=== PATIENT | female | born 1990 | race Caucasian/White ===

== ENCOUNTER → 2020-12-27 09:45 | Outpatient (BNVA) | payer MEDICARE, MEDICAID, SELFPAY | PROVIDERS: PCP Nurse Practitioner Family; Visit Provider Nurse Practitioner Psychiatric/Mental Health | DX: F11.20 Opioid dependence, uncomplicated (principal); Z51.81 Encounter for therapeutic drug level monitoring; G47.411 Narcolepsy with cataplexy; E05.00 Thyrotoxicosis with diffuse goiter without thyrotoxic crisis or storm; F17.210 Nicotine dependence, cigarettes, uncomplicated | CPT/HCPCS: 80305 ==

== ENCOUNTER → 2021-01-03 14:29 | Outpatient (BNVA) | payer MEDICARE, MEDICAID, SELFPAY | PROVIDERS: PCP Nurse Practitioner Family; Visit Provider Nurse Practitioner Psychiatric/Mental Health | DX: F11.20 Opioid dependence, uncomplicated (principal) | CPT/HCPCS: 80305 ==

== ENCOUNTER → 2021-01-10 13:03 | Outpatient (BNVA) | payer MEDICARE, MEDICAID, SELFPAY | PROVIDERS: PCP Nurse Practitioner Family; Visit Provider Nurse Practitioner Psychiatric/Mental Health | DX: F11.20 Opioid dependence, uncomplicated (principal) | CPT/HCPCS: 80305 ==

== ENCOUNTER → 2021-01-17 13:43 | Outpatient (BNVA) | payer OTHER, SELFPAY | PROVIDERS: Visit Provider Nurse Practitioner Psychiatric/Mental Health ==

== ENCOUNTER → 2021-01-24 13:03 | Outpatient (BNVA) | payer MEDICARE, MEDICAID, SELFPAY | PROVIDERS: Visit Provider Nurse Practitioner Psychiatric/Mental Health | DX: F11.20 Opioid dependence, uncomplicated (principal); F17.210 Nicotine dependence, cigarettes, uncomplicated | CPT/HCPCS: 80305 ==

== ENCOUNTER → 2021-02-07 13:00 | Outpatient (BNVA) | payer MEDICARE, MEDICAID, SELFPAY | PROVIDERS: Visit Provider Nurse Practitioner Psychiatric/Mental Health | DX: F11.20 Opioid dependence, uncomplicated (principal); Z51.81 Encounter for therapeutic drug level monitoring; Z79.899 Other long term (current) drug therapy | CPT/HCPCS: 80305 ==

== ENCOUNTER → 2021-02-14 13:00 | Outpatient (BNVA) | payer MEDICARE, MEDICAID, SELFPAY | PROVIDERS: Visit Provider Nurse Practitioner Psychiatric/Mental Health | DX: F11.20 Opioid dependence, uncomplicated (principal) | CPT/HCPCS: 80305 ==

== ENCOUNTER → 2021-02-21 13:43 | Outpatient (BNVA) | payer MEDICARE, MEDICAID, SELFPAY | PROVIDERS: Visit Provider Nurse Practitioner Psychiatric/Mental Health | DX: F11.20 Opioid dependence, uncomplicated (principal); F17.210 Nicotine dependence, cigarettes, uncomplicated | CPT/HCPCS: 80305 ==

== ENCOUNTER → 2021-03-07 14:13 | Outpatient (BNVA) | payer MEDICARE, MEDICAID, SELFPAY | PROVIDERS: Visit Provider Nurse Practitioner Psychiatric/Mental Health | DX: F11.20 Opioid dependence, uncomplicated (principal); F17.210 Nicotine dependence, cigarettes, uncomplicated; Z91.041 Radiographic dye allergy status | CPT/HCPCS: 80305 ==

== ENCOUNTER → 2021-03-28 13:55 | Outpatient (BNVA) | payer MEDICARE, MEDICAID, SELFPAY | PROVIDERS: Visit Provider Nurse Practitioner Psychiatric/Mental Health | DX: F11.20 Opioid dependence, uncomplicated (principal) | CPT/HCPCS: 80305 ==

== ENCOUNTER → 2021-04-11 10:05 | Outpatient (BNVA) | payer MEDICARE, MEDICAID, SELFPAY | PROVIDERS: Visit Provider Nurse Practitioner Psychiatric/Mental Health | DX: F11.20 Opioid dependence, uncomplicated (principal) | CPT/HCPCS: 80305 ==

== ENCOUNTER → 2021-04-25 10:04 | Outpatient (BNVA) | payer MEDICARE, MEDICAID, SELFPAY | PROVIDERS: Visit Provider Nurse Practitioner Psychiatric/Mental Health | DX: F11.20 Opioid dependence, uncomplicated (principal); Z51.81 Encounter for therapeutic drug level monitoring | CPT/HCPCS: 80305; 99212 ==

== ENCOUNTER → 2021-05-16 10:18 | Outpatient (BNVA) | payer MEDICARE, MEDICAID, SELFPAY | PROVIDERS: Visit Provider Nurse Practitioner Psychiatric/Mental Health | DX: F11.20 Opioid dependence, uncomplicated (principal) | CPT/HCPCS: 80305; 99212 ==

== ENCOUNTER → 2021-06-06 10:26 | Outpatient (BNVA) | payer MEDICARE, MEDICAID, SELFPAY | PROVIDERS: Visit Provider Nurse Practitioner Psychiatric/Mental Health | DX: F11.20 Opioid dependence, uncomplicated (principal) | CPT/HCPCS: 80305; 99212 ==

== ENCOUNTER 2021-06-27 09:54 | Outpatient (REF) | payer MEDICARE, MEDICAID, SELFPAY | END 2021-06-27 09:55 | disposition home or self-care (01) | LOC: HO.LAB 09:54 | PROVIDERS: Visit Provider Nurse Practitioner Psychiatric/Mental Health | DX: F11.20 Opioid dependence, uncomplicated (principal); Z79.899 Other long term (current) drug therapy | CPT/HCPCS: 80305; 80348; 80362; 99212 ==

== ENCOUNTER → 2021-07-18 10:35 | Outpatient (BNVA) | payer MEDICARE, MEDICAID, SELFPAY | PROVIDERS: Visit Provider Nurse Practitioner Psychiatric/Mental Health | DX: Z51.81 Encounter for therapeutic drug level monitoring (principal); F11.20 Opioid dependence, uncomplicated | CPT/HCPCS: 80305; 99211 ==

== ENCOUNTER → 2021-08-08 10:46 | Outpatient (BNVA) | payer MEDICARE, MEDICAID, SELFPAY | PROVIDERS: Visit Provider Nurse Practitioner Psychiatric/Mental Health | DX: F11.20 Opioid dependence, uncomplicated (principal) | CPT/HCPCS: 80305; 99211 ==

== ENCOUNTER → 2021-09-05 10:46 | Outpatient (BNVA) | payer MEDICARE, MEDICAID, SELFPAY | PROVIDERS: Visit Provider Nurse Practitioner Psychiatric/Mental Health | DX: Z51.81 Encounter for therapeutic drug level monitoring (principal); F11.20 Opioid dependence, uncomplicated | CPT/HCPCS: 80305; 99212 ==

== ENCOUNTER → 2021-10-03 11:14 | Outpatient (BNVA) | payer MEDICARE, MEDICAID, SELFPAY | PROVIDERS: Visit Provider Nurse Practitioner Psychiatric/Mental Health | DX: Z51.81 Encounter for therapeutic drug level monitoring (principal); Z79.899 Other long term (current) drug therapy | CPT/HCPCS: 80305; 99211 ==

== ENCOUNTER 2021-10-24 10:51 | Outpatient (REF) | payer MEDICARE, MEDICAID, SELFPAY ==
[2021-10-24 12:15] LABS: Alanine Aminotransferase 20 U/L (0-31); Albumin Level 4.4 g/dL (3.5-5.0); Alkaline Phosphatase 80 U/L (39-117); Aspartate Amino Transferase 20 U/L (5-31); Bilirubin Direct < 0.2 mg/dL (0.0-0.5); Bilirubin Total 0.3 mg/dL (0.0-1.0); Total Protein 7.4 g/dL (6.5-8.0)
== END 2021-10-24 10:52 | disposition home or self-care (01) ==
LOC: HO.LAB 10:51
PROVIDERS: PCP Nurse Practitioner Family; Visit Provider Nurse Practitioner Psychiatric/Mental Health
DX: Z51.81 Encounter for therapeutic drug level monitoring (principal); Z79.899 Other long term (current) drug therapy
CPT/HCPCS: 36415; 80076; 80305; 99211

== ENCOUNTER → 2021-11-14 11:48 | Outpatient (BNVA) | payer MEDICARE, MEDICAID, SELFPAY | PROVIDERS: PCP Nurse Practitioner Family; Visit Provider Nurse Practitioner Psychiatric/Mental Health | DX: Z51.81 Encounter for therapeutic drug level monitoring (principal); F11.20 Opioid dependence, uncomplicated | CPT/HCPCS: 80305; 99211 ==

== ENCOUNTER → 2021-12-12 11:53 | Outpatient (BNVA) | payer MEDICARE, MEDICAID, SELFPAY | PROVIDERS: PCP Nurse Practitioner Family; Visit Provider Nurse Practitioner Psychiatric/Mental Health | DX: F11.20 Opioid dependence, uncomplicated (principal) | CPT/HCPCS: 80305; 99211 ==

== ENCOUNTER → 2022-01-16 10:18 | Outpatient (BNVA) | payer MEDICARE, MEDICAID, SELFPAY | PROVIDERS: PCP Nurse Practitioner Family; Visit Provider Nurse Practitioner Psychiatric/Mental Health | DX: Z51.81 Encounter for therapeutic drug level monitoring (principal); F11.20 Opioid dependence, uncomplicated | CPT/HCPCS: 80305; 99212 ==

== ENCOUNTER → 2022-02-06 11:53 | Outpatient (BNVA) | payer MEDICARE, MEDICAID, SELFPAY | PROVIDERS: PCP Nurse Practitioner Family; Visit Provider Nurse Practitioner Psychiatric/Mental Health | DX: F11.20 Opioid dependence, uncomplicated (principal); Z51.81 Encounter for therapeutic drug level monitoring; Z79.899 Other long term (current) drug therapy | CPT/HCPCS: Q3014 ==

== ENCOUNTER → 2022-02-27 11:27 | Outpatient (BNVA) | payer MEDICARE, MEDICAID, SELFPAY | PROVIDERS: PCP Nurse Practitioner Family; Visit Provider Nurse Practitioner Psychiatric/Mental Health | DX: F11.20 Opioid dependence, uncomplicated (principal) | CPT/HCPCS: 80305; 99212 ==

== ENCOUNTER → 2022-03-17 11:34 | Outpatient (BNVA) | payer MEDICARE, MEDICAID, SELFPAY | PROVIDERS: PCP Nurse Practitioner Family; Visit Provider Nurse Practitioner Psychiatric/Mental Health | DX: Z51.81 Encounter for therapeutic drug level monitoring (principal); F11.20 Opioid dependence, uncomplicated | CPT/HCPCS: 80305; 99212 ==

== ENCOUNTER → 2022-04-15 11:32 | Outpatient (BNVA) | payer MEDICARE, MEDICAID, SELFPAY | PROVIDERS: PCP Nurse Practitioner Family; Visit Provider Nurse Practitioner Psychiatric/Mental Health | DX: F11.20 Opioid dependence, uncomplicated (principal); Z51.81 Encounter for therapeutic drug level monitoring; Z79.899 Other long term (current) drug therapy | CPT/HCPCS: 80305; 99212 ==

== ENCOUNTER → 2022-05-13 11:37 | Outpatient (BNVA) | payer MEDICARE, MEDICAID, SELFPAY | PROVIDERS: PCP Nurse Practitioner Family; Visit Provider Nurse Practitioner Psychiatric/Mental Health | DX: Z51.81 Encounter for therapeutic drug level monitoring (principal); F11.20 Opioid dependence, uncomplicated | CPT/HCPCS: 80305; 99212 ==

== ENCOUNTER → 2022-06-17 11:46 | Outpatient (BNVA) | payer MEDICARE, MEDICAID, SELFPAY | PROVIDERS: PCP Nurse Practitioner Family; Visit Provider Nurse Practitioner Psychiatric/Mental Health | DX: F11.20 Opioid dependence, uncomplicated (principal) | CPT/HCPCS: 80305; 99212 ==

== ENCOUNTER → 2022-07-15 11:44 | Outpatient (BNVA) | payer MEDICARE, MEDICAID, SELFPAY | PROVIDERS: PCP Nurse Practitioner Family; Visit Provider Nurse Practitioner Psychiatric/Mental Health | DX: Z51.81 Encounter for therapeutic drug level monitoring (principal); F11.20 Opioid dependence, uncomplicated | CPT/HCPCS: 99212 ==

== ENCOUNTER → 2022-09-09 11:44 | Outpatient (BNVA) | payer MEDICARE, MEDICAID, SELFPAY | PROVIDERS: PCP Nurse Practitioner Family; Visit Provider Nurse Practitioner Psychiatric/Mental Health | DX: Z51.81 Encounter for therapeutic drug level monitoring (principal); F11.20 Opioid dependence, uncomplicated | CPT/HCPCS: 80305; 99212 ==

== ENCOUNTER → 2022-11-04 11:01 | Outpatient (BNVA) | payer MEDICARE, MEDICAID, SELFPAY | PROVIDERS: PCP Nurse Practitioner Family; Visit Provider Nurse Practitioner Psychiatric/Mental Health | DX: F11.20 Opioid dependence, uncomplicated (principal); F17.210 Nicotine dependence, cigarettes, uncomplicated; Z51.81 Encounter for therapeutic drug level monitoring; Z79.899 Other long term (current) drug therapy | CPT/HCPCS: 99212 ==

== ENCOUNTER → 2022-12-30 11:08 | Outpatient (BNVA) | payer MEDICARE, MEDICAID, SELFPAY | PROVIDERS: PCP Nurse Practitioner Family; Visit Provider Nurse Practitioner Psychiatric/Mental Health | DX: F11.20 Opioid dependence, uncomplicated (principal) | CPT/HCPCS: 80305; 99212 ==

== ENCOUNTER 2023-03-12 15:12 | Outpatient (AMB) | payer MEDICARE, MEDICAID, SELFPAY ==
--- NOTE | 2023-03-12 15:13 | A.OFFVIS_ITS ---
Intake Vital Signs 03/12/23 15:20 BP 122/74 Blood Pressure Location Lt radial Position Sitting Pulse 99 Pulse Source Pulse Oximeter Pulse Oximetry (%) 99 Oxygen Delivery Method Room Air Intake Visit Reasons: mat visit Intake Note: the patient presents for a mat visit Manager Voice Required: No Allergies Iodinated Contrast Media Allergy (Intermediate, Verified 03/12/23 15:21) rash Do you need a note to return to daycare/school/sports/work: No HPI mat visit HPI Details Pt presents for OUD treatment follow up Currently being prescribed Suboxone 12 mg daily Denies any side effects related to medication Doing well with recovery. [facility] Social History Patient Tobacco Use Status: Current someday Tobacco user Tobacco use type: Cigarette Review of Systems Const Reports as per HPI and Reports no additional complaints Physical Exam Vital Signs: Last Vital Signs Pulse 99 03/12/23 15:20 BP 122/74 03/12/23 15:20 Pulse Ox 99 03/12/23 15:20 Oxygen Delivery Method Room Air 03/12/23 15:20 Const General: cooperative, healthy appearing and no acute distress Psych Appearance: grossly normal Speech and movement: Normal speech and movement present Affect: normal affect Attitude: cooperative Thought process: Normal thought process present Thought content: Normal thought content present Insight: Good insight present (Psych) Judgement: Good judgement present (Psych) Assessment & Plan Assessment & Plan (1) Opioid use disorder: Code(s): F11.99 - Opioid use, unspecified with unspecified opioid-induced disorder Plan: * continue suboxone at current dose * follow up 8 weeks Coding Level of Care Code Est Pt Level 3 (71437) Diagnoses Opioid use disorder F11.99
[2023-03-12 15:20] VITALS: BP 122/74; PULSE 99; O2SAT 99
== END 2023-03-12 15:52 | disposition home or self-care (01) ==
LOC: HO.HCC 15:12
PROVIDERS: PCP Nurse Practitioner Family; Visit Provider Nurse Practitioner Psychiatric/Mental Health
DX: F11.99 Opioid use, unspecified with unspecified opioid-induced disorder (principal)
CPT/HCPCS: 99213

== ENCOUNTER → 2023-03-12 15:12 | Outpatient (BNVA) | payer MEDICARE, MEDICAID, SELFPAY | PROVIDERS: PCP Nurse Practitioner Family; Visit Provider Nurse Practitioner Psychiatric/Mental Health | DX: F11.20 Opioid dependence, uncomplicated (principal) | CPT/HCPCS: 99212 ==

== ENCOUNTER 2023-05-18 10:36 | Outpatient (AMB) | payer MEDICARE, MEDICAID, SELFPAY ==
--- NOTE | 2023-05-18 09:37 | MHC.AM.SUB ---
Intake Intake Visit Reasons: MAT Visit Allergies Iodinated Contrast Media Allergy (Intermediate, Verified 03/12/23 15:21) rash HPI MAT Visit HPI Details Patient presents for follow up via telehealth Car broken down, unable to come in Reports that she continues to do well with recovery BF children living with their mother currently. Has some working coming up soon [facility] Social History Patient Tobacco Use Status: Current someday Tobacco user Tobacco use type: Cigarette Review of Systems Const Reports as per HPI and Reports no additional complaints Assessment & Plan Assessment & Plan (1) Opioid use disorder, severe, in sustained remission: Code(s): F11.21 - Opioid dependence, in remission Plan: continue suboxone 12mg QD discussed brixadi --as patient is considering tapering Telehealth Telehealth Location of provider rendering services: practice address Location of patient: address on file Patient Identification confirmed using: Name, : Yes Telehealth method: voice only Patient verbally consented to treatment: Yes Patient verbally consented to billing insurance company: Yes Coding Level of Care Code Tele Est Pt Level 3 (58119) Diagnoses Opioid use disorder, severe, in sustained remission F11.21 Time Spent (min) 25 Comment 15 mins with patient, remainder on chart review and documentation
== END 2023-05-18 10:37 | disposition home or self-care (01) ==
LOC: HO.HCC 10:36
PROVIDERS: PCP Nurse Practitioner Family; Visit Provider Nurse Practitioner Psychiatric/Mental Health
DX: F11.21 Opioid dependence, in remission (principal)
CPT/HCPCS: 99442

== ENCOUNTER → 2023-05-18 10:36 | Outpatient (BNVA) | payer MEDICARE, MEDICAID, SELFPAY | PROVIDERS: PCP Nurse Practitioner Family; Visit Provider Nurse Practitioner Psychiatric/Mental Health ==

== ENCOUNTER 2023-07-07 11:13 | Outpatient (AMB) | payer MEDICARE, MEDICAID, SELFPAY ==
--- NOTE | 2023-07-07 12:18 | A.OFFVISCC_ITS ---
Intake Intake Visit Reasons: MAT VISIT Allergies Iodinated Contrast Media Allergy (Intermediate, Verified 03/12/23 15:21) rash HPI HPI Comments History of Present Illness Details Patient presents to the clinic today for treatment and follow up She reports missing her last appt because her car broke down. She also reports her partner broke his ankle and that has presented some challenges for her. She is hoping when her partner is all squared away medically to begin tapering her suboxone dose. She is currently at 12mg/day. She has no recovery or medication related concerns today. [facility] Social History Patient Tobacco Use Status: Current someday Tobacco user Tobacco use type: Cigarette Review of Systems Const Reports as per HPI Physical Exam Const General: cooperative, healthy appearing and no acute distress Resp Effort & Inspection: normal respiratory effort Psych Appearance: grossly normal and well kempt Mental Status: mental status grossly normal Speech and movement: Normal speech and movement present Insight: Good insight present (Psych) Judgement: Good judgement present (Psych) Results AMB 14 Panel Urine Drug Screen Urine Marijuana (THC) Positive Last Edit by Francisca Carrillo NP on 07/07/23 12:23 Urine Cocaine Negative Last Edit by Francisca Carrillo NP on 07/07/23 12:23 Urine Morphine Negative Last Edit by Francisca Carrillo NP on 07/07/23 12:23 Urine Methamphetamine Negative Last Edit by Francisca Carrillo NP on 07/07/23 12:23 Urine Amphetamine Negative Last Edit by Francisca Carrillo NP on 07/07/23 12:2 3 Urine Benzodiazepine Negative Last Edit by Francisca Carrillo NP on 07/07/23 12:23 Urine Barbiturates Negative Last Edit by Francisca Carrillo NP on 07/07/23 12: 23 Urine Methadone Negative Last Edit by Francisca Carrillo NP on 07/07/23 12:23 Urine Buprenorphine Positive Last Edit by Francisca Carrillo NP on 07/07/23 12 :23 Urine Tricyclic Antidepressant Positive Last Edit by Francisca Carrillo NP on 07/07/23 12:23 Urine MDMA Negative Last Edit by Francisca Carrillo NP on 07/07/23 12:23 Urine Oxycodone Negative Last Edit by Francisca Carrillo NP on 07/07/23 12:23 Urine Phencyclidine Negative Last Edit by Francisca Carrillo NP on 07/07/23 12 :23 Urine Propoxyphene Negative Last Edit by Francisca Carrillo NP on 07/07/23 12: 23 Assessment & Plan Assessment & Plan (1) Opioid use disorder, severe, in sustained remission: Code(s): F11.21 - Opioid dependence, in remission Plan: -Refill suboxone at current dose -Follow up 8 weeks -Mass pat reviewed Orders: Orders AMB 14 Panel Urine Drug Screen Today F11.21 - Opioid dependence, in remission Medications: Refilled buprenorphine-naloxone 12-3 mg (Suboxone) 1 film buccal DAILY 56 ea 0RF Coding Level of Care Code Est Pt Level 3 (68521) Diagnoses Opioid use disorder, severe, in sustained remission F11.21
== END 2023-07-07 11:33 | disposition home or self-care (01) ==
PROVIDERS: PCP Nurse Practitioner Family; Visit Provider Nurse Practitioner Family
DX: F11.21 Opioid dependence, in remission (principal)
CPT/HCPCS: 99213

== ENCOUNTER → 2023-07-07 11:13 | Outpatient (BNVA) | payer MEDICARE, MEDICAID, SELFPAY | PROVIDERS: PCP Nurse Practitioner Family; Visit Provider Nurse Practitioner Family | DX: F11.20 Opioid dependence, uncomplicated (principal) | CPT/HCPCS: 80305; 99212 ==

== ENCOUNTER 2023-09-01 11:10 | Outpatient (AMB) | payer MEDICARE, MEDICAID, SELFPAY ==
--- NOTE | 2023-09-01 11:17 | A.OFFVISCC_ITS ---
Intake Vital Signs 09/01/23 11:26 BP 135/80 Blood Pressure Location Rt radial Position Sitting Pulse 65 Pulse Source Pulse Oximeter Pulse Oximetry (%) 98 Oxygen Delivery Method Room Air Intake Visit Reasons: MAT VISIT Allergies Iodinated Contrast Media Allergy (Intermediate, Verified 03/12/23 15:21) rash HPI MAT VISIT HPI Details Patient presents for follow up Currently prescribed Suboxone 12mg QD Still having issues with stepdaughter --may be placed in a youth program in near future Discussed how stressors impact recovery. Patient feels strong in her recovery and finds her boyfriend to be very supportive. [facility] Social History Patient Tobacco Use Status: Current someday Tobacco user Tobacco use type: Cigarette Review of Systems Const Reports as per HPI and Reports no additional complaints Physical Exam Vital Signs: Last Vital Signs Pulse 65 09/01/23 11:26 BP 135/80 09/01/23 11:26 Pulse Ox 98 09/01/23 11:26 Oxygen Delivery Method Room Air 09/01/23 11:26 Const General: cooperative, healthy appearing and no acute distress Nutritional Appearance: average body habitus Orientation/consciousness: patient oriented x3 Limitations: no limitations Neuro General: patient oriented x3 Psych Appearance: well kempt Speech and movement: Normal speech and movement present Affect: normal affect Attitude: cooperative Thought process: Normal thought process present Thought content: Normal thought content present Results AMB 14 Panel Urine Drug Screen Urine Marijuana (THC) Positive Last Edit by Shaila Epstein RN on 09/01/23 11:29 Urine Cocaine Negative Last Edit by Shaila Epstein RN on 09/01/23 11:29 Urine Morphine Negative Last Edit by Shaila Epstein RN on 09/01/23 11:29 Urine Methamphetamine Negative Last Edit by Shaila Epstein RN on 09/01/23 11:29 Urine Amphetamine Negative Last Edit by Shaila Epstein RN on 09/01/23 11:29 Urine Benzodiazepine Negative Last Edit by Shaila Epstein RN on 09/01/23 11 :29 Urine Barbiturates Negative Last Edit by Shaila Epstein RN on 09/01/23 11:2 9 Urine Methadone Negative Last Edit by Shaila Epstein RN on 09/01/23 11:29 Urine Buprenorphine Positive Last Edit by Shaila Epstein RN on 09/01/23 11: 29 Urine Tricyclic Antidepressant Positive Last Edit by Shaila Epstein RN on 09/01/23 11:29 Urine MDMA Negative Last Edit by Shaila Epstein RN on 09/01/23 11:29 Urine Oxycodone Negative Last Edit by Shaila Epstein RN on 09/01/23 11:29 Urine Phencyclidine Negative Last Edit by Shaila Epstein RN on 09/01/23 11: 29 Urine Propoxyphene Negative Last Edit by Shaila Epstein RN on 09/01/23 11:2 9 Results Reviewed Results Reviewed: Laboratory Last Values POC Urine Buprenorphine Positive 09/01/23 11:28 POC Urine Morphine Negative 09/01/23 11:28 POC Urine Oxycodone Negative 09/01/23 11:28 POC Urine Methadone Negative 09/01/23 11:28 POC Urine Propoxyphene Negative 09/01/23 11:28 POC Urine Barbiturates Negative 09/01/23 11:28 POC U Tricyclic Antidpr Positive 09/01/23 11:28 POC Urine PCP Negative 09/01/23 11:28 POC Ur Amphetamines Negative 09/01/23 11:28 POC Ur Methamphetamine Negative 09/01/23 11:28 POC Urine MDMA Negative 09/01/23 11:28 POC Ur Benzodiazepine Negative 09/01/23 11:28 POC Urine Cocaine Negative 09/01/23 11:28 POC Ur Marijuana (THC) Positive 09/01/23 11:28 Assessment & Plan Assessment & Plan (1) Opioid use disorder, severe, in sustained remission: Code(s): F11.21 - Opioid dependence, in remission Plan: -continue suboxone at current dose follow up 8 weeks -encouraged to call office prior to next appt if needed Orders: Orders AMB 14 Panel Urine Drug Screen Today F11.21 - Opioid dependence, in remission Medications: Refilled buprenorphine-naloxone 12-3 mg (Suboxone) 1 film buccal DAILY 56 ea 0RF Coding Level of Care Code Est Pt Level 3 (72207) Diagnoses Opioid use disorder, severe, in sustained remission F11.21
[2023-09-01 11:26] VITALS: BP 135/80; PULSE 65; O2SAT 98
== END 2023-09-01 11:50 | disposition home or self-care (01) ==
LOC: HO.HCC 11:11
PROVIDERS: PCP Nurse Practitioner Family; Visit Provider Nurse Practitioner Psychiatric/Mental Health
DX: F11.21 Opioid dependence, in remission (principal)
CPT/HCPCS: 99213

== ENCOUNTER → 2023-09-01 11:10 | Outpatient (BNVA) | payer MEDICARE, MEDICAID, SELFPAY | PROVIDERS: PCP Nurse Practitioner Family; Visit Provider Nurse Practitioner Psychiatric/Mental Health | DX: Z51.81 Encounter for therapeutic drug level monitoring (principal); F11.21 Opioid dependence, in remission | CPT/HCPCS: 80305; 99212 ==

== ENCOUNTER 2023-10-26 11:37 | Outpatient (AMB) | payer MEDICARE, MEDICAID, SELFPAY ==
[2023-10-26 11:42] VITALS: BP 120/60; PULSE 89; RESP 19; O2SAT 98
--- NOTE | 2023-10-26 11:42 | MHC.AM.SUB ---
Vital Signs 10/26/23 11:42 BP 120/60 Blood Pressure Location Rt radial Position Sitting Respiration 19 Pulse 89 Pulse Source Pulse Oximeter Pulse Oximetry (%) 98 Intake Visit Reasons: mat visit Allergies Iodinated Contrast Media Allergy (Intermediate, Verified 03/12/23 15:21) rash HPI HPI mat visit: Details: Patient presents for follow up No issues related to recovery--Suboxone dose still adequate at 8mg QD Patient sharing challenges at home--reviewed self care. Patient currently not doing any self care work. Working on boundaries with people in her life requesting therapy referral, ready to meet with someone in person to work through some things Depressive sx--sadness, decreased motivation, lack of enjoyment, increased sleep, racing thoughts PFSH Social History Patient Tobacco Use Status: Current someday Tobacco user Tobacco use type: Cigarette Review of Systems Const Reports as per HPI Physical Exam Vital Signs: Last Vital Signs Pulse 89 10/26/23 11:42 Resp 19 10/26/23 11:42 BP 120/60 10/26/23 11:42 Pulse Ox 98 10/26/23 11:42 Const General: cooperative, healthy appearing and no acute distress Nutritional Appearance: average body habitus Orientation/consciousness: patient oriented x3 Limitations: no limitations Neuro General: patient oriented x3 Psych Appearance: well kempt Speech and movement: Normal speech and movement present Affect: normal affect Attitude: cooperative Thought process: Normal thought process present Thought content: Normal thought content present Assessment & Plan Assessment & Plan (1) Opioid use disorder, severe, in sustained remission: Code(s): F11.21 - Opioid dependence, in remission Category: Medical Plan: -continue suboxone at current dose -follow up 4 weeks -encouraged to call office prior to next appt if needed -referral sent to RN for therapy
== END 2023-10-27 15:00 | disposition home or self-care (01) ==
LOC: HO.HCC 11:37
PROVIDERS: PCP Nurse Practitioner Family; Visit Provider Nurse Practitioner Psychiatric/Mental Health
DX: F11.21 Opioid dependence, in remission (principal)
CPT/HCPCS: 99213

== ENCOUNTER → 2023-10-26 11:37 | Outpatient (BNVA) | payer MEDICARE, MEDICAID, SELFPAY | PROVIDERS: PCP Nurse Practitioner Family; Visit Provider Nurse Practitioner Psychiatric/Mental Health | DX: F11.21 Opioid dependence, in remission (principal) | CPT/HCPCS: 99212 ==

== ENCOUNTER 2023-11-23 10:38 | Outpatient (AMB) | payer MEDICARE, MEDICAID, SELFPAY ==
[2023-11-23 10:43] VITALS: BP 146/84; PULSE 86; O2SAT 97
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
== END 2023-11-23 11:08 | disposition home or self-care (01) ==
PROVIDERS: PCP Nurse Practitioner Family; Visit Provider Nurse Practitioner Psychiatric/Mental Health
DX: F11.21 Opioid dependence, in remission (principal)
CPT/HCPCS: 99213

== ENCOUNTER → 2023-11-23 10:38 | Outpatient (BNVA) | payer MEDICARE, MEDICAID, SELFPAY | PROVIDERS: PCP Nurse Practitioner Family; Visit Provider Nurse Practitioner Psychiatric/Mental Health | DX: F11.21 Opioid dependence, in remission (principal) | CPT/HCPCS: 99212 ==

== ENCOUNTER 2023-12-22 10:35 | Outpatient (AMB) | payer MEDICARE, MEDICAID, SELFPAY ==
--- NOTE | 2023-12-24 13:55 | A.OFFVISCC_ITS ---
Intake Visit Reasons: mat visit Allergies Iodinated Contrast Media Allergy (Intermediate, Verified 03/12/23 15:21) rash HPI HPI mat visit: Details: Patient presents for follow up Currently prescribed Suboxone 12mg daily Sad affect during visit Stressors at home continue. Limited to no supports. Unable to identify any outlets for herself. Denies any thoughts to use substances, feels this is the only positive thing I have in my life . Provided supportive listening [facility] Medical History (Updated 12/24/23 @ 14:00 by Mely Luevano CNP) Opioid use disorder Social History Patient Tobacco Use Status: Current someday Tobacco user Tobacco use type: Cigarette Review of Systems Const Reports as per HPI Physical Exam Const General: cooperative, alert and awake Nutritional Appearance: average body habitus Limitations: physical limitations (difficulty walking due to sciatic nerve) Psych Appearance: grossly normal Speech and movement: Clear speech present Affect: Sad affect present and Blunted affect present Attitude: cooperative Thought content: Depressive thoughts present Insight: Good insight present (Psych) Judgement: Good judgement present (Psych) Assessment & Plan Assessment & Plan (1) Opioid use disorder, severe, in sustained remission: Code(s): F11.21 - Opioid dependence, in remission Category: Medical Plan: * continue suboxone at current dose * encouraged to call office with any questions or concerns * follow up one month
== END 2023-12-22 11:17 | disposition home or self-care (01) ==
PROVIDERS: PCP Nurse Practitioner Family; Visit Provider Nurse Practitioner Psychiatric/Mental Health
DX: F11.21 Opioid dependence, in remission (principal)
CPT/HCPCS: 99213

== ENCOUNTER → 2023-12-22 10:35 | Outpatient (BNVA) | payer MEDICARE, MEDICAID, SELFPAY | PROVIDERS: PCP Nurse Practitioner Family; Visit Provider Nurse Practitioner Psychiatric/Mental Health | DX: F11.20 Opioid dependence, uncomplicated (principal) | CPT/HCPCS: 99212 ==

== ENCOUNTER 2024-02-12 11:35 | Outpatient (AMB) | payer MEDICARE, MEDICAID, SELFPAY ==
--- NOTE | 2024-02-12 11:45 | A.OFFVISCC_ITS ---
Intake Visit Reasons: mat visit Allergies Iodinated Contrast Media Allergy (Intermediate, Verified 03/12/23 15:21) rash HPI HPI mat visit: Details: Patient presents for follow up Currently prescribed Suboxone 12mg daily Brighter affect today Things positive at home--kids are not there No issues related to suboxone PFSH Medical History (Updated 12/24/23 @ 14:00 by Mely Luevano CNP) Opioid use disorder Social History Patient Tobacco Use Status: Current someday Tobacco user Tobacco use type: Cigarette Review of Systems Const Reports as per HPI and Reports no additional complaints Physical Exam Const General: cooperative, healthy appearing, no acute distress and well groomed Nutritional Appearance: average body habitus Orientation/consciousness: patient oriented x3 Limitations: no limitations Neuro General: patient oriented x3 Assessment & Plan Assessment & Plan (1) Opioid use disorder, severe, in sustained remission: Code(s): F11.21 - Opioid dependence, in remission Category: Medical Plan: * no change to dose * refill not yet due * follow up 6 weeks
== END 2024-02-12 12:06 | disposition home or self-care (01) ==
PROVIDERS: PCP Nurse Practitioner Family; Visit Provider Nurse Practitioner Psychiatric/Mental Health
DX: F11.21 Opioid dependence, in remission (principal)
CPT/HCPCS: 99213

== ENCOUNTER → 2024-02-12 11:35 | Outpatient (BNVA) | payer MEDICARE, MEDICAID, SELFPAY | PROVIDERS: PCP Nurse Practitioner Family; Visit Provider Nurse Practitioner Psychiatric/Mental Health | DX: F11.21 Opioid dependence, in remission (principal); Z51.81 Encounter for therapeutic drug level monitoring | CPT/HCPCS: 99212 ==

== ENCOUNTER 2024-03-24 11:06 | Outpatient (AMB) | payer MEDICARE, MEDICAID, SELFPAY ==
--- NOTE | 2024-03-24 11:22 | A.OFFVISCC_ITS ---
Intake Visit Reasons: mat visit Allergies Iodinated Contrast Media Allergy (Intermediate, Verified 03/12/23 15:21) rash HPI HPI mat visit: Details: Patient presents for follow up Currently prescribed 12 mg daily No issues related to recovery PFSH Medical History (Updated 12/24/23 @ 14:00 by Mely Luevano CNP) Opioid use disorder Social History Patient Tobacco Use Status: Current someday Tobacco user Tobacco use type: Cigarette Review of Systems Const Reports as per HPI and Reports no additional complaints Physical Exam Const General: cooperative, healthy appearing, no acute distress and well groomed Nutritional Appearance: average body habitus Orientation/consciousness: patient oriented x3 Limitations: no limitations Neuro General: patient oriented x3 Assessment & Plan Assessment & Plan (1) Opioid use disorder, severe, in sustained remission: Code(s): F11.21 - Opioid dependence, in remission Category: Medical Plan: * no change to dose * refill not yet due * follow up 8 weeks
== END 2024-03-24 11:38 | disposition home or self-care (01) ==
PROVIDERS: PCP Nurse Practitioner Family; Visit Provider Nurse Practitioner Psychiatric/Mental Health
DX: F11.21 Opioid dependence, in remission (principal)
CPT/HCPCS: 99213

== ENCOUNTER → 2024-03-24 11:06 | Outpatient (BNVA) | payer MEDICARE, MEDICAID, SELFPAY | PROVIDERS: PCP Nurse Practitioner Family; Visit Provider Nurse Practitioner Psychiatric/Mental Health | DX: F11.21 Opioid dependence, in remission (principal) | CPT/HCPCS: 99212 ==

== ENCOUNTER 2024-05-18 11:04 | Outpatient (AMB) | payer MEDICARE, MEDICAID, SELFPAY ==
--- NOTE | 2024-05-18 11:17 | A.OFFVISCC_ITS ---
Intake Visit Reasons: mat visit Allergies Iodinated Contrast Media Allergy (Intermediate, Verified 03/12/23 15:21) rash HPI HPI mat visit: Details: Patient presents for follow up Currently prescribed Suboxone 12mg daily Tolerating current dose continues to feel strong in her recovery --well supported by her partner Some stressors related to her father's health--cancer has spread Review of Systems Const Reports as per HPI and Reports no additional complaints Physical Exam Const General: cooperative, healthy appearing and well groomed Nutritional Appearance: average body habitus Orientation/consciousness: patient oriented x3 Limitations: no limitations Neuro General: patient oriented x3 Assessment & Plan Assessment & Plan (1) Opioid use disorder, severe, in sustained remission: Code(s): F11.21 - Opioid dependence, in remission Category: Medical Plan: * no changes to current dose * follow up 2 months [facility] Medical History (Updated 12/24/23 @ 14:00 by Mely Luevano CNP) Opioid use disorder Social History Patient Tobacco Use Status: Current someday Tobacco user Tobacco use type: Cigarette
== END 2024-05-18 11:43 | disposition home or self-care (01) ==
PROVIDERS: PCP Nurse Practitioner Family; Visit Provider Nurse Practitioner Psychiatric/Mental Health
DX: F11.21 Opioid dependence, in remission (principal)
CPT/HCPCS: 99213

== ENCOUNTER → 2024-05-18 11:04 | Outpatient (BNVA) | payer MEDICARE, MEDICAID, SELFPAY | PROVIDERS: PCP Nurse Practitioner Family; Visit Provider Nurse Practitioner Psychiatric/Mental Health | DX: F11.21 Opioid dependence, in remission (principal); Z79.899 Other long term (current) drug therapy | CPT/HCPCS: 99212 ==

== ENCOUNTER 2024-07-22 09:03 | Outpatient (AMB) | payer MEDICARE, MEDICAID, SELFPAY ==
--- NOTE | 2024-07-22 09:04 | MHC.AM.SUB ---
Intake Visit Reasons: Follow up Allergies Iodinated Contrast Media Allergy (Intermediate, Verified 03/12/23 15:21) rash [facility] Follow up: Details: Patient presents for follow up via telehealth Currently prescribed Suboxone 12mg daily Tolerating current dose Denies any issues related to recovery Review of Systems Const Reports as per [facility] Telehealth Telehealth Telehealth Platform: Telephone Location of provider rendering services: practice address Location of patient: address on file Patient Identification confirmed using: Name, : Yes Telehealth method: voice only Patient verbally consented to treatment: Yes Patient verbally consented to billing insurance company: Yes Minutes spent on Phone/Video with Pt.: 15 [facility] Medical History (Updated 12/24/23 @ 14:00 by Mely Luevano CNP) Opioid use disorder Social History Patient Tobacco Use Status: Current someday Tobacco user Tobacco use type: Cigarette Assessment & Plan Assessment & Plan (1) Opioid use disorder, severe, in sustained remission: Code(s): F11.21 - Opioid dependence, in remission Category: Medical Plan: continue suboxone at current dose follow up 2 months
== END 2024-07-22 10:10 | disposition home or self-care (01) ==
PROVIDERS: PCP Nurse Practitioner Family; Visit Provider Nurse Practitioner Psychiatric/Mental Health
DX: F11.21 Opioid dependence, in remission (principal)
CPT/HCPCS: 98016

== ENCOUNTER 2024-09-16 11:09 | Outpatient (AMB) | payer MEDICARE, MEDICAID, SELFPAY ==
--- NOTE | 2024-09-16 11:17 | MHC.AM.SUB ---
Intake Visit Reasons: Follow up Allergies Iodinated Contrast Media Allergy (Intermediate, Verified 03/12/23 15:21) rash HPI HPI Follow up: Details: Patient presents for follow up Currently prescribed Suboxone 12mg daily Taking 6mg BID Tolerating current dose Sleep is good Appetite okay Now living with her parents --big change, but overall positive Review of Systems Const Reports as per HPI and Reports no additional complaints Physical Exam Const General: cooperative, healthy appearing and well groomed Nutritional Appearance: average body habitus Orientation/consciousness: patient oriented x3 Limitations: no limitations Neuro General: patient oriented x3 [facility] Medical History (Updated 12/24/23 @ 14:00 by Mely Luevano CNP) Opioid use disorder Social History Patient Tobacco Use Status: Current someday Tobacco user Tobacco use type: Cigarette Assessment & Plan Assessment & Plan (1) Opioid use disorder, severe, in sustained remission: Code(s): F11.21 - Opioid dependence, in remission Category: Medical Plan: continue suboxone at current dose follow up 2 months
--- OUTSIDE RECORDS SUMMARY | 2024-09-16 12:55 | XMS_ITS | Data Portability ---
Author Organization [facility], [facility] Address [address] [place] [address] Care Team Providers Care Software Licensing Specialist Name Role Phone TENZIN RENTERIA Discount Clerk JOSEFINA JUNIOR Systems Integrator BEN CURTIS MD Sleep Medicine ABI ESPINOZA Primary Care Provider Assessment Encounter Date Assessment Date Assessment LastModified by Organization Details LastModified Time 11/21/2016 11/21/2016 26yo woman with a history of narcolepsy, major depressive disorder, in remission, and Graves disease kindly referred by [employer]ER John Graves disease, on methimazole from 2013 for 6mo, off due to insurance issue, then restarted 04/19 to 08/21 due to suppressed tsh, now off again. 11/12/16 total t3 0.85, ft4 0.89, tsh 0.05, ast 14, alt 22, tbil 0.3, 07/31/16 total t3 2.3ng/mL (Ref 0.7, 1.7), ft4 2.5 (ref 0.75, 1.54), tsh lt 0.01, 02/05/16 total t3 0.9ng/mL (ref 0.7, 1.7), ft4 0.98ng/dL, tsh 0.29, 10/16/15 total t3 0.92ng/mL, ft4 0.86ng/dL, tsh 1.6mU/L, 10/12/13 thyroid stimulating immunoglobulin 397%, (ref <140). 10/17/13 thyroid uptake and scan revealed bilateral homogeneous 24h uptake of 84.5% without focal hot or cold nodules (thyroid gland close to 6cm in length; 84.5% uptake verified by discussing with Dr. Noland of radiology). TSH remains low, but thyroid hormone has otherwise improved. Rosie remains asymptomatic. Nevertheless, methimazole would be helpful to prevent osteoporosis and arrhythmia. I suggest reducing methimazole, labs every 3mo, and reviewing in 6mo. We discussed radioactive iodine and surgery as options, which she would not prefer. [email or web address] Not available 11/21/2016 07:44:07 Plan of Treatment Reminders Order Date Submit Date Provider Last Modified By Organization Details Last Modified Time Details Appointments None recorded. Lab hepatitis C virus Ab, serum 2021 022 [facility], [address] [place] [address], [address], 2 09:36:30 TSH, serum or plasma 2021 022 [facility], [address] [place] [address], [address], 2 16:00:41 CMP, serum or plasma 2021 022 [facility], [address] [place] [address], [address], 2 14:50:50 pap, LB + reflex HPV - Pap, LB with reflex HPV if ASCUS - if HPV positive reflex to HPV subtyping 2021 022 [email or web address] 2 [facility] (Pathology), [address] [place] [address], [address], 2 09:18:14 T3, total, serum 2016 017 [facility], [address] [place] [address], [address], 7 11:06:58 T4, free, serum 2016 017 [facility], [address] [place] [address], [address], 7 11:06:59 TSH, serum or plasma 2016 017 [facility], [address] [place] [address], [address], 7 11:47:26 T3, total, serum 2016 017 [facility], [address] [place] [address], [address], 7 09:37:15 T4, free, serum 2016 017 [facility], [address] [place] [address], [address], 7 15:53:37 TSH, serum or plasma 2016 017 [facility], [address] [place] [address], [address], 7 15:53:38 TSH, serum or plasma 2016 018 [facility], [address] [place] [address], [address], 8 01:52:59 Referral physical therapist referral - low back pain with left sciatica 2023 024 [facility], [address] [place], [address], 4 09:15:00 Procedures None recorded. Surgeries None recorded. Imaging CT, chest, w/o contrast - Repeat CT chest 6 weeks s/p aspiratio n pneumonia 2020 021 [facility], [address] [place], [address], 1 14:38:52 Medication Orders cyclobenz aprine 10 mg tablet 2023 024 [id number], [address], [place], [id number], 4 16:22:20 clindamyc in 1 % lotion 2022 023 [id number], [address], [place], [id number], 3 16:27:16 ibuprofen 800 mg tablet 2022 023 [facility] #[id number], [address], [place], [id number], 3 16:32:27 albuterol sulfate HFA 90 mcg/actua tion aerosol inhaler 2020 021 [facility] #[id number], [address], [place], [id number], 4 16:16:21 fluoxetin e 10 mg capsule 2020 021 [email or web address] [id number], [address] [place], [address], 2 16:10:24 methimazo le 5 mg tablet 2016 017 [email or web address] [facility] #[id number], [address] [place], [address], 1 15:03:51 Patient TargetsNo targets recorded. Patient Instructions Encounter Date Encounter Id Patient Instructions Last Modified By Organization Details Last Modified Time 11/21/2016 [id number] -reduce methimaz ole 5mg tabs, 1/2 tab 2.5mg by mouth once daily -labs 3mo, 6mo clinic 25 weeks [email or web address] Not available 11/21/2016 07:42:07 We discussed the risks and benefits of methimazole therapy. Methimazole is highly effective at treating hyperthyroidism and may be stopped as hyperthyroidism resolves. Side effects with methimazole are uncommon. Side effects include low white blood cells and infection, liver disease, arthritis, rash, and other problems. We discussed repeating a blood count if you have a infection or fever to assure your white count has decreased on this medicine. Please call me if you develop fever or other signs of infection while on this medication to arrange for a blood check. If you develop dark urine (orange or tea-colored) urine, light colored stools, or yellowing eyes, stop this medication and let me know. Liver tests should then be tested. [email or web address] Not available 11/21/2016 07:42:26 08/08/2021 [id number] Well Visit, Ages 18 to 65: Care Instructions [email or web address] Not available 08/08/2021 17:58:17 CCM: The provide r and patient discussed the Chronic Care Management program, including the services provided, and any fees associated with them. [email or web address] Not available 08/08/2021 16:05:38 11/20/2022 [id number] Well Visit, Ages 18 to 65: Care Instructions [email or web address] Not available 11/20/2022 16:27:10 After a discussi on of treatment options, which included consideration of best practices, patient preferences, and the patient? s individual lifestyle and treatment goals, as well as consideration and attempted mitigation of any barriers to meeting the patient? s goals, the? ? ?above treatment plan and objectives were adopted: [email or web address] Not available 11/21/2022 08:48:51 11/24/2023 [id number] After a discussi on of treatment options, which included consideration of best practices, patient preferences, and the patient? s individual lifestyle and treatment goals, as well as consideration and attempted mitigation of any barriers to meeting the patient? s goals, the? ? ?above treatment plan and objectives were adopted: [email or web address] Not available 11/25/2023 08:15:43 Reason for Referral Physical Therapist Referral for Low back pain co-occurrent with neuralgia of left sciatic nerve low back pain with left sciatica Referring Physician: Tania Hernández, Family Medicine, Encounter Date: 11/24/2023 Results Created Date Observation Date Name Description Value Unit Range Abnormal Flag Note LastModifiedBy Organization Detail LastModifiedTime 11/13/19 17 11/12/2016 TSH, serum or plasm a TSH 0.05 uIU/m L 0.50-6 .00 low [facility] and [facility] iatio n recom mend goal TSH value s betwe en 0.4-4 .0 mIU/m L. Not Available [address], [address], 11/12/2016 11:06:49 11/13/19 17 11/14/2016 T3, total , serum total T3 0.85 NG/mL 0.70-1 .70 Not Available [address], [address], 11/14/2016 08:49:32 11/13/1911/14/2016 T4, free, serum free T4 0.89 NG/dL 0.75-1 .54 Not Available [address], [address], 11/14/2016 08:49:33 11/13/1911/14/2016 hepat ic funct ion panel , serum total protein 7.7 g/dL 6.4-8. 2 Not Available [address], [address], 11/14/2016 13:34:21 11/13/19 17 11/14/2016 hepat ic funct ion panel , serum albumin 4.4 g/dL 3.4-5. 0 Not Available [address], [address], 11/14/2016 13:34:21 11/13/19 17 11/14/2016 hepat ic funct ion panel , serum globulin 3.3 g/dL Not Available [address], [address], 11/14/2016 13:34:21 11/13/19 17 11/14/2016 hepat ic funct ion panel , serum A/G 1.3 ratio 0.8-2. 0 Not Available [address], [address], 11/14/2016 13:34:21 11/13/19 17 11/14/2016 hepat ic funct ion panel , serum total bilirubin 0.30 mg/dL 0.00-1 .00 Not Available [address], [address], 11/14/2016 13:34:21 11/13/19 17 11/14/2016 hepat ic funct ion panel , serum direct bilirubin 0.10 mg/dL 0.00-0 .30 Not Available [address], [address], 11/14/2016 13:34:21 11/13/19 17 11/14/2016 hepat ic funct ion panel , serum AST 14 U/L 15-37 low Not Available [address], [address], 11/14/2016 13:34:21 11/13/19 17 11/14/2016 hepat ic funct ion panel , serum ALT 22 U/L 30-65 low Not Available [address], [address], 11/14/2016 13:34:21 11/13/19 17 11/14/2016 hepat ic funct ion panel , serum alk. phos. 107 U/L 50-136 Not Available [address], [address], 11/14/2016 13:34:21 02/21/20 17 02/23/2017 T3, total , serum total T3 0.91 NG/mL 0.70-1 .70 Not Available [address], [address], 02/23/2017 11:06:57 02/21/20 17 02/23/2017 T4, free, serum free T4 1.00 NG/dL 0.75-1 .54 Not Available [address], [address], 02/23/2017 11:06:58 02/21/20 17 02/23/2017 TSH, serum or plasm a TSH 0.87 uIU/m L 0.50-6 .00 [facility] and [facility] iatio n recom mend goal TSH value s betwe en 0.4-4 .0 mIU/m L. Not Available [address], [address], 02/23/2017 11:47:26 05/14/20 17 05/14/2017 T4, free, serum free T4 0.86 NG/dL 0.75-1 .54 Not Available [address], [address], 05/14/2017 15:53:37 05/14/20 17 05/14/2017 TSH, serum or plasm a TSH 1.13 uIU/m L 0.50-6 .00 The [facility] and [facility] id [facility] iatio n recom mend goal TSH value s betwe en 0.4-4 .0 mIU/m L. Not Available [address], [address], 05/14/2017 15:53:38 05/14/20 17 05/15/2017 T3, total , serum total T3 1.04 NG/mL 0.70-1 .70 Not Available [address], [address], 05/15/2017 09:37:15 09/12/19 18 09/11/2017 lacta te lactate 1.74 mmol/ L 0.50-2 .20 Not Available [facility] [address] [place] [address], [address], 09/11/2017 01:17:30 09/12/19 18 09/11/2017 gas panel , venou s blood pH, venous 7.35 7.31-7 .41 Not Available [facility] [address] [place] [address], [address], 09/11/2017 01:17:36 09/12/19 18 09/11/2017 gas panel , venou s blood pCO2, venous 48.00 mmHg 41.00- 51.00 Not Available [facility] [address] [place] [address], [address], 09/11/2017 01:17:36 09/12/19 18 09/11/2017 gas panel , venou s blood pO2, venous 33.90 mmHg 35.00- 40.00 low Not Available [facility] [address] [place], [address], 09/11/2017 01:17:36 09/12/19 18 09/11/2017 gas panel , venou s blood HCO3, venous 26 mmol/ L 23-28 Not Available [facility] [address] [place], [address], 09/11/2017 01:17:36 09/12/19 18 09/11/2017 gas panel , venou s blood base deficit venous 0.2 mmol/ L 0.0-2. 0 Not Available [facility] [address] [place], [address], 09/11/2017 01:17:36 09/12/19 18 09/11/2017 gas panel , venou s blood so2, venous 63.30 % 60.00- 80.00 Not Available [facility] [address] [place], [address], 09/11/2017 01:17:36 09/12/19 18 09/11/2017 gas panel , venou s blood fo2hb, venous 62.40 % 71.00- 74.00 low Not Available [facility] [address] [place], [address], 09/11/2017 01:17:36 09/12/19 18 09/11/2017 gas panel , venou s blood carboxy HGB 1.20 % 0-1.50 Not Available [facility] [address] [place], [address], 09/11/2017 01:17:36 09/12/19 18 09/11/2017 gas panel , venou s blood methgb % 0.20 % 0-1.50 Not Available [facility] [address] [place], [address], 09/11/2017 01:17:36 09/12/19 18 09/11/2017 CBC w/ auto diff WBC 12.02 K/uL 3.40-1 1.20 high Not Available [facility] [address] [place], [address], 09/11/2017 01:23:01 09/12/19 18 09/11/2017 CBC w/ auto diff RBC 4.94 M/uL 3.80-4 .80 high Not Available [facility] [address] [place], [address], 09/11/2017 01:23:01 09/12/19 18 09/11/2017 CBC w/ auto diff HGB 13.8 g/dL 12.0-1 5.0 Not Available [facility] [address] [place], [address], 09/11/2017 01:23:01 09/12/19 18 09/11/2017 CBC w/ auto diff HCT 41.3 % 36.0-4 6.0 Not Available [facility] [address] [place], [address], 09/11/2017 01:23:01 09/12/19 18 09/11/2017 CBC w/ auto diff plt 369 K/uL 130-40 0 Not Available [facility] [address] [place], [address], 09/11/2017 01:23:01 09/12/19 18 09/11/2017 CBC w/ auto diff MCV 83.6 fL 79.0-9 8.0 Not Available [facility] [address] [place], [address], 09/11/2017 01:23:01 09/12/19 18 09/11/2017 CBC w/ auto diff MCH 27.9 pg 27.0-3 4.8 Not Available [facility] [address] [place], [address], 09/11/2017 01:23:01 09/12/19 18 09/11/2017 CBC w/ auto diff MCHC 33.4 g/dL 31.5-3 6.0 Not Available [facility] [address] [place], [address], 09/11/2017 01:23:01 09/12/19 18 09/11/2017 CBC w/ auto diff RDW 13.1 % 10.8-1 4.6 Not Available [facility] [address] [place], [address], 09/11/2017 01:23:01 09/12/19 18 09/11/2017 CBC w/ auto diff MPV 8.7 fL 9.4-12 .4 low Not Available [facility] [address] [place], [address], 09/11/2017 01:23:01 09/12/19 18 09/11/2017 CBC w/ auto diff NRBC 0.00 /100_ WBCs Not Available [facility] [address] [place], [address], 09/11/2017 01:23:01 09/12/19 18 09/11/2017 CBC w/ auto diff absolute NRBC 0.00 K/uL Not Available [facility] [address] [place], [address], 09/11/2017 01:23:01 09/12/19 18 09/11/2017 CBC w/ auto diff diff method Auto Not Available [facility] [address] [place], [address], 09/11/2017 01:23:01 09/12/19 18 09/11/2017 CBC w/ auto diff neuts 73.6 % 45.30- 77.70 Not Available [facility] [address] [place] [address], [address], 09/11/2017 01:23:01 09/12/19 18 09/11/2017 CBC w/ auto diff lymphs 11.0 % 12.30- 39.70 low Not Available [facility] [address] [place] [address], [address], 09/11/2017 01:23:01 09/12/19 18 09/11/2017 CBC w/ auto diff monos 5.3 % 4.10-1 2.80 Not Available [facility] [address] [place] [address], [address], 09/11/2017 01:23:01 09/12/19 18 09/11/2017 CBC w/ auto diff eos 9.1 % 0-7.2 high Not Available [facility] [address] [place] [address], [address], 09/11/2017 01:23:01 09/12/19 18 09/11/2017 CBC w/ auto diff basos 0.8 % 0-2.80 Not Available [facility] [address] [place] [address], [address], 09/11/2017 01:23:01 09/12/19 18 09/11/2017 CBC w/ auto diff granulocytes , immature (%) 0.2 % 0.0-0. 9 Not Available [facility] [address] [place] [address], [address], 09/11/2017 01:23:01 09/12/19 18 09/11/2017 CBC w/ auto diff absolute neuts 8.84 K/uL 1.40-7 .70 high Not Available [facility] [address] [place] [address], [address], 09/11/2017 01:23:01 09/12/19 18 09/11/2017 CBC w/ auto diff absolute lymphs 1.32 K/uL 0.60-3 .20 Not Available [facility] [address] [place], [address], 09/11/2017 01:23:01 09/12/19 18 09/11/2017 CBC w/ auto diff absolute monos 0.64 K/uL 0.11-0 .59 high Not Available [facility] [address] [place], [address], 09/11/2017 01:23:01 09/12/19 18 09/11/2017 CBC w/ auto diff absolute eos 1.09 K/uL 0.01-0 .50 high Not Available [facility] [address] [place], [address], 09/11/2017 01:23:01 09/12/19 18 09/11/2017 CBC w/ auto diff absolute basos 0.10 K/uL 0.00-0 .08 high Not Available [facility] [address] [place], [address], 09/11/2017 01:23:01 09/12/19 18 09/11/2017 CBC w/ auto diff granulocytes , immature 0.03 K/uL 0.00-0 .05 Not Available [facility] [address] [place], [address], 09/11/2017 01:23:01 09/12/19 18 09/11/2017 lab add on contact information [phone] Not Available [facility] [address] [place], [address], 09/11/2017 01:24:20 09/12/19 18 09/11/2017 lab add on test requested TSH Not Available [facility] [address] [place], [address], 09/11/2017 01:24:20 09/12/19 18 09/11/2017 lab add on status ADD ON COMPLE TE. Not Available [facility] [address] [place], [address], 09/11/2017 01:24:20 09/12/19 18 09/11/2017 BMP, blood sodium 142 mmol/ L 133-14 6 Not Available [facility] [address] [place], [address], 09/11/2017 01:39:23 09/12/19 18 09/11/2017 BMP, blood chloride 103 mmol/ L 96-108 Not Available [facility] [address] [place], [address], 09/11/2017 01:39:23 09/12/19 18 09/11/2017 BMP, blood potassium 4.0 mmol/ L 3.3-5. 1 Not Available [facility] [address] [place], [address], 09/11/2017 01:39:23 09/12/19 18 09/11/2017 BMP, blood CO2 26 mmol/ L 21-35 Not Available [facility] [address] [place], [address], 09/11/2017 01:39:23 09/12/19 18 09/11/2017 BMP, blood BUN 11 mg/dL 6-19 Not Available [facility] [address] [place], [address], 09/11/2017 01:39:23 09/12/19 18 09/11/2017 BMP, blood creatinine 0.60 mg/dL 0.5-1. 5 Not Available [facility] [address] [place], [address], 09/11/2017 01:39:23 09/12/19 18 09/11/2017 BMP, blood glucose 108 mg/dL 70-99 high Not Available [facility] [address] [place], [address], 09/11/2017 01:39:23 09/12/19 18 09/11/2017 BMP, blood calcium 8.8 mg/dL 8.4-10 .3 Not Available [facility] [address] [place], [address], 09/11/2017 01:39:23 09/12/19 18 09/11/2017 BMP, blood eGFR >120 mL/mi n/1.7 3m2 >59 If patie nt is black , multi ply resul t by 1.159 . The eGFR calcu jan aguilera has busch ed from the MDRD equat ion to the CKD-E PI equat ion as of September 08, 2017. Not Available [facility] [address] [place] [address], [address], 09/11/2017 01:39:23 09/12/19 18 09/11/2017 BMP, blood anion gap 17 mmol/ L 10-20 Not Available [facility] [address] [place] [address], [address], 09/11/2017 01:39:23 09/12/19 18 09/11/2017 lfts (hepa tic panel ) alkaline phosphatase 110 U/L 39-117 Not Available [facility] [address] [place] [address], [address], 09/11/2017 01:43:13 09/12/19 18 09/11/2017 lfts (hepa tic panel ) total bilirubin 0.2 mg/dL 0.0-1. 2 Not Available [facility] [address] [place] [address], [address], 09/11/2017 01:43:13 09/12/19 18 09/11/2017 lfts (hepa tic panel ) direct bilirubin <0.2 mg/dL 0-0.3 Not Available [facility] [address] [place], [address], 09/11/2017 01:43:13 09/12/19 18 09/11/2017 lfts (hepa tic panel ) bilirubin (indirect) NOT CALCUL ATED mg/dL 0-1.5 Not Available [facility] [address] [place], [address], 09/11/2017 01:43:13 09/12/19 18 09/11/2017 lfts (hepa tic panel ) AST 18 U/L 0-37 Not Available [facility] [place], [address], 09/11/2017 01:43:13 09/12/19 18 09/11/2017 lfts (hepa tic panel ) ALT 15 U/L 0-40 Not Available [facility] [address] [place], [address], 09/11/2017 01:43:13 09/12/19 18 09/11/2017 lfts (hepa tic panel ) total protein 7.4 g/dL 6.5-8. 0 Not Available [facility] [address] [place], [address], 09/11/2017 01:43:13 09/12/19 18 09/11/2017 lfts (hepa tic panel ) albumin 3.9 g/dL 3.9-4. 8 Not Available [facility] [address] [place], [address], 09/11/2017 01:43:13 09/12/19 18 09/11/2017 lfts (hepa tic panel ) globulin 3.5 g/dL 1-4.8 Not Available [facility] [address] [place], [address], 09/11/2017 01:43:13 09/12/19 18 09/11/2017 lfts (hepa tic panel ) A/G ratio 1.11 ratio 1.00-4 .80 Not Available [facility] [address] [place] [address], [address], 09/11/2017 01:43:13 09/12/19 18 09/11/2017 magne sium, QN, serum or plasm a magnesium 1.8 mg/dL 1.6-2. 6 Not Available [facility] [address] [place] [address], [address], 09/11/2017 01:43:15 09/12/19 18 09/11/2017 TSH, serum or plasm a TSH 0.90 uIU/m L 0.27-4 .20 Not Available [facility] [address] [place] [address], [address], 09/11/2017 01:52:59 09/12/19 18 09/11/2017 lab add on contact information [phone] Not Available [facility] [address] [place] [address], [address], 09/11/2017 01:59:24 09/12/19 18 09/11/2017 lab add on test requested CRP Not Available [facility] [address] [place] [address], [address], 09/11/2017 01:59:24 09/12/19 18 09/11/2017 lab add on status ADD ON COMPLE TE. Not Available [facility] [address] [place] [address], [address], 09/11/2017 01:59:24 09/12/19 18 09/11/2017 hCG, quali tativ e, serum HCG, qualitative Negati ve IU/L negati ve Not Available [facility] [address] [place] [address], [address], 09/11/2017 02:00:14 09/12/19 18 09/11/2017 rapid flu (A+B) influenza A Negati ve negati ve Not Available [facility] [address] [place], [address], 09/11/2017 02:22:56 09/12/19 18 09/11/2017 rapid flu (A+B) influenza B Negati ve negati ve Not Available [facility] [address] [place] [address], [address], 09/11/2017 02:22:56 09/12/19 18 09/11/2017 C-srikanth ctive prote in, quant itati ve, serum or plasm a C reactive protein 6.1 mg/L 0-0.5 high Not Available [facility] [address] [place] [address], [address], 09/11/2017 02:23:02 09/12/19 18 09/11/2017 D-dim er, quant , plasm a D-dimer (NG/mL) 497 NG/mL _feu <500 In patie nts with low to moder ate pre-t est proba bilit y score s for VTE (PE or DVT), a D-Dim er cut-o ff less than 500 ng/mL (FEU) has a negat brandon predi ctive value (NPV) of 97 to 100%. Not Available [facility] [address] [place] [address], [address], 09/11/2017 03:00:56 09/12/19 18 09/11/2017 BMP, blood sodium 145 mmol/ L 133-14 6 Not Available [facility] [address] [place] [address], [address], 09/11/2017 08:10:37 09/12/19 18 09/11/2017 BMP, blood chloride 111 mmol/ L 96-108 high Not Available [facility] [address] [place] [address], [address], 09/11/2017 08:10:37 09/12/19 18 09/11/2017 BMP, blood potassium 4.0 mmol/ L 3.3-5. 1 Not Available [facility] [address] [place], [address], 09/11/2017 08:10:37 09/12/19 18 09/11/2017 BMP, blood CO2 23 mmol/ L 21-35 Not Available [facility] [address] [place], [address], 09/11/2017 08:10:37 09/12/19 18 09/11/2017 BMP, blood BUN 9 mg/dL 6-19 Not Available [facility] [address] [place] [address], [address], 09/11/2017 08:10:37 09/12/19 18 09/11/2017 BMP, blood creatinine 0.50 mg/dL 0.5-1. 5 Not Available [facility] (Outpatient) [address] [place], [address], 09/11/2017 08:10:37 09/12/19 18 09/11/2017 BMP, blood glucose 135 mg/dL 70-99 high Not Available [facility] (Outpatient) [address] [place] [address], [address], 09/11/2017 08:10:37 09/12/19 18 09/11/2017 BMP, blood calcium 8.3 mg/dL 8.4-10 .3 low Not Available [facility] (Outpatient) [address] [place] [address], [address], 09/11/2017 08:10:37 09/12/19 18 09/11/2017 BMP, blood eGFR >120 mL/mi n/1.7 3m2 >59 If patie nt is black , multi ply resul t by 1.159 . The eGFR calcu jan n has busch ed from the MDRD equat ion to the CKD-E PI equat ion as of September 08, 2017. Not Available [facility] (Outpatient) [address] [place], [address], 09/11/2017 08:10:37 09/12/19 18 09/11/2017 BMP, blood anion gap 15 mmol/ L 10-20 Not Available [facility] (Outpatient) [address] [place], [address], 09/11/2017 08:10:37 09/12/19 18 09/11/2017 lfts (hepa tic panel ) alkaline phosphatase 104 U/L 39-117 Not Available [facility] (Outpatient) [address] [place], [address], 09/11/2017 08:10:39 09/12/19 18 09/11/2017 lfts (hepa tic panel ) total bilirubin 0.2 mg/dL 0.0-1. 2 Not Available [facility] (Outpatient) [address] [place], [address], 09/11/2017 08:10:39 09/12/19 18 09/11/2017 lfts (hepa tic panel ) direct bilirubin <0.2 mg/dL 0-0.3 Not Available [facility] (Outpatient) [address] [place], [address], 09/11/2017 08:10:39 09/12/19 18 09/11/2017 lfts (hepa tic panel ) bilirubin (indirect) NOT CALCUL ATED mg/dL 0-1.5 Not Available [facility] (Outpatient) [address] [place], [address], 09/11/2017 08:10:39 09/12/19 18 09/11/2017 lfts (hepa tic panel ) AST 16 U/L 0-37 Not Available [facility] (Outpatient) [address] [place], [address], 09/11/2017 08:10:39 09/12/19 18 09/11/2017 lfts (hepa tic panel ) ALT 13 U/L 0-40 Not Available [facility] (Outpatient) [address] [place], [address], 09/11/2017 08:10:39 09/12/19 18 09/11/2017 lfts (hepa tic panel ) total protein 7.0 g/dL 6.5-8. 0 Not Available [facility] (Outpatient) [address] [place], [address], 09/11/2017 08:10:39 09/12/19 18 09/11/2017 lfts (hepa tic panel ) albumin 3.7 g/dL 3.9-4. 8 low Not Available [facility] (Outpatient) [address] [place], [address], 09/11/2017 08:10:39 09/12/19 18 09/11/2017 lfts (hepa tic panel ) globulin 3.3 g/dL 1-4.8 Not Available [facility] (Outpatient) [address] [place], [address], 09/11/2017 08:10:39 09/12/19 18 09/11/2017 lfts (hepa tic panel ) A/G ratio 1.12 ratio 1.00-4 .80 Not Available [facility] (Outpatient) [address] [place] [address], [address], 09/11/2017 08:10:39 09/12/19 18 09/11/2017 magne sium, QN, serum or plasm a magnesium 1.8 mg/dL 1.6-2. 6 Not Available [facility] (Outpatient) [address] [place] [address], [address], 09/11/2017 08:10:40 09/12/19 18 09/11/2017 phosp horus , serum or plasm a phosphorus 2.3 mg/dL 2.7-4. 5 low Not Available [facility] (Outpatient) [address] [place], [address], 09/11/2017 08:10:41 09/12/19 18 09/11/2017 lab add on contact information [phone] Not Available [facility] (Outpatient) [address] [place], [address], 09/11/2017 08:21:05 09/12/19 18 09/11/2017 lab add on test requested [place] Not Available [facility] (Outpatient) [address] [place], [address], 09/11/2017 08:21:05 09/12/19 18 09/11/2017 lab add on status ADD ON COMPLE TE. Not Available [facility] (Outpatient) [address] [place], [address], 09/11/2017 08:21:05 09/12/19 18 09/11/2017 CBC w/ auto diff WBC 7.74 K/uL 3.40-1 1.20 Not Available [facility] (Outpatient) [address] [place], [address], 09/11/2017 08:30:57 09/12/19 18 09/11/2017 CBC w/ auto diff RBC 4.40 M/uL 3.80-4 .80 Not Available [facility] (Outpatient) [address] [place], [address], 09/11/2017 08:30:57 09/12/19 18 09/11/2017 CBC w/ auto diff HGB 12.5 g/dL 12.0-1 5.0 Not Available [facility] (Outpatient) [address] [place], [address], 09/11/2017 08:30:57 09/12/19 18 09/11/2017 CBC w/ auto diff HCT 36.6 % 36.0-4 6.0 Not Available [facility] (Outpatient) [address] [place], [address], 09/11/2017 08:30:57 09/12/19 18 09/11/2017 CBC w/ auto diff plt 355 K/uL 130-40 0 Not Available [facility] (Out[facility]) [address] [place], [address], 09/11/2017 08:30:57 09/12/19 18 09/11/2017 CBC w/ auto diff MCV 83.2 fL 79.0-9 8.0 Not Available [facility] (Out[facility]) [address] [place], [address], 09/11/2017 08:30:57 09/12/19 18 09/11/2017 CBC w/ auto diff MCH 28.4 pg 27.0-3 4.8 Not Available [facility] (Outpatient) [address] [place], [address], 09/11/2017 08:30:57 09/12/19 18 09/11/2017 CBC w/ auto diff MCHC 34.2 g/dL 31.5-3 6.0 Not Available [facility] (Out[facility]) [address] [place], [address], 09/11/2017 08:30:57 09/12/19 18 09/11/2017 CBC w/ auto diff RDW 13.2 % 10.8-1 4.6 Not Available [facility] ([facility]) [address] [place], [address], 09/11/2017 08:30:57 09/12/19 18 09/11/2017 CBC w/ auto diff MPV 9.2 fL 9.4-12 .4 low Not Available [facility] (Out[facility]) [address] [place], [address], 09/11/2017 08:30:57 09/12/19 18 09/11/2017 CBC w/ auto diff NRBC 0.00 /100_ WBCs Not Available [facility] (Out[facility]) [address] [place], [address], 09/11/2017 08:30:57 09/12/19 18 09/11/2017 CBC w/ auto diff absolute NRBC 0.00 K/uL Not Available [facility] (Out[facility]) [address] [place], [address], 09/11/2017 08:30:57 09/12/19 18 09/11/2017 CBC w/ auto diff diff method Auto Not Available [facility] ([facility]) [address] [place], [address], 09/11/2017 08:30:57 09/12/19 18 09/11/2017 CBC w/ auto diff neuts 89.9 % 45.30- 77.70 high Not Available [facility] (Out[facility]) [address] [place], [address], 09/11/2017 08:30:57 09/12/19 18 09/11/2017 CBC w/ auto diff lymphs 7.6 % 12.30- 39.70 low Not Available [facility] (Outpatient) [address] [place], [address], 09/11/2017 08:30:57 09/12/19 18 09/11/2017 CBC w/ auto diff monos 0.9 % 4.10-1 2.80 low Not Available [facility] (Outpatient) [address] [place], [address], 09/11/2017 08:30:57 09/12/19 18 09/11/2017 CBC w/ auto diff eos 0.6 % 0-7.2 Not Available [facility] (Out[facility]) [address] [place], [address], 09/11/2017 08:30:57 09/12/19 18 09/11/2017 CBC w/ auto diff basos 0.6 % 0-2.80 Not Available [facility] ([facility]) [address] [place], [address], 09/11/2017 08:30:57 09/12/19 18 09/11/2017 CBC w/ auto diff granulocytes , immature (%) 0.4 % 0.0-0. 9 Not Available [facility] (Outpatient) [address] [place], [address], 09/11/2017 08:30:57 09/12/19 18 09/11/2017 CBC w/ auto diff absolute neuts 6.95 K/uL 1.40-7 .70 Not Available [facility] (Outpatient) [address] [place], [address], 09/11/2017 08:30:57 09/12/19 18 09/11/2017 CBC w/ auto diff absolute lymphs 0.59 K/uL 0.60-3 .20 low Not Available [facility] (Outpatient) [address] [place], [address], 09/11/2017 08:30:57 09/12/19 18 09/11/2017 CBC w/ auto diff absolute monos 0.07 K/uL 0.11-0 .59 low Not Available [facility] (Outpatient) [address] [place], [address], 09/11/2017 08:30:57 09/12/19 18 09/11/2017 CBC w/ auto diff absolute eos 0.05 K/uL 0.01-0 .50 Not Available [facility] (Outpatient) [address] [place], [address], 09/11/2017 08:30:57 09/12/19 18 09/11/2017 CBC w/ auto diff absolute basos 0.05 K/uL 0.00-0 .08 Not Available [facility] (Outpatient) [address] [place], [address], 09/11/2017 08:30:57 09/12/19 18 09/11/2017 CBC w/ auto diff granulocytes , immature 0.03 K/uL 0.00-0 .05 Not Available [facility] (Outpatient) [address] [place], [address], 09/11/2017 08:30:57 09/12/19 18 09/11/2017 tropo hector T, serum troponin-T <0.01 NG/mL 0.00-0 .03 Not Available [facility] ([facility]) [address] [place], [address], 09/11/2017 08:36:59 09/12/19 18 09/11/2017 PT/IN R PT 14.3 sec 10.2-1 2.9 high Not Available [facility] (Outpatient) [address] [place], [address], 09/11/2017 09:32:20 09/12/19 18 09/11/2017 PT/IN R INR 1.2 0.9-1. 1 high Thera peuti c range for oral Vitam in K antag onist s: 2.0-3 .5 Not Available [facility] (Out[facility]) [address] [place], [address], 09/11/2017 09:32:20 09/12/19 18 09/11/2017 gas panel , arter ial blood pH, arterial 7.46 7.35-7 .45 high Not Available [facility] (Outpatient) [address] [place], [address], 09/11/2017 09:48:26 09/12/19 18 09/11/2017 gas panel , arter ial blood pCO2, arterial 31.20 mmHg 35.00- 45.00 low Not Available [facility] (Outpatient) [address] [place], [address], 09/11/2017 09:48:26 09/12/19 18 09/11/2017 gas panel , arter ial blood pO2, arterial 89.80 mmHg 80.00- 105.00 Not Available [facility] (Outpatient) [address] [place], [address], 09/11/2017 09:48:26 09/12/19 18 09/11/2017 gas panel , arter ial blood HCO3, unspecified 22 mmol/ L 22-26 Not Available [facility] (Outpatient) [address] [place], [address], 09/11/2017 09:48:26 09/12/19 18 09/11/2017 gas panel , arter ial blood base deficit 1.0 mmol/ L 0.0-2. 0 Not Available [facility] (Outpatient) [address] [place], [address], 09/11/2017 09:48:26 09/12/19 18 09/11/2017 gas panel , arter ial blood so2, unspecified 96.70 % 95.00- 98.00 Not Available [facility] (Outpatient) [address] [place] [address], [address], 09/11/2017 09:48:26 09/12/19 18 09/11/2017 gas panel , arter ial blood fo2hb blood gas 96.30 % 94.00- 100.00 Not Available [facility] (Outpatient) [address] [place], [address], 09/11/2017 09:48:26 09/12/19 18 09/11/2017 gas panel , arter ial blood carboxy HGB 0.30 % 0-1.50 Not Available [facility] (Outpatient) [address] [place], [address], 09/11/2017 09:48:26 09/12/19 18 09/11/2017 gas panel , arter ial blood methgb % 0.10 % 0-1.50 Not Available [facility] (Outpatient) [address] [place], [address], 09/11/2017 09:48:26 09/12/19 18 09/11/2017 gas panel , arter ial blood ludivina's test Not Applic able Not Available [facility] (Out[facility]) [address] [place], [address], 09/11/2017 09:48:26 09/12/19 18 09/11/2017 gas panel , arter ial blood ABG site L BRACHI AL Not Available [facility] (Outpatient) [address] [place], [address], 09/11/2017 09:48:26 09/12/19 18 09/11/2017 urina lysis , refle x cultu re color Yellow yellow Not Available [facility] ([facility]) [address] [place], [address], 09/11/2017 10:02:32 09/12/19 18 09/11/2017 urina lysis , refle x cultu re clarity Clear Not Available [facility] (Outpatient) [address] [place], [address], 09/11/2017 10:02:32 09/12/19 18 09/11/2017 urina lysis , refle x cultu re glucose Negati ve negati ve Not Available [facility] ([facility]) [address] [place], [address], 09/11/2017 10:02:32 09/12/19 18 09/11/2017 urina lysis , refle x cultu re bili Negati ve negati ve Not Available [facility] (Outpatient) [address] [place], [address], 09/11/2017 10:02:32 09/12/19 18 09/11/2017 urina lysis , refle x cultu re ketones 1+ negati ve abnormal Not Available [facility] (Outpatient) [address] [place], [address], 09/11/2017 10:02:32 09/12/19 18 09/11/2017 urina lysis , refle x cultu re specific gravity 1.020 1.005- 1.030 Not Available [facility] (Outpatient) [address] [place], [address], 09/11/2017 10:02:32 09/12/19 18 09/11/2017 urina lysis , refle x cultu re blood Negati ve negati ve Not Available [facility] (Out[facility]) [address] [place], [address], 09/11/2017 10:02:32 09/12/19 18 09/11/2017 urina lysis , refle x cultu re pH 6.5 5.0-8. 0 Not Available [facility] (Out[facility]) [address] [place], [address], 09/11/2017 10:02:32 09/12/19 18 09/11/2017 urina lysis , refle x cultu re protein Negati ve negati ve Not Available [facility] (Outpatient) [address] [place], [address], 09/11/2017 10:02:32 09/12/19 18 09/11/2017 urina lysis , refle x cultu re nitrite Negati ve negati ve Not Available [facility] (Outpatient) [address] [place], [address], 09/11/2017 10:02:32 09/12/19 18 09/11/2017 urina lysis , refle x cultu re leukocyte esterase, ur Negati ve negati ve Not Available [facility] (Out[facility]) [address] [place] [address], [address], 09/11/2017 10:02:32 09/12/19 18 09/11/2017 proca lcito hector, serum procalcitoni n <0.05 NG/mL 0-0.50 For patie nts >2 days old, risk for progr essio n to sever e sepsi s: PCT < 0.5 ng/ml = Low risk PCT >=0.5 and <2 ng/ml = Moder ate risk PCT >=2 and <10 ng/ml = High risk PCT >=10 ng/ml = High likel ihood of dex kennedy Not Available [facility] (Outpatient) [address] [place], [address], 09/11/2017 10:04:43 09/12/19 18 09/11/2017 pro BNP (pro B-typ e natri ureti c pepti de), serum or plasm a nt-probnp 153 pg/mL 0-125 high Not Available [facility] (Outpatient) [address] [place], [address], 09/11/2017 10:05:33 09/12/19 18 09/11/2017 lab add on contact information [phone] Not Available [facility] (Outpatient) [address] [place], [address], 09/11/2017 10:10:48 09/12/19 18 09/11/2017 lab add on test requested [place] Not Available [facility] (Outpatient) [address] [place], [address], 09/11/2017 10:10:48 09/12/19 18 09/11/2017 lab add on status ADD ON COMPLE TE. Not Available [facility] (Outpatient) [address] [place], [address], 09/11/2017 10:10:48 09/12/19 18 09/11/2017 mrsa scree n, PCR MRSA PCR screen Negati ve negati ve The Xpert MRSA Assay is inten ded to aid in the preve ntion and contr ol of MRSA infec tions in [facility]. The assay is not inten ded to diagn ose nor to guide or monit or treat ment for MRSA infec tions . Not Available [facility] (Out[facility]) [address] [place], [address], 09/11/2017 10:34:33 09/12/19 18 09/11/2017 tropo hector T, serum troponin-T <0.01 NG/mL 0.00-0 .03 Not Available [facility] (Outpatient) [address] [place], [address], 09/11/2017 10:41:29 09/12/19 18 09/11/2017 tropo hector T, serum troponin-T <0.01 NG/mL 0.00-0 .03 Not Available [facility] (Outpatient) [address] [place], [address], 09/11/2017 10:41:31 09/12/19 18 09/11/2017 toxic ology scree n, urine urine cannabinoids NONE DETECT ED none detect ed Cutof f: 50 ng/mL Not Available [facility] (Outpatient) [address] [place], [address], 09/11/2017 17:26:38 09/12/19 18 09/11/2017 toxic ology scree n, urine urine cocaine metab NONE DETECT ED none detect ed Cutof f: 300 ng/mL Not Available [facility] ([facility]patient) [address] [place], [address], 09/11/2017 17:26:38 09/12/19 18 09/11/2017 toxic ology scree n, urine urine amphetamines NONE DETECT ED none detect ed Cutof f: 1000 ng/mL Not Available [facility] (Outpatient) [address] [place], [address], 09/11/2017 17:26:38 09/12/19 18 09/11/2017 toxic ology scree n, urine urine methadone NONE DETECT ED none detect ed Cutof f: 300 ng/mL Not Available [facility] (Outpatient) [address] [place], [address], 09/11/2017 17:26:38 09/12/19 18 09/11/2017 toxic ology scree n, urine urine opiates Positi ve none detect ed abnormal Cutof f: 300 ng/mL Not Available [facility] (Outpatient) [address] [place], [address], 09/11/2017 17:26:38 09/12/19 18 09/11/2017 toxic ology scree n, urine urine phencyclidin e NONE DETECT ED none detect ed Cutof f: 25 ng/mL Not Available [facility] (Outpatient) [address] [place], [address], 09/11/2017 17:26:38 09/12/19 18 09/11/2017 toxic ology scree n, urine urine oxycodone NONE DETECT ED none detect ed Cutof f: 300 ng/ml Not Available [facility] (Outpatient) [address] [place], [address], 09/11/2017 17:26:38 09/12/19 18 09/11/2017 toxic ology scree n, urine urine barbiturates NONE DETECT ED none detect ed Cutof f: 200 ng/mL Not Available [facility] (Outpatient) [address] [place], [address], 09/11/2017 17:26:38 09/12/19 18 09/11/2017 toxic ology scree n, urine urine benzodiazepi ne NONE DETECT ED none detect ed Cutof f: 200 ng/mL INTER PRETA TION FOR TOXIC OLOGY PANEL : Thes e resul ts are uncon firme d and shoul d be used for Medic al Treat ment purpo ses only. Not Available [facility] (Outpatient) [address] [place], [address], 09/11/2017 17:26:38 09/12/19 18 09/12/2017 cell count , body fluid path review FINAL Other s cells are few bronc hial cells and alveo lar macro phage s. No malig nant cells seen. Revie wed by Dee stokes MD Not Available [facility] (Outpatient) [address] [place], [address], 09/12/2017 13:29:10 09/12/19 18 09/12/2017 cell count , body fluid fluid monos 2 % 0 Not Available [facility] (Outpatient) [address] [place], [address], 09/12/2017 13:29:10 09/12/19 18 09/12/2017 cell count , body fluid fluid neuts 12 % 0 Not Available [facility] (Outpatient) [address] [place], [address], 09/12/2017 13:29:10 09/12/19 18 09/12/2017 cell count , body fluid fluid eos 6 % 0 Not Available [facility] (Outpatient) [address] [place], [address], 09/12/2017 13:29:10 09/12/19 18 09/12/2017 cell count , body fluid fluid other cells 80 % 0 high Not Available [facility] ([facility]patient) [address] [place], [address], 09/12/2017 13:29:10 09/12/19 18 09/14/2017 cultu re, respi rator y specimen description BRONCH IAL WASHIN GS BILATE RAL BRONCH IAL WASHIN GS BRONCH IAL WASHIN GS Not Available [facility] ([facility]) [address] [place], [address], 09/14/2017 08:07:41 09/12/19 18 09/14/2017 cultu re, respi rator y special requests None Not Available [facility] ([facility]) [address] [place], [address], 09/14/2017 08:07:41 09/12/19 18 09/14/2017 cultu re, respi rator y gram stain Rare GRAM POSITI VE RODS , Few WBC'S Not Available [facility] ([facility]) [address] [place], [address], 09/14/2017 08:07:41 09/12/19 18 09/14/2017 cultu re, respi rator y culture / test MIXED ORGANI SMS RESEMB LING OROPHA RYNGEA L NABIL abnormal Not Available [facility] ([facility]) [address] [place], [address], 09/14/2017 08:07:41 09/12/19 18 09/14/2017 cultu re, respi rator y report status 2017 FINAL Not Available [facility] (Outpatient) [address] [place], [address], 09/14/2017 08:07:41 09/12/19 18 09/14/2017 cultu re, respi rator y specimen description BRONCH IAL ALVEOL AR LAVAGE RML BAL BRONCH IAL ALVEOL AR LAVAGE Not Available [facility] (Outpatient) [address] [place], [address], 09/14/2017 08:08:52 09/12/19 18 09/14/2017 cultu re, respi rator y special requests None Not Available [facility] (Outpatient) [address] [place], [address], 09/14/2017 08:08:52 09/12/19 18 09/14/2017 cultu re, respi rator y gram stain Rare GRAM NEGATI VE RODS , Rare WBC'S Not Available [facility] (Outpatient) [address] [place], [address], 09/14/2017 08:08:52 09/12/19 18 09/14/2017 cultu re, respi rator y culture / test MIXED ORGANI SMS RESEMB LING OROPHA RYNGEA L NABIL abnormal Not Available [facility] (Outpatient) [address] [place], [address], 09/14/2017 08:08:52 09/12/19 18 09/14/2017 cultu re, respi rator y report status 2017 FINAL Not Available [facility] (Outpatient) [address] [place], [address], 09/14/2017 08:08:52 09/12/19 18 09/14/2017 cultu re, anaer obic specimen description RML BAL Not Available [facility] ([facility]patient) [address] [place], [address], 09/14/2017 08:42:12 09/12/19 18 09/14/2017 cultu re, anaer obic special requests None Not Available [facility] (Outpatient) [address] [place], [address], 09/14/2017 08:42:12 09/12/19 18 09/14/2017 cultu re, anaer obic culture / test NO ANAERO BES ISOLAT ED Not Available [facility] (Outpatient) [address] [place], [address], 09/14/2017 08:42:12 09/12/19 18 09/14/2017 cultu re, anaer obic report status 2017 FINAL Not Available [facility] (Outpatient) [address] [place], [address], 09/14/2017 08:42:12 09/12/19 18 09/14/2017 lab add on contact information [phone] Not Available [facility] (Out[facility]) [address] [place], [address], 09/14/2017 08:52:53 09/12/19 18 09/14/2017 lab add on test requested URINE TOX ADD TO INITIA L URINE PLEASE Not Available [facility] (Outpatient) [address] [place], [address], 09/14/2017 08:52:53 09/12/19 18 09/14/2017 lab add on status ADD ON COMPLE TE. Not Available [facility] (Outpatient) [address] [place], [address], 09/14/2017 08:52:53 09/12/19 18 09/14/2017 pneum ocyst is (pcp) exam specimen description BRONCH IAL ALVEOL AR LAVAGE RML BAL BRONCH IAL ALVEOL AR LAVAGE Not Available [facility] (Outpatient) [address] [place], [address], 09/14/2017 11:36:50 09/12/19 18 09/14/2017 pneum ocyst is (pcp) exam special requests None Not Available [facility] (Outpatient) [address] [place], [address], 09/14/2017 11:36:50 09/12/19 18 09/14/2017 pneum ocyst is (pcp) exam gomori silver stain NEGATI VE FOR PNEUMO CYSTIS JIROVE CII (TAMIKO II) Not Available [facility] (Outpatient) [address] [place], [address], 09/14/2017 11:36:50 09/12/19 18 09/14/2017 pneum ocyst is (pcp) exam report status 2017 FINAL Not Available [facility] (Outpatient) [address] [place], [address], 09/14/2017 11:36:50 09/12/19 18 09/14/2017 toxic ology scree n, urine urine cannabinoids NONE DETECT ED none detect ed Cutof f: 50 ng/mL Not Available [facility] ([facility]) [address] [place], [address], 09/14/2017 13:05:21 09/12/19 18 09/14/2017 toxic ology scree n, urine urine cocaine metab NONE DETECT ED none detect ed Cutof f: 300 ng/mL Not Available [facility] (Outpatient) [address] [place], [address], 09/14/2017 13:05:21 09/12/19 18 09/14/2017 toxic ology scree n, urine urine amphetamines NONE DETECT ED none detect ed Cutof f: 1000 ng/mL Not Available [facility] (Out[facility]) [address] [place], [address], 09/14/2017 13:05:21 09/12/19 18 09/14/2017 toxic ology scree n, urine urine methadone NONE DETECT ED none detect ed Cutof f: 300 ng/mL Not Available [facility] (Outpatient) [address] [place], [address], 09/14/2017 13:05:21 09/12/19 18 09/14/2017 toxic ology scree n, urine urine opiates Positi ve none detect ed abnormal Cutof f: 300 ng/mL Not Available [facility] (Outpatient) [address] [place], [address], 09/14/2017 13:05:21 09/12/19 18 09/14/2017 toxic ology scree n, urine urine phencyclidin e NONE DETECT ED none detect ed Cutof f: 25 ng/mL Not Available [facility] (Outpatient) [address] [place] [address], [address], 09/14/2017 13:05:21 09/12/19 18 09/14/2017 toxic ology scree n, urine urine oxycodone NONE DETECT ED none detect ed Cutof f: 300 ng/ml Not Available [facility] (Outpatient) [address] [place], [address], 09/14/2017 13:05:21 09/12/19 18 09/14/2017 toxic ology scree n, urine urine barbiturates NONE DETECT ED none detect ed Cutof f: 200 ng/mL Not Available [facility] (Out[facility] [address] [place], [address], 09/14/2017 13:05:21 09/12/19 18 09/14/2017 toxic ology scree n, urine urine benzodiazepi ne NONE DETECT ED none detect ed Cutof f: 200 ng/mL INTER PRETA TION FOR TOXIC OLOGY PANEL : Thes e resul ts are uncon firme d and shoul d be used for Medic al Treat ment purpo ses only. Not Available [facility] (Outpatient) [address] [place], [address], 09/14/2017 13:05:21 09/12/19 18 09/15/2017 pneum ocyst is jirov eci DNA, quali tativ e, PCR specimen source BAL RML Not Available [facility] (Outpatient) [address] [place], [address], 09/15/2017 05:35:27 09/12/19 18 09/15/2017 pneum ocyst is jirov eci DNA, quali tativ e, PCR result Negati ve not applic able Not Available [facility] (Outpatient) [address] [place], [address], 09/15/2017 05:35:27 09/12/19 18 09/15/2017 pneum ocyst is jirov eci DNA, quali tativ e, PCR special information Test compon ent not applic able or not report ed. Not Available [facility] (Outpatient) [address] [place], [address], 09/15/2017 05:35:27 09/12/19 18 09/15/2017 pneum ocyst is jirov eci DNA, quali tativ e, PCR report status Test compon ent not applic able or not report ed. 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 LUNG, BILAT ERAL, BRONC HIAL WASH: SPECI MEN ADEQU ACY: Satis facto ry for evalu ation . Evalu ation limit ed by scant cellu larit y. INTER PRETA TION: NO MALIG NANT CELLS IDENT IFIED . 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 B. LUNG, RIGHT MIDDL E LOBE, BRONC HOALV EOLAR LAVAG E: SPECI MEN ADEQU ACY: Satis facto ry for evalu ation . INTER PRETA TION: NO MALIG NANT CELLS IDENT IFIED . 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 Elect nkechi Perrin d Out By: Derek elizabeth, MD [address] Sweit zer By his/h er melissa shields above , the patho logis t liste d as shan ramirez the Final Diagn osis certi fies that he/sh e has perso pili revie wed this case and confi rmed or corre cted the diagn osis. [facility] RY Patie nt prese nts with patch y GGO and hypox resp failu re after febri le URI. Curre nt smoke r. SPECI MEN SOURC E A: LUNG, BILAT ERAL, BRONC HIAL WASH B: LUNG, RIGHT MIDDL E LOBE, BRONC HOALV EOLAR LAVAG E GROSS DESCR IPTIO N A. LUNG, BILAT ERAL, BRONC HIAL WASH: Recei lis fresh is 40mL of clear fluid label ed with patie nt's name and date of . One (1) ThinP rep slide is prepa red. Due to an insuf ficie nt cell pelle t, no cell block was prepa red for this speci men. B. LUNG, RIGHT MIDDL E LOBE, BRONC HOALV EOLAR LAVAG E: Recei lis fresh is 20mL of clear fluid label ed with patie nt's name and date of . One (1) ThinP rep slide is prepa red. Due to an insuf ficie nt cell pelle t, no cell block was prepa red for this speci men. Nicole nt Name: ALEXANDRI[place] AJ : 1990 (Age: 26) Sex: F 8 Insti tutio n: [facility] Locat ion: [facility] U Date of Colle ction : 018 Date of Acces jason: 2017 Repor rashida: 2017 15:25 Resul ts to: Francisco Teran t Not Available [facility] ([facility]) [address] [place] [address], [id number], 09/15/2017 15:27:36 09/12/19 18 09/16/2017 cultu re, blood specimen description BLOOD BLOOD Not Available [facility] ([facility]) [address] [place] [address], [address], 09/16/2017 11:55:24 09/12/19 18 09/16/2017 cultu re, blood special requests None Not Available [facility] (Out[facility]) [address] [place] [address], [address], 09/16/2017 11:55:24 09/12/19 18 09/16/2017 cultu re, blood culture / test NO GROWTH 5 DAYS Not Available [facility] (Out[facility]) [address] [place] [address], [address], 09/16/2017 11:55:24 09/12/19 18 09/16/2017 cultu re, blood report status 2017 FINAL Not Available [facility] ([facility]) [address] [place], [address], 09/16/2017 11:55:24 09/12/19 18 09/16/2017 cultu re, blood specimen description BLOOD BLOOD Not Available [facility] (Out[facility]) [address] [place], [address], 09/16/2017 11:55:25 09/12/19 18 09/16/2017 cultu re, blood special requests None Not Available [facility] ([facility]) [address] [place], [address], 09/16/2017 11:55:25 09/12/19 18 09/16/2017 cultu re, blood culture / test NO GROWTH 5 DAYS Not Available [facility] ([facility]) [address] [place], [address], 09/16/2017 11:55:25 09/12/19 18 09/16/2017 cultu re, blood report status 2017 FINAL Not Available [facility] ([facility]) [address] [place], [address], 09/16/2017 11:55:25 09/12/19 18 09/16/2017 human metap neumo virus PCR source WASHIN GS Not Available [facility] ([facility]) [address] [place], [address], 09/16/2017 16:52:22 09/12/19 18 09/16/2017 human metap neumo virus PCR hmpv RNA NOT DETECT ED Not Available [facility] ([facility]) [address] [place], [address], 09/16/2017 16:52:22 09/12/19 18 09/16/2017 human metap neumo virus PCR source BAL RML Not Available [facility] ([facility]) [address] [place], [address], 09/16/2017 16:52:23 09/12/19 18 09/16/2017 human metap neumo virus PCR hmpv RNA NOT DETECT ED Not Available [facility] ([facility]) [address] [place], [address], 09/16/2017 16:52:23 09/12/19 18 09/28/2017 respi rator y syncy tial virus , cultu re, unspe cifie d speci men viral culture, resp FINAL 2017 1047 Not Available [facility] ([facility]) [address] [place], [address], 09/28/2017 11:51:48 09/12/19 18 09/28/2017 respi rator y syncy tial virus , cultu re, unspe cifie d speci men viral culture, resp FINAL 2017 1047 Not Available [facility] ([facility]) [address] [place], [address], 09/28/2017 11:51:50 09/12/19 18 10/05/2017 fungu s, cultu re, unspe cifie d speci men specimen description RML BAL Not Available [facility] ([facility]) [address] [place], [address], 10/05/2017 11:29:17 09/12/19 18 10/05/2017 fungu s, cultu re, unspe cifie d speci men special requests None Not Available [facility] ([facility]) [address] [place], [address], 10/05/2017 11:29:17 09/12/19 18 10/05/2017 fungu s, cultu re, unspe cifie d speci men gram stain NO YEAST OR FUNGAL ELEMEN TS SEEN Not Available [facility] ([facility]) [address] [place], [address], 10/05/2017 11:29:17 09/12/19 18 10/05/2017 fungu s, cultu re, unspe cifie d speci men culture / test ISOLAT ED CANDID A ALBICA NS abnormal Not Available [facility] ([facility]) [address] [place], [address], 10/05/2017 11:29:17 09/12/19 18 10/05/2017 fungu s, cultu re, unspe cifie d speci men report status 2017 FINAL Not Available [facility] ([facility]) [address] [place], [address], 10/05/2017 11:29:17 09/12/19 18 11/11/2017 mycob acter ium sp, cultu re, unspe cifie d speci men specimen description BAL (Right Middle Lobe) Not Available [facility] ([facility]) [address] [place], [address], 11/11/2017 10:09:25 09/12/19 18 11/11/2017 mycob acter ium sp, cultu re, unspe cifie d speci men special requests None Not Available [facility] ([facility]) [address] [place], [address], 11/11/2017 10:09:25 09/12/19 18 11/11/2017 mycob acter ium sp, cultu re, unspe cifie d speci men smear NO ACID FAST BACILL I OBSERV ED abnormal Not Available [facility] ([facility]) [address] [place], [address], 11/11/2017 10:09:25 09/12/19 18 11/11/2017 mycob acter ium sp, cultu re, unspe cifie d speci men culture / test NO AFB ISOLAT ED AFTER 8 WEEKS Not Available [facility] ([facility]) [address] [place], [address], 11/11/2017 10:09:25 09/12/19 18 11/11/2017 mycob acter ium sp, cultu re, unspe cifie d speci men report status 2017 FINAL Not Available [facility] ([facility]) [address] [place], [address], 11/11/2017 10:09:25 09/13/19 18 09/12/2017 CBC w/ auto diff WBC 9.24 K/uL 3.40-1 1.20 Not Available [facility] ([facility]) [address] [place], [address], 09/12/2017 04:43:23 09/13/19 18 09/12/2017 CBC w/ auto diff RBC 4.00 M/uL 3.80-4 .80 Not Available [facility] ([facility]) [address] [place], [address], 09/12/2017 04:43:23 09/13/19 18 09/12/2017 CBC w/ auto diff HGB 11.1 g/dL 12.0-1 5.0 low Not Available [facility] ([facility]) [address] [place], [address], 09/12/2017 04:43:23 09/13/19 18 09/12/2017 CBC w/ auto diff HCT 33.7 % 36.0-4 6.0 low Not Available [facility] ([facility]) [address] [place] [address], [address], 09/12/2017 04:43:23 09/13/19 18 09/12/2017 CBC w/ auto diff plt 307 K/uL 130-40 0 Not Available [facility] ([facility]) [address] [place], [address], 09/12/2017 04:43:23 09/13/19 18 09/12/2017 CBC w/ auto diff MCV 84.3 fL 79.0-9 8.0 Not Available [facility] ([facility]) [address] [place] [address], [address], 09/12/2017 04:43:23 09/13/19 18 09/12/2017 CBC w/ auto diff MCH 27.8 pg 27.0-3 4.8 Not Available [facility] ([facility]) [address] [place] [address], [address], 09/12/2017 04:43:23 09/13/19 18 09/12/2017 CBC w/ auto diff MCHC 32.9 g/dL 31.5-3 6.0 Not Available [facility] ([facility]) [address] [place] [address], [address], 09/12/2017 04:43:23 09/13/19 18 09/12/2017 CBC w/ auto diff RDW 13.5 % 10.8-1 4.6 Not Available [facility] ([facility]) [address] [place], [address], 09/12/2017 04:43:23 09/13/19 18 09/12/2017 CBC w/ auto diff MPV 8.8 fL 9.4-12 .4 low Not Available [facility] ([facility]) [address] [place] [address], [address], 09/12/2017 04:43:23 09/13/19 18 09/12/2017 CBC w/ auto diff NRBC 0.00 /100_ WBCs Not Available [facility] ([facility]) [address] [place] [address], [address], 09/12/2017 04:43:23 09/13/19 18 09/12/2017 CBC w/ auto diff absolute NRBC 0.00 K/uL Not Available [facility] ([facility]) [address] [place] [address], [address], 09/12/2017 04:43:23 09/13/19 18 09/12/2017 CBC w/ auto diff diff method Auto Not Available [facility] ([facility]) [address] [place] [address], [address], 09/12/2017 04:43:23 09/13/19 18 09/12/2017 CBC w/ auto diff neuts 71.8 % 45.30- 77.70 Not Available [facility] ([facility]) [address] [place] [address], [address], 09/12/2017 04:43:23 09/13/19 18 09/12/2017 CBC w/ auto diff lymphs 18.0 % 12.30- 39.70 Not Available [facility] ([facility]) [address] [place] [address], [address], 09/12/2017 04:43:23 09/13/19 18 09/12/2017 CBC w/ auto diff monos 5.6 % 4.10-1 2.80 Not Available [facility] ([facility]) [address] [place], [address], 09/12/2017 04:43:23 09/13/19 18 09/12/2017 CBC w/ auto diff eos 3.8 % 0-7.2 Not Available [facility] ([facility]) [address] [place], [address], 09/12/2017 04:43:23 09/13/19 18 09/12/2017 CBC w/ auto diff basos 0.6 % 0-2.80 Not Available [facility] ([facility]) [address] [place], [address], 09/12/2017 04:43:23 09/13/19 18 09/12/2017 CBC w/ auto diff granulocytes , immature (%) 0.2 % 0.0-0. 9 Not Available [facility] ([facility]) [address] [place], [address], 09/12/2017 04:43:23 09/13/19 18 09/12/2017 CBC w/ auto diff absolute neuts 6.63 K/uL 1.40-7 .70 Not Available [facility] ([facility]) [address] [place] [address], [address], 09/12/2017 04:43:23 09/13/19 18 09/12/2017 CBC w/ auto diff absolute lymphs 1.66 K/uL 0.60-3 .20 Not Available [facility] ([facility]) [address] [place] [address], [address], 09/12/2017 04:43:23 09/13/19 18 09/12/2017 CBC w/ auto diff absolute monos 0.52 K/uL 0.11-0 .59 Not Available [facility] ([facility]) [address] [place], [address], 09/12/2017 04:43:23 09/13/19 18 09/12/2017 CBC w/ auto diff absolute eos 0.35 K/uL 0.01-0 .50 Not Available [facility] ([facility]) [address] [place], [address], 09/12/2017 04:43:23 09/13/19 18 09/12/2017 CBC w/ auto diff absolute basos 0.06 K/uL 0.00-0 .08 Not Available [facility] ([facility]) [address] [place], [address], 09/12/2017 04:43:23 09/13/19 18 09/12/2017 CBC w/ auto diff granulocytes , immature 0.02 K/uL 0.00-0 .05 Not Available [facility] ([facility]) [address] [place], [address], 09/12/2017 04:43:23 09/13/19 18 09/12/2017 calci um, ioniz ed, blood ionized calcium 1.13 mmol/ L 1.14-1 .37 low Not Available [facility] ([facility]) [address] [place], [address], 09/12/2017 04:43:41 09/13/19 18 09/12/2017 BMP, blood sodium 142 mmol/ L 133-14 6 Not Available [facility] ([facility]) [address] [place], [address], 09/12/2017 05:14:42 09/13/19 18 09/12/2017 BMP, blood chloride 109 mmol/ L 96-108 high Not Available [facility] ([facility]) [address] [place], [address], 09/12/2017 05:14:42 09/13/19 18 09/12/2017 BMP, blood potassium 3.8 mmol/ L 3.3-5. 1 Not Available [facility] ([facility]) [address] [place], [address], 09/12/2017 05:14:42 09/13/19 18 09/12/2017 BMP, blood CO2 22 mmol/ L 21-35 Not Available [facility] ([facility]) [address] [place] [address], [address], 09/12/2017 05:14:42 09/13/19 18 09/12/2017 BMP, blood BUN 10 mg/dL 6-19 Not Available [facility] ([facility]) [address] [place] [address], [address], 09/12/2017 05:14:42 09/13/19 18 09/12/2017 BMP, blood creatinine 0.50 mg/dL 0.5-1. 5 Not Available [facility] (Out[facility]) [address] [place] [address], [address], 09/12/2017 05:14:42 09/13/19 18 09/12/2017 BMP, blood glucose 95 mg/dL 70-99 Not Available [facility] ([facility]) [address] [place] [address], [address], 09/12/2017 05:14:42 09/13/19 18 09/12/2017 BMP, blood calcium 8.1 mg/dL 8.4-10 .3 low Not Available [facility] ([facility]) [address] [place] [address], [address], 09/12/2017 05:14:42 09/13/19 18 09/12/2017 BMP, blood eGFR >120 mL/mi n/1.7 3m2 >59 If patie nt is black , multi ply resul t by 1.159 . The eGFR calcu latdoni n has busch ed from the MDRD equat ion to the CKD-E PI equat ion as of September 08, 2017. Not Available [facility] ([facility]) [address] [place] [address], [address], 09/12/2017 05:14:42 09/13/19 18 09/12/2017 BMP, blood anion gap 15 mmol/ L 10-20 Not Available [facility] ([facility]) [address] [place], [address], 09/12/2017 05:14:42 09/13/19 18 09/12/2017 C-srikanth ctive prote in, quant itati ve, serum or plasm a C reactive protein 3.5 mg/L 0-0.5 high Not Available [facility] ([facility]) [address] [place] [address], [address], 09/12/2017 05:14:43 09/13/19 18 09/12/2017 magne sium, QN, serum or plasm a magnesium 1.8 mg/dL 1.6-2. 6 Not Available [facility] ([facility]) [address] [place] [address], [address], 09/12/2017 05:14:45 09/13/19 18 09/12/2017 phosp horus , serum or plasm a phosphorus 2.6 mg/dL 2.7-4. 5 low Not Available [facility] ([facility]) [address] [place] [address], [address], 09/12/2017 05:14:46 02/14/20 19 02/13/2019 CBC w/ auto diff WBC 10.48 K/uL 3.40-1 1.20 Not Available [facility] ([facility]) [address] [place], [address], 02/13/2019 03:31:52 02/14/2002/13/2019 CBC w/ auto diff RBC 5.05 M/uL 3.80-4 .80 high Not Available [facility] ([facility]) [address] [place] [address], [address], 02/13/2019 03:31:52 02/14/20 19 02/13/2019 CBC w/ auto diff HGB 14.0 g/dL 12.0-1 5.0 Not Available [facility] ([facility]) [address] [place], [address], 02/13/2019 03:31:52 02/14/20 19 02/13/2019 CBC w/ auto diff HCT 42.5 % 36.0-4 6.0 Not Available [facility] ([facility]) [address] [place], [address], 02/13/2019 03:31:52 02/14/20 19 02/13/2019 CBC w/ auto diff plt 309 K/uL 130-40 0 Not Available [facility] ([facility]) [address] [place], [address], 02/13/2019 03:31:52 02/14/20 19 02/13/2019 CBC w/ auto diff MCV 84.2 fL 79.0-9 8.0 Not Available [facility] ([facility]) [address] [place], [address], 02/13/2019 03:31:52 02/14/20 19 02/13/2019 CBC w/ auto diff MCH 27.7 pg 27.0-3 4.8 Not Available [facility] ([facility]) [address] [place], [address], 02/13/2019 03:31:52 02/14/2002/13/2019 CBC w/ auto diff MCHC 32.9 g/dL 31.5-3 6.0 Not Available [facility] ([facility]) [address] [place], [address], 02/13/2019 03:31:52 02/14/2002/13/2019 CBC w/ auto diff RDW 13.0 % 10.8-1 4.6 Not Available [facility] ([facility]) [address] [place], [address], 02/13/2019 03:31:52 02/14/20 19 02/13/2019 CBC w/ auto diff MPV 8.5 fL 9.4-12 .4 low Not Available [facility] ([facility]) [address] [place], [address], 02/13/2019 03:31:52 02/14/20 19 02/13/2019 CBC w/ auto diff NRBC 0.00 /100_ WBCs 0.00 Not Available [facility] ([facility]) [address] [place], [address], 02/13/2019 03:31:52 02/14/20 19 02/13/2019 CBC w/ auto diff absolute NRBC 0.00 K/uL 0.00 Not Available [facility] ([facility]) [address] [place], [address], 02/13/2019 03:31:52 02/14/20 19 02/13/2019 CBC w/ auto diff diff method Auto Not Available [facility] ([facility]) [address] [place], [address], 02/13/2019 03:31:52 02/14/20 19 02/13/2019 CBC w/ auto diff neuts 68.3 % 45.30- 77.70 Not Available [facility] ([facility]) [address] [place], [address], 02/13/2019 03:31:52 02/14/20 19 02/13/2019 CBC w/ auto diff lymphs 17.7 % 12.30- 39.70 Not Available [facility] ([facility]) [address] [place], [address], 02/13/2019 03:31:52 02/14/20 19 02/13/2019 CBC w/ auto diff monos 8.0 % 4.10-1 2.80 Not Available [facility] ([facility]) [address] [place], [address], 02/13/2019 03:31:52 08/11/20 19 02/13/2019 CBC w/ auto diff eos 5.0 % 0-7.2 Not Available [facility] ([facility]) [address] [place], [address], 02/13/2019 03:31:52 02/14/20 19 02/13/2019 CBC w/ auto diff basos 0.7 % 0-2.80 Not Available [facility] ([facility]) [address] [place], [address], 02/13/2019 03:31:52 02/14/20 19 02/13/2019 CBC w/ auto diff granulocytes , immature (%) 0.3 % 0.0-0. 9 Not Available [facility] ([facility]) [address] [place], [address], 02/13/2019 03:31:52 02/14/20 19 02/13/2019 CBC w/ auto diff absolute neuts 7.16 K/uL 1.40-7 .70 Not Available [facility] ([facility]) [address] [place], [address], 02/13/2019 03:31:52 02/14/20 19 02/13/2019 CBC w/ auto diff absolute lymphs 1.86 K/uL 0.60-3 .20 Not Available [facility] ([facility]) [address] [place], [address], 02/13/2019 03:31:52 02/14/20 19 02/13/2019 CBC w/ auto diff absolute monos 0.84 K/uL 0.11-0 .59 high Not Available [facility] ([facility]) [address] [place], [address], 02/13/2019 03:31:52 02/14/20 19 02/13/2019 CBC w/ auto diff absolute eos 0.52 K/uL 0.01-0 .50 high Not Available [facility] ([facility]) [address] [place], [address], 02/13/2019 03:31:52 02/14/2002/13/2019 CBC w/ auto diff absolute basos 0.07 K/uL 0.00-0 .08 Not Available [facility] ([facility]) [address] [place], [address], 02/13/2019 03:31:52 02/14/2002/13/2019 CBC w/ auto diff granulocytes , immature 0.03 K/uL 0.00-0 .05 Not Available [facility] ([facility]) [address] [place], [address], 02/13/2019 03:31:52 02/14/2002/13/2019 gas panel , venou s blood pH, venous 7.33 7.31-7 .41 Not Available [facility] ([facility]) [address] [place], [address], 02/13/2019 03:32:02 02/14/2002/13/2019 gas panel , venou s blood pCO2, venous 45.10 mmHg 41.00- 51.00 Not Available [facility] ([facility]) [address] [place], [address], 02/13/2019 03:32:02 02/14/2002/13/2019 gas panel , venou s blood pO2, venous 25.70 mmHg 35.00- 40.00 low Not Available [facility] ([facility]) [address] [place], [address], 02/13/2019 03:32:02 02/14/2002/13/2019 gas panel , venou s blood HCO3, venous 23 mmol/ L 23-28 Not Available [facility] ([facility]) [address] [place], [address], 02/13/2019 03:32:02 02/14/2002/13/2019 gas panel , venou s blood base deficit venous 2.8 mmol/ L 0.0-2. 0 high Not Available [facility] ([facility]) [address] [place], [address], 02/13/2019 03:32:02 02/14/20 19 02/13/2019 gas panel , venou s blood so2, venous 47.80 % 60.00- 80.00 low Not Available [facility] ([facility]) [address] [place], [address], 02/13/2019 03:32:02 02/14/20 19 02/13/2019 gas panel , venou s blood fo2hb, venous 47.00 % 71.00- 74.00 low Not Available [facility] ([facility]) [address] [place], [address], 02/13/2019 03:32:02 02/14/20 19 02/13/2019 gas panel , venou s blood carboxy HGB 1.50 % 0-1.50 Not Available [facility] ([facility]) [address] [place], [address], 02/13/2019 03:32:02 02/14/2002/13/2019 gas panel , venou s blood methgb % 0.10 % 0-1.50 Not Available [facility] ([facility]) [address] [place], [address], 02/13/2019 03:32:02 02/14/2002/13/2019 BMP, blood sodium 139 mmol/ L 133-14 6 Not Available [facility] ([facility]) [address] [place], [address], 02/13/2019 03:53:53 02/14/2002/13/2019 BMP, blood chloride 102 mmol/ L 96-108 Not Available [facility] ([facility]) [address] [place], [address], 02/13/2019 03:53:53 02/14/2002/13/2019 BMP, blood potassium 4.3 mmol/ L 3.3-5. 1 Not Available [facility] ([facility]) [address] [place], [address], 02/13/2019 03:53:53 02/14/20 19 02/13/2019 BMP, blood CO2 27 mmol/ L 21-35 Not Available [facility] (Outpatient) [address] [place] [address], [address], 02/13/2019 03:53:53 02/14/20 19 02/13/2019 BMP, blood BUN 15 mg/dL 6-19 Not Available [facility] (Out[facility]) [address] [place] [address], [address], 02/13/2019 03:53:53 02/14/20 19 02/13/2019 BMP, blood creatinine 0.80 mg/dL 0.5-1. 5 Not Available [facility] (Outpatient) [address] [place] [address], [address], 02/13/2019 03:53:53 02/14/2002/13/2019 BMP, blood glucose 97 mg/dL 70-99 Not Available [facility] (Out[facility]) [address] [place] [address], [address], 02/13/2019 03:53:53 02/14/2002/13/2019 BMP, blood calcium 9.6 mg/dL 8.4-10 .3 Not Available [facility] (Outpatient) [address] [place] [address], [address], 02/13/2019 03:53:53 02/14/2002/13/2019 BMP, blood eGFR 102 mL/mi n/1.7 3m2 >59 If patie nt is black , multi ply resul t by 1.159 . Estim ated glome rular filtr ation rate calcu lated using the CKD-E PI equat ion. Not Available [facility] (Outpatient) [address] [place] [address], [address], 02/13/2019 03:53:53 02/14/20 19 02/13/2019 BMP, blood anion gap 14 mmol/ L 10-20 Not Available [facility] ([facility]) [address] [place], [address], 02/13/2019 03:53:53 08/12/19 20 08/12/2019 lacta te lactate 1.69 mmol/ L 0.50-2 .20 Not Available [facility] (Outpatient) [address] [place], [address], 08/12/2019 18:59:42 08/12/19 20 08/12/2019 PT/IN R PT 12.9 sec 10.2-1 2.9 Not Available [facility] (Outpatient) [address] [place], [address], 08/12/2019 19:08:28 08/12/19 20 08/12/2019 PT/IN R INR 1.2 0.9-1. 1 high Thera peuti c range for oral Vitam in K antag onist s: 2.0-3 .5 Not Available [facility] (Outpatient) [address] [place], [address], 08/12/2019 19:08:28 08/12/19 20 08/12/2019 CBC w/ auto diff WBC 3.28 K/uL 4.00-1 1.00 low Note Refer ence Range updat es to all CBC and Diffe renti al resul ts. Not Available [facility] (Outpatient) [address] [place], [address], 08/12/2019 19:20:17 08/12/19 20 08/12/2019 CBC w/ auto diff RBC 4.50 M/uL 3.72-5 .30 Not Available [facility] (Outpatient) [address] [place], [address], 08/12/2019 19:20:17 08/12/19 20 08/12/2019 CBC w/ auto diff HGB 12.3 g/dL 11.0-1 5.2 Note updat ed Refer ence Range s for all CBC and Diffe renti al resul ts. Not Available [facility] (Outpatient) [address] [place], [address], 08/12/2019 19:20:17 08/12/19 20 08/12/2019 CBC w/ auto diff HCT 37.0 % 31.6-4 4.1 Not Available [facility] (Outpatient) [address] [place], [address], 08/12/2019 19:20:17 08/12/19 20 08/12/2019 CBC w/ auto diff plt 189 K/uL 140-43 0 Not Available [facility] (Outpatient) [address] [place], [address], 08/12/2019 19:20:17 08/12/19 20 08/12/2019 CBC w/ auto diff MCV 82.2 fL 78.0-9 7.0 Not Available [facility] (Outpatient) [address] [place], [address], 08/12/2019 19:20:17 08/12/19 20 08/12/2019 CBC w/ auto diff MCH 27.3 pg 25.0-3 3.0 Not Available [facility] (Outpatient) [address] [place], [address], 08/12/2019 19:20:17 08/12/19 20 08/12/2019 CBC w/ auto diff MCHC 33.2 g/dL 32.0-3 6.0 Not Available [facility] (Outpatient) [address] [place], [address], 08/12/2019 19:20:17 08/12/19 20 08/12/2019 CBC w/ auto diff RDW 12.7 % 11.0-1 6.0 Not Available [facility] (Outpatient) [address] [place], [address], 08/12/2019 19:20:17 08/12/19 20 08/12/2019 CBC w/ auto diff MPV 8.9 fL 8.4-12 .8 Not Available [facility] (Outpatient) [address] [place], [address], 08/12/2019 19:20:17 08/12/19 20 08/12/2019 CBC w/ auto diff NRBC 0.00 /100_ WBCs 0 Not Available [facility] (Outpatient) [address] [place], [address], 08/12/2019 19:20:17 08/12/19 20 08/12/2019 CBC w/ auto diff absolute NRBC 0.00 K/uL 0 Not Available [facility] (Outpatient) [address] [place], [address], 08/12/2019 19:20:17 08/12/19 20 08/12/2019 CBC w/ auto diff diff method Auto Not Available [facility] (Outpatient) [address] [place], [address], 08/12/2019 19:20:17 08/12/19 20 08/12/2019 CBC w/ auto diff neuts 86.3 % 43.0-7 5.0 high Not Available [facility] (Outpatient) [address] [place], [address], 08/12/2019 19:20:17 08/12/19 20 08/12/2019 CBC w/ auto diff lymphs 6.1 % 18.2-4 7.4 low Not Available [facility] (Outpatient) [address] [place], [address], 08/12/2019 19:20:17 08/12/19 20 08/12/2019 CBC w/ auto diff monos 7.0 % 4.00-1 1.00 Not Available [facility] (Outpatient) [address] [place], [address], 08/12/2019 19:20:17 08/12/19 20 08/12/2019 CBC w/ auto diff eos 0.0 % 0.0-8. 0 Not Available [facility] (Outpatient) [address] [place], [address], 08/12/2019 19:20:17 08/12/19 20 08/12/2019 CBC w/ auto diff basos 0.3 % 0.0-2. 0 Not Available [facility] (Outpatient) [address] [place], [address], 08/12/2019 19:20:17 08/12/19 20 08/12/2019 CBC w/ auto diff granulocytes , immature (%) 0.3 % 0.0-0. 9 Not Available [facility] (Outpatient) [address] [place], [address], 08/12/2019 19:20:17 08/12/19 20 08/12/2019 CBC w/ auto diff absolute neuts 2.83 K/uL 1.80-7 .70 Not Available [facility] (Outpatient) [address] [place], [address], 08/12/2019 19:20:17 08/12/19 20 08/12/2019 CBC w/ auto diff absolute lymphs 0.20 K/uL 1.00-3 .10 low Not Available [facility] (Outpatient) [address] [place], [address], 08/12/2019 19:20:17 08/12/19 20 08/12/2019 CBC w/ auto diff absolute monos 0.23 K/uL 0.20-0 .80 Not Available [facility] (Outpatient) [address] [place], [address], 08/12/2019 19:20:17 08/12/19 20 08/12/2019 CBC w/ auto diff absolute eos 0.00 K/uL 0.00-0 .80 Not Available [facility] (Outpatient) [address] [place], [address], 08/12/2019 19:20:17 08/12/19 20 08/12/2019 CBC w/ auto diff absolute basos 0.01 K/uL 0.00-0 .09 Not Available [facility] (Outpatient) [address] [place], [address], 08/12/2019 19:20:17 08/12/19 20 08/12/2019 CBC w/ auto diff granulocytes , immature 0.01 K/uL 0.00-0 .05 Not Available [facility] (Out[facility]) [address] [place], [address], 08/12/2019 19:20:17 08/12/19 20 08/12/2019 hCG, quali tativ e, serum HCG, qualitative Negati ve IU/L negati ve Not Available [facility] (Out[facility]) [address] [place], [address], 08/12/2019 19:21:37 08/12/19 20 08/12/2019 BMP, blood sodium 136 mmol/ L 133-14 6 Not Available [facility] ([facility]) [address] [place], [address], 08/12/2019 19:25:50 08/12/19 20 08/12/2019 BMP, blood chloride 104 mmol/ L 96-108 Not Available [facility] (Outpatient) [address] [place], [address], 08/12/2019 19:25:50 08/12/19 20 08/12/2019 BMP, blood potassium 3.9 mmol/ L 3.3-5. 1 Not Available [facility] ([facility]) [address] [place], [address], 08/12/2019 19:25:50 08/12/19 20 08/12/2019 BMP, blood CO2 22 mmol/ L 21-35 Not Available [facility] ([facility]) [address] [place], [address], 08/12/2019 19:25:50 08/12/19 20 08/12/2019 BMP, blood BUN 7 mg/dL 6-19 Not Available [facility] ([facility]) [address] [place], [address], 08/12/2019 19:25:50 08/12/19 20 08/12/2019 BMP, blood creatinine 0.80 mg/dL 0.5-1. 5 Not Available [facility] ([facility]) [address] [place], [address], 08/12/2019 19:25:50 08/12/19 20 08/12/2019 BMP, blood glucose 99 mg/dL 70-99 Not Available [facility] (Out[facility]) [address] [place], [address], 08/12/2019 19:25:50 08/12/19 20 08/12/2019 BMP, blood calcium 8.7 mg/dL 8.4-10 .3 Not Available [facility] (Out[facility]) [address] [place], [address], 08/12/2019 19:25:50 08/12/19 20 08/12/2019 BMP, blood eGFR 102 mL/mi n/1.7 3m2 >59 If patie nt is black , multi ply resul t by 1.159 . Estim ated glome rular filtr ation rate calcu lated using the CKD-E PI equat ion. Not Available [facility] (Outpatient) [address] [place], [address], 08/12/2019 19:25:50 08/12/19 20 08/12/2019 BMP, blood anion gap 14 mmol/ L 10-20 Not Available [facility] (Out[facility]) [address] [place], [address], 08/12/2019 19:25:50 08/12/19 20 08/12/2019 lipas e, serum or plasm a lipase 34 U/L 16-63 Not Available [facility] (Out[facility]) [address] [place], [address], 08/12/2019 19:25:52 08/12/19 20 08/12/2019 lfts (hepa tic panel ) alkaline phosphatase 80 U/L 39-117 Not Available [facility] (Outpatient) [address] [place], [address], 08/12/2019 19:25:53 08/12/19 20 08/12/2019 lfts (hepa tic panel ) total bilirubin 0.3 mg/dL 0.0-1. 2 Not Available [facility] (Out[facility]) [address] [place], [address], 08/12/2019 19:25:53 08/12/19 20 08/12/2019 lfts (hepa tic panel ) direct bilirubin <0.2 mg/dL 0-0.3 Not Available [facility] (Outpatient) [address] [place], [address], 08/12/2019 19:25:53 08/12/19 20 08/12/2019 lfts (hepa tic panel ) bilirubin (indirect) NOT CALCUL ATED mg/dL 0-1.5 Not Available [facility] (Out[facility]) [address] [place], [address], 08/12/2019 19:25:53 08/12/19 20 08/12/2019 lfts (hepa tic panel ) AST 24 U/L 0-37 Not Available [facility] (Out[facility]) [address] [place], [address], 08/12/2019 19:25:53 08/12/19 20 08/12/2019 lfts (hepa tic panel ) ALT 21 U/L 0-40 Not Available [facility] ([facility]) [address] [place], [address], 08/12/2019 19:25:53 08/12/19 20 08/12/2019 lfts (hepa tic panel ) total protein 7.5 g/dL 6.5-8. 0 Not Available [facility] (Out[facility]) [address] [place], [address], 08/12/2019 19:25:53 08/12/19 20 08/12/2019 lfts (hepa tic panel ) albumin 4.5 g/dL 3.9-4. 8 Not Available [facility] (Out[facility]) [address] [place], [address], 08/12/2019 19:25:53 08/12/19 20 08/12/2019 lfts (hepa tic panel ) globulin 3.0 g/dL 1-4.8 Not Available [facility] (Outpatient) [address] [place], [address], 08/12/2019 19:25:53 08/12/19 20 08/12/2019 lfts (hepa tic panel ) A/G ratio 1.50 ratio 1.00-4 .80 Not Available [facility] (Outpatient) [address] [place], [address], 08/12/2019 19:25:53 08/12/19 20 08/12/2019 magne sium, QN, serum or plasm a magnesium 1.8 mg/dL 1.6-2. 6 Not Available [facility] (Outpatient) [address] [place], [address], 08/12/2019 19:25:54 08/12/19 20 08/12/2019 urina lysis , refle x cultu re color Yellow yellow Not Available [facility] (Out[facility]) [address] [place], [address], 08/12/2019 19:44:10 08/12/19 20 08/12/2019 urina lysis , refle x cultu re clarity Clear Not Available [facility] (Outpatient) [address] [place], [address], 08/12/2019 19:44:10 08/12/19 20 08/12/2019 urina lysis , refle x cultu re glucose Negati ve negati ve Not Available [facility] (Outpatient) [address] [place], [address], 08/12/2019 19:44:10 08/12/19 20 08/12/2019 urina lysis , refle x cultu re bili Negati ve negati ve Not Available [facility] (Outpatient) [address] [place], [address], 08/12/2019 19:44:10 08/12/19 20 08/12/2019 urina lysis , refle x cultu re ketones Negati ve negati ve Not Available [facility] (Outpatient) [address] [place], [address], 08/12/2019 19:44:10 08/12/19 20 08/12/2019 urina lysis , refle x cultu re specific gravity 1.015 1.005- 1.030 Not Available [facility] (Outpatient) [address] [place], [address], 08/12/2019 19:44:10 08/12/19 20 08/12/2019 urina lysis , refle x cultu re blood Trace negati ve abnormal Not Available [facility] (Outpatient) [address] [place], [address], 08/12/2019 19:44:10 08/12/19 20 08/12/2019 urina lysis , refle x cultu re pH 7.0 5.0-8. 0 Not Available [facility] (Outpatient) [address] [place], [address], 08/12/2019 19:44:10 08/12/19 20 08/12/2019 urina lysis , refle x cultu re protein Negati ve negati ve Not Available [facility] (Outpatient) [address] [place], [address], 08/12/2019 19:44:10 08/12/19 20 08/12/2019 urina lysis , refle x cultu re nitrite Negati ve negati ve Not Available [facility] (Outpatient) [address] [place], [address], 08/12/2019 19:44:10 08/12/19 20 08/12/2019 urina lysis , refle x cultu re leukocyte esterase, ur Negati ve negati ve Not Available [facility] (Outpatient) [address] [place], [address], 08/12/2019 19:44:10 08/12/19 20 08/12/2019 rapid flu (A+B) influenza A, naat Positi ve negati ve abnormal Not Available [facility] (Outpatient) [address] [place], [address], 08/12/2019 19:46:50 08/12/19 20 08/12/2019 rapid flu (A+B) influenza B, naat Negati ve negati ve Not Available [facility] (Outpatient) [address] [place], [address], 08/12/2019 19:46:50 08/12/19 20 08/12/2019 CK (crea varsha kinas e), total , serum creatine kinase 93 U/L 21-215 Not Available [facility] (Outpatient) [address] [place], [address], 08/12/2019 23:03:36 08/12/19 20 08/12/2019 cultu re, blood special requests None Not Available [facility] (Out[facility]) [address] [place], [address], 08/20/2019 08:08:56 08/12/19 20 08/16/2019 cultu re, blood blood culture MICROC OCCUS LUTEUS abnormal Criti merry Resul t. Resul ts duran d to and read back by: Tele Melan ie S Not Available [facility] (Outpatient) [address] [place], [address], 08/20/2019 08:08:56 08/12/19 20 08/12/2019 cultu re, blood special requests None Not Available [facility] (Outpatient) [address] [place], [address], 08/20/2019 08:09:06 08/12/19 20 08/16/2019 cultu re, blood blood culture MICROC OCCUS LUTEUS abnormal Criti merry Resul tAshley Catherine ts duran d to and read back by: TELE MELAN IE S Not Available [facility] (Outpatient) [address] [place], [address], 08/20/2019 08:09:06 08/13/19 20 08/13/2019 CBC w/ auto diff WBC 2.90 K/uL 4.00-1 1.00 low Note Refer ence Range updat es to all CBC and Diffe renti al resul ts. Not Available [facility] (Outpatient) [address] [place], [address], 08/13/2019 07:31:25 08/13/19 20 08/13/2019 CBC w/ auto diff RBC 4.20 M/uL 3.72-5 .30 Not Available [facility] (Outpatient) [address] [place], [address], 08/13/2019 07:31:25 08/13/19 20 08/13/2019 CBC w/ auto diff HGB 11.5 g/dL 11.0-1 5.2 Note updat ed Refer ence Range s for all CBC and Diffe renti al resul ts. Not Available [facility] (Outpatient) [address] [place], [address], 08/13/2019 07:31:25 08/13/19 20 08/13/2019 CBC w/ auto diff HCT 34.4 % 31.6-4 4.1 Not Available [facility] (Outpatient) [address] [place], [address], 08/13/2019 07:31:25 08/13/19 20 08/13/2019 CBC w/ auto diff plt 181 K/uL 140-43 0 Not Available [facility] (Outpatient) [address] [place], [address], 08/13/2019 07:31:25 08/13/19 20 08/13/2019 CBC w/ auto diff MCV 81.9 fL 78.0-9 7.0 Not Available [facility] (Outpatient) [address] [place], [address], 08/13/2019 07:31:25 08/13/19 20 08/13/2019 CBC w/ auto diff MCH 27.4 pg 25.0-3 3.0 Not Available [facility] (Outpatient) [address] [place], [address], 08/13/2019 07:31:25 08/13/19 20 08/13/2019 CBC w/ auto diff MCHC 33.4 g/dL 32.0-3 6.0 Not Available [facility] (Outpatient) [address] [place], [address], 08/13/2019 07:31:25 08/13/19 20 08/13/2019 CBC w/ auto diff RDW 12.9 % 11.0-1 6.0 Not Available [facility] (Outpatient) [address] [place], [address], 08/13/2019 07:31:25 08/13/19 20 08/13/2019 CBC w/ auto diff MPV 9.3 fL 8.4-12 .8 Not Available [facility] (Outpatient) [address] [place], [address], 08/13/2019 07:31:25 08/13/19 20 08/13/2019 CBC w/ auto diff NRBC 0.00 /100_ WBCs 0 Not Available [facility] (Outpatient) [address] [place], [address], 08/13/2019 07:31:25 08/13/19 20 08/13/2019 CBC w/ auto diff absolute NRBC 0.00 K/uL 0 Not Available [facility] (Outpatient) [address] [place], [address], 08/13/2019 07:31:25 08/13/19 20 08/13/2019 CBC w/ auto diff diff method Auto Not Available [facility] (Outpatient) [address] [place], [address], 08/13/2019 07:31:25 08/13/19 20 08/13/2019 CBC w/ auto diff neuts 87.3 % 43.0-7 5.0 high Not Available [facility] (Outpatient) [address] [place], [address], 08/13/2019 07:31:25 08/13/19 20 08/13/2019 CBC w/ auto diff lymphs 8.6 % 18.2-4 7.4 low Not Available [facility] (Outpatient) [address] [place], [address], 08/13/2019 07:31:25 08/13/19 20 08/13/2019 CBC w/ auto diff monos 3.4 % 4.00-1 1.00 low Not Available [facility] (Outpatient) [address] [place], [address], 08/13/2019 07:31:25 08/13/19 20 08/13/2019 CBC w/ auto diff eos 0.0 % 0.0-8. 0 Not Available [facility] (Outpatient) [address] [place], [address], 08/13/2019 07:31:25 08/13/19 20 08/13/2019 CBC w/ auto diff basos 0.0 % 0.0-2. 0 Not Available [facility] (Outpatient) [address] [place], [address], 08/13/2019 07:31:25 08/13/19 20 08/13/2019 CBC w/ auto diff granulocytes , immature (%) 0.7 % 0.0-0. 9 Not Available [facility] (Outpatient) [address] [place], [address], 08/13/2019 07:31:25 08/13/19 20 08/13/2019 CBC w/ auto diff absolute neuts 2.53 K/uL 1.80-7 .70 Not Available [facility] (Outpatient) [address] [place], [address], 08/13/2019 07:31:25 08/13/19 20 08/13/2019 CBC w/ auto diff absolute lymphs 0.25 K/uL 1.00-3 .10 low Not Available [facility] (Outpatient) [address] [place], [address], 08/13/2019 07:31:25 08/13/19 20 08/13/2019 CBC w/ auto diff absolute monos 0.10 K/uL 0.20-0 .80 low Not Available [facility] (Outpatient) [address] [place], [address], 08/13/2019 07:31:25 08/13/19 20 08/13/2019 CBC w/ auto diff absolute eos 0.00 K/uL 0.00-0 .80 Not Available [facility] (Outpatient) [address] [place], [address], 08/13/2019 07:31:25 08/13/19 20 08/13/2019 CBC w/ auto diff absolute basos 0.00 K/uL 0.00-0 .09 Not Available [facility] (Outpatient) [address] [place], [address], 08/13/2019 07:31:25 08/13/19 20 08/13/2019 CBC w/ auto diff granulocytes , immature 0.02 K/uL 0.00-0 .05 Not Available [facility] (Outpatient) [address] [place], [address], 08/13/2019 07:31:25 08/13/19 20 08/13/2019 BMP, blood sodium 137 mmol/ L 133-14 6 Not Available [facility] (Outpatient) [address] [place], [address], 08/13/2019 08:02:07 08/13/19 20 08/13/2019 BMP, blood chloride 103 mmol/ L 96-108 Not Available [facility] (Outpatient) [address] [place], [address], 08/13/2019 08:02:07 08/13/19 20 08/13/2019 BMP, blood potassium 3.9 mmol/ L 3.3-5. 1 Not Available [facility] (Outpatient) [address] [place], [address], 08/13/2019 08:02:07 08/13/19 20 08/13/2019 BMP, blood CO2 20 mmol/ L 21-35 low Not Available [facility] (Outpatient) [address] [place], [address], 08/13/2019 08:02:07 08/13/19 20 08/13/2019 BMP, blood BUN 6 mg/dL 6-19 Not Available [facility] (Outpatient) [address] [place], [address], 08/13/2019 08:02:07 08/13/19 20 08/13/2019 BMP, blood creatinine 0.70 mg/dL 0.5-1. 5 Not Available [facility] (Outpatient) [address] [place], [address], 08/13/2019 08:02:07 08/13/19 20 08/13/2019 BMP, blood glucose 173 mg/dL 70-99 high Not Available [facility] (Outpatient) [address] [place], [address], 08/13/2019 08:02:07 08/13/19 20 08/13/2019 BMP, blood calcium 8.1 mg/dL 8.4-10 .3 low Not Available [facility] (Outpatient) [address] [place], [address], 08/13/2019 08:02:07 08/13/19 20 08/13/2019 BMP, blood eGFR 120 mL/mi n/1.7 3m2 >59 If patie nt is black , multi ply resul t by 1.159 . Estim ated glome rular filtr ation rate calcu lated using the CKD-E PI equat ion. Not Available [facility] (Outpatient) [address] [place], [address], 08/13/2019 08:02:07 08/13/19 20 08/13/2019 BMP, blood anion gap 18 mmol/ L 10-20 Not Available [facility] (Outpatient) [address] [place] [address], [address], 08/13/2019 08:02:07 08/13/19 20 08/13/2019 lacta te lactate 0.83 mmol/ L 0.50-2 .20 Not Available [facility] (Outpatient) [address] [place] [address], [address], 08/13/2019 13:50:13 08/14/19 20 08/14/2019 CBC w/ auto diff WBC 2.80 K/uL 4.00-1 1.00 low Note Refer ence Range updat es to all CBC and Diffe renti al resul ts. Not Available [facility] (Outpatient) [address] [place], [address], 08/14/2019 07:13:22 08/14/19 20 08/14/2019 CBC w/ auto diff RBC 4.11 M/uL 3.72-5 .30 Not Available [facility] (Outpatient) [address] [place], [address], 08/14/2019 07:13:22 08/14/19 20 08/14/2019 CBC w/ auto diff HGB 11.2 g/dL 11.0-1 5.2 Note updat ed Refer ence Range s for all CBC and Diffe renti al resul ts. Not Available [facility] (Outpatient) [address] [place], [address], 08/14/2019 07:13:22 08/14/19 20 08/14/2019 CBC w/ auto diff HCT 34.6 % 31.6-4 4.1 Not Available [facility] (Outpatient) [address] [place], [address], 08/14/2019 07:13:22 08/14/19 20 08/14/2019 CBC w/ auto diff plt 160 K/uL 140-43 0 Not Available [facility] (Outpatient) [address] [place], [address], 08/14/2019 07:13:22 08/14/1908/14/2019 CBC w/ auto diff MCV 84.2 fL 78.0-9 7.0 Not Available [facility] (Outpatient) [address] [place], [address], 08/14/2019 07:13:22 08/14/1908/14/2019 CBC w/ auto diff MCH 27.3 pg 25.0-3 3.0 Not Available [facility] (Outpatient) [address] [place], [address], 08/14/2019 07:13:22 08/14/19 20 08/14/2019 CBC w/ auto diff MCHC 32.4 g/dL 32.0-3 6.0 Not Available [facility] (Outpatient) [address] [place], [address], 08/14/2019 07:13:22 08/14/19 20 08/14/2019 CBC w/ auto diff RDW 13.4 % 11.0-1 6.0 Not Available [facility] (Outpatient) [address] [place], [address], 08/14/2019 07:13:22 08/14/19 20 08/14/2019 CBC w/ auto diff MPV 9.4 fL 8.4-12 .8 Not Available [facility] (Outpatient) [address] [place], [address], 08/14/2019 07:13:22 08/14/19 20 08/14/2019 CBC w/ auto diff NRBC 0.00 /100_ WBCs 0 Not Available [facility] (Outpatient) [address] [place], [address], 08/14/2019 07:13:22 08/14/1908/14/2019 CBC w/ auto diff absolute NRBC 0.00 K/uL 0 Not Available [facility] (Outpatient) [address] [place], [address], 08/14/2019 07:13:22 08/14/1908/14/2019 CBC w/ auto diff diff method Auto Not Available [facility] (Outpatient) [address] [place], [address], 08/14/2019 07:13:22 08/14/1908/14/2019 CBC w/ auto diff neuts 60.6 % 43.0-7 5.0 Not Available [facility] (Outpatient) [address] [place], [address], 08/14/2019 07:13:22 08/14/19 20 08/14/2019 CBC w/ auto diff lymphs 30.4 % 18.2-4 7.4 Not Available [facility] (Outpatient) [address] [place], [address], 08/14/2019 07:13:22 08/14/19 20 08/14/2019 CBC w/ auto diff monos 8.2 % 4.00-1 1.00 Not Available [facility] (Outpatient) [address] [place], [address], 08/14/2019 07:13:22 08/14/19 20 08/14/2019 CBC w/ auto diff eos 0.0 % 0.0-8. 0 Not Available [facility] (Outpatient) [address] [place] [address], [address], 08/14/2019 07:13:22 08/14/19 20 08/14/2019 CBC w/ auto diff basos 0.4 % 0.0-2. 0 Not Available [facility] (Outpatient) [address] [place], [address], 08/14/2019 07:13:22 08/14/1908/14/2019 CBC w/ auto diff granulocytes , immature (%) 0.4 % 0.0-0. 9 Not Available [facility] (Outpatient) [address] [place] [address], [address], 08/14/2019 07:13:22 08/14/1908/14/2019 CBC w/ auto diff absolute neuts 1.70 K/uL 1.80-7 .70 low Not Available [facility] (Outpatient) [address] [place] [address], [address], 08/14/2019 07:13:22 08/14/1908/14/2019 CBC w/ auto diff absolute lymphs 0.85 K/uL 1.00-3 .10 low Not Available [facility] (Outpatient) [address] [place] [address], [address], 08/14/2019 07:13:22 08/14/19 20 08/14/2019 CBC w/ auto diff absolute monos 0.23 K/uL 0.20-0 .80 Not Available [facility] (Outpatient) [address] [place], [address], 08/14/2019 07:13:22 08/14/19 20 08/14/2019 CBC w/ auto diff absolute eos 0.00 K/uL 0.00-0 .80 Not Available [facility] (Outpatient) [address] [place], [id number], 08/14/2019 07:13:22 08/14/19 20 08/14/2019 CBC w/ auto diff absolute basos 0.01 K/uL 0.00-0 .09 Not Available [facility] (Outpatient) [address] [place], [id number], 08/14/2019 07:13:22 08/14/19 20 08/14/2019 CBC w/ auto diff granulocytes , immature 0.01 K/uL 0.00-0 .05 Not Available [facility] (Outpatient) [address] [place], [address], 08/14/2019 07:13:22 08/14/19 20 08/14/2019 CMP, serum or plasm a sodium 142 mmol/ L 133-14 6 Not Available [facility] ([facility] [address] [place], [address], 08/14/2019 07:41:11 08/14/19 20 08/14/2019 CMP, serum or plasm a potassium 4.3 mmol/ L 3.3-5. 1 Not Available [facility] (Out[facility]) [address] [place], [address], 08/14/2019 07:41:11 08/14/19 20 08/14/2019 CMP, serum or plasm a chloride 111 mmol/ L 96-108 high Not Available [facility] (Outpatient) [address] [place], [address], 08/14/2019 07:41:11 08/14/19 20 08/14/2019 CMP, serum or plasm a CO2 20 mmol/ L 21-35 low Not Available [facility] (Outpatient) [address] [place], [address], 08/14/2019 07:41:11 08/14/19 20 08/14/2019 CMP, serum or plasm a BUN 8 mg/dL 6-19 Not Available [facility] (Out[facility]) [address] [place], [address], 08/14/2019 07:41:11 08/14/19 20 08/14/2019 CMP, serum or plasm a creatinine 0.60 mg/dL 0.5-1. 5 Not Available [facility] (Out[facility]) [address] [place], [address], 08/14/2019 07:41:11 08/14/19 20 08/14/2019 CMP, serum or plasm a glucose 82 mg/dL 70-99 Not Available [facility] (Out[facility]) [address] [place] [address], [address], 08/14/2019 07:41:11 08/14/19 20 08/14/2019 CMP, serum or plasm a albumin 3.5 g/dL 3.9-4. 8 low Not Available [facility] (Out[facility]) [address] [place], [address], 08/14/2019 07:41:11 08/14/1908/14/2019 CMP, serum or plasm a total protein 6.1 g/dL 6.5-8. 0 low Not Available [facility] (Outpatient) [address] [place] [address], [address], 08/14/2019 07:41:11 08/14/19 20 08/14/2019 CMP, serum or plasm a calcium 7.7 mg/dL 8.4-10 .3 low Not Available [facility] (Outpatient) [address] [place] [address], [address], 08/14/2019 07:41:11 08/14/19 20 08/14/2019 CMP, serum or plasm a alkaline phosphatase 55 U/L 39-117 Not Available [facility] (Outpatient) [address] [place] [address], [address], 08/14/2019 07:41:11 08/14/19 20 08/14/2019 CMP, serum or plasm a total bilirubin <0.2 mg/dL 0.0-1. 2 Not Available [facility] (Out[facility]) [address] [place] [address], [address], 08/14/2019 07:41:11 08/14/1908/14/2019 CMP, serum or plasm a AST 70 U/L 0-37 high Not Available [facility] (Outpatient) [address] [place] [address], [address], 08/14/2019 07:41:11 08/14/1908/14/2019 CMP, serum or plasm a ALT 103 U/L 0-40 high Not Available [facility] (Outpatient) [address] [place] [address], [address], 08/14/2019 07:41:11 08/14/1908/14/2019 CMP, serum or plasm a globulin 2.6 g/dL 1-4.8 Not Available [facility] (Out[facility]) [address] [place] [address], [address], 08/14/2019 07:41:11 08/14/1908/14/2019 CMP, serum or plasm a eGFR >120 mL/mi n/1.7 3m2 >59 If patie nt is black , multi ply resul t by 1.159 . Estim ated glome rular filtr ation rate calcu lated using the CKD-E PI equat ion. Not Available [facility] (Out[facility]) [address] [place] [address], [address], 08/14/2019 07:41:11 08/14/19 20 08/14/2019 CMP, serum or plasm a anion gap 15 mmol/ L 10-20 Not Available [facility] ([facility]) [address] [place], [address], 08/14/2019 07:41:11 08/14/19 20 08/14/2019 CK (crea varsha kinas e), total , serum creatine kinase 130 U/L 21-215 Not Available [facility] ([facility]) [address] [place], [address], 08/14/2019 07:41:13 08/14/19 20 08/19/2019 susce pt aerob ic mariola suscept aerobic,mariola SEE NOTE 2019 02:54 PM (NOTE ) Test Resul t Flag Unit RefVa lue ----- ----- ----- ----- ----- ----- ----- ----- ----- ----- ----- ----- ----- - Susce ptibi lity, Aerob ic, MARIOLA SEE NOTE AB SOURC E: BLOOD SUSCE PTIBI LITY, AEROB IC, MARIOLA FINAL MICRO COCCU S LUTEU S Organ ism ident ified by armando reyes ----- ----- ----- ----- ----- ----- ----- ----- ----- ----- ----- --- Organ ism MICRO COCCU S LUTEU S Antib iotic MARIOLA (mcg/ mL) Inter preta tion ----- ----- ----- ----- ----- ----- ----- ----- ----- ----- ----- --- Penic illin <=0.0 6 S Vanco mycin <=0.5 S ----- ----- ----- ----- ----- ----- ----- ----- ----- ----- ----- ----- S=LENY CEPTI BLE I=INT ERMED IATE R=RES ISTAN T NS=NO NSUSC EPTIB LE SDD=S USCEP TIBLE DOSE DEPEN DENT ----- ----- ----- ----- ----- ----- ----- ----- ----- ----- ----- ----- Not Available [facility]) [address] [place] [address], [address], 08/19/2019 15:54:20 08/15/19 20 08/15/2019 CMP, serum or plasm a sodium 138 mmol/ L 133-14 6 Not Available [facility] ([facility]) [address] [place] [address], [address], 08/15/2019 14:08:47 08/15/19 20 08/15/2019 CMP, serum or plasm a potassium 3.9 mmol/ L 3.3-5. 1 Not Available [facility] ([facility]) [address] [place], [address], 08/15/2019 14:08:47 08/15/19 20 08/15/2019 CMP, serum or plasm a chloride 104 mmol/ L 96-108 Not Available [facility] ([facility]) [address] [place] [address], [address], 08/15/2019 14:08:47 08/15/19 20 08/15/2019 CMP, serum or plasm a CO2 21 mmol/ L 21-35 Not Available [facility] ([facility]) [address] [place], [address], 08/15/2019 14:08:47 08/15/19 20 08/15/2019 CMP, serum or plasm a BUN 4 mg/dL 6-19 low Not Available [facility] ([facility]) [address] [place], [address], 08/15/2019 14:08:47 08/15/19 20 08/15/2019 CMP, serum or plasm a creatinine 0.50 mg/dL 0.5-1. 5 Not Available [facility] ([facility]) [address] [place], [address], 08/15/2019 14:08:47 08/15/19 20 08/15/2019 CMP, serum or plasm a glucose 143 mg/dL 70-99 high Not Available [facility] ([facility]) [address] [place], [address], 08/15/2019 14:08:47 08/15/19 20 08/15/2019 CMP, serum or plasm a albumin 4.0 g/dL 3.9-4. 8 Not Available [facility] ([facility]) [address] [place], [address], 08/15/2019 14:08:47 08/15/19 20 08/15/2019 CMP, serum or plasm a total protein 7.1 g/dL 6.5-8. 0 Not Available [facility] ([facility]) [address] [place], [address], 08/15/2019 14:08:47 08/15/19 20 08/15/2019 CMP, serum or plasm a calcium 8.4 mg/dL 8.4-10 .3 Not Available [facility] ([facility]) [address] [place], [address], 08/15/2019 14:08:47 08/15/19 20 08/15/2019 CMP, serum or plasm a alkaline phosphatase 67 U/L 39-117 Not Available [facility] (Out[facility]) [address] [place], [address], 08/15/2019 14:08:47 08/15/19 20 08/15/2019 CMP, serum or plasm a total bilirubin <0.2 mg/dL 0.0-1. 2 Not Available [facility] ([facility]) [address] [place] [address], [address], 08/15/2019 14:08:47 08/15/19 20 08/15/2019 CMP, serum or plasm a AST 70 U/L 0-37 high Not Available [facility] (Out[facility]) [address] [place] [address], [address], 08/15/2019 14:08:47 08/15/19 20 08/15/2019 CMP, serum or plasm a ALT 85 U/L 0-40 high Not Available [facility] ([facility]) [address] [place] [address], [address], 08/15/2019 14:08:47 08/15/19 20 08/15/2019 CMP, serum or plasm a globulin 3.1 g/dL 1-4.8 Not Available [facility] ([facility]) [address] [place] [address], [address], 08/15/2019 14:08:47 08/15/19 20 08/15/2019 CMP, serum or plasm a eGFR >120 mL/mi n/1.7 3m2 >59 If patie nt is black , multi ply resul t by 1.159 . Estim ated glome rular filtr ation rate calcu lated using the CKD-E PI equat ion. Not Available [facility] ([facility]) [address] [place] [address], [address], 08/15/2019 14:08:47 08/15/19 20 08/15/2019 CMP, serum or plasm a anion gap 17 mmol/ L 10-20 Not Available [facility] ([facility]) [address] [place] [address], [address], 08/15/2019 14:08:47 08/15/19 20 08/15/2019 CBC w/ auto diff WBC 1.89 K/uL 4.00-1 1.00 low Note Refer ence Range updat es to all CBC and Diffe renti al resul ts. Not Available [facility] ([facility]) [address] [place], [address], 08/15/2019 14:51:31 08/15/19 20 08/15/2019 CBC w/ auto diff RBC 4.65 M/uL 3.72-5 .30 Not Available [facility] ([facility]) [address] [place], [address], 08/15/2019 14:51:31 08/15/19 20 08/15/2019 CBC w/ auto diff HGB 12.5 g/dL 11.0-1 5.2 Note updat ed Refer ence Range s for all CBC and Diffe renti al resul ts. Not Available [facility] (Out[facility]) [address] [place], [address], 08/15/2019 14:51:31 08/15/19 20 08/15/2019 CBC w/ auto diff HCT 38.4 % 31.6-4 4.1 Not Available [facility] ([facility]) [address] [place], [address], 08/15/2019 14:51:31 08/15/19 20 08/15/2019 CBC w/ auto diff plt 183 K/uL 140-43 0 Not Available [facility] ([facility]) [address] [place], [address], 08/15/2019 14:51:31 08/15/19 20 08/15/2019 CBC w/ auto diff MCV 82.6 fL 78.0-9 7.0 Not Available [facility] ([facility]) [address] [place], [address], 08/15/2019 14:51:31 08/15/19 20 08/15/2019 CBC w/ auto diff MCH 26.9 pg 25.0-3 3.0 Not Available [facility] (Out[facility]) [address] [place], [address], 08/15/2019 14:51:31 08/15/19 20 08/15/2019 CBC w/ auto diff MCHC 32.6 g/dL 32.0-3 6.0 Not Available [facility] (Outpatient) [address] [place], [address], 08/15/2019 14:51:31 08/15/19 20 08/15/2019 CBC w/ auto diff RDW 13.2 % 11.0-1 6.0 Not Available [facility] (Outpatient) [address] [place], [address], 08/15/2019 14:51:31 08/15/19 20 08/15/2019 CBC w/ auto diff MPV 8.6 fL 8.4-12 .8 Not Available [facility] ([facility]) [address] [place], [address], 08/15/2019 14:51:31 08/15/19 20 08/15/2019 CBC w/ auto diff NRBC 0.00 /100_ WBCs 0 Not Available [facility] ([facility]) [address] [place], [address], 08/15/2019 14:51:31 08/15/19 20 08/15/2019 CBC w/ auto diff absolute NRBC 0.00 K/uL 0 Not Available [facility] ([facility]) [address] [place], [address], 08/15/2019 14:51:31 08/15/19 20 08/15/2019 CBC w/ auto diff diff method Auto Not Available [facility] (Out[facility]) [address] [place], [address], 08/15/2019 14:51:31 08/15/19 20 08/15/2019 CBC w/ auto diff neuts 59.8 % 43.0-7 5.0 Not Available [facility] (Outpatient) [address] [place], [address], 08/15/2019 14:51:31 08/15/19 20 08/15/2019 CBC w/ auto diff lymphs 34.4 % 18.2-4 7.4 Not Available [facility] (Outpatient) [address] [place], [address], 08/15/2019 14:51:31 08/15/19 20 08/15/2019 CBC w/ auto diff monos 5.8 % 4.00-1 1.00 Not Available [facility] (Out[facility]) [address] [place], [address], 08/15/2019 14:51:31 08/15/19 20 08/15/2019 CBC w/ auto diff eos 0.0 % 0.0-8. 0 Not Available [facility] (Outpatient) [address] [place], [address], 08/15/2019 14:51:31 08/15/19 20 08/15/2019 CBC w/ auto diff basos 0.0 % 0.0-2. 0 Not Available [facility] (Outpatient) [address] [place], [address], 08/15/2019 14:51:31 08/15/19 20 08/15/2019 CBC w/ auto diff granulocytes , immature (%) 0.0 % 0.0-0. 9 Not Available [facility] (Outpatient) [address] [place], [address], 08/15/2019 14:51:31 08/15/19 20 08/15/2019 CBC w/ auto diff absolute neuts 1.13 K/uL 1.80-7 .70 low Not Available [facility] (Outpatient) [address] [place], [address], 08/15/2019 14:51:31 08/15/19 20 08/15/2019 CBC w/ auto diff absolute lymphs 0.65 K/uL 1.00-3 .10 low Not Available [facility] (Outpatient) [address] [place], [address], 08/15/2019 14:51:31 08/15/19 20 08/15/2019 CBC w/ auto diff absolute monos 0.11 K/uL 0.20-0 .80 low Not Available [facility] (Outpatient) [address] [place], [address], 08/15/2019 14:51:31 08/15/19 20 08/15/2019 CBC w/ auto diff absolute eos 0.00 K/uL 0.00-0 .80 Not Available [facility] (Outpatient) [address] [place], [address], 08/15/2019 14:51:31 08/15/19 20 08/15/2019 CBC w/ auto diff absolute basos 0.00 K/uL 0.00-0 .09 Not Available [facility] (Outpatient) [address] [place], [address], 08/15/2019 14:51:31 08/15/19 20 08/15/2019 CBC w/ auto diff granulocytes , immature 0.00 K/uL 0.00-0 .05 Not Available [facility] (Outpatient) [address] [place], [address], 08/15/2019 14:51:31 08/16/19 20 08/16/2019 CBC w/ auto diff WBC 2.51 K/uL 4.00-1 1.00 low Note Refer ence Range updat es to all CBC and Diffe renti al resul ts. Not Available [facility] (Outpatient) [address] [place], [address], 08/16/2019 06:48:31 08/16/19 20 08/16/2019 CBC w/ auto diff RBC 4.54 M/uL 3.72-5 .30 Not Available [facility] (Outpatient) [address] [place], [address], 08/16/2019 06:48:31 08/16/19 20 08/16/2019 CBC w/ auto diff HGB 12.4 g/dL 11.0-1 5.2 Note updat ed Refer ence Range s for all CBC and Diffe renti al resul ts. Not Available [facility] (Outpatient) [address] [place], [address], 08/16/2019 06:48:31 08/16/19 20 08/16/2019 CBC w/ auto diff HCT 36.5 % 31.6-4 4.1 Not Available [facility] (Outpatient) [address] [place], [address], 08/16/2019 06:48:31 08/16/19 20 08/16/2019 CBC w/ auto diff plt 182 K/uL 140-43 0 Not Available [facility] (Outpatient) [address] [place], [address], 08/16/2019 06:48:31 08/16/1908/16/2019 CBC w/ auto diff MCV 80.4 fL 78.0-9 7.0 Not Available [facility] (Out[facility]) [address] [place], [address], 08/16/2019 06:48:31 08/16/19 20 08/16/2019 CBC w/ auto diff MCH 27.3 pg 25.0-3 3.0 Not Available [facility] (Outpatient) [address] [place], [address], 08/16/2019 06:48:31 08/16/1908/16/2019 CBC w/ auto diff MCHC 34.0 g/dL 32.0-3 6.0 Not Available [facility] (Outpatient) [address] [place], [address], 08/16/2019 06:48:31 08/16/1908/16/2019 CBC w/ auto diff RDW 13.0 % 11.0-1 6.0 Not Available [facility] (Outpatient) [address] [place], [address], 08/16/2019 06:48:31 08/16/19 20 08/16/2019 CBC w/ auto diff MPV 8.5 fL 8.4-12 .8 Not Available [facility] (Outpatient) [address] [place], [address], 08/16/2019 06:48:31 08/16/19 20 08/16/2019 CBC w/ auto diff NRBC 0.00 /100_ WBCs 0 Not Available [facility] (Out[facility]) [address] [place], [address], 08/16/2019 06:48:31 08/16/1908/16/2019 CBC w/ auto diff absolute NRBC 0.00 K/uL 0 Not Available [facility] (Out[facility]) [address] [place], [address], 08/16/2019 06:48:31 08/16/1908/16/2019 CBC w/ auto diff diff method Auto Not Available [facility] ([facility]) [address] [place], [address], 08/16/2019 06:48:31 08/16/1908/16/2019 CBC w/ auto diff neuts 43.4 % 43.0-7 5.0 Not Available [facility] (Outpatient) [address] [place], [address], 08/16/2019 06:48:31 08/16/1908/16/2019 CBC w/ auto diff lymphs 51.4 % 18.2-4 7.4 high Not Available [facility] (Outpatient) [address] [place], [address], 08/16/2019 06:48:31 08/16/1908/16/2019 CBC w/ auto diff monos 5.2 % 4.00-1 1.00 Not Available [facility] (Out[facility]) [address] [place], [address], 08/16/2019 06:48:31 08/16/19 20 08/16/2019 CBC w/ auto diff eos 0.0 % 0.0-8. 0 Not Available [facility] (Out[facility]) [address] [place], [address], 08/16/2019 06:48:31 08/16/19 20 08/16/2019 CBC w/ auto diff basos 0.0 % 0.0-2. 0 Not Available [facility] (Outpatient) [address] [place], [address], 08/16/2019 06:48:31 08/16/1908/16/2019 CBC w/ auto diff granulocytes , immature (%) 0.0 % 0.0-0. 9 Not Available [facility] (Outpatient) [address] [place], [address], 08/16/2019 06:48:31 08/16/1908/16/2019 CBC w/ auto diff absolute neuts 1.09 K/uL 1.80-7 .70 low Not Available [facility] (Outpatient) [address] [place], [address], 08/16/2019 06:48:31 08/16/19 20 08/16/2019 CBC w/ auto diff absolute lymphs 1.29 K/uL 1.00-3 .10 Not Available [facility] (Outpatient) [address] [place], [address], 08/16/2019 06:48:31 08/16/19 20 08/16/2019 CBC w/ auto diff absolute monos 0.13 K/uL 0.20-0 .80 low Not Available [facility] (Outpatient) [address] [place], [address], 08/16/2019 06:48:31 08/16/19 20 08/16/2019 CBC w/ auto diff absolute eos 0.00 K/uL 0.00-0 .80 Not Available [facility] (Outpatient) [address] [place], [address], 08/16/2019 06:48:31 08/16/19 20 08/16/2019 CBC w/ auto diff absolute basos 0.00 K/uL 0.00-0 .09 Not Available [facility] (Outpatient) [address] [place], [address], 08/16/2019 06:48:31 08/16/19 20 08/16/2019 CBC w/ auto diff granulocytes , immature 0.00 K/uL 0.00-0 .05 Not Available [facility] (Outpatient) [address] [place], [address], 08/16/2019 06:48:31 08/16/19 20 08/16/2019 CMP, serum or plasm a sodium 139 mmol/ L 133-14 6 Not Available [facility] (Outpatient) [address] [place], [address], 08/16/2019 07:42:10 08/16/19 20 08/16/2019 CMP, serum or plasm a potassium 3.2 mmol/ L 3.3-5. 1 low Not Available [facility] (Outpatient) [address] [place], [address], 08/16/2019 07:42:10 08/16/19 20 08/16/2019 CMP, serum or plasm a chloride 104 mmol/ L 96-108 Not Available [facility] (Outpatient) [address] [place], [address], 08/16/2019 07:42:10 08/16/19 20 08/16/2019 CMP, serum or plasm a CO2 21 mmol/ L 21-35 Not Available [facility] ([facility]) [address] [place], [address], 08/16/2019 07:42:10 08/16/19 20 08/16/2019 CMP, serum or plasm a BUN 3 mg/dL 6-19 low Not Available [facility] (Outpatient) [address] [place], [address], 08/16/2019 07:42:10 08/16/19 20 08/16/2019 CMP, serum or plasm a creatinine 0.60 mg/dL 0.5-1. 5 Not Available [facility] (Outpatient) [address] [place], [address], 08/16/2019 07:42:10 08/16/19 20 08/16/2019 CMP, serum or plasm a glucose 106 mg/dL 70-99 high Not Available [facility] (Outpatient) [address] [place], [address], 08/16/2019 07:42:10 08/16/19 20 08/16/2019 CMP, serum or plasm a albumin 4.0 g/dL 3.9-4. 8 Not Available [facility] (Outpatient) [address] [place], [address], 08/16/2019 07:42:10 08/16/19 20 08/16/2019 CMP, serum or plasm a total protein 7.0 g/dL 6.5-8. 0 Not Available [facility] (Outpatient) [address] [place], [address], 08/16/2019 07:42:10 08/16/19 20 08/16/2019 CMP, serum or plasm a calcium 8.3 mg/dL 8.4-10 .3 low Not Available [facility] (Outpatient) [address] [place], [address], 08/16/2019 07:42:10 08/16/19 20 08/16/2019 CMP, serum or plasm a alkaline phosphatase 63 U/L 39-117 Not Available [facility] (Out[facility]) [address] [place], [address], 08/16/2019 07:42:10 08/16/19 20 08/16/2019 CMP, serum or plasm a total bilirubin 0.2 mg/dL 0.0-1. 2 Not Available [facility] (Outpatient) [address] [place], [address], 08/16/2019 07:42:10 08/16/19 20 08/16/2019 CMP, serum or plasm a AST 65 U/L 0-37 high Not Available [facility] (Outpatient) [address] [place] [address], [address], 08/16/2019 07:42:10 08/16/19 20 08/16/2019 CMP, serum or plasm a ALT 73 U/L 0-40 high Not Available [facility] (Outpatient) [address] [place] [address], [address], 08/16/2019 07:42:10 08/16/19 20 08/16/2019 CMP, serum or plasm a globulin 3.0 g/dL 1-4.8 Not Available [facility] (Outpatient) [address] [place] [address], [address], 08/16/2019 07:42:10 08/16/19 20 08/16/2019 CMP, serum or plasm a eGFR >120 mL/mi n/1.7 3m2 >59 If patie nt is black , multi ply resul t by 1.159 . Estim ated glome rular filtr ation rate calcu lated using the CKD-E PI equat ion. Not Available [facility] (Outpatient) [address] [place], [address], 08/16/2019 07:42:10 08/16/19 20 08/16/2019 CMP, serum or plasm a anion gap 17 mmol/ L 10-20 Not Available [facility] (Outpatient) [address] [place] [address], [address], 08/16/2019 07:42:10 08/16/19 20 08/16/2019 magne sium, QN, serum or plasm a magnesium 1.7 mg/dL 1.6-2. 6 Not Available [facility] (Outpatient) [address] [place] [address], [address], 08/16/2019 08:02:22 08/17/19 20 08/18/2019 HIV-1 /2 antig en/an tibod y HIV 1/2 antibody screen NON-RE ACTIVE non-re active Not Available [facility] (Outpatient) [address] [place] [address], [address], 08/18/2019 11:41:16 08/17/19 20 08/18/2019 HIV-1 /2 antig en/an tibod y HIV-1 antigen NON-RE ACTIVE non-re active Not Available [facility] (Outpatient) [address] [place] [address], [address], 08/18/2019 11:41:16 12/25/19 21 12/24/2020 daniel mariola respi rator y viral order (pro) test ordered Rapid COVID has been ordere d Not Available [facility] (Outpatient) [address] [place] [address], [address], 12/24/2020 05:46:36 12/25/19 21 12/24/2020 daniel mariola respi rator y viral order (pro) specimen source NASAL Not Available [facility] (Outpatient) [address] [place] [address], [address], 12/24/2020 05:46:36 12/25/19 21 12/24/2020 daniel mariola respi rator y viral order (pro) sars-cov-2 result Negati ve negati ve Negat brandon resul ts do not precl ude SARS- CoV-2 infec tion and shoul d not be used as the sole basis for patie nt manag ement decis ions. Negat brandon resul ts must be combi tobin with clini merry obser vatio ns, patie nt histo ry, and epide miolo gical infor devon n. Testi ng was perfo rmed using the Abbot t ID NOW COVID -19 assay perfo rmed on the Abbot t ID NOW Instr ument . Fact sheet s for this Emerg ency Use Autho roseann busch can be found at the [employer] links : For Healt hcare Provi ders: https ://[employer] .gov/ media /1365 23/do wnloa d For Patie nts: https ://[employer] .gov. media /1365 24/do wnloa d. Not Available [facility] (Out[facility]) [address] [place], [address], 12/24/2020 05:46:36 12/25/19 21 12/24/2020 gas panel , venou s blood pH, venous 7.37 7.31-7 .41 Not Available [facility] (Outpatient) [address] [place], [address], 12/24/2020 05:58:33 12/25/19 21 12/24/2020 gas panel , venou s blood pCO2, venous 40.00 mmHg 41.00- 51.00 low Not Available [facility] (Outpatient) [address] [place], [address], 12/24/2020 05:58:33 12/25/19 21 12/24/2020 gas panel , venou s blood pO2, venous 26.10 mmHg 35.00- 40.00 low Not Available [facility] (Outpatient) [address] [place], [address], 12/24/2020 05:58:33 12/25/19 21 12/24/2020 gas panel , venou s blood HCO3, venous 23 mmol/ L 23-28 Not Available [facility] (Outpatient) [address] [place], [address], 12/24/2020 05:58:33 06/21/20 21 12/24/2020 gas panel , venou s blood base deficit venous 2.2 mmol/ L 0.0-2. 0 high Not Available [facility] (Outpatient) [address] [place], [address], 12/24/2020 05:58:33 12/25/19 21 12/24/2020 gas panel , venou s blood so2, venous 47.10 % 60.00- 80.00 low Not Available [facility] (Outpatient) [address] [place], [address], 12/24/2020 05:58:33 12/25/19 21 12/24/2020 gas panel , venou s blood fo2hb, venous 46.50 % 71.00- 74.00 low Not Available [facility] (Outpatient) [address] [place] [address], [address], 12/24/2020 05:58:33 12/25/19 21 12/24/2020 gas panel , venou s blood carboxy HGB 1.30 % 0-1.50 Not Available [facility] (Outpatient) [address] [place] [address], [address], 12/24/2020 05:58:33 12/25/19 21 12/24/2020 gas panel , venou s blood methgb % 0.00 % 0-1.50 Not Available [facility] (Outpatient) [address] [place], [address], 12/24/2020 05:58:33 12/25/19 21 12/24/2020 lacta te lactate 1.86 mmol/ L 0.50-2 .20 Not Available [facility] (Outpatient) [address] [place] [address], [address], 12/24/2020 05:58:35 12/25/19 21 12/24/2020 CBC w/ auto diff WBC 7.26 K/uL 4.00-1 1.00 Not Available [facility] (Outpatient) [address] [place], [address], 12/24/2020 06:01:16 12/25/19 21 12/24/2020 CBC w/ auto diff RBC 4.33 M/uL 3.72-5 .30 Not Available [facility] (Outpatient) [address] [place], [address], 12/24/2020 06:01:16 12/25/1912/24/2020 CBC w/ auto diff HGB 11.8 g/dL 11.0-1 5.2 Not Available [facility] (Outpatient) [address] [place] [address], [address], 12/24/2020 06:01:16 12/25/19 21 12/24/2020 CBC w/ auto diff HCT 36.9 % 31.6-4 4.1 Not Available [facility] (Outpatient) [address] [place] [address], [address], 12/24/2020 06:01:16 12/25/1912/24/2020 CBC w/ auto diff plt 264 K/uL 140-43 0 Not Available [facility] (Outpatient) [address] [place] [address], [address], 12/24/2020 06:01:16 12/25/1912/24/2020 CBC w/ auto diff MCV 85.2 fL 78.0-9 7.0 Not Available [facility] (Outpatient) [address] [place] [address], [address], 12/24/2020 06:01:16 12/25/1912/24/2020 CBC w/ auto diff MCH 27.3 pg 25.0-3 3.0 Not Available [facility] (Outpatient) [address] [place] [address], [address], 12/24/2020 06:01:16 12/25/1924 1212/24/2020 CBC w/ auto diff MCHC 32.0 g/dL 32.0-3 6.0 Not Available [facility] (Outpatient) [address] [place], [address], 12/24/2020 06:01:16 12/25/19 21 12/24/2020 CBC w/ auto diff RDW 13.0 % 11.0-1 6.0 Not Available [facility] (Outpatient) [address] [place], [address], 12/24/2020 06:01:16 12/25/19 21 12/24/2020 CBC w/ auto diff MPV 9.0 fL 8.4-12 .8 Not Available [facility] (Outpatient) [address] [place], [address], 12/24/2020 06:01:16 12/25/19 21 12/24/2020 CBC w/ auto diff NRBC 0.00 /100_ WBCs 0 Not Available [facility] (Outpatient) [address] [place], [address], 12/24/2020 06:01:16 12/25/19 21 12/24/2020 CBC w/ auto diff absolute NRBC 0.00 K/uL 0 Not Available [facility] (Outpatient) [address] [place] [address], [address], 12/24/2020 06:01:16 12/25/19 21 12/24/2020 CBC w/ auto diff diff method Auto Not Available [facility] (Outpatient) [address] [place], [address], 12/24/2020 06:01:16 12/25/19 21 12/24/2020 CBC w/ auto diff neuts 81.2 % 43.0-7 5.0 high Not Available [facility] (Outpatient) [address] [place] [address], [address], 12/24/2020 06:01:16 12/25/19 21 12/24/2020 CBC w/ auto diff lymphs 12.1 % 18.2-4 7.4 low Not Available [facility] (Outpatient) [address] [place] [address], [address], 12/24/2020 06:01:16 12/25/19 21 12/24/2020 CBC w/ auto diff monos 5.9 % 4.00-1 1.00 Not Available [facility] (Outpatient) [address] [place], [address], 12/24/2020 06:01:16 12/25/19 21 12/24/2020 CBC w/ auto diff eos 0.0 % 0.0-8. 0 Not Available [facility] (Outpatient) [address] [place] [address], [address], 12/24/2020 06:01:16 12/25/19 21 12/24/2020 CBC w/ auto diff basos 0.4 % 0.0-2. 0 Not Available [facility] (Outpatient) [address] [place] [address], [address], 12/24/2020 06:01:16 12/25/19 21 12/24/2020 CBC w/ auto diff granulocytes , immature (%) 0.4 % 0.0-0. 9 Not Available [facility] (Outpatient) [address] [place] [address], [address], 12/24/2020 06:01:16 12/25/19 21 12/24/2020 CBC w/ auto diff absolute neuts 5.89 K/uL 1.80-7 .70 Not Available [facility] (Outpatient) [address] [place] [address], [address], 12/24/2020 06:01:16 12/25/19 21 12/24/2020 CBC w/ auto diff absolute lymphs 0.88 K/uL 1.00-3 .10 low Not Available [facility] (Outpatient) [address] [place], [address], 12/24/2020 06:01:16 12/25/19 21 12/24/2020 CBC w/ auto diff absolute monos 0.43 K/uL 0.20-0 .80 Not Available [facility] (Out[facility]) [address] [place], [address], 12/24/2020 06:01:16 12/25/19 21 12/24/2020 CBC w/ auto diff absolute eos 0.00 K/uL 0.00-0 .80 Not Available [facility] (Outpatient) [address] [place], [address], 12/24/2020 06:01:16 12/25/19 21 12/24/2020 CBC w/ auto diff absolute basos 0.03 K/uL 0.00-0 .09 Not Available [facility] (Outpatient) [address] [place], [address], 12/24/2020 06:01:16 12/25/19 21 12/24/2020 CBC w/ auto diff granulocytes , immature 0.03 K/uL 0.00-0 .05 Not Available [facility] (Out[facility]) [address] [place] [address], [address], 12/24/2020 06:01:16 12/25/19 21 12/24/2020 D-dim er, quant , plasm a D-dimer 1601 NG/mL _feu <500 high In patie nts with low to moder ate pre-t est proba bilit y score s for VTE (PE or DVT), a D-Dim er cut-o ff less than 500 ng/mL (FEU) has a negat brandon predi ctive value (NPV) of 97 to 100%. Not Available [facility] (Out[facility]) [address] [place] [address], [address], 12/24/2020 06:10:43 12/25/19 21 12/24/2020 CK (crea varsha kinas e), total , serum creatine kinase 101 U/L 21-215 Not Available [facility] (Out[facility]) [address] [place], [address], 12/24/2020 06:20:24 12/25/19 21 12/24/2020 BMP, blood sodium 142 mmol/ L 133-14 6 Not Available [facility] (Out[facility]) [address] [place], [address], 12/24/2020 06:23:40 12/25/19 21 12/24/2020 BMP, blood chloride 107 mmol/ L 96-108 Not Available [facility] (Outpatient) [address] [place], [address], 12/24/2020 06:23:40 12/25/19 21 12/24/2020 BMP, blood potassium 4.3 mmol/ L 3.3-5. 1 Not Available [facility] (Out[facility]) [address] [place], [address], 12/24/2020 06:23:40 12/25/19 21 12/24/2020 BMP, blood CO2 24 mmol/ L 21-35 Not Available [facility] (Out[facility]) [address] [place], [address], 12/24/2020 06:23:40 12/25/19 21 12/24/2020 BMP, blood BUN 12 mg/dL 6-19 Not Available [facility] ([facility]) [address] [place], [address], 12/24/2020 06:23:40 12/25/19 21 12/24/2020 BMP, blood creatinine 0.80 mg/dL 0.5-1. 5 Not Available [facility] ([facility]) [address] [place], [address], 12/24/2020 06:23:40 12/25/19 21 12/24/2020 BMP, blood glucose 96 mg/dL 70-99 Not Available [facility] ([facility]) [address] [place], [address], 12/24/2020 06:23:40 12/25/19 21 12/24/2020 BMP, blood calcium 9.2 mg/dL 8.4-10 .3 Not Available [facility] ([facility]) [address] [place], [address], 12/24/2020 06:23:40 12/25/19 21 12/24/2020 BMP, blood eGFR 100 mL/mi n/1.7 3m2 >59 Estim ated glome rular filtr ation rate calcu lated using the CKD-E PI equat ion. Not Available [facility] (Out[facility]) [address] [place] [address], [address], 12/24/2020 06:23:40 12/25/19 21 12/24/2020 BMP, blood anion gap 15 mmol/ L 10-20 Not Available [facility] (Out[facility]) [address] [place] [address], [address], 12/24/2020 06:23:40 12/25/19 21 12/24/2020 lfts (hepa tic panel ) alkaline phosphatase 77 U/L 39-117 Not Available [facility] (Outpatient) [address] [place] [address], [address], 12/24/2020 06:23:42 12/25/19 21 12/24/2020 lfts (hepa tic panel ) total bilirubin 0.2 mg/dL 0.0-1. 2 Not Available [facility] (Out[facility]) [address] [place] [address], [address], 12/24/2020 06:23:42 12/25/19 21 12/24/2020 lfts (hepa tic panel ) direct bilirubin <0.2 mg/dL 0-0.3 Not Available [facility] (Out[facility]) [address] [place], [address], 12/24/2020 06:23:42 12/25/19 21 12/24/2020 lfts (hepa tic panel ) bilirubin (indirect) NOT CALCUL ATED mg/dL 0-1.5 Not Available [facility] (Outpatient) [address] [place], [address], 12/24/2020 06:23:42 12/25/19 21 12/24/2020 lfts (hepa tic panel ) AST 18 U/L 0-37 Not Available [facility] (Outpatient) [address] [place], [address], 12/24/2020 06:23:42 12/25/19 21 12/24/2020 lfts (hepa tic panel ) ALT 15 U/L 0-40 Not Available [facility] (Outpatient) [address] [place], [address], 12/24/2020 06:23:42 12/25/19 21 12/24/2020 lfts (hepa tic panel ) total protein 6.8 g/dL 6.5-8. 0 Not Available [facility] (Outpatient) [address] [place], [address], 12/24/2020 06:23:42 12/25/19 21 12/24/2020 lfts (hepa tic panel ) albumin 4.0 g/dL 3.9-4. 8 Not Available [facility] (Outpatient) [address] [place], [address], 12/24/2020 06:23:42 12/25/19 21 12/24/2020 lfts (hepa tic panel ) globulin 2.8 g/dL 1-4.8 Not Available [facility] (Outpatient) [address] [place] [address], [address], 12/24/2020 06:23:42 12/25/19 21 12/24/2020 lfts (hepa tic panel ) A/G ratio 1.43 ratio 1.00-4 .80 Not Available [facility] (Outpatient) [address] [place], [address], 12/24/2020 06:23:42 12/25/19 21 12/24/2020 magne sium, QN, serum or plasm a magnesium 1.4 mg/dL 1.6-2. 6 low Not Available [facility] (Outpatient) [address] [place], [address], 12/24/2020 06:23:43 12/25/19 21 12/24/2020 hCG, quali tativ e, serum HCG, qualitative Negati ve IU/L negati ve Not Available [facility] (Outpatient) [address] [place] [address], [address], 12/24/2020 06:23:43 12/25/19 21 12/24/2020 aceta minop hen, serum acetaminophe n <5.0 ug/mL 15.0-3 0.0 low Not Available [facility] (Outpatient) [address] [place] [address], [address], 12/24/2020 06:32:06 12/25/19 21 12/24/2020 freedom ol, quant itati ve, serum or plasm a ethanol <10 mg/dL <10 Not Available [facility] (Outpatient) [address] [place], [address], 12/24/2020 06:32:09 12/25/19 21 12/24/2020 salic ylate , quant itati ve, serum salicylates <0.3 mg/dL 2.8-19 .9 low Not Available [facility] (Outpatient) [address] [place] [address], [address], 12/24/2020 06:32:27 12/25/19 21 12/24/2020 gas panel , arter ial blood pH, arterial 7.39 7.35-7 .45 Not Available [facility] (Outpatient) [address] [place], [address], 12/24/2020 07:38:46 12/25/1912/24/2020 gas panel , arter ial blood pCO2, arterial 34.30 mmHg 35.00- 45.00 low Not Available [facility] (Outpatient) [address] [place], [address], 12/24/2020 07:38:46 12/25/1912/24/2020 gas panel , arter ial blood pO2, arterial 53.00 mmHg 80.00- 105.00 critical low Criti merry value : Resul ts duran d to and read back by: MASOUD Ramirez Not Available [facility] (Outpatient) [address] [place], [address], 12/24/2020 07:38:46 12/25/19 21 12/24/2020 gas panel , arter ial blood HCO3, unspecified 20 mmol/ L 22-26 low Not Available [facility] (Outpatient) [address] [place], [address], 12/24/2020 07:38:46 12/25/19 21 12/24/2020 gas panel , arter ial blood base deficit 3.9 mmol/ L 0.0-2. 0 high Not Available [facility] (Outpatient) [address] [place], [address], 12/24/2020 07:38:46 12/25/1912/24/2020 gas panel , arter ial blood so2, unspecified 88.40 % 95.00- 98.00 low Not Available [facility] (Outpatient) [address] [place], [address], 12/24/2020 07:38:46 12/25/19 12/24/2020 gas panel , arter ial blood fo2hb blood gas 88.00 % 94.00- 100.00 low Not Available [facility] (Outpatient) [address] [place] [address], [address], 12/24/2020 07:38:46 12/25/19 21 12/24/2020 gas panel , arter ial blood carboxy HGB 0.30 % 0-1.50 Not Available [facility] (Outpatient) [address] [place], [address], 12/24/2020 07:38:46 12/25/19 21 12/24/2020 gas panel , arter ial blood methgb % 0.10 % 0-1.50 Not Available [facility] (Outpatient) [address] [place] [address], [address], 12/24/2020 07:38:46 12/25/19 21 12/24/2020 gas panel , arter ial blood ludivina's test Positi ve Not Available [facility] (Outpatient) [address] [place], [address], 12/24/2020 07:38:46 12/25/19 21 12/24/2020 gas panel , arter ial blood ABG site Not Provid ed Not Available [facility] (Out[facility]) [address] [place] [address], [address], 12/24/2020 07:38:46 12/25/19 21 12/24/2020 gas panel , arter ial blood FiO2 Not Provid ed FiO2/ L_min Not Available [facility] (Outpatient) [address] [place] [address], [address], 12/24/2020 07:38:46 12/25/19 21 12/24/2020 gas panel , arter ial blood oxygen liters/min Not Provid ed Not Available [facility] (Outpatient) [address] [place], [address], 12/24/2020 07:38:46 12/25/19 21 12/24/2020 lacta te lactate 1.88 mmol/ L 0.50-2 .20 Not Available [facility] (Outpatient) [address] [place], [address], 12/24/2020 08:11:16 12/25/19 21 12/24/2020 TSH, serum or plasm a TSH 0.97 uIU/m L 0.27-4 .20 Not Available [facility] (Outpatient) [address] [place], [address], 12/24/2020 08:44:40 12/25/19 21 12/24/2020 urina lysis , refle x cultu re color Yellow yellow Not Available [facility] (Outpatient) [address] [place], [address], 12/24/2020 09:47:50 12/25/19 21 12/24/2020 urina lysis , refle x cultu re clarity Clear Not Available [facility] (Outpatient) [address] [place], [address], 12/24/2020 09:47:50 12/25/19 21 12/24/2020 urina lysis , refle x cultu re glucose Negati ve negati ve Not Available [facility] (Outpatient) [address] [place], [address], 12/24/2020 09:47:50 12/25/19 21 12/24/2020 urina lysis , refle x cultu re bili Negati ve negati ve Not Available [facility] (Outpatient) [address] [place] [address], [address], 12/24/2020 09:47:50 12/25/19 21 12/24/2020 urina lysis , refle x cultu re ketones Negati ve negati ve Not Available [facility] (Outpatient) [address] [place], [address], 12/24/2020 09:47:50 12/25/19 21 12/24/2020 urina lysis , refle x cultu re specific gravity 1.020 1.005- 1.030 Not Available [facility] (Outpatient) [address] [place], [address], 12/24/2020 09:47:50 12/25/19 21 12/24/2020 urina lysis , refle x cultu re blood Negati ve negati ve Not Available [facility] (Outpatient) [address] [place], [address], 12/24/2020 09:47:50 12/25/19 21 12/24/2020 urina lysis , refle x cultu re pH 7.0 5.0-8. 0 Not Available [facility] (Outpatient) [address] [place], [address], 12/24/2020 09:47:50 12/25/19 21 12/24/2020 urina lysis , refle x cultu re protein Negati ve negati ve Not Available [facility] (Outpatient) [address] [place], [address], 12/24/2020 09:47:50 12/25/19 21 12/24/2020 urina lysis , refle x cultu re nitrite Negati ve negati ve Not Available [facility] (Outpatient) [address] [place], [address], 12/24/2020 09:47:50 12/25/19 21 12/24/2020 urina lysis , refle x cultu re leukocyte esterase, ur Negati ve negati ve Not Available [facility] (Outpatient) [address] [place], [address], 12/24/2020 09:47:50 12/25/19 21 12/24/2020 refer ence lab test panel tests requested FIRST AID TRAINER RESPIR ATORY PATHOG EN PCR PANEL Not Available [facility] (Out[facility]) [address] [place], [address], 12/24/2020 10:01:10 12/25/19 21 12/24/2020 refer ence lab test panel specimen/tub e type NASOPH ARYNGE AL SWAB Not Available [facility] (Outpatient) [address] [place], [address], 12/24/2020 10:01:10 12/25/19 21 12/24/2020 refer ence lab test panel request received Reque st recei lis. A separ ate order for the reque sted test will be gener ated by the labor atordonna . Not Available [facility] (Outpatient) [address] [place], [address], 12/24/2020 10:01:10 12/25/19 21 12/24/2020 daniel mariola respi rator y viral order (pro) test ordered Rapid COVID has been ordere d Not Available [facility] (Out[facility]) [address] [place], [address], 12/24/2020 11:31:22 12/25/19 21 12/24/2020 daniel mariola respi rator y viral order (pro) specimen source/descr iption NASAL Not Available [facility] (Outpatient) [address] [place], [address], 12/24/2020 11:31:22 12/25/19 21 12/24/2020 daniel mariola respi rator y viral order (pro) sars-cov 2 (covid-19) PCR Negati ve negati ve SARS- CoV-2 not detec rashida Negat brandon resul ts do not precl ude SARS- CoV-2 infec tion and shoul d not be used as the sole basis for patie nt manag ement decis ions. Negat brandon resul ts must be combi tobin with clini merry obser vatio ns, patie nt histo ry, and epide gumaroolo gical infor matio n. This test has been autho rized by the FDA under an Emerg ency Use Autho riantoni ion (EUA) for use by autho ribriana velez. Not Available [facility] (Out[facility]) [address] [place], [address], 12/24/2020 11:31:22 12/25/19 21 12/24/2020 mrsa scree n, PCR MRSA PCR screen Negati ve negati ve The Xpert MRSA Assay is inten ded to aid in the preve ntion and contr ol of MRSA infec tions in [facility]. The assay is not inten ded to diagn ose nor to guide or monit or treat ment for MRSA infec tions . Not Available [facility] ([facility]) [address] [place], [address], 12/24/2020 11:43:23 12/25/19 21 12/24/2020 toxic ology scree n, urine urine cannabinoids Positi ve none detect ed abnormal Cutof f: 50 ng/mL Not Available [facility] (Outpatient) [address] [place], [address], 12/24/2020 12:51:40 12/25/19 21 12/24/2020 toxic ology scree n, urine urine cocaine metab Positi ve none detect ed abnormal Cutof f: 300 ng/mL Not Available [facility] (Outpatient) [address] [place], [address], 12/24/2020 12:51:40 12/25/19 21 12/24/2020 toxic ology scree n, urine urine amphetamines NONE DETECT ED none detect ed Cutof f: 1000 ng/mL Not Available [facility] (Outpatient) [address] [place], [address], 12/24/2020 12:51:40 06/21/12/24/2020 toxic ology scree n, urine urine methadone NONE DETECT ED none detect ed Cutof f: 300 ng/mL Not Available [facility] (Outpatient) [address] [place] [address], [address], 12/24/2020 12:51:40 12/25/19 21 12/24/2020 toxic ology scree n, urine urine opiates Positi ve none detect ed abnormal Cutof f: 300 ng/mL Not Available [facility] (Outpatient) [address] [place] [address], [address], 12/24/2020 12:51:40 12/25/19 21 12/24/2020 toxic ology scree n, urine urine phencyclidin e NONE DETECT ED none detect ed Cutof f: 25 ng/mL Not Available [facility] (Outpatient) [address] [place] [address], [address], 12/24/2020 12:51:40 12/25/19 21 12/24/2020 toxic ology scree n, urine urine oxycodone NONE DETECT ED none detect ed Cutof f: 100 ng/ml Not Available [facility] (Outpatient) [address] [place] [address], [address], 12/24/2020 12:51:40 12/25/19 21 12/24/2020 toxic ology scree n, urine urine barbiturates NONE DETECT ED none detect ed Cutof f: 300 ng/mL Not Available [facility] (Outpatient) [address] [place] [address], [address], 12/24/2020 12:51:40 12/25/19 21 12/24/2020 toxic ology scree n, urine urine benzodiazepi ne Positi ve none detect ed abnormal Cutof f: 300 ng/mL INTER PRETA TION FOR TOXIC OLOGY PANEL : Thes e resul ts are uncon firme d and shoul d be used for Medic al Treat ment purpo ses only. Not Available [facility] (Outpatient) [address] [place], [address], 12/24/2020 12:51:40 12/25/19 21 12/24/2020 toxic ology scree n, urine urine buprenorphin e NONE DETECT ED none detect ed Cutof f: 5 ng/mL INTER PRETA TION FOR TOXIC OLOGY PANEL : Thes e resul ts are uncon firme d and shoul d be used for Medic al Treat ment purpo ses only. Not Available [facility] (Outpatient) [address] [place], [address], 12/24/2020 12:51:40 12/25/19 21 12/25/2020 respi rator y patho gen PCR panel specimen source DELORIS LONGO AL SWAB Not Available [facility] (Outpatient) [address] [place], [address], 12/25/2020 18:53:02 12/25/19 21 12/25/2020 respi rator y patho gen PCR panel adenovirus Undete cted undete cted Not Available [facility] (Outpatient) [address] [place], [address], 12/25/2020 18:53:02 12/25/19 21 12/25/2020 respi rator y patho gen PCR panel coronavirus 229E Undete cted undete cted Not Available [facility] (Outpatient) [address] [place], [address], 12/25/2020 18:53:02 12/25/19 21 12/25/2020 respi rator y patho gen PCR panel coronavirus hku1 Undete cted undete cted Not Available [facility] (Outpatient) [address] [place], [address], 12/25/2020 18:53:02 12/25/19 21 12/25/2020 respi rator y patho gen PCR panel coronavirus nl63 Undete cted undete cted Not Available [facility] (Outpatient) [address] [place], [address], 12/25/2020 18:53:02 12/25/19 21 12/25/2020 respi rator y patho gen PCR panel coronavirus oc43 Undete cted undete cted Not Available [facility] (Outpatient) [address] [place], [address], 12/25/2020 18:53:02 12/25/19 21 12/25/2020 respi rator y patho gen PCR panel sars coronavirus- 2 Undete cted undete cted Not Available [facility] (Outpatient) [address] [place], [address], 12/25/2020 18:53:02 12/25/19 21 12/25/2020 respi rator y patho gen PCR panel human metapneumovi amaury Undete cted undete cted Not Available [facility] (Outpatient) [address] [place], [address], 12/25/2020 18:53:02 12/25/19 21 12/25/2020 respi rator y patho gen PCR panel human rhinovirus/ enterovirus Detect ed undete cted abnormal Not Available [facility] (Outpatient) [address] [place], [address], 12/25/2020 18:53:02 12/25/19 21 12/25/2020 respi rator y patho gen PCR panel influenza A Undete cted undete cted Not Available [facility] (Outpatient) [address] [place], [address], 12/25/2020 18:53:02 12/25/19 21 12/25/2020 respi rator y patho gen PCR panel influenza B Undete cted undete cted Not Available [facility] (Out[facility]) [address] [place], [address], 12/25/2020 18:53:02 12/25/19 21 12/25/2020 respi rator y patho gen PCR panel parainfluenz a virus 1 Undete cted undete cted Not Available [facility] (Outpatient) [address] [place], [address], 12/25/2020 18:53:02 12/25/19 21 12/25/2020 respi rator y patho gen PCR panel parainfluenz a virus 2 Undete cted undete cted Not Available [facility] (Outpatient) [address] [place], [address], 12/25/2020 18:53:02 12/25/19 21 12/25/2020 respi rator y patho gen PCR panel parainfluenz a virus 3 Undete cted undete cted Not Available [facility] (Outpatient) [address] [place], [address], 12/25/2020 18:53:02 12/25/19 21 12/25/2020 respi rator y patho gen PCR panel parainfluenz a virus 4 Undete cted undete cted Not Available [facility] (Outpatient) [address] [place], [address], 12/25/2020 18:53:02 12/25/19 21 12/25/2020 respi rator y patho gen PCR panel respiratory syncytial virus Undete cted undete cted Not Available [facility] (Outpatient) [address] [place], [address], 12/25/2020 18:53:02 12/25/19 21 12/25/2020 respi rator y patho gen PCR panel bordetella parapertussi s Undete cted undete cted Not Available [facility] (Outpatient) [address] [place], [address], 12/25/2020 18:53:02 12/25/19 21 12/25/2020 respi rator y patho gen PCR panel bordetella pertussis Undete cted undete cted Not Available [facility] (Out[facility] [address] [place], [address], 12/25/2020 18:53:02 12/25/19 21 12/25/2020 respi rator y patho gen PCR panel chlamydia pneumoniae Undete cted undete cted Not Available [facility] (Out[facility]) [address] [place], [address], 12/25/2020 18:53:02 12/25/19 21 12/25/2020 respi rator y patho gen PCR panel mycoplasma pneumoniae Undete cted undete cted Not Available [facility] (Outpatient) [address] [place], [address], 12/25/2020 18:53:02 12/25/19 21 12/25/2020 respi rator y patho gen PCR panel interpretati on SEE NOTE Not Available [facility] (Out[facility]) [address] [place], [address], 12/25/2020 18:53:02 12/25/19 21 12/24/2020 BLOOD CULTU RESHANA NE special requests None Not Available [facility] ([facility]) [address] [place], [address], 12/29/2020 06:02:10 12/25/19 21 12/29/2020 BLOOD CULTU RESHANA NE blood culture NO GROWTH 5 DAYS Not Available [facility] (Out[facility]) [address] [place], [address], 12/29/2020 06:02:10 12/25/19 21 12/24/2020 BLOOD CULTU RESHANA NE special requests None Not Available [facility] (Out[facility]) [address] [place], [address], 12/29/2020 06:02:47 12/25/19 21 12/29/2020 BLOOD CULTU RE, SHANA NE blood culture NO GROWTH 5 DAYS Not Available [facility] ([facility]) [address] [place], [address], 12/29/2020 06:02:47 12/26/19 21 12/25/2020 CBC w/ auto diff WBC 12.28 K/uL 4.00-1 1.00 high Not Available [facility] ([facility]) [address] [place], [address], 12/25/2020 05:41:58 12/26/19 21 12/25/2020 CBC w/ auto diff RBC 4.38 M/uL 3.72-5 .30 Not Available [facility] (Out[facility]) [address] [place] [address], [address], 12/25/2020 05:41:58 12/26/19 21 12/25/2020 CBC w/ auto diff HGB 11.9 g/dL 11.0-1 5.2 Not Available [facility] ([facility] [address] [place], [address], 12/25/2020 05:41:58 12/26/19 21 12/25/2020 CBC w/ auto diff HCT 36.2 % 31.6-4 4.1 Not Available [facility] ([facility]) [address] [place], [address], 12/25/2020 05:41:58 12/26/19 21 12/25/2020 CBC w/ auto diff plt 273 K/uL 140-43 0 Not Available [facility] ([facility]) [address] [place], [address], 12/25/2020 05:41:58 12/26/19 21 12/25/2020 CBC w/ auto diff MCV 82.6 fL 78.0-9 7.0 Not Available [facility] ([facility]) [address] [place], [address], 12/25/2020 05:41:58 12/26/19 21 12/25/2020 CBC w/ auto diff MCH 27.2 pg 25.0-3 3.0 Not Available [facility] ([facility]) [address] [place], [address], 12/25/2020 05:41:58 12/26/19 21 12/25/2020 CBC w/ auto diff MCHC 32.9 g/dL 32.0-3 6.0 Not Available [facility] ([facility]) [address] [place], [address], 12/25/2020 05:41:58 12/26/19 21 12/25/2020 CBC w/ auto diff RDW 13.4 % 11.0-1 6.0 Not Available [facility] ([facility]) [address] [place], [address], 12/25/2020 05:41:58 12/26/19 21 12/25/2020 CBC w/ auto diff MPV 8.7 fL 8.4-12 .8 Not Available [facility]) [address] [place] [address], [address], 12/25/2020 05:41:58 12/26/19 21 12/25/2020 CBC w/ auto diff NRBC 0.00 /100_ WBCs 0 Not Available [facility] ([facility]) [address] [place], [address], 12/25/2020 05:41:58 12/26/19 21 12/25/2020 CBC w/ auto diff absolute NRBC 0.00 K/uL 0 Not Available [facility] ([facility]) [address] [place], [address], 12/25/2020 05:41:58 12/26/19 21 12/25/2020 CBC w/ auto diff diff method Auto Not Available [facility] ([facility]) [address] [place], [address], 12/25/2020 05:41:58 12/26/19 21 12/25/2020 CBC w/ auto diff neuts 83.1 % 43.0-7 5.0 high Not Available [facility] ([facility]) [address] [place], [address], 12/25/2020 05:41:58 12/26/19 21 12/25/2020 CBC w/ auto diff lymphs 9.5 % 18.2-4 7.4 low Not Available [facility] ([facility]) [address] [place], [address], 12/25/2020 05:41:58 12/26/19 21 12/25/2020 CBC w/ auto diff monos 6.7 % 4.00-1 1.00 Not Available [facility] ([facility] [address] [place], [address], 12/25/2020 05:41:58 12/26/19 21 12/25/2020 CBC w/ auto diff eos 0.1 % 0.0-8. 0 Not Available [facility] ([facility]) [address] [place], [address], 12/25/2020 05:41:58 12/26/19 21 12/25/2020 CBC w/ auto diff basos 0.2 % 0.0-2. 0 Not Available [facility]) [address] [place] [address], [address], 12/25/2020 05:41:58 12/26/1912/25/2020 CBC w/ auto diff granulocytes , immature (%) 0.4 % 0.0-0. 9 Not Available [facility] ([facility]) [address] [place], [address], 12/25/2020 05:41:58 12/26/19 21 12/25/2020 CBC w/ auto diff absolute neuts 10.20 K/uL 1.80-7 .70 high Not Available [facility] ([facility]) [address] [place], [address], 12/25/2020 05:41:58 12/26/19 21 12/25/2020 CBC w/ auto diff absolute lymphs 1.17 K/uL 1.00-3 .10 Not Available [facility] ([facility]) [address] [place], [address], 12/25/2020 05:41:58 12/26/19 21 12/25/2020 CBC w/ auto diff absolute monos 0.82 K/uL 0.20-0 .80 high Not Available [facility] ([facility]) [address] [place], [address], 12/25/2020 05:41:58 12/26/19 21 12/25/2020 CBC w/ auto diff absolute eos 0.01 K/uL 0.00-0 .80 Not Available [facility] ([facility]) [address] [place] [address], [address], 12/25/2020 05:41:58 12/26/19 21 12/25/2020 CBC w/ auto diff absolute basos 0.03 K/uL 0.00-0 .09 Not Available [facility] ([facility]) [address] [place], [address], 12/25/2020 05:41:58 12/26/19 21 12/25/2020 CBC w/ auto diff granulocytes , immature 0.05 K/uL 0.00-0 .05 Not Available [facility] [address] [place], [address], 12/25/2020 05:41:58 12/26/19 21 12/25/2020 BMP, blood sodium 138 mmol/ L 133-14 6 Not Available [facility] [address] [place], [address], 12/25/2020 06:13:14 12/26/19 21 12/25/2020 BMP, blood chloride 106 mmol/ L 96-108 Not Available [facility] [address] [place], [address], 12/25/2020 06:13:14 12/26/19 21 12/25/2020 BMP, blood potassium 3.6 mmol/ L 3.3-5. 1 Not Available [facility] [address] [place], [address], 12/25/2020 06:13:14 12/26/19 21 12/25/2020 BMP, blood CO2 20 mmol/ L 21-35 low Not Available [facility] [address] [place], [address], 12/25/2020 06:13:14 12/26/19 21 12/25/2020 BMP, blood BUN 11 mg/dL 6-19 Not Available [facility] [address] [place], [address], 12/25/2020 06:13:14 12/26/19 21 12/25/2020 BMP, blood creatinine 0.60 mg/dL 0.5-1. 5 Not Available [facility] [address] [place], [address], 12/25/2020 06:13:14 12/26/19 21 12/25/2020 BMP, blood glucose 109 mg/dL 70-99 high Not Available [facility]) [address] [place], [address], 12/25/2020 06:13:14 12/26/19 21 12/25/2020 BMP, blood calcium 8.2 mg/dL 8.4-10 .3 low Not Available [facility] ([facility]) [address] [place], [address], 12/25/2020 06:13:14 12/26/19 21 12/25/2020 BMP, blood eGFR >120 mL/mi n/1.7 3m2 >59 Estim ated glome rular filtr ation rate calcu lated using the CKD-E PI equat ion. Not Available [facility] ([facility]) [address] [place], [address], 12/25/2020 06:13:14 12/26/19 21 12/25/2020 BMP, blood anion gap 16 mmol/ L 10- Not Available [facility] ([facility]) [address] [place], [address], 12/25/2020 06:13:14 12/26/19 21 12/25/2020 magne sium, QN, serum or plasm a magnesium 2.0 mg/dL 1.6-2. 6 Not Available [facility] ([facility]) [address] [place] [address], [address], 12/25/2020 06:13:19 12/26/1912/25/2020 phosp horus , serum or plasm a phosphorus 2.7 mg/dL 2.7-4. 5 Not Available [facility] ([facility]) [address] [place], [address], 12/25/2020 06:13:23 12/27/1912/26/2020 CBC w/ auto diff WBC 4.86 K/uL 4.00-1 1.00 Not Available [facility]) [address] [place], [address], 12/26/2020 03:16:05 12/27/1912/26/2020 CBC w/ auto diff RBC 4.29 M/uL 3.72-5 .30 Not Available [facility]) [address] [place], [address], 12/26/2020 03:16:05 12/27/19 21 12/26/2020 CBC w/ auto diff HGB 11.9 g/dL 11.0-1 5.2 Not Available [facility] ([facility]) [address] [place], [address], 12/26/2020 03:16:05 12/27/19 21 12/26/2020 CBC w/ auto diff HCT 35.3 % 31.6-4 4.1 Not Available [facility] ([facility]) [address] [place], [address], 12/26/2020 03:16:05 12/27/19 21 12/26/2020 CBC w/ auto diff plt 250 K/uL 140-43 0 Not Available [facility]) [address] [place], [address], 12/26/2020 03:16:05 12/27/19 21 12/26/2020 CBC w/ auto diff MCV 82.3 fL 78.0-9 7.0 Not Available [facility] ([facility]) [address] [place], [address], 12/26/2020 03:16:05 12/27/19 21 12/26/2020 CBC w/ auto diff MCH 27.7 pg 25.0-3 3.0 Not Available [facility] ([facility]) [address] [place], [address], 12/26/2020 03:16:05 12/27/19 21 12/26/2020 CBC w/ auto diff MCHC 33.7 g/dL 32.0-3 6.0 Not Available [facility] ([facility]) [address] [place], [address], 12/26/2020 03:16:05 12/27/19 21 12/26/2020 CBC w/ auto diff RDW 13.4 % 11.0-1 6.0 Not Available [facility] ([facility]) [address] [place], [address], 12/26/2020 03:16:05 12/27/19 21 12/26/2020 CBC w/ auto diff MPV 8.6 fL 8.4-12 .8 Not Available [facility] ([facility]) [address] [place], [address], 12/26/2020 03:16:05 12/27/19 21 12/26/2020 CBC w/ auto diff NRBC 0.00 /100_ WBCs 0 Not Available [facility] ([facility]) [address] [place], [address], 12/26/2020 03:16:05 12/27/19 21 12/26/2020 CBC w/ auto diff absolute NRBC 0.00 K/uL 0 Not Available [facility] ([facility]) [address] [place], [address], 12/26/2020 03:16:05 12/27/19 21 12/26/2020 CBC w/ auto diff diff method Auto Not Available [facility] ([facility]) [address] [place], [address], 12/26/2020 03:16:05 12/27/19 21 12/26/2020 CBC w/ auto diff neuts 57.2 % 43.0-7 5.0 Not Available [facility] ([facility]) [address] [place], [address], 12/26/2020 03:16:05 12/27/19 21 12/26/2020 CBC w/ auto diff lymphs 34.0 % 18.2-4 7.4 Not Available [facility] ([facility]) [address] [place], [address], 12/26/2020 03:16:05 12/27/19 21 12/26/2020 CBC w/ auto diff monos 7.8 % 4.00-1 1.00 Not Available [facility] ([facility]) [address] [place], [address], 12/26/2020 03:16:05 12/27/19 21 12/26/2020 CBC w/ auto diff eos 0.0 % 0.0-8. 0 Not Available [facility] ([facility]) [address] [place], [address], 12/26/2020 03:16:05 12/27/19 21 12/26/2020 CBC w/ auto diff basos 0.6 % 0.0-2. 0 Not Available [facility] ([facility]) [address] [place], [address], 12/26/2020 03:16:05 12/27/19 21 12/26/2020 CBC w/ auto diff granulocytes , immature (%) 0.4 % 0.0-0. 9 Not Available [facility] ([facility]) [address] [place] [address], [address], 12/26/2020 03:16:05 12/27/19 21 12/26/2020 CBC w/ auto diff absolute neuts 2.78 K/uL 1.80-7 .70 Not Available [facility] ([facility]) [address] [place], [address], 12/26/2020 03:16:05 12/27/19 21 12/26/2020 CBC w/ auto diff absolute lymphs 1.65 K/uL 1.00-3 .10 Not Available [facility] ([facility]) [address] [place], [address], 12/26/2020 03:16:05 12/27/19 21 12/26/2020 CBC w/ auto diff absolute monos 0.38 K/uL 0.20-0 .80 Not Available [facility] ([facility]) [address] [place], [address], 12/26/2020 03:16:05 12/27/19 21 12/26/2020 CBC w/ auto diff absolute eos 0.00 K/uL 0.00-0 .80 Not Available [facility] ([facility]) [address] [place], [address], 12/26/2020 03:16:05 12/27/19 21 12/26/2020 CBC w/ auto diff absolute basos 0.03 K/uL 0.00-0 .09 Not Available [facility] ([facility]) [address] [place], [address], 12/26/2020 03:16:05 12/27/19 21 12/26/2020 CBC w/ auto diff granulocytes , immature 0.02 K/uL 0.00-0 .05 Not Available [facility] ([facility]) [address] [place], [address], 12/26/2020 03:16:05 12/27/19 21 12/26/2020 C-srikanth ctive prote in, quant itati ve, serum or plasm a C reactive protein 28.3 mg/L 0.0-4. 0 high Not Available [facility] ([facility]) [address] [place], [address], 12/26/2020 03:40:34 12/27/19 21 12/26/2020 BMP, blood sodium 139 mmol/ L 133-14 6 Not Available [facility] ([facility]) [address] [place], [address], 12/26/2020 03:55:34 12/27/19 21 12/26/2020 BMP, blood chloride 107 mmol/ L 96-108 Not Available [facility] ([facility]) [address] [place], [address], 12/26/2020 03:55:34 12/27/19 21 12/26/2020 BMP, blood potassium 3.9 mmol/ L 3.3-5. 1 Not Available [facility] ([facility]) [address] [place], [address], 12/26/2020 03:55:34 12/27/19 21 12/26/2020 BMP, blood CO2 19 mmol/ L 21-35 low Not Available [facility] ([facility]) [address] [place], [address], 12/26/2020 03:55:34 12/27/19 21 12/26/2020 BMP, blood BUN 9 mg/dL 6-19 Not Available [facility] ([facility]) [address] [place] [address], [address], 12/26/2020 03:55:34 12/27/19 21 12/26/2020 BMP, blood creatinine 0.60 mg/dL 0.5-1. 5 Not Available [facility] ([facility]) [address] [place], [address], 12/26/2020 03:55:34 12/27/19 21 12/26/2020 BMP, blood glucose 117 mg/dL 70-99 high Not Available [facility] ([facility]) [address] [place] [address], [address], 12/26/2020 03:55:34 12/27/19 21 12/26/2020 BMP, blood calcium 8.2 mg/dL 8.4-10 .3 low Not Available [facility] ([facility]) [address] [place] [address], [address], 12/26/2020 03:55:34 12/27/19 21 12/26/2020 BMP, blood eGFR >120 mL/mi n/1.7 3m2 >59 Estim ated glome rular filtr ation rate calcu lated using the CKD-E PI equat ion. Not Available [facility] ([facility]) [address] [place], [address], 12/26/2020 03:55:34 12/27/19 21 12/26/2020 BMP, blood anion gap 17 mmol/ L 10- Not Available [facility] ([facility]) [address] [place], [address], 12/26/2020 03:55:34 12/27/19 21 12/26/2020 magne sium, QN, serum or plasm a magnesium 1.9 mg/dL 1.6-2. 6 Not Available [facility] ([facility]) [address] [place], [address], 12/26/2020 03:55:39 12/27/19 21 12/26/2020 phosp horus , serum or plasm a phosphorus 2.6 mg/dL 2.7-4. 5 low Not Available [facility] ([facility]) [address] [place], [address], 12/26/2020 03:55:40 12/27/19 21 12/26/2020 proca lcito hector, serum procalcitoni n 0.22 NG/mL 0.00-0 .08 high Not Available [facility] ([facility]) [address] [place], [address], 12/26/2020 04:24:38 08/08/19 22 08/15/2021 PAP SMEAR path report [facility] [address] [place] [address] Lab Direc tor: Dee stokes MD HIDE PULLER Cytol ogy Repor t Acces jason #: [id number] FINAL DIAGN OSIS A. PAP SMEAR (SURE PATH) CE: SPECI MEN ADEQU ACY: Satis facto ry for evalu ation ; trans forma tion zone prese nt. INTER PRETA TION: NEGAT BRANDON FOR INTRA EPITH ELIAL LESIO N OR LYNDA TALAMANTES . Elect nkechi barnett Marychuy d Out By: Francisca Luevano , [place]( CP) The Pap test is a scree julio test prima rily for squam ous cance rs and precu rsors and has assoc iated false -nega tive and false -posi tive resul ts. New techn ologi es such as liqui d-bas ed prepa ratio ns may decre ase but will not elimi martha all false -nega tive resul ts. Regul ar sampl ing and follo w-up of unexp angel d clini merry signs and sympt oms are recom kaila d to minim ize false negat brandon resul ts. CLINI MERRY HISTO RY Date of Last Menst rual Perio d: 2021 Other Clini merry Condi tions : Scree julio Pap SPECI MEN SOURC E A: PAP SMEAR (SURE PATH) CE Patie nt Name: [place] AJ : 1990 (Age: 30) Sex: F 8 Insti tutio n: [facility] Locat ion: [facility] Date of Colle ction : 022 Date of Acces jason: 022 Repor rashida: 2021 15:26 Resul ts to: Tania Hernández FIRST AID TRAINER Not Available [facility] (Out[facility]) [address] [place] [address], [address], 08/15/2021 16:46:49 08/14/19 22 08/14/2021 COMP. METAB OLIC PANEL glucose 85 mg/dL 70-100 Not Available [address], [address], 08/14/2021 14:50:50 08/14/19 22 08/14/2021 COMP. METAB OLIC PANEL BUN 14 mg/dL 7-18 Not Available [address], [address], 08/14/2021 14:50:50 08/14/19 22 08/14/2021 COMP. METAB OLIC PANEL creatinine 0.8 mg/dL 0.8-1. 3 Not Available [address], [address], 08/14/2021 14:50:50 08/14/19 22 08/14/2021 COMP. METAB OLIC PANEL B/C 17.5 ratio Not Available [address], [address], 08/14/2021 14:50:50 08/14/19 22 08/14/2021 COMP. METAB OLIC PANEL GFR >=60ML /MIN mL/mi n normal >=60m L/min - Lesly l or midly reduc ed <60mL /min- Decre ased kidne y funct ion <15mL /min - Kidne y failu re [facility] calcu lates estim ated Glome rular Filtr ation Rate (eGFR ) using the Chron ic Kidne y Disea se Epide miolo gy Colla borat ion (CKD- EPI) Equat ion (Coleman kirby et. al 2020) as recom kaila d by the Natio nal Kidne y Found ation . eGFR is based on age, serum creat inine , and sex. CKD-E PI does not calcu late eGFR by race, does not apply to child ro (age <18 years ), and shoul d not be used in pregn terrance. Not Available [address], [address], 08/14/2021 14:50:50 08/14/19 22 08/14/2021 COMP. METAB OLIC PANEL sodium 141 mmol/ L 136-14 5 Not Available [address], [address], 08/14/2021 14:50:50 08/14/19 22 08/14/2021 COMP. METAB OLIC PANEL potassium 4.6 mmol/ L 3.5-5. 1 Not Available [address], [address], 08/14/2021 14:50:50 08/14/19 22 08/14/2021 COMP. METAB OLIC PANEL chloride 105 mmol/ L 96-107 Not Available [address], [address], 08/14/2021 14:50:50 08/14/19 22 08/14/2021 COMP. METAB OLIC PANEL anion gap 9.7 5.0-15 .0 Not Available [address], [address], 08/14/2021 14:50:50 08/14/19 22 08/14/2021 COMP. METAB OLIC PANEL CO2 26 mmol/ L 21-32 Not Available [address], [address], 08/14/2021 14:50:50 08/14/19 22 08/14/2021 COMP. METAB OLIC PANEL calcium 9.0 mg/dL 8.5-10 .3 Not Available [address], [address], 08/14/2021 14:50:50 08/14/19 22 08/14/2021 COMP. METAB OLIC PANEL total protein 7.5 g/dL 6.4-8. 2 Not Available [address], [address], 08/14/2021 14:50:50 08/14/19 22 08/14/2021 COMP. METAB OLIC PANEL albumin 4.0 g/dL 3.4-5. 0 Not Available [address], [address], 08/14/2021 14:50:50 08/14/19 22 08/14/2021 COMP. METAB OLIC PANEL globulin 3.5 g/dL Not Available [address], [address], 08/14/2021 14:50:50 08/14/19 22 08/14/2021 COMP. METAB OLIC PANEL A/G 1.1 ratio 0.8-2. 0 Not Available [address], [address], 08/14/2021 14:50:50 08/14/19 22 08/14/2021 COMP. METAB OLIC PANEL total bilirubin 0.30 mg/dL 0.00-1 .00 Not Available [address], [address], 08/14/2021 14:50:50 08/14/19 22 08/14/2021 COMP. METAB OLIC PANEL AST 15 U/L 0-37 Not Available [address], [address], 08/14/2021 14:50:50 08/14/19 22 08/14/2021 COMP. METAB OLIC PANEL ALT 25 U/L 6-63 Not Available [address], [address], 08/14/2021 14:50:50 08/14/19 22 08/14/2021 COMP. METAB OLIC PANEL alk. phos. 77 U/L 50-136 Not Available [address], [address], 08/14/2021 14:50:50 08/14/19 22 08/14/2021 TSH TSH 1.39 uIU/m L 0.50-6 .00 The Ameri can Colle ge of Endoc rinol ogy and Ameri can Thyro id Assoc iatio n recom mend goal TSH value s betwe en 0.4-4 .0 mIU/m L. Not Available [address], [address], 08/14/2021 16:00:41 08/14/19 22 08/15/2021 HEPAT ITIS C AB W/REF L TO HCV RNA, QN, PCR hepatitis C antibody NON-RE ACTIVE non-re active normal Not Available [facility] [address], [place], [address], 08/15/2021 09:36:30 08/14/19 22 08/15/2021 HEPAT ITIS C AB W/REF L TO HCV RNA, QN, PCR index 0.03 <1.00 normal HCV antib godfrey was non-r eacti ve. There is no labor atory evide nce of HCV infec tion. In most cases , no furth er actio n is requi red. Howev er, if recen t HCV expos ure is suspe cted, a test for HCV RNA (test code 07065 ) is sugtaylor hoffman. For addit ional infor matio n pleas e refer to http: //[facility] catio n.que stdia gnost ics.c om/fa q/FAQ 22v1 (This link is being provi ded for infor matdoni nal/ educa oc l purpo ses only. ) Not Available [facility] [place] [facility] [address] [place] [address] B, [place], [address], 08/15/2021 09:36:30 09/12/19 18 09/11/2017 xr chest Pa and later al 2 views HISTOR Y: As above. COMPAR DANIELLE: None. CHEST RADIOG RAPH FINDIN GS: 2 views obtain ed. Heart and medias tinum are normal . Bronch ial wall thicke julio. Lungs are clear. Mild mid thorac ic spine disc space narrow ing and mild thorac ic scolio sis. No acute soft tissue findin gs. IMPRES JASON: No pneumo anton. Bronch ial wall thicke julio which could indica te bronch itis. POS - CDHRAD BOARDW S11 Electr onical ly Signed by: KYLE GONZALEZ MD on 09/12/19 18 6:27 AM Interp reted by: Kyle gonzalez MD Signed by: Kyle gonzalez MD 09/11/17 CC Recipi ents: Aisha mcbride MD - Fax Final result P.S. Back pain, fever, cough AISHA MCBRIDE [facility] [address] [facility], [place], [address], 09/13/2017 16:08:58 09/12/19 18 09/11/2017 XR, chest No observ ation record ed. [facility] [address] [place] [address], [address], 09/13/2017 16:08:58 09/12/19 18 09/11/2017 adult ECHO TTE This is a summar y report . The comple te report is availa ble in the [facility] med[facility] l record . If you cannot access the medica l record , please contac t the sendin g organi zation for a detail ed fax or copy. * The left ventri cular cavity size and wall thickn ess are normal . Left ventri cular systol ic functi on is normal . There are no segmen ly left ventri cular wall motion abnorm alitie s noted. The estima rashida ejecti on fracti on is 65% (Lesly l 50-75% ). The left ventri cular ejecti on fracti on was measur ed by visual estima te. Left ventri cular diasto lic functi on appear s within normal limits for age. * The right ventri cular size is normal . The right ventri cular systol ic functi on is normal . * No signif icant valvul ar diseas e. * No prior studie s for compar danielle. AISHA MCGINNIS TZ [facility] [address] [place] [address], [address], 09/13/2017 16:08:59 09/12/19 18 09/11/2017 adult ECHO TTE This is a summar y report . The comple te report is availa ble in the [facility] medica l record . If you cannot access the medica l record , please contac t the sendin g organi zation for a detail ed fax or copy. * The left ventri cular cavity size and wall thickn ess are normal . Left ventri cular systol ic functi on is normal . There are no segmen ly left ventri cular wall motion abnorm alitie s noted. The estima rashida ejecti on fracti on is 65% (Lesly l 50-75% ). The left ventri cular ejecti on fracti on was measur ed by visual estima te. Left ventri cular diasto lic functi on appear s within normal limits for age. * The right ventri cular size is normal . The right ventri cular systol ic functi on is normal . * The estima rashida RVSP is 32mmHg . Normal pulmon noah artery pressu re. * No signif icant valvul ar diseas e. * No prior studie s for compar danielle. Addend ed ThuSep 11, 2017 9:25 AM by Husam king MD * The left ventri cular cavity size and wall thickn ess are normal . Left ventri cular systol ic functi on is normal . There are no segmen ly left ventri cular wall motion abnorm alitie s noted. The estima rashida ejecti on fracti on is 65% (Lesly l 50-75% ). The left ventri cular ejecti on fracti on was measur ed by visual estima te. Left ventri cular diasto lic functi on appear s within normal limits for age. * The right ventri cular size is normal . The right ventri cular systol ic functi on is normal . * No signif icant valvul ar diseas e. * No prior studie s for compar danielle. AISHA MCGINNIS [facility] [address] [facility], [place], [address], 09/13/2017 16:08:59 09/12/19 18 09/11/2017 US lower extre mity veins duple x (bila teral ) COMPAR DANIELLE: None. BILATE RAL LOWER EXTREM ITY DOPPLE R VENOUS ULTRAS OUND FINDIN GS: There is no eviden ce of bilate ral lower extrem ity deep venous thromb osis from the common femora l vein to the trifur cation veins. Deep veins are compre ssible with normal color flow and augmen tation . No poplit eal cyst. IMPRES JASON: No eviden ce of bilate ral lower extrem ity deep venous thromb osis. POS CDHRAD BOARDW S11 Electr onical ly Signed by: KYLE GONZALEZ MD on 09/12/19 18 10:47 AM Interp reted by: Kyle gonzalez MD Signed by: Kyle gonzalez MD 09/11/17 Final result AISHA Asya MCBRIDE [facility] [address] [place], [address], 09/13/2017 16:08:59 09/12/19 18 09/11/2017 NM, lung scan, perfu jason DOSE: 5.1 mCi mCi Tc-99m MAA COMPAR DANIELLE: Chest x-ray September 11, 2017 FINDIN GS: A perfus ion scan only is obtain ed as ventil ation radiop harmac eutica l could not be obtain ed today. The clinic doreen is aware of the limita tions. There are multif ocal perfus ion defect s eviden t throug hout both left and right lungs. These are eviden t in both apices of the base. These are of modera te size. No obviou s correl ate is eviden t on chest x-ray imagin g. Unfort unatel y withou t ventil ation imagin g there is a wide differ ential diagno sis which ranges betwee n multif ocal pulmon noah emboli and the airspa ce diseas e. IMPRES JASON: Abnorm al perfus ion lung scan with multif ocal modera te size perfus ion defect s bilate rally. This is of indete rminat e etiolo gy with possib ilitie s rangin g from multif ocal pulmon noah emboli to extens brandon airspa ce diseas e. The fact that the patien t has a negati ve d-dime r would sugges t this may be relate d to airspa ce diseas e. S/S: Shortn ess of breath , dyspne a POS - CDHRAD BOARDW S8 Electr onical ly Signed by: NAVDEEP Olivo on 09/12/19 18 12:53 PM Interp reted by: Navdeep olivo MD Signed by: Navdeep olivo MD 09/11/17 Final result Name & verifi ed dl AISHA MCBRIDE [facility] [address] [place], [address], 09/13/2017 16:08:59 09/12/19 18 09/11/2017 CT abdom en/pe lvis witho ut contr ast COMPAR DANIELLE: 2013. TECHNI QUE: CT abdome n and pelvis withou t oral or IV contra st. Multip lanar reform atted images genera rashida. Automa rashida exposu re contro l utiliz ed. CT ABDOME N AND PELVIS FINDIN GS: Spleen : Normal . Liver: Normal . Gallbl adder/ biliar y tree: Normal . Pancre as: Normal . Adrena l glands : Normal . Vascul ature: No AAA. Genito urinar y: Kidney s, bladde r, uterus and ovarie s are within normal limits . Trace free fluid in the cul-de -sac which is likely physio logic. Gastro intest inal tract: Modera te coloni c stool volume . Normal append ix. No bowel disten tion or wall thicke julio. Perito neum/r etrope ritone um: No lympha denopa thy, ascite s or fluid collec tions. The Muscul oskele ly: No abdomi nal wall hernia s. Incide ntal umbili merry pierci ng. No signif icant bony degene rative change s or destru ctive bone lesion s. IMPRES JASON: No acute findin gs. TOTAL CTDIvo l: 3.8 mGy POS - CDHRAD BOARDW S11 Electr onical ly Signed by: KYLE GONZALEZ MD on 09/12/19 18 1:14 PM Interp reted by: Kyle gonzalez MD Signed by: Kyle gonzalez MD 09/11/17 CC Recipi ents: Aisha mcbride MD - Fax Final result AISHA MCBRIDE [facility] Imaging [address] [place] [address], [address], 09/13/2017 16:08:59 09/12/19 18 09/11/2017 CT, abdom en + pelvi s, w/wo contr ast No observ ation record ed. [address], [address], 09/13/2017 16:08:59 09/12/19 18 09/11/2017 CT, chest , w/o contr ast COMPAR DANIELLE: Chest x-ray same day. No prior chest CT. TECHNI QUE: CT chest withou t IV contra st due to prior histor y of IV contra st anaphy lactic reacti on. Multip lanar reform atted images genera rashida. Automa rashida exposu re contro l utiliz ed. CT CHEST FINDIN GS: Cardio vascul ar: Heart is normal in size. No perica rdial effusi on. No aortic aneury sm. Main pulmon noah arteri es are normal in size. No intral uminal hyperd ensity to indica te emboli sm. Medias tinum: Esopha jeremy is normal . No enlarg ed medias tinal or hilar lymph nodes. Triang ular shaped anteri or superi or medias tinal soft tissue repres enting residu al thymic tissue . Muscul oskele ly: No thyroi d nodule s identi fied. No enlarg ed suprac lavicu lar or axilla ry lymph nodes. Mild thorac ic scolio sis. No compre ssion deform ities or destru ctive bone lesion s. Lungs: Airway is patent . No masses or bronch iectas is. Scatte red areas of mucous pluggi ng bilate rally most promin ent at the lower lobe bases. There is modera te bilate ral diffus e patchy ground glass diseas e. Trace bilate ral pleura l effusi ons. No masses or nodule s identi fied. Subple ural consol idatio n in the distribution center assistant ior right lower lobe base and linear parenc hymal opacit y at both lung bases indica tive of atelec tasis. IMPRES JASON: Extens brandon bilate ral ground glass pulmon noah diseas e with trace bilate ral pleura l effusi ons. These findin gs may be inflam matory or infect ious. Follow -up imagin g recomm ended. N.B.: Calcif icatio n in the oneil ry arteri es does not in itself have a high positi ve predic tive value for near term cardia c events ; howeve r, in the approp riate clinic al settin g it may be an indica tion for furthe r evalua tion or cardio logy consul tation depend ing on the patien t?s cardia c risk factor s. TOTAL CTDIvo l: 3.8 mGy POS - CDHRAD BOARDW S11 Electr onical ly Signed by: KYLE GONZALEZ MD on 09/12/19 18 1:35 PM Interp reted by: Kyle gonzalez MD Signed by: Kyle gonzalez MD 09/11/17 CC Recipi ents: Aisha mcbride MD - Fax Final result AISHA MCBRIDE [facility] [address] [place] [address], [address], 09/11/2017 16:34:56 02/14/20 19 02/13/2019 xr chest Pa and later al 2 views Fronta l and latera l views are compar ed with the prior study of 2017 and reveal the lungs to be well-e xpande d and overal l clear withou t focal infilt rates or pleura l effusi ons presen t. The heart and pulmon noah vessel s are within normal limits in size and the visual ized bony thorax appear s intact . IMPRES JASON: No eviden ce of active cardio pulmon noah diseas e. POS CDHRAD BOARDW S11 Electr onical ly Signed by: JOSEFINA VELASCO on 019 8:49 AM Interp reted by: Josefina Velasco MD Signed by: Josefina Velasco MD 9 Final result AISHA MCBRIDE [email or web address] Imaging [address] [place] [address], [place], [address], 02/14/2019 10:08:11 08/12/19 20 08/12/2019 xr chest Pa and later al 2 views XR CHEST PA AND LATERA L 2 VIEWS HISTOR Y: + COUGH [SIGN/ SX] COMPAR DANIELLE: None FINDIN GS: Lines and Tubes: None. Heart and medias tinum: The cardia c silhou ette is normal in size. No medias tinal or hilar enlarg ement. Lungs and Pleura l: Lingul ar airspa ce opacit y is noted. No pneumo thorax or pleura l effusi on. Bones and Soft Tissue s: No acute abnorm ality. IMPRES JASON: Lingul ar airspa ce opacit y concer juloi for pneumo anton. Follow -up is recomm ended. The findin gs were discus sed with Dr Garza 2019 at 8:40 PM. POS CDHRAD BOARDW S10 Electr onical ly Signed by: JAVON KENNY on 08/12/19 8:44 PM Interp reted by: Javon Kenny MD Signed by: Javon Kenny MD 08/12/19 Final result TANIA HERNÁNDEZ [facility] [address] [place] [address], [address], 08/14/2019 11:01:29 12/25/19 21 12/24/2020 XR, chest XR CHEST PORTAB LE COMPAR DANIELLE: Two-vi ew chest radiog raph from 08/12/19. FINDIN GS: Device s/Tube s/Line s: None. Lungs: Subtle bilate ral opacit ies are seen. Pleura : Normal . No pleura l effusi on or pneumo thorax . Heart/ Medias tinum: Normal . The heart and medias tinum are normal . Bones/ Soft Tissue s: Normal . No signif icant skelet al abnorm ality. IMPRES JASON: Subtle bilate ral opacit ies could repres ent airspa ce diseas e in the approp [facility] clinic al settin g. Electr onical ly Signed by: Jake Deleon on 021 5:42 AM Interp reted by: Jake Deleon MD Signed by: Jake Deleon MD 1 Final result WITHDR AWAL SYMPTO MS TANIA HERNÁNEDZ [facility] [address] [facility], [place], [address], 12/24/2020 08:50:42 12/25/19 21 12/24/2020 US lower extre mity veins duple x (bila teral ) COMPAR DANIELLE: 09/12/19 18. BILATE RAL LOWER EXTREM ITY DOPPLE R VENOUS ULTRAS OUND FINDIN GS: There is no eviden ce of bilate ral lower extrem ity deep venous thromb osis from the common femora l vein to the trifur cation veins. Deep veins are compre ssible with normal color flow and augmen tation . No poplit eal cyst. IMPRES JASON: No eviden ce of bilate ral lower extrem ity deep venous thromb osis. Electr onical ly Signed by: Kyle gonzalez on 021 9:04 AM Interp reted by: Kyle gonzalez MD Signed by: Kyle gonzalez MD 1 Final result *Patie nt here for evalua tion of hypoxi a and elevat ed D-dime r *No DVT and no pop fossa cyst seen in BLEs TANIA HERNÁNDEZ [facility] [address] [place], [address], 12/24/2020 11:01:28 12/25/19 21 12/24/2020 adult ECHO TTE Result Report Patien t Name: Duane Rodriguez Class: Inpati ent Sonogr apher: Heathe r Dreahe r Perfor moises Physic doreen: None Select ed Suppor ting Staff: None Select ed Orderi ng Prov: Syed kennedy Verna Primar y Care Physic doreen: Tania Hernández Diagno sis: Reason For Exam: acute hypox resp failur e, elevat ed DDimer , IV dye allerg y Proced ure(s) Perfor med: Compre hensiv e Echo (TTE) Date Perfor med: 021 Access ion #: [id number] Result Status : Final Echo Findin gs Genera l Findin gs The image qualit y was fair (3). Echo perfor med in the CCU, pt on high flow oxygen . Techni que(s) used in the evalua tion: Color flow Dopple r and Spectr al Dopple r. The predom inant rhythm during the study was sinus tachyc ardia. Left Ventri debi The left ventri cular cavity size and wall thickn ess are normal . Left ventri cular systol ic functi on is normal . There are no segmen ly left ventri cular wall motion abnorm alitie s noted. The estima rashida ejecti on fracti on is 66% (Lesly l 50-75% ). The left ventri cular ejecti on fracti on was measur ed by the single dimens ion method . Left ventri cular diasto lic functi on appear s within normal limits for age. There is no eviden ce of left ventri cular thromb us. Right Ventri debi The right ventri cular size is normal . The right ventri cular systol ic functi on is normal . Left Atrium The left atrium is normal in size. The left atrial anteri or-pos terior dimens ion measur es 24 mm (lesly l 15-40 mm). The LA volume is 22 mL. The LA volume index is 12.94 mL/m2 (lesly l indexe d value is 16-34 mL/m2) . The pulmon noah venous flow profil es are normal . Right Atrium The right atrium is normal in size. The IVC is normal in size (2.1cm or less). The IVC measur es 14 mm (lesly l <=21 mm). The IVC demons trates normal collap se with inspir ation which is consis tent with normal RA pressu re. Intera trial Septum The intera trial septum appear s normal . Aortic Valve The aortic valve appear s normal . The aortic valve is tricus pid. There is no eviden ce of valvul ar aortic stenos is. The peak aortic valve gradie nt is 10 mmHg. There is no eviden ce of aortic regurg itatio n by color and spectr al Dopple r. The visual ized portio ns of the thorac ic aorta appear normal . Mitral Valve The mitral valve appear s normal . The E/A ratio is 1.3. The Med E' Jeff is 11.6 cm/s and the Lat E' Jeff is 11.6 cm/s. The E/E' AVG is 9.1. There is no eviden ce of mitral stenos is. There is trace mitral regurg itatio n detect ed by spectr al and color Dopple r. Tricus pid Valve The tricus pid valve appear s normal . There is no eviden ce of tricus pid stenos is. There is no eviden ce of signif icant tricus pid regurg itatio n by color and spectr al Dopple r. There is an insuff icient tricus pid regurg itatio n Dopple r profil e to calcul ate a right ventri cular systol ic pressu re. Pulmon ic Valve Pulmon noah valve was not well visual ized. The pulmon noah valve appear s normal . There is no eviden ce of pulmon ic stenos is. There is no eviden ce of pulmon noah regurg itatio n by color and spectr al Dopple r. Perica rdium There is no eviden ce of perica rdial effusi on. Compar danielle Findin gs Compar ed to a prior TTE from 09/12/19 18 Routin e Measur ements Height : 158 cm Systol ic BP: 121 mmHg Weight : 73 kg Diasto lic BP: 85 mmHg Body Surfac e Area: 1.7 m2 LV Measur ements LVIDed 45 mm (Range : 37 - 52) LVIDes 29 mm (Range : 22 - 35) IVS 7 mm PWT 8 mm LV EF 66 Percen t (Range : 50 - 75) LVOT gradie nt peak rest 3 mmHg Other Measur ements LA A-P 24 mm (Range : 15 - 40) LA volume 22 mL LA volume index 12.94 mL/m2 Tricus pid annula r plane systol ic excurs ion (Lesly l: >=17) 18.0 mm RV Pulsed Tissue Dopple r S wave (Lesly l: >=9.5) 17.9 cm/s AV Measur ements Ao Sinus 23 mm AV peak gradie nt 10 mmHg LVOT diamet er 17.0 mm LVOT veloci ty 0.9 m/s MV Measur ements E wave veloci ty 105.0 cm/s A wave veloci ty 80.6 cm/s Interp retati on Summar y Normal LV size and functi on EF 65%. Normal RV size and functi on. No signif icant valvul ar heart diseas e is seen. No cause for shortn ess of breath seen on today' s study. Compar ed to prior study, no signif icant change . Signed Electr onical ly signed by Srinivasan mcintosh MD on 1 at 1529 EDT Austin ramirez Physic ians Physic doreen Role Srinivasan mcintosh MD Attend ing Cardio logist TANIA HERNÁNDEZ [facility] [address], [place], [address], 12/24/2020 16:25:39 12/26/19 21 12/25/2020 CT, chest , w/o contr ast COMPAR DANIELLE: Portab le chest x-ray 021. CT chest 09/12/19 18. TECHNI QUE: CT chest withou t IV contra st. Multip lanar reform atted images genera rashida. Automa rashida exposu re contro l utiliz ed. CT CHEST FINDIN GS: Lines/ tubes: None. Lungs and Airway s: No airway masses or bronch iectas is. Mild bilate ral diffus e bronch ial wall thicke julio, multil obar mucous pluggi ng and trace mucous in the trache a and left mainst em bronch us. Multil obar centra l and periph eral ground glass opacit ies with tree-i n-bud diseas e. Focal parenc hymal consol idatio n the right middle lobe and medial lower lobe bases. No masses . Pleura : Trace bilate ral pleura l effusi ons. Heart and medias tinum: Heart is normal in size. No perica rdial effusi on. No aortic aneury sm. Main pulmon noah outflo w trunk is normal in size. Esopha jeremy is normal . Hilum is limite d withou t IV contra st. No signif icant change in mildly enlarg ed left hilar lymph nodes measur ing 1.4 cm on the left and 1.3 cm on the right. Stable subcen timete r medias tinal lymph nodes. Thyroi d gland is normal . Soft tissue s: Normal . Abdome n: Limite d non-co ntrast -enhan diony views of the upper abdome n were obtain ed and are unrema rkable . Bones: No acute compre ssion fractu res. No destru ctive or suspic ious bone lesion s. Stable mild multil evel thorac ic spine disc diseas e. IMPRES JASON: 1.Find ings sugges tive multil obar pneumo anton with ground glass and consol idativ e opacit ies, bronch ioliti s change s and trace bilate ral pleura l effusi ons. 2.Isaias tional findin gs as above. N.B.: Calcif icatio n in the oneil ry arteri es does not in itself have a high positi ve predic tive value for near term cardia c events ; howeve r, in the approp riate clinic al settin g it may be an indica tion for furthe r evalua tion or cardio logy consul tation depend ing on the patien ts cardia c risk factor s. Electr onical ly Signed by: Kyle gonzalez on 021 11:06 AM Interp reted by: Kyle gonzalez MD Signed by: Kyle gonzalez MD 1 Final result TANIA Kennedy JOHN [facility] [address] [place], [address], 12/25/2020 11:10:28 Result Notes None recorded. Problems Name Problem SNOMED Code Status Onset Date Resolution Date Notes Provider Name and Address Organization Details Recorded Time Premenst rual tension syndrome 12607157 Completed 04/09/[place], [address], [facility] 6 08:11:50 Anemia 160184575 Completed 09/20/2016 [place], [address], [facility] 7 08:28:53 Generali zed anxiety disorder 72321426 [place], [address], [facility] 4 08:12:38 [id number] Completed 04/09/2015 [place], [address], [facility] 6 08:11:50 Malaise and fatigue 897598355 Completed 05/25/2013 [place], [address], [facility] 6 08:11:50 Narcolep sy 39071281 Completed 04/09/2015 [place], [address], [facility] 6 08:11:50 Graves' disease 177485918 [place], [address], [facility] 4 08:12:38 Cataplex y and narcolep sy 340337716 [place], [address], [facility] 4 08:12:38 Recurren t major depressi ve episodes 022199646 [place], [address], [facility] 4 08:12:38 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 Procedures Surgical History Date Name Laterality Status Provider Name and Address Organization Details Recorded Time 4 Smoking cessation counseling completed Dee Prescott MA [facility] 11/24/2023 16:15:42 3 Smoking cessation counseling completed Suzette Carrasquillo CMA [facility] 11/20/2022 16:09:10 7 POC Flu Testing completed Shiloh Vivas MA [facility] 07/31/2016 14:10:40 7 POC Strep Testing completed Shiloh Vivas MA [facility] 07/31/2016 14:10:35 Imaging Results Imaging Date Name Status LastModified by Organiz ation Details LastModified Time 09/11/2017 xr chest Pa and lateral 2 views completed [facility] [address] [place] [address], [address], 09/13/2017 16:08:58 09/11/2017 XR, chest completed [facility] [address] [place] [address], [address], 09/13/2017 16:08:58 09/11/2017 adult ECHO TTE completed [facility] [address] [place] [address], [address], 09/13/2017 16:08:59 09/11/2017 adult ECHO TTE completed [facility] [address] [place] [address], [address], 09/13/2017 16:08:59 09/11/2017 US lower extremity veins duplex (bilateral) completed [facility] [address] [place] [address], [address], 09/13/2017 16:08:59 09/11/2017 NM, lung scan, perfusion completed [facility] [address] [place] [address], [address], 09/13/2017 16:08:59 09/11/2017 CT abdomen/pelvis without contrast completed [facility] [address] [place] [address], [address], 09/13/2017 16:08:59 09/11/2017 CT, abdomen + pelvis, w/wo contrast completed [address], [address], 09/13/2017 16:08:59 09/11/2017 CT, chest, w/o contrast completed [facility] [address] [place] [address], [address], 09/11/2017 16:34:56 02/13/2019 xr chest Pa and lateral 2 views completed [email or web address] [place] [address] Diagnostic Imaging [address] [place] [address], [address], 02/14/2019 10:08:11 08/12/2019 xr chest Pa and lateral 2 views completed [facility] [address] [place], [address], 08/14/2019 11:01:29 12/24/2020 XR, chest completed [facility] [address] [place], [address], 12/24/2020 08:50:42 12/24/2020 US lower extremity veins duplex (bilateral) completed [facility] [address] [place], [address], 12/24/2020 11:01:28 12/24/2020 adult ECHO TTE completed [facility] [address] [place], [address], 12/24/2020 16:25:39 12/25/2020 CT, chest, w/o contrast completed [facility] [address] [place], [address], 12/25/2020 11:10:28 Procedure Notes None recorded. Medical Equipment None Reported. Allergies Allergen ID Allergen Name Allergen Category Reaction Reaction Severity Criticality Documentation Date Start Date Code Code System Note Provider Name and Address Organization Details Recorded Time [id number] Iodinated contrast media (substanc e) medicatio n anaphylax is Not available Not available 11/21/2014 03283 2003 SNOMED Lina finch MA [facility] 5 08:46:59 Medications Name Sig Start Date Stop Date Status Note LastModified by Organization Details LastModified Time fluoxetin e 40 mg capsule TAKE 1 CAPSULE BY MOUTH EVERY DAY 01/11 completed Not Available Not Available Not Available cyclobenz aprine 10 mg tablet TAKE 1 TABLET BY MOUTH THREE TIMES DAILY NEEDED active Not Available Not Available No t Available tretinoin 0.1 % topical cream Apply by topical route daily at HS, wash off in the a.m.. active Not Available Not Available No t Available cefpodoxi me 200 mg tablet 01/11 completed Not Available Not Available Not Available ibuprofen 800 mg tablet TAKE 1 TABLET BY MOUTH THREE TIMES DAILY NEEDED active Not Available Not Available No t Available methylphe nidate 10 mg tablet TK 1 T PO TID UTD 08/08 completed Not Available Not Available Not Available hydrocodo ne 5 mg-acetam inophen 325 mg tablet active Not Available Not Available Not Available tretinoin 0.025 % topical cream 04/15 completed Not Available Not Available Not Available methylphe nidate 5 mg tablet active Not Available Not Available No t Available prednison e 20 mg tablet TAKE 2 TABLETS BY MOUTH ONCE DAILY FOR 4 DAYS active Not Available Not Available No t Available dextroamp hetamine- amphetami ne 10 mg tablet TAKE 1 TABLET BY MOUTH THREE TIMES A DAY 01/11 completed Not Available Not Available Not Available fluoxetin e 10 mg tablet Take 1 tablet every day by oral route. active Not Available Not Available No t Available atenolol 25 mg tablet Take 1 tablet every day by oral route. 2013 active Not Available Not Available Not Avai lable metronida zole 500 mg tablet Take 1 tablet twice a day by oral route for 7 days. active Not Available Not Available No t Available prochlorp erazine maleate 10 mg tablet 08/13 completed Not Available Not Available Not Available tretinoin 0.05 % topical cream 01/11 completed Not Available Not Available Not Available ciproflox acin 500 mg tablet active Not Available Not Available No t Available sulfameth oxazole 800 mg-trimet hoprim 160 mg tablet Take 1 tablet twice a day by oral route for 5 days. active Not Available Not Available No t Available tramadol 50 mg tablet 11/21 completed Not Available Not Available Not Available adapalene 0.1 % topical cream 01/11 completed Not Available Not Available Not Available oxycodone -acetamin ophen 5 mg-325 mg tablet 08/13 completed Not Available Not Available Not Available modafinil 200 mg tablet TAKE 2 TABLETS IN AM AND 1 MIDDAY BY MOUTH 08/08 completed Not Available Not Available Not Available lorazepam 0.5 mg tablet TAKE 1 TO 2 TABLETS BY MOUTH AT BEDTIME 01/11 completed Not Available Not Available Not Available Depo-Prov era 150 mg/mL intramusc ular suspensio n Inject 1 mL every 3 months by intramus cular route. 01/11 completed Not Available Not Available Not Available phenazopy ridine 100 mg tablet active Not Available Not Available Not Available paroxetin e 20 mg tablet Take 1 tablet every day by oral route. active Not Available Not Available No t Available fluoxetin e 20 mg tablet TAKE 1 TABLET BY MOUTH EVERY DAY 11/21 completed Not Available Not Available Not Available methylphe nidate ER 20 mg tablet,ex tended release TK 1 T PO ONCE A DAY UTD. 01/11 completed Not Available Not Available Not Available fluoxetin e 10 mg capsule TAKE 1 CAPSULE BY MOUTH DAILY DIRECTED 08/08 completed Not Available Not Available Not Available methimazo le 5 mg tablet 1/2 tab 2.5mg by mouth once daily 01/11 completed 1 tab every other day Not Available Not Available Not Available dextroamp hetamine- amphetami ne ER 10 mg 24hr capsule,e xtend release 01/11 completed Not Available Not Available Not Available ibuprofen 600 mg tablet Take 1 tablet 4 times a day by oral route with meals. active Not Available Not Available No t Available zolpidem 10 mg tablet TAKE 1 TABLET BY MOUTH DAILY AT BEDTIME active Not Available Not Available No t Available albuterol sulfate HFA 90 mcg/actua tion aerosol inhaler INHALE 2 PUFFS INTO THE LUNGS EVERY 6 (SIX) HOURS NEEDED FOR WHEEZING . 11/23 completed not using 11/24/23 LL Not Available Not Available Not Available methimazo le 10 mg tablet Take 4 tablets every day by oral route for 30 days. 06/18 completed Not Available Not Available Not Available ondansetr on 4 mg disintegr ating tablet active Not Available Not Available Not Available fluoxetin e 20 mg capsule TAKE 1 CAPSULE BY MOUTH EVERY DAY 2023 active Not Available Not Available Not Avai lable dextroamp hetamine- amphetami ne 5 mg tablet 01/11 completed Not Available Not Available Not Available clindamyc in 1 % lotion APPLY THIN LAYER TOPICALL Y TO THE AFFECTED AREA TWICE DAILY active Not Available Not Available No t Available dextroamp hetamine- amphetami ne ER 15 mg 24hr capsule,e xtend release TAKE ONE CAPSULE BY MOUTH EVERY MORNING 01/11 completed Not Available Not Available Not Available Lorenae (28) 0.3 mg-30 mcg tablet TAKE 1 TABLET DAILY 2014 active Not Available Not Available Not Avai lable methylphe nidate CD 20 mg biphasic 30-70 capsule,e xtended release 08/13 completed Not Available Not Available Not Available Paxil active Through college in [place], [place] Not Available Not Available Not Available Senia active otc Not Available Not Avail able Not Available Ortho Tri-Cycle n (28) active dr.singe kirby was prescrib ing Not Available Not Available Not Available multivita min take 1 tab daily active Not Available Not Available No t Available Aczone 5 % topical gel 01/11 completed Not Available Not Available Not Available armodafin il 250 mg tablet TAKE 1 TABLET BY MOUTH DAILY active Not Available Not Available No t Available buprenorp pat 8 mg-naloxo ne 2 mg sublingua l film DISSOLVE 1 FILM UNDER THE TONGUE TWICE DAILY 11/20 completed 11/20/22- pt not taking Not Available Not Available Not Available Nexplanon active implante d- 05/24/20 Not Available Not Available Not Available EpiPen 2-Bryn 0.3 mg/0.3 mL injection , auto-inje ctor USE DIRECTED IF NEEDED FOR ANAPHYLA XIS active Not Available Not Available No t Available buprenorp pat 4 mg-naloxo ne 1 mg sublingua l film DISSOLVE 1 FILM UNDER THE TONGUE ONCE DAILY AT 2PM 11/20 completed 11/20/22- pt not taking Not Available Not Available Not Available buprenorp pat 12 mg-naloxo ne 3 mg sublingua l film DISSOLVE 1 FILM UNDER THE TONGUE EVERY DAY active Not Available Not Available No t Available BinaxNOW COVID-19 Ag Self Test kit TEST DIRECTED TODAY 11/23 completed Not Available Not Available Not Available Vitals Date Recorded Body height Body weight Body mass index (BMI) Heart rate Systolic blood pressure Diastolic blood pressure Provider Name and Address Organization Details Last Updated DateTime 7 160.02 cm 53310.6 7 g 22.6 kg/m2 102 /min 126 mm[Hg] 88 mm[Hg] Roopa Mena, DOCUMENTATION NURSE [address] [place], [address] [place] [address] 7 07:33:32 Date Recorded Body weight Body mass index (BMI) Body height Heart rate Systolic blood pressure Diastolic blood pressure Provider Name and Address Organization Details Last Updated DateTime 1 10904.5 6 g 26.6 kg/m2 160.02 cm 88 /min 100 mm[Hg] 66 mm[Hg] Ricarda Larson [facility] [place], [place] 1 15:11:18 Date Recorded Body height Body mass index (BMI) Body weight Systolic blood pressure Diastolic blood pressure Provider Name and Address Organization Details Last Updated DateTime 08/08/2021 158.75 cm 27.3 kg/m2 94432.25 g 108 mm[Hg] 66 mm[Hg] Johnie Duong [facility] [place] [place] 2 16:19:40 Date Recorded Body weight Body mass index (BMI) Body height Oxygen saturation Oxygen saturation in Arterial blood by Pulse oximetry Heart rate Systolic blood pressure Diastolic blood pressure Provider Name and Address Organization Details Last Updated DateTime 3 61263.5 2 g 25.4 kg/m2 158.75 cm 98 % 98 % 102 /min 120 mm[Hg] 77 mm[Hg] Suzette Carrasquillo CMA [facility] 3 16:13:13 Date Recorded Body weight Heart rate Oxygen saturation Oxygen saturation in Arterial blood by Pulse oximetry Systolic blood pressure Diastolic blood pressure Provider Name and Address Organization Details Last Updated DateTime 4 70329.6 7 g 129 /min 99 % 99 % 128 mm[Hg] 74 mm[Hg] Dee Prescott [facility] [place], [place] 4 16:06:46 Social History Question Answer Notes LastModified by Organizat ion Details LastModified Time Tobacco Smoking Status Current Every Day Smoker [facility] 16:09:05 What Is Your Level Of Alcohol Consumption? None Information not available 11/24/2023 Do You Wear A Helmet When Biking? No [email or web address] Information not available 11/20/2022 What Is Your Level Of Caffeine Consumption? Moderate 1-2 Cups Daily [email or web address] Information not available 04/09/2015 How Much Tobacco Do You Chew? None Information not available 02/23/2012 Are You Currently Employed? No Information not available 08/08/2021 What Type Of Diet Are You Following? REGULAR Information not available 02/23/2012 Which Illicit Or Recreational Drugs Have You Used? Marijuana [email or web address] Information not available 11/20/2022 Education Post Graduate Continuing Education Information not available 02/23/2012 What Is The Highest Grade Or Level Of School You Have Completed Or The Highest Degree You Have Received? [id number] Information not available 08/08/2021 Have There Been Any Changes To Your Family Or Social Situation? No Information not available 08/08/2021 How Many Days In The Past Year Have You Had A Heavy Drinking Consumption (4+ Female, 5+ Male)? 5 Information not available 09/19/2016 Are There Any Guns Present In Your Home? No [email or web address] Information not available 05/22/2011 Do You Use Insect Repellent Routinely? No [email or web address] Information not available 11/20/2022 Live Alone Or With Others? With Others Information not available 02/23/2012 CSRP - Narcotics No [email or web address] Information not available 09/21/2015 CSRP Contract Signed And Discussed No Stimulant-BGr een 11/01/12,-stopped 07/2016 [email or web address] Information not available 07/24/2016 CSRP - Stimulants No Information not available 07/24/2016 CCM Consent Discussion 08/08/2021 [email or web address] Information not available 08/09/2021 Marital Status Single Informatio n not available 02/23/2012 Mosquito Repellent Used Routinely Yes [email or web address] Information not available 05/22/2011 What Was The Date Of Your Most Recent Tobacco Screening? 11/24/2023 Information not available 11/24/2023 How Many Children Do You Have? 0 2 Step Kids [email or web address] Information not available 11/20/2022 What Is Your Relationship Status? Domestic Partner Information not available 08/08/2021 Do You Use Your Seat Belt Or Car Seat Routinely? Yes Information not available 08/08/2021 Seat Belts Used Routinely Yes [email or web address] Information not available 05/22/2011 Are You Sexually Active? Yes Information not available 02/23/2012 Smoke Alarm In Home Yes [email or web address] Information not available 05/22/2011 Do You Have Smoke And Carbon Monoxide Detectors In Your Home? Yes Information not available 08/08/2021 At What Age Did You Start Smoking Tobacco? 26 Information not available 08/08/2021 Are You Passively Exposed To Smoke? Yes Information not available 08/08/2021 What Types Of Sporting Activities Do You Participate In? None Information not available 09/19/2016 General Stress Level High Information not available 02/23/2012 Do You Use Any Illicit Or Recreational Drugs? Yes [email or web address] Information not available 11/20/2022 Do You Use Sunscreen Routinely? Yes [email or web address] Information not available 05/22/2011 How Many Years Have You Smoked Tobacco? 3 Information not available 08/08/2021 Do You Or Have You Ever Used Any Other Forms Of Tobacco Or Nicotine? No Information not available 08/08/2021 How Many Days In The Past Year Have You Consumed 4 Or More Drinks? 0 Information not available 11/24/2023 Sex: Female Functional Status Question Answer Note LastModified by Organization D etails LastModified Time What is your exercise level? Moderate yoga Information not available 08/08/2021 Mental Status None recorded. Family History Relationship Description Onset Age of this Age Resolved Age Notes LastModified by Organization Details LastModified Time Father Hypertensive disorder previo usly record ed as Hypert ension [email or web address] Not available 08/16/2015 07:46:33 Mother Disorder of thyroid gland hypoth yroidi [email or web address] Not available 08/16/2015 07:46:33 Brother Seizure previo usly record ed as Seizur es [email or web address] Not available 08/16/2015 07:46:33 Notes:MGM- DM, FH breast can cer, no thyroid cancer Medical History Condition Response NEUROLOGIC Y Anxiety Y Hyperthyroid Y Gynecological History Statement/Question Response Date of LMP 10/19/2022 Frequency of Cycle (Q days) 28 Menses Monthly Y History of Abnormal Pap N Current Control Method BCPs Age at Menarche 13 LMP Approximate Obstetrics History GPAL:G 0 P 0 0 0 0 Immunizations Vaccine Type Date Status Note Provider Nam e and Address Organization Details Recorded Time Tdap 1 completed Not Available [facility] 07/23/2019 02:33:04 Hib (HbOC) 3 completed Not Available [facility] 05/21/2011 05:22:52 DTP 8 completed Not Available [facility] 05/21/2011 05:22:52 Hep B, adolescent or pediatric 4 completed Not Available [facility] 05/21/2011 05:22:52 MMR 4 completed Not Available [facility] 05/21/2011 05:22:52 Hep B, adolescent or pediatric 3 completed Not Available [facility] 05/21/2011 05:22:52 MMR 8 completed Not Available [facility] 05/21/2011 05:22:52 OPV 8 completed Not Available [facility] 05/21/2011 05:22:52 OPV 3 completed Not Available [facility] 05/21/2011 05:22:52 DTP 4 completed Not Available [facility] 05/21/2011 05:22:52 DTP 3 completed Not Available [facility] 05/21/2011 05:22:52 Hib (HbOC) 3 completed Not Available [facility] 05/21/2011 05:22:52 Hib (HbOC) 4 completed Not Available [facility] 05/21/2011 05:22:52 OPV 3 completed Not Available [facility] 05/21/2011 05:23:04 OPV 4 completed Not Available [facility] 05/21/2011 05:22:52 Td (adult) 4 completed Not Available [facility] 05/21/2011 05:22:52 DTP 3 completed [facility] Available [facility] 05/21/2011 05:22:52 Hib (HbOC) 3 completed Not Available [facility] 05/21/2011 05:22:52 DTP 3 completed Not Available [facility] 05/21/2011 05:22:52 Td (adult), 2 Lf tetanus toxoid, preservative free, adsorbed 2 completed Tania Hernández, [employer] TRA[employer] [address] [place], [address], [facility] 08/08/2021 17:58:17 Influenza, split virus, quadrivalent, PF 2 completed Tania Hernández, [employer] [address] [place], [address], [facility] 08/08/2021 17:58:17 COVID-19, mRNA, LNP-S, PF, 30 mcg/0.3 mL dose 1 [facility]11[facility] 15:05:40 COVID-19, mRNA, LNP-S, PF, 30 mcg/0.3 mL dose 1 [facility]11[facility] 15:06:05 Past Encounters Encounter ID Performer Location Encounter Start Date Encounter Closed Date Diagnosis/Indication Diagnosis SNOMED-CT Code Diagnosis ICD10 Code Diagnosis Note [id number] Lina GOMEZ [facility], [address] [place] [address] 02/11/2011 09:01:51 02/11/2011 10:35:18 [id number] PATRICIA [facility], [address] [place] [address] 02/20/2011 08:03:05 02/20/2011 08:24:35 [id number] PATRICIA [facility], [address] [place] [address] 07/14/2011 07:52:14 07/14/2011 08:23:23 [id number] Lina GOMEZ [facility], [address] [place] [address] 12/09/2011 15:04:25 12/09/2011 15:42:47 [id number] PATRICIA [facility], [address] [place] [address] 12/25/2011 16:12:08 12/25/2011 16:38:58 [id number] Lina Deana , [facility], [address] [place] [address] 02/23/2012 11:09:23 02/23/2012 14:39:37 [id number] Josiane JoelJeovany , [facility], [address] [place] [address] 05/19/2012 15:56:15 05/20/2012 12:40:23 [id number] Tania Hernández NP , [facility], [address] [place] [address] 07/16/2012 07:58:07 07/16/2012 10:11:21 [id number] Tania Hernández NP , [facility], [address] [place] [address] 11/01/2012 08:03:45 11/01/2012 08:34:10 [id number] Jeffery Land RN , [facility], [address] [place] [address] 12/03/2012 07:54:15 12/03/2012 15:14:58 [id number] Jeffery Land RN , [facility], [address] [place] [address] 03/03/2013 08:53:22 03/03/2013 09:31:51 Attention deficit hyperactivity disorder, predominantly inattentive type 57961506 I am concerned about her continued wt loss - although it seems to be levelling off. Pt feels current dose of ritalin is very effective and doesn't want to decrease dose. Will have her f/u in 2 months for wt check. If wt not improving, or continues to lose, I will refer her back to sleep med to reevaluate . Pt wonders if can get 3 month supply of ritalin to mailaway - her insurance recommende d this - Explained that legally we can't even give more than 2 months worth and that we don't usually use mail away pharmacies for controlled substances . She will f/u if unable to continue to get monthly scripts covered by her insurance. Adult heal th examination [id number] see Risk Assessment and Lifestyle Change Counseling section above - pt could not give urine sample for GC/chlamyd ia testing. Will get when she returns in 2 months. Enc. cont. healthy habits. Counseling [id number] Oral contr aceptive prescribed [id number] No adverse effects from current OCP's - pt to cont - refills given Recurrent major depressive episodes 427274411 Doing well on current dose fluoxetine - refills given [id number] ALVARADO Howard, [facility], [address] [place] [address] 04/29/2013 08:05:30 04/29/2013 09:43:17 Cataplexy and narcolepsy [id number] much improved on ritalin and is walter. well with no sleep disturbanc es but significan t wt loss which seems to have levelled off. Cont. the ensure supplement s or if not well tolerated, add a milkshake or protein shake at leastl 3-5x/week. Continued to monitor wt at home and f/u if any more wt loss. Otherwise will continue current dose and f/u in 4 months for CSRP visit. [id number] ALVARADO Howard, [facility], [address] [place] [address] 08/15/2013 08:32:14 08/15/2013 08:56:04 Cataplexy and narcolepsy [id number] Doing well on current dose medication which is working very well for her sx narcolepsy with no adverse effects. No concerns re: diversion/ abuse. Pt to return in 6 months for CSRP/PHA visit. [id number] ALANNA Finnegan, [facility], [address] [place] [address] 10/12/2013 10:02:31 10/12/2013 13:37:00 Goiter [id number] Patient with thyroid goiter. Denies tenderness or dysphagia. Also with clinical features of hyperthyro idism (weight loss, tachycardi a, diarrhea and heat intoleranc e). Briefly discussed the case with Dr. Freitas who has not seen the patient. Will check TSH/FT4. Will also arrange for Thyroid Uptake and Scan to evaluate for thyroiditi s vs. Grave's. Advised to follow up in 1 week. Patient is tachycardi c, but no clinical symptoms. Discussed about using beta-block er if becomes symptomati c. Narcolepsy 31992724 Curr ently using Ritalin (Methylphe nidate) extended-r elease daily along with immediate- release as needed. It has been remarkably improved her quality of life. Previously evaluated by [facility]. Prescripti ons now being prescribed by her primary care provider. Work note given clearing her to use a respirator mask. [id number] ALANNA Gutierrez, [facility], [address] [place] [address] 10/13/2013 11:48:08 10/13/2013 14:37:38 Acute thyroiditis [id number] Discussed with Dr. Hansen. Labs as below. Will start on low dose of atenolol for the tachycardi a and ibuprofen high dose for the inflammati on/discomf ort. Discussed dx most like thyroiditi s, not Graves. Will discuss with endocrine. ? if nuclear scan should be done sooner. Also - ? if should d/c the methylphen idate until thyroid levels normalize - might be worsening her sx. Pt to f/u here tomorrow for re-check. [id number] ALVARADO Howard, [facility], [address] [place] [address] 10/14/2013 09:32:11 10/14/2013 10:25:30 Hyperthyroidism 32694269 It's not clear if this is graves or a thyroiditi s. ESR neg, TSH very low, free T4 is elevated. I was able to get the thyroid scan reschedule d for early next week. After that, can decide if pt needs to see endocrine. In the meantime, pt to continue on the ibuprofen, the atenolol which she is tolerating well at low dose and will add back the long acting methylphen idate so that she can function during the day. Pt will monitor heart rate and let me know if getting tachycardi c again. Reassurran ce give. THe goiter should eventually resolve and she will be feeling much better once her thyroid gets regulated. Enc. adequate food/fluid intake. [id number] Tenzin Renteria MD Endocrino logy, [facility] [address] [place] [address] 10/20/2013 08:10:09 10/20/2013 08:55:52 Graves' disease 984972621 -atenolol 25mg daily for now, may stop if less symptomati c in 3 to 4 weeks, monitor pulse, discuss with Dr. Renteria if >100 at rest -ADD methimazol e 15mg daily Cataplexy and narcolepsy 287109855 -methylphe nidate at reduced doses Recurrent major depressive episodes 479839421 -fluoxetin e [id number] , [facility], [address] [place] [address] 11/30/2013 11:07:12 11/30/2013 12:41:42 Graves' disease 902217992 Recheck labs today, d/w pt re: possible that methimazol e may need to be adjusted and it might even need to be increased, other options e.g. radioactiv e iodine and surgery, when to present to the ER. She will continue with methimazol e at this time and check labs on the portal when available. She will try to reschedule with Endocrine. [id number] Lina Leblanc , [facility], [address] [place] [address] 02/14/2014 09:38:21 02/14/2014 11:02:27 Hyperthyroidism 08578869 Patient will have labs today and methimazol e will be refilled by Dr. Renteria. Narcolepsy 84518613 Disc ussed with patient re: although I do sometimes prescribe this medication the particular dosing schedule which she is on and the use of this medication in narcolepsy are something which I would prefer she follow up with specialist for. I personally would be more likely to prescribe only the short acting methylphen idate 10mg BID with the last dose no later than 3pm and to try 150mg venlafaxin e and or/ clomiprami ne. She may transfer to me and try this change in medication or stay with current prescriber who remembers her prior workup better than I do and will be more likely not to change her dosing or medication s. She opts to stay with Danay Hernández NP as PCP and see me for sick visits when desired. I will d/w PCP. Major depr essive disorder 499593325 I am okay with refilling fluoxetine if she needs it, which she currently does not [id number] Jeffery Land RN , [facility], [address] [place] [address] 05/30/2014 09:29:30 06/05/2014 09:26:10 Adult health examination [id number] see Risk Assessment and Lifestyle Change Counseling section above - up to date with health itzel Gutierrez healthy diet/exerc ise habits. Pt offered flu vaccine - she deferred. Counseling [id number] Cataplexy and narcolepsy 667953917 Wants f/u with sleep medicine specialist s. They originally started her on the Ritalin for the narcolepsy . ? if there is something else she could try. Feels every day as shortactin g Ritalin wears off that she crashes . Pt will call to schedule appt - referral sent. Major depr essive disorder 809956211 Has been doing well on current dose fluoxetine but hasn't received it from her pharmacy in over 2 months (unclear why - has refills). Will resend rx. Pt to notify me if unable to get this in the next 2 weeks. Graves' disease 575078695 continue current med and f/u with endocrine as planned. Oral contr aceptive prescribed [id number] Impacted t eeth with abnormal position [id number] oral surgeon supposedly told her that she needs a sinus CT Scan. He won't pull her wisdom teeth until this is done. Unclear what he saw on his panoramic xrays. I will contact his office to find out what it is we are imaging her for. I'll f/u with pt once I clarify this. Venereal d isease screening 984741479 Screening for malignant neoplasm of cervix [id number] Sophie Guerrero , [facility], [address] [place] [address] 07/19/2014 08:44:11 07/21/2014 10:50:25 Gastroenteritis 60230605 viral most likely- it is possible it could be a side effect of nuvigill but the fever would seem to point to a viral gastro. plan- clear liquids, if not better by next week. stop med and see if better. If better, restart med and see if sx ret. OOW till 07/24 [id number] Tania Hernández NP , [facility], [address] [place] [address] 11/21/2014 08:39:19 11/21/2014 09:00:48 Cataplexy and narcolepsy Doing well on current meds although sleep med practition ers have added nuvigil and hopefully she will be able to decrease her stimulants . F/U 6 months for PHA. Major depr essive disorder 119111196 Has been doing well on current dose fluoxetine - pt to continue current dose. Hyperthyroidism 82187977 I realized after pt left today that she is overdue for labs and f/u with endocrine. Doesn't look like she is taking the methimazol e any longer. I will have someone contact her to come in for labs and re-schedul e appt. with Dr. Renteria. [id number] , [facility], [address] [place] [address] 04/09/2015 09:27:00 04/10/2015 10:46:59 Venereal disease screening [id number] Z11.3 Screening for malignant neoplasm of cervix 945754015 Z12.4 Bacterial vaginosis 4197 66807 B96.89 discussed dx - take flagyl as directed - discussed potential s/e and enc. avoid ETOH and vinegar products while on this. F/U if sx not improving or are worsening. Irregular periods 578314 07 N92.6 Having freq, heavier menses. Will check cbc and thyroid labs today and f/u with results when available. If labs all wnl and sx not resolving, consider pelvic u/s. Graves' disease 12524775 4 E05.80 pt stopped her meds awhile ago - will check T4 and TSH today and f/u with results when available. [id number] Endocrino logy, [address] [address] 04/19/2015 08:08:24 04/19/2015 08:59:54 Graves' disease 883059221 E05.00 -methimazo le 5mg once daily -labs 1mo, 4mo, clinic 17 weeks Cataplexy and narcolepsy 458745632 G47.411 -methylphe nidate at reduced doses Recurrent major depressive episodes 539996769 F33.9 -fluoxetin e [id number] Tania Hernández NP , [facility], [address] [place] [address] 06/05/2015 08:29:43 06/05/2015 09:16:22 Adult health examination 710900759 Z00.00 see Risk Assessment and Lifestyle Change Counseling section above Counseling 419219162 Z71 .9 Recurrent depression 191 734562 F33.9 wants to restart fluoxetine which has worked well for her in the past with no adverse effects - rx sent as below - enc. f/u in 4-6 weeks to let me know how this is working and if needed could adjust dose. Graves' disease 38275676 4 E05.80 cont. f/u with endocrine as planned Acne 74811460 L70.9 On chest/back - requests derm referral - sent as below Prolonged periods 262346 006 N92.5 Bleeds for 3 weeks out of the month (light bleeding, no pain except with regular menses gets cramping). Will check pelvic u/s. Had normal CBC in the past couple of months. If u/s neg, will restart OCP's to help get periods more regular. Narcolepsy 47262230 G47. 419 cont. current meds and f/u with sleep med as planned - may be weaning down off the stimulants but for now will continue at current dosing [id number] Tenzin Renteria MD Endocr[facility], [address] [address] 08/16/2015 07:29:34 08/16/2015 08:00:03 Graves' disease 476192374 E05.00 -hold methimazol e for now (stop 5mg tabs 1/2 tab 2.5mg daily) -if labs showed return of hyperthyro idism, will suggest restarting methimazol e via the portal and retesting in 3mo per plan -labs 3mo, 6mo, clinic 25 weeks Cataplexy and narcolepsy 158296742 G47.411 -methylphe nidate at reduced doses Recurrent major depressive episodes 505206187 F33.9 -fluoxetin e [id number] Tania Hernández NP , [facility], [address] [place] [address] 12/06/2015 07:41:19 12/06/2015 08:18:13 Narcolepsy 72152390 G47.419 cont. current meds and f/u with sleep med as planned - may be weaning down off the stimulants but for now will continue at current dosing. F/u in 6 months for PHA. Acne 36413147 L70.9 On chest/back - requests derm referral - sent as below Graves' disease 98851503 4 E05.80 cont. f/u with endocrine as planned - off meds now and last TSH in normal range. Due for recheck next month. Insomnia 241011836 G47.0 0 ? from the meds. Falls asleep but not staying asleep. Will discuss this with sleep medicine. Pt to call to schedule appt. [id number] Tenzin Renteria MD Endocrino [facility], [address] [address] 02/07/2016 07:34:03 02/07/2016 07:58:30 Graves' disease 961916403 E05.00 -no methimazol e for now-labs 6mo, clinic 25 weeks Cataplexy and narcolepsy 057136457 G47.411 -methylphe nidate at reduced doses Recurrent major depressive episodes 808987457 F33.9 -fluoxetin e [id number] ALVARADO Howard, [facility], [address] [place] [address] 04/15/2016 13:17:34 04/16/2016 11:02:43 Common cold 69856800 J00 Reassured. No s/s strep on exam. Sx clearly viral. Lungs clear. Enc. force fluids, steam inhalation prn and adequate rest. OK to take otc cold/cough meds prn for sx mgt and f/u prn if not gradually improving, develops high fever or increased resp. difficulty /cough. Enc flu vaccine when better. [id number] Brigitte Mcintyre NP , [facility], [address] [place] [address] 07/31/2016 13:14:44 08/01/2016 15:01:53 Venereal disease screening 311567419 Z11.3 Routine Fever 926388565 R50.9 Pt with c/o fever and painful muscle aches. CXR, quick strep and flu tests negative. Pt cries when touched because it hurts. Discusses case with PCP, Tania Hernández. Pt with h/o anxiety. ? viral illness . Will check labs. Pt inst to f/u if not getting better or go to ED if worsens. CXR machine was down. Pt was supposed to go to [facility] for cxr - although lung sounds were normal. She was exposed to pneumonia. Abdominal pain 46143701 R10.9 [id number] Tenzin Renteria MD Endocrino logy, [facility] [address] [place] [address] 08/13/2016 07:16:12 08/13/2016 07:45:04 Graves' disease 584297178 E05.00 -restart methimazol e 5mg by mouth once daily-labs 3mo, clinic 13 weeks Cataplexy and narcolepsy 598200256 G47.411 -methylphe nidate [id number] Tania Hernández NP , [facility], [address] [place] [address] 09/19/2016 14:54:07 09/19/2016 16:05:03 Adult health examination 578864765 Z00.00 see Risk Assessment and Lifestyle Change Counseling section above Counseling 483510574 Z71 .9 Cataplexy and narcolepsy 104754443 G47.411 This is managed by sleep med - currently tolerating meds with good effect, no adverse effects Generalize d anxiety disorder 48550379 F41.1 Recurrent major depressive episodes 495093866 F33.9 Feels current dose of fluoxetine no longer adequate for controllin g her sx of anxiety/de pression. Has alot of stress in her life right now. Trial of increasing to 40 mg/day and f/u with me in 3-4 weeks via the portal to let me know how she is doing. Graves' disease 84673966 4 E05.80 cont. f/u with endocrine as planned - she is back on the methimazol e and doing well Screening for malignant neoplasm of cervix 840372277 Z12.4 [id number] Tenzin Renteria MD Endocrino logy, [facility] [address] [place] [address] 11/21/2016 07:28:23 11/21/2016 07:45:49 Graves' disease 152421115 E05.00 -reduce methimazol e 5mg tabs, 1/2 tab 2.5mg by mouth once daily-labs 3mo, 6mo clinic 25 weeks Cataplexy and narcolepsy 977281723 G47.411 -methylphe nidate [id number] Jacquelin Encinas DO FP, [facility], [address] [place] [address] 01/11/2021 14:50:04 01/11/2021 15:54:33 Screening for disorder 395853463 Z11.59 Accidental overdose of opiate 191910290 T40.601A S/p hospital stay for accidental OD with suboxone while sick with URI and achy mistaken for withdrawal symptoms per patient report. Pt has plan for detox coming up as an outpatient - not interested in in-patient program. Aspiration pneumonia 422 311239 J69.[address]. [address]ill [address]. CT chest to eval for resolution . Call with new/worsen ing symptoms or if no improvemen t. Pt agrees with plan. Acute hypo xemic respiratory failure 406300423 J96.01 S/p hospital stay, will refill inhaler, repeat CT per hospital to eval for resolution . Recurrent major depressive episodes 167958709 F33.9 Re-start fluoxetine . F/u with PCP for dosing changes- has upcoming appt with PCP. Call with new/worsen ing symptoms or if no improvemen t. Pt agrees with plan. Generalize d anxiety disorder 37761158 F41.1 As above. [id number] Tania Hernández NP , [facility], [address] [place] [address] 08/08/2021 15:54:43 08/12/2021 16:47:09 Adult health examination 045383177 Z00.00 see Risk Assessment and Lifestyle Change Counseling section above Counseling 492386514 Z71 .9 Depression screening 171 754650 Z13.31 depression screening tool administer ed, entered into emr, scored and discussed, time greater than 7.5 minutes Screening for disorder 338199834 Z11.59 Measure identifies patients 18-79 years of age who had a one-time hepatitis C virus screening. Screening for malignant neoplasm of cervix 995106382 Z12.4 Polysubstance abuse 4452 66815 F19.10 Followed at [facility] - has counsellor , supports. On suboxone. States clean/sobe r since January (hospitali zed and almost ) . Enc cont. f/u with addiction med and working towards sobriety. Graves' disease 74604392 4 E05.80 cont. f/u with endocrine as planned - she is back on the methimazol e and doing well Cataplexy and narcolepsy 206196475 G47.411 This is managed by sleep med - currently tolerating meds with good effect, no adverse effects however is asking for short acting med for middle of day. Enc. discuss with specialist . They can call me to discuss if they feel it is indicated but I would not prescribe anything without speaking with them first. Generalize d anxiety disorder 93133814 F41.1 Stable on fluoxetine Active or passive immunization 766685820 Z23 [id number] Tania Hernández NP FP, [facility], [address] [place] [address] 11/20/2022 16:00:00 11/20/2022 17:28:10 Adult health examination 239754751 Z00.00 see Risk Assessment and Lifestyle Change Counseling section above. States gets labs regularly through suboxone program. Otherwise up to date with health [facility]. Depression screening 171 195457 Z13.31 depression screening tool administer ed Screening for alcohol abuse 101084890 Z13.39 Alcohol use screening tool administer ed Tobacco user 299288885 Z 72.0 We discussed your smoking today for more than 3 minutes. Cigarette use is the leading cause of preventabl e disease, disability , and in the [place]. We talked about tools and medication s available to help you in smoking cessation. We discussed utilizing our smoking cessation health coach and online resources. Your personal goal: pt wants to wait to focus on smoking cessation until has tapered off the suboxone Cataplexy and narcolepsy 013148032 G47.411 This is managed by sleep med - currently tolerating meds with good effect, no adverse effects Generalize d anxiety disorder 10282814 F41.1 Stable on fluoxetine Acne 57927867 L70.9 On chest/back - trial of clindamyci n solution as below - f/u if not improving Recurrent major depressive episodes 386158642 F33.9 Moods stable on current dose fluoxetine - has providers Dysmenorrhea 253451931 N 94.6 OK to continue to use ibuprofen for menstrual cramps Polysubstance abuse 4202 16179 F19.10 Followed at [facility] - has counsellor , supports. On suboxone. Doing well with sobriety. Hoping to eventually get off the suboxone [id number] Tania Hernández NP , [facility], [address] [place] [address] 11/24/2023 16:00:48 11/24/2023 16:26:35 Nicotine dependence 93098195 F17.200 We discussed your smoking/va ping today for more than 3 minutes. Cigarette/ pod use is the leading cause of preventabl e disease, disability , and in the [place]. We talked about tools and medication s available to help you in smoking/va ping cessation. We discussed utilizing our smoking cessation health coach and online resources. Your personal goal: continue to work on quitting Low back p ain co-occurrent with neuralgia of left sciatic nerve 1440325243 9074724 M54.42 Started suddenly 3 days ago - no new activity/i njury - enc cont high dose ibuprofen and can add tylenol as well - continue ice/heat, gentle stretching and will add muscle relaxer as below - warned can cause drowsiness . Referred to PT. Pt will schedule at [facility] where she has gone in the past. Return for [place] with new PCP in the near future. Eventually needs nexplanon replaced as well. F/u if back sx not improving Cataplexy and narcolepsy 629966056 G47.411 This is managed by sleep med - currently tolerating meds with good effect, no adverse effects Polysubstance abuse 4452 25653 F19.10 Followed at [facility] - has counsellor , supports. On suboxone. Doing well with sobriety. Hoping to eventually get off the suboxone Recurrent major depressive episodes 967560969 F33.9 Moods stable on current dose fluoxetine - has providers Health Concerns Section Related Observation LastModified by Organization Detai ls LastModified Time None Recorded Concern Status LastModified by Organization Details LastModified Time None Recorded Advance Directives Directive None Recorded Payers Encounter Date Sequence Insurance Name Policy Number Policy Walker Covered Member ID Walker Member ID Guarantor Name 11/21/2016 1 [facility] Rosie Rodriguez [id number] Rosie Rodriguez 01/11/2021 1 [place] [employer] Rosie Rodriguez [id number] Rosie Rodriguez 01/11/2021 2 [place] [facility] Rosie Rodriguez [id number] Rosie Rodriguez 08/08/2021 1 [place] [employer] Rosie Rodriguez [id number] Rosie Luna Cialek 08/08/2021 2 [place] [facility] Rosie Luna Cialesahra [id number] Rosie Merazk 11/20/2022 1 [place] [facility] Rosie Rodriguez [id number] Rosie Merazk 11/20/2022 2 [place] [facility] Rosie Rodriguez [id number] Rosie Rodriguez 11/24/2023 1 [place] [facility] Rosie Rodriguez [id number] Rosie Luna Cialek 11/24/2023 2 [place] [facility] Rosie Rodriguez [id number] Rosie Rodriguez Notes Date Note Type Note Provider Name and Address Organization Details Recorded Time 7 text/html 26yo woman with a history of narcolepsy, major depressive disorder, in remission, and Graves disease kindly referred by ALVARADO Hernández Graves disease, on methimazole from 2013 for 6mo, off due to insurance issue, then restarted 04/19 to 08/21 due to suppressed tsh, now off again. no falls or fracturesmethimazole tab qod previously prior to 02/18 she feels fine since then, no changes;weight is stable, mood is fine, sleeping fantastic, periods once monthly regular,no cold/heat intoleranceno palpitations+ tremors stablebowel movements once dailyskin and hair, acne current issue, stable no changes in neck lumps, trouble swallowing Tenzin Renteria MD [address] [place] [address], [phone], [facility] 11/21/2016 07:45:17 1 text/html BG pt here for ER f/u- aspirated PNE. Pt states [facility] advised a repeat CT scan and an inhaler Rx. Pt recently coming off of opiates, caught virus from roopa's daughter, had body aches and thought this was due to withdrawal symptoms so she took extra suboxone and then went into acute hypoxic respiratory failure. Was with roopa and she became pale and difficulty breathing so he called an ambulance. -she had extra suboxone from a prior detox program and was trying to do this on her own, and accidentally took too soon. Today she is requesting another CT scan and a refill on her inhaler. Is going to [facility] for suboxone treatment. She does have some pain in her rib muscles from coughing, she does still have some occ SOB which is helped by her inhaler. Denies IVDA, uses intranasally. Jacquelin Encinas, DO [address] [place] [address], [phone], [facility] 01/14/2021 14:13:56 2 text/html Physical Exam/FemaleReported bypatient.PHAPatient is here for a Wellness Visit. She describes her health status as fair. Patient's health is better than last year.Notes:on disability d/t narcolepsyRisk Assessment and Lifestyle Change Counseling 18-50Reported bypatient.Coronary Artery Disease Risk Assesment:No Family history of coronary artery disease; No history of peripheral vascular disease, AAA, or carotid disease; No personal history of coronary artery disease Breast Cancer Risk Assessment:Family history of breast cancer(MGM) Lung Cancer Risk Assessment:Never smoked; No asbestos exposure Cognitive/Behavioral Risk Assessment:No personal history of mental illness; does have problems with depression/anxiety Safety Risk Assessment:No evidence of abuse/neglect Diet:Counseled about appropriate portion size; Counseled about eating a diet low in trans and saturated fats and high in fiber, fruits and vegetables; Counseled about appropriate calcium intake and good dietary sources of calcium.; Discussed the value of a Mediterranean diet, and eating more fruits and vegetables; tries to eat as healthy as able - lives with roopa and 2 kids - Exercise counseling:Discussed the importance of daily physical activity; started yoga and doing that - some walks with dog Safety:Counseled about protecting skin from the sun and lowering the risk of skin cancer; Counseled about avoiding excessive and unsafe alcohol intake; Counseled about safer sexual practice Family Planning:Using control Nexplanon Patient is here today for Annual Wellness- would like to discuss narcolepsydue for Td & flu followed by endocrine for her graves dx and is back on her meds for thisOn armodafinil for her narcolepsy- followed by specialist - she is reluctant to give her short acting meds for this - has tried something called sunosi that pt felt was ineffective, tried something else that had side effects. Tried breaking meds in half and taking 1/2 bid - concerns d/t her hx of addictionUsing ambien to help sleep at nightIf takes nuvigil too late in day, has trouble sleeping. Tania Hernández, ALVARADO [address] [place] [address], [phone], [facility] 08/08/2021 17:58:34 3 text/html Physical Exam/FemaleReported bypatient.PHAPatient is here for a Wellness Visit. She describes her health status as good. Patient's health is the same as last year.Risk Assessment and Lifestyle Change Counseling 18-50Reported bypatient.Coronary Artery Disease Risk Assesment:No Family history of coronary artery disease; No history of peripheral vascular disease, AAA, or carotid disease; No personal history of coronary artery disease Breast Cancer Risk Assessment:Family history of breast cancer(MGM) Lung Cancer Risk Assessment:Never smoked; No asbestos exposure Cognitive/Behavioral Risk Assessment:No personal history of mental illness; does have problems with depression/anxiety Safety Risk Assessment:No evidence of abuse/neglect Diet:Counseled about appropriate portion size; Counseled about eating a diet low in trans and saturated fats and high in fiber, fruits and vegetables; Counseled about appropriate calcium intake and good dietary sources of calcium.; Discussed the value of a Mediterranean diet, and eating more fruits and vegetables Exercise counseling:Discussed the importance of daily physical activity; more active lately - has dog Safety:Counseled about protecting skin from the sun and lowering the risk of skin cancer; Counseled about avoiding excessive and unsafe alcohol intake; Counseled about safer sexual practice Family Planning:Using control Nexplanona/vmg-Stimulant TemplateReported bypatient.Stimulant MedicationsMedication that patient is using ritalin; Timing of medication :morning and afternoon; Days per week patient using medications 7; 1 long acting pill daily, 3 short acting (takes TID prn) BenefitsFocus or function has improved; Performance at school has improved; Job performance better; Interaction with family has improved; Has narcolepsy - no longer tired all the time Medication RisksPatient experiences appetite suppression yes.; Patient has weight loss?yes; Patient has cardiac condition that is new or previously unreported?no; Medications are kept in the medicine cabinet; Medication is controlled by patient ConcernsConcerns for diversion? no; Medications have been reported lost or stolen? noNotes:wt stable now - seen at sleep med - on nuvigil as well as ritalin but might be weaning down off the ritalina/vmg-smoking [id number] bypatient.Notes:3-4 cigs/day - has cut down - wants to quit completely when off the suboxone Patient is here today for an annual wellness-patient states when on her menstrual her cramps are really badWould like 800 mg motrin Tania Hernández, [employer] [address] [place], [address], [facility] 11/21/2022 08:49:15 4 text/html a/vmg-Stimulant TemplateReported bypatient.Stimulant MedicationsMedication that patient is using ritalin; Timing of medication :morning and afternoon; Days per week patient using medications 7; 1 long acting pill daily, 3 short acting (takes TID prn) BenefitsFocus or function has improved; Performance at school has improved; Job performance better; Interaction with family has improved; Has narcolepsy - no longer tired all the time Medication RisksPatient experiences appetite suppression yes.; Patient has weight loss?yes; Patient has cardiac condition that is new or previously unreported?no; Medications are kept in the medicine cabinet; Medication is controlled by patient ConcernsConcerns for diversion? no; Medications have been reported lost or stolen? noNotes:Stimulants prescribed by Sleep Med for her dx narcolepsya/vmg-smoking [id number] bypatient.Notes:3-4 cigs/day - has cut down - wants to quit completely when off the suboxone pt is here today for annual wellness but tearful, in alot of pain - having trouble sitting stillwoke up a few days ago with pain in lower back.Spreading down her legs.trouble walking. unable to change for wellness.Taking ibuprofen/aleve/tylenol, using ice/heatSleep - not good d/t pain - can't get comf position - sleeps on back usually but that makes pain worsePain primarily down left legHas nexplanon - due to be replaced - [facility] Tania Hernández NP [address] [place] [address], [place], [phone], [facility] 11/25/2023 08:16:09 OBGyn Episode No OBEpisode recorded.
== END 2024-09-16 11:31 | disposition home or self-care (01) ==
LOC: HO.HCC 11:10
PROVIDERS: PCP Nurse Practitioner Family; Visit Provider Nurse Practitioner Psychiatric/Mental Health
DX: F11.21 Opioid dependence, in remission (principal)
CPT/HCPCS: 99213

== ENCOUNTER → 2024-09-16 11:09 | Outpatient (BNVA) | payer MEDICARE, MEDICAID, SELFPAY | PROVIDERS: PCP Nurse Practitioner Family; Visit Provider Nurse Practitioner Psychiatric/Mental Health | DX: F11.21 Opioid dependence, in remission (principal); Z51.81 Encounter for therapeutic drug level monitoring | CPT/HCPCS: 99212 ==

== ENCOUNTER 2024-12-02 10:06 | Outpatient (AMB) | payer MEDICARE, MEDICAID, SELFPAY ==
--- NOTE | 2024-12-02 10:07 | MHC.AM.SUB ---
Vital Signs 12/02/24 10:12 BP 118/86 Blood Pressure Location Lt brachial Position Right Lateral Pulse 69 Pulse Source Pulse Oximeter Pulse Oximetry (%) 99 Oxygen Delivery Method Room Air Intake Visit Reasons: MAT Intake Note: Patient present for MAT Allergies Iodinated Contrast Media Allergy (Intermediate, Verified 12/02/24 10:12) rash HPI HPI MAT: Details: She is doing well and not using opioids. She is living in her parents house and helping relative doing paperwork. She has Sharpei/catahoula mix dog and parents supportive. She is disabled. There is no concern. She is still talking to [employer] but he isnt working at this time so she is living with parents. She is not seeing counselor. Her PCP, ALVARADO Lopez at [facility] retired and she is going to see new PCP. She has not had STI testing in years. Review of Systems Const All systems reviewed & are unremarkable except as noted in HPI and below Physical Exam Vital Signs: Last Vital Signs Pulse 69 12/02/24 10:12 BP 118/86 12/02/24 10:12 Pulse Ox 99 12/02/24 10:12 Oxygen Delivery Method Room Air 12/02/24 10:12 Const General: cooperative [facility] Medical History Opioid use disorder Social History Patient Tobacco Use Status: Current someday Tobacco user Tobacco use type: Cigarette Assessment & Plan Assessment & Plan (1) Opioid use disorder, severe, in sustained remission: Comment: She is doing well on 06/07 Suboxone strip ,split between am and pm Code(s): F11.21 - Opioid dependence, in remission Category: Medical Plan: Continue Suboxone See in two months. Check HIV and Hepatitis C,RPR,syphilis,Hepatitis A and B when able. Orders: Orders Hepatitis B Surface Antibody Today F11.21 - Opioid dependence, in remission HIV Ab/Ag Today F11.21 - Opioid dependence, in remission Hepatitis C Antibody Today F11.21 - Opioid dependence, in remission Syphilis Screen Today F11.21 - Opioid dependence, in remission Hepatitis A IgG Today F11.21 - Opioid dependence, in remission Hepatitis B Surface Antigen Today F11.21 - Opioid dependence, in remission T Spot TB Today F11.21 - Opioid dependence, in remission Medications: New buprenorphine-naloxone 12-3 mg (Suboxone) 1 film sublingual Q24H 30 days 30 ea 1RF
[2024-12-02 10:12] VITALS: BP 118/86; PULSE 69; O2SAT 99
--- OUTSIDE RECORDS SUMMARY | 2024-12-02 10:39 | XMS_ITS | Data Portability ---
Author Organization [facility], [facility] Address [address] [place] [address] Care Team Providers Care Sergeant Of Officers Name Role Phone TENZIN RENTERIA Auto Rental Clerk JOSEFINA JUNIOR Lumber Grader BEN WHITE MD Sleep Medicine [phone] JOZEF FREEMAN Primary Care Provider [phone] Assessment Encounter Date Assessment Date Assessment LastModified [...] hepatitis C virus Ab, serum 2021 022 [facility], [address] [place] [address], [address], 2 09:36:30 TSH, serum or plasma 2021 022 [facility], [address] [place] [address], [address], 2 16:00:41 CMP, serum or plasma 2021 022 [facility], [address] [place] [address], [address], 2 14:50:50 pap, LB + reflex HPV - Pap, LB with reflex HPV if ASCUS - if HPV positive reflex to HPV subtyping 2021 022 [email or web address] 2 [facility] (Pathology), [address] [place] [address], [address], 2 09:18:14 T3, total, serum 2016 017 [facility], [address] [place] [address], [address], 7 11:06:58 T4, free, serum 2016 017 [facility], [address] [place] [address], 466[address], 7 11:06:59 TSH, serum or plasma 2016 017 [facility], [address] [place] [address], [address], 7 11:47:26 T3, total, serum 2016 017 [facility], [address] [place] [address], [address], 7 09:37:15 T4, free, serum 2016 017 [facility], [address] [place] [address], [address], 7 15:53:37 TSH, serum or plasma 2016 017 [facility], [address] [place] [address], 55[address], 7 15:53:38 TSH, serum or plasma 2016 018 [facility], [address] [place] [address], 820[address], 8 01:52:59 Referral physical therapist referral - low back pain with left sciatica 2023 024 [facility], [address] [place], [address], 4 09:15:00 Procedures None recorded. Surgeries None recorded. Imaging CT, chest, w/o contrast - Repeat CT chest 6 weeks s/p aspiratio n pneumonia 2020 021 [facility], [address], [place], [address], 1 14:38:52 Medication Orders cyclobenz aprine 10 mg tablet 2023 024 KATHERINE Not available 4 16:22:20 clindamyc in 1 % lotion 2022 023 KATHERINE Not available 3 16:27:16 ibuprofen 800 mg tablet 2022 023 KATHERINE Not available 3 16:32:27 albuterol sulfate HFA 90 mcg/actua tion aerosol inhaler 2020 021 [id number], [address], [place], [id number], 4 16:16:21 fluoxetin e 10 mg capsule 2020 021 [email or web address] [id number], [address] [place], [address], 2 16:10:24 methimazo le 5 mg tablet 2016 017 [email or web address] [id number], [address] [place], [address], 15:03:51 Patient TargetsNo targets recorded. Patient Instructions Encounter Date Encounter Id Patient Instructions Last Modified By Organization Details Last Modified Time 11/21/2016 [id number] -reduce methimaz ole 5mg tabs, 1/2 tab [...] tested. [email or web address] Not available 11/21/2016 07:42:26 08/08/2021 [id number] Well Visit, Ages 18 to 65: Care Instructions [email or web address] Not available 08/08/2021 17:58:17 CCM: The provide r and patient discussed the Chronic Care Management program, including the services provided, and any fees associated with them. [email or web address] Not available 08/08/2021 16:05:38 11/20/2022 [id number] Well Visit, Ages 18 to 65: Care Instructions [email or web address] Not available 11/20/2022 16:27:10 After a discussi on of treatment options, which included consideration of best practices, patient preferences, and the patient? s individual lifestyle and treatment goals, as well as consideration and attempted mitigation of any barriers to meeting the patient? s goals, the above treatment plan and objectives were adopted: [email or web address] Not available 11/21/2022 08:48:51 11/24/2023 [id number] After a discussi on of treatment options, which included consideration of best practices, patient preferences, and the patient? s individual lifestyle and treatment goals, as well as consideration and attempted mitigation of any barriers to meeting the patient? s goals, the above treatment plan and objectives were adopted: [email or web address] [...] 0.05 uIU/m L 0.50-6 .00 low The Ameri can Colle ge of Endoc rinol ogy and Ameri can Thyro id Assoc iatio n recom mend goal TSH value s betwe en 0.4-4 .0 mIU/m L. Not Available [address], [address], 11/12/2016 11:06:49 11/13/19 17 11/14/2016 T3, total , serum total T3 0.85 NG/mL 0.70-1 .70 Not Available [address], [address], 11/14/2016 08:49:32 11/13/19 17 11/14/2016 T4, free, serum free T4 0.89 NG/dL 0.75-1 .54 Not Available [address], [address], 11/14/2016 08:49:33 11/13/19 17 11/14/2016 hepat ic funct ion panel , serum total protein 7.7 g/dL 6.4-8. 2 Not Available [address], [address], 11/14/2016 13:34:21 11/13/19 17 11/14/2016 hepat ic funct ion panel , serum albumin 4.4 g/dL 3.4-5. 0 Not Available [address], [address], 11/14/2016 13:34:21 11/13/19 17 11/14/2016 hepat ic funct ion panel , serum globulin 3.3 g/dL Not Available [address], [address], 11/14/2016 13:34:21 11/13/19 17 11/14/2016 hepat ic funct ion panel , serum A/G 1.3 ratio 0.8-2. 0 Not Available [address], [address], 11/14/2016 13:34:21 11/13/1911/14/2016 hepat ic funct ion panel , serum total bilirubin 0.30 mg/dL 0.00-1 .00 Not Available [address], [address], 11/14/2016 13:34:21 11/13/1911/14/2016 hepat ic funct ion panel , serum direct bilirubin 0.10 mg/dL 0.00-0 .30 Not Available [address], [address], 11/14/2016 13:34:21 11/13/19 17 11/14/2016 hepat ic funct ion panel , serum AST 14 U/L 15-37 low Not Available [address], [address], 11/14/2016 13:34:21 11/13/19 17 11/14/2016 hepat ic funct ion panel , serum ALT 22 U/L 30-65 low Not Available [address], [address], 11/14/2016 13:34:21 11/13/19 17 11/14/2016 hepat ic funct ion panel , serum alk. phos. 107 U/L 50-136 Not Available [address], [address], 11/14/2016 13:34:21 02/21/20 17 02/23/2017 T3, total , serum total T3 0.91 NG/mL 0.70-1 .70 Not Available [address], [address], 02/23/2017 11:06:57 02/21/20 17 02/23/2017 T4, free, serum free T4 1.00 NG/dL 0.75-1 .54 Not Available [address], [address], 02/23/2017 11:06:58 02/21/20 17 02/23/2017 TSH, serum or plasm a TSH 0.87 uIU/m L 0.50-6 .00 The Ameri can Colle ge of Endoc rinol ogy and Ameri can Thyro id Assoc iatio n recom mend goal TSH value s betwe en 0.4-4 .0 mIU/m L. Not Available [address], [address], 02/23/2017 11:47:26 05/14/20 17 05/14/2017 T4, free, serum free T4 0.86 NG/dL 0.75-1 .54 Not Available [address], [address], 05/14/2017 15:53:37 05/14/20 17 05/14/2017 TSH, serum or plasm a TSH 1.13 uIU/m L 0.50-6 .00 The Ameri can Colle ge of Endoc rinol ogy and Ameri can Thyro id Assoc iatio n recom mend goal TSH value s betwe en 0.4-4 .0 mIU/m L. Not Available [address], [address], 05/14/2017 15:53:38 05/14/20 17 05/15/2017 T3, total , serum total T3 1.04 NG/mL 0.70-1 .70 Not Available [address], [address], 05/15/2017 09:37:15 09/12/19 18 09/11/2017 lacta te lactate 1.74 mmol/ L 0.50-2 .20 Not Available [facility] [address] [place] [address], [address], 09/11/2017 01:17:30 09/12/19 18 09/11/2017 gas panel , venou s blood pH, venous 7.35 7.31-7 .41 Not Available [facility] [address] [place], [address], 09/11/2017 01:17:36 09/12/19 18 09/11/2017 gas panel , venou s blood pCO2, venous 48.00 mmHg 41.00- 51.00 Not Available [facility] [address] [place], [address], 09/11/2017 01:17:36 09/12/19 18 09/11/2017 gas panel , venou s blood pO2, venous 33.90 mmHg 35.00- 40.00 low Not Available [facility] [address] [place], [address], 09/11/2017 01:17:36 09/12/19 18 09/11/2017 gas panel , venou s blood HCO3, venous 26 mmol/ L 23-28 Not Available [facility] [address] [place], [address], 09/11/2017 01:17:36 09/12/19 18 09/11/2017 gas panel , venou s blood base deficit venous 0.2 mmol/ L 0.0-2. 0 Not Available [facility] [address] [place], [address], 09/11/2017 01:17:36 09/12/19 18 09/11/2017 gas panel , venou s blood so2, venous 63.30 % 60.00- 80.00 Not Available [facility] [address] [place], [address], 09/11/2017 01:17:36 09/12/19 18 09/11/2017 gas panel , venou s blood fo2hb, venous 62.40 % 71.00- 74.00 low Not Available [facility]) [address] [place] [address], [address], 09/11/2017 01:17:36 09/12/19 18 09/11/2017 gas panel , venou s blood carboxy HGB 1.20 % 0-1.50 Not Available [facility] [address] [place], [address], 09/11/2017 01:17:36 09/12/19 18 09/11/2017 gas panel , venou s blood methgb % 0.20 % 0-1.50 Not Available [facility]) [address] [place] [address], [address], 09/11/2017 01:17:36 09/12/19 18 09/11/2017 CBC w/ auto diff WBC 12.02 K/uL 3.40-1 1.20 high Not Available [facility]) [address] [place] [address], [address], 09/11/2017 01:23:01 09/12/19 18 09/11/2017 CBC w/ auto diff RBC 4.94 M/uL 3.80-4 .80 high Not Available [facility]) [address] [place] [address], [address], 09/11/2017 01:23:01 09/12/19 18 09/11/2017 CBC w/ auto diff HGB 13.8 g/dL 12.0-1 5.0 Not Available [facility]) [address] [place] [address], 46[address], 09/11/2017 01:23:01 09/12/19 18 09/11/2017 CBC w/ auto diff HCT 41.3 % 36.0-4 6.0 Not Available [facility]) [address] [place] [address], 14[address], 09/11/2017 01:23:01 09/12/19 18 09/11/2017 CBC w/ auto diff plt 369 K/uL 130-40 0 Not Available [facility]) [address] [place] [address], [address], 09/11/2017 01:23:01 09/12/19 18 09/11/2017 CBC w/ auto diff MCV 83.6 fL 79.0-9 8.0 Not Available [facility]) [address] [place] [address], 00195, 09/11/2017 01:23:01 09/12/19 18 09/11/2017 CBC w/ auto diff MCH 27.9 pg 27.0-3 4.8 Not Available [facility]) [address] [place] [address], 45526, 09/11/2017 01:23:01 09/12/19 18 09/11/2017 CBC w/ auto diff MCHC 33.4 g/dL 31.5-3 6.0 Not Available [facility]) [address] [place], [address], 09/11/2017 01:23:01 09/12/19 18 09/11/2017 CBC w/ auto diff RDW 13.1 % 10.8-1 4.6 Not Available [facility] ([facility]) [address] [place], [address], 09/11/2017 01:23:01 09/12/19 18 09/11/2017 CBC w/ auto diff MPV 8.7 fL 9.4-12 .4 low Not Available [facility]) [address] [place] [address], [address], 09/11/2017 01:23:01 09/12/19 18 09/11/2017 CBC w/ auto diff NRBC 0.00 /100_ WBCs Not Available [facility] [address] [place] [address], 79[address], 09/11/2017 01:23:01 09/12/19 18 09/11/2017 CBC w/ auto diff absolute NRBC 0.00 K/uL Not Available [facility] [address] [place] [address], 319[address], 09/11/2017 01:23:01 09/12/19 18 09/11/2017 CBC w/ auto diff diff method Auto Not Available [facility] [address] [place], [address], 09/11/2017 01:23:01 09/12/19 18 09/11/2017 CBC w/ auto diff neuts 73.6 % 45.30- 77.70 Not Available [facility] [address] [place], [address], 09/11/2017 01:23:01 09/12/19 18 09/11/2017 CBC w/ auto diff lymphs 11.0 % 12.30- 39.70 low Not Available [facility]) [address] [place], [address], 09/11/2017 01:23:01 09/12/19 18 09/11/2017 CBC w/ auto diff monos 5.3 % 4.10-1 2.80 Not Available [facility]) [address] [place] [address], [address], 09/11/2017 01:23:01 09/12/19 18 09/11/2017 CBC w/ auto diff eos 9.1 % 0-7.2 high Not Available [facility]) [address] [place] [address], [address], 09/11/2017 01:23:01 09/12/19 18 09/11/2017 CBC w/ auto diff basos 0.8 % 0-2.80 Not Available [facility]) [address] [place] [address], [id number], 09/11/2017 01:23:01 09/12/19 18 09/11/2017 CBC w/ auto diff granulocytes , immature (%) 0.2 % 0.0-0. 9 Not Available [facility] [address] [place] [address], [address], 09/11/2017 01:23:01 09/12/19 18 09/11/2017 CBC w/ auto diff absolute neuts 8.84 K/uL 1.40-7 .70 high Not Available [facility]) [address] [place] [address], [address], 09/11/2017 01:23:01 09/12/19 18 09/11/2017 CBC w/ auto diff absolute lymphs 1.32 K/uL 0.60-3 .20 Not Available [facility]) [address] [place] [address], [address], 09/11/2017 01:23:01 09/12/19 18 09/11/2017 CBC w/ auto diff absolute monos 0.64 K/uL 0.11-0 .59 high Not Available [facility] [address] [place], [address], 09/11/2017 01:23:01 09/12/19 18 09/11/2017 CBC w/ auto diff absolute eos 1.09 K/uL 0.01-0 .50 high Not Available [facility] [address] [place], [address], 09/11/2017 01:23:01 09/12/19 18 09/11/2017 CBC w/ auto diff absolute basos 0.10 K/uL 0.00-0 .08 high Not Available [facility] [address] [place], [address], 09/11/2017 01:23:01 09/12/19 18 09/11/2017 CBC w/ auto diff granulocytes , immature 0.03 K/uL 0.00-0 .05 Not Available [facility] [address] [place], [address], 09/11/2017 01:23:01 09/12/19 18 09/11/2017 lab add on contact information [phone] Not Available [facility] [address] [place], [address], 09/11/2017 01:24:20 09/12/19 18 09/11/2017 lab add on test requested TSH Not Available [facility] [address] [place], [address], 09/11/2017 01:24:20 09/12/19 18 09/11/2017 lab add on status ADD ON COMPLE TE. Not Available [facility] [address] [place], [address], 09/11/2017 01:24:20 09/12/19 18 09/11/2017 BMP, blood sodium 142 mmol/ L 133-14 6 Not Available [facility] [address] [place], [address], 09/11/2017 01:39:23 09/12/19 18 09/11/2017 BMP, blood chloride 103 mmol/ L 96-108 Not Available [facility] [address] [place], [address], 09/11/2017 01:39:23 09/12/19 18 09/11/2017 BMP, blood potassium 4.0 mmol/ L 3.3-5. 1 Not Available [facility] [address] [place], [address], 09/11/2017 01:39:23 09/12/19 18 09/11/2017 BMP, blood CO2 26 mmol/ L 21-35 Not Available [facility]) [address] [place] [address], [address], 09/11/2017 01:39:23 09/12/19 18 09/11/2017 BMP, blood BUN 11 mg/dL 6-19 Not Available [facility] [address] [place], [address], 09/11/2017 01:39:23 09/12/19 18 09/11/2017 BMP, blood creatinine 0.60 mg/dL 0.5-1. 5 Not Available [facility] [address] [place], [address], 09/11/2017 01:39:23 09/12/19 18 09/11/2017 BMP, blood glucose 108 mg/dL 70-99 high Not Available [facility] [address] [place], [address], 09/11/2017 01:39:23 09/12/19 18 09/11/2017 BMP, blood calcium 8.8 mg/dL 8.4-10 .3 Not Available [facility]) [address] [place] [address], [address], 09/11/2017 01:39:23 09/12/19 18 09/11/2017 BMP, blood eGFR >120 mL/mi n/1.7 3m2 >59 If patie nt is black , multi ply resul t by 1.159 . The eGFR calcu latdoni n has busch ed from the MDRD equat ion to the CKD-E PI equat ion as of September 08, 2017. Not Available [facility]) [address] [place] [address], [address], 09/11/2017 01:39:23 09/12/19 18 09/11/2017 BMP, blood anion gap 17 mmol/ L 10-20 Not Available [facility]) [address] [place] [address], [address], 09/11/2017 01:39:23 09/12/19 18 09/11/2017 lfts (hepa tic panel ) alkaline phosphatase 110 U/L 39-117 Not Available [facility]) [address] [place] [address], [address], 09/11/2017 01:43:13 09/12/19 18 09/11/2017 lfts (hepa tic panel ) total bilirubin 0.2 mg/dL 0.0-1. 2 Not Available [facility]) [address] [place] [address], [address], 09/11/2017 01:43:13 09/12/19 18 09/11/2017 lfts (hepa tic panel ) direct bilirubin <0.2 mg/dL 0-0.3 Not Available [facility]) [address] [place] [address], [id number], 09/11/2017 01:43:13 09/12/19 18 09/11/2017 lfts (hepa tic panel ) bilirubin (indirect) NOT CALCUL ATED mg/dL 0-1.5 Not Available [facility]) [address] [place] [address], [address], 09/11/2017 01:43:13 09/12/19 18 09/11/2017 lfts (hepa tic panel ) AST 18 U/L 0-37 Not Available [facility] ([facility]) [address] [place], [address], 09/11/2017 01:43:13 09/12/19 18 09/11/2017 lfts (hepa tic panel ) ALT 15 U/L 0-40 Not Available [facility] ([facility]) [address] [place], [address], 09/11/2017 01:43:13 09/12/19 18 09/11/2017 lfts (hepa tic panel ) total protein 7.4 g/dL 6.5-8. 0 Not Available [facility] ([facility]) [address] [place], [address], 09/11/2017 01:43:13 09/12/19 18 09/11/2017 lfts (hepa tic panel ) albumin 3.9 g/dL 3.9-4. 8 Not Available [facility] ([facility]) [address] [place], [address], 09/11/2017 01:43:13 09/12/19 18 09/11/2017 lfts (hepa tic panel ) globulin 3.5 g/dL 1-4.8 Not Available [facility]) [address] [place] [address], [address], 09/11/2017 01:43:13 09/12/19 18 09/11/2017 lfts (hepa tic panel ) A/G ratio 1.11 ratio 1.00-4 .80 Not Available [facility] [address] [place], [address], 09/11/2017 01:43:13 09/12/19 18 09/11/2017 magne sium, QN, serum or plasm a magnesium 1.8 mg/dL 1.6-2. 6 Not Available [facility]) [address] [place] [address], [address], 09/11/2017 01:43:15 09/12/19 18 09/11/2017 TSH, serum or plasm a TSH 0.90 uIU/m L 0.27-4 .20 Not Available [facility]) [address] [place] [address], [address], 09/11/2017 01:52:59 09/12/19 18 09/11/2017 lab add on contact information [phone] Not Available [facility]) [address] [place] [address], [address], 09/11/2017 01:59:24 09/12/19 18 09/11/2017 lab add on test requested CRP Not Available [facility]) [address] [place] [address], [address], 09/11/2017 01:59:24 09/12/19 18 09/11/2017 lab add on status ADD ON COMPLE TE. Not Available [facility]) [address] [place] [address], [address], 09/11/2017 01:59:24 09/12/19 18 09/11/2017 hCG, quali tativ e, serum HCG, qualitative Negati ve IU/L negati ve Not Available [facility]) [address] [place] [address], 48[address], 09/11/2017 02:00:14 09/12/19 18 09/11/2017 rapid flu (A+B) influenza A Negati ve negati ve Not Available [facility]) [address] [place] [address], [address], 09/11/2017 02:22:56 09/12/19 18 09/11/2017 rapid flu (A+B) influenza B Negati ve negati ve Not Available [facility] ([facility]) [address] [place], [address], 09/11/2017 02:22:56 09/12/19 18 09/11/2017 C-srikanth ctive prote in, quant itati ve, serum or plasm a C reactive protein 6.1 mg/L 0-0.5 high Not Available [facility] ([facility]) [address] [place], [address], 09/11/2017 02:23:02 09/12/19 18 09/11/2017 D-dim er, quant , plasm a D-dimer (NG/mL) 497 NG/mL _feu <500 In patie nts with low to moder ate pre-t est proba bilit y score s for VTE (PE or DVT), a D-Dim er cut-o ff less than 500 ng/mL (FEU) has a negat brandon predi ctive value (NPV) of 97 to 100%. Not Available [facility] ([facility]) [address] [place], [address], 09/11/2017 03:00:56 09/12/19 18 09/11/2017 BMP, blood sodium 145 mmol/ L 133-14 6 Not Available [facility] ([facility]) [address] [place], [address], 09/11/2017 08:10:37 09/12/19 18 09/11/2017 BMP, blood chloride 111 mmol/ L 96-108 high Not Available [facility] ([facility]) [address] [place], [address], 09/11/2017 08:10:37 09/12/19 18 09/11/2017 BMP, blood potassium 4.0 mmol/ L 3.3-5. 1 Not Available [facility] ([facility]) [address] [place], [address], 09/11/2017 08:10:37 09/12/19 18 09/11/2017 BMP, blood CO2 23 mmol/ L 21-35 Not Available [facility] ([facility]) [address] [place], [address], 09/11/2017 08:10:37 09/12/19 18 09/11/2017 BMP, blood BUN 9 mg/dL 6-19 Not Available [facility] ([facility]) [address] [place], [address], 09/11/2017 08:10:37 09/12/19 18 09/11/2017 BMP, blood creatinine 0.50 mg/dL 0.5-1. 5 Not Available [facility] ([facility]) [address] [place], [address], 09/11/2017 08:10:37 09/12/19 18 09/11/2017 BMP, blood glucose 135 mg/dL 70-99 high Not Available [facility] ([facility]) [address] [place] [address], [address], 09/11/2017 08:10:37 09/12/19 18 09/11/2017 BMP, blood calcium 8.3 mg/dL 8.4-10 .3 low Not Available [facility] ([facility]) [address] [place], [address], 09/11/2017 08:10:37 09/12/19 18 09/11/2017 BMP, blood eGFR >120 mL/mi n/1.7 3m2 >59 If patie nt is black , multi ply resul t by 1.159 . The eGFR calcu jan aguilera has busch ed from the MDRD equat ion to the CKD-E PI equat ion as of September 08, 2017. Not Available [facility] ([facility]) [address] [place], [address], 09/11/2017 08:10:37 09/12/19 18 09/11/2017 BMP, blood anion gap 15 mmol/ L 10-20 Not Available [facility] ([facility]) [address] [place], [address], 09/11/2017 08:10:37 09/12/19 18 09/11/2017 lfts (hepa tic panel ) alkaline phosphatase 104 U/L 39-117 Not Available [facility] ([facility] [address] [place], [address], 09/11/2017 08:10:39 09/12/19 18 09/11/2017 lfts (hepa tic panel ) total bilirubin 0.2 mg/dL 0.0-1. 2 Not Available [facility] ([facility]) [address] [place], [address], 09/11/2017 08:10:39 09/12/19 18 09/11/2017 lfts (hepa tic panel ) direct bilirubin <0.2 mg/dL 0-0.3 Not Available [facility] ([facility]) [address] [place], [address], 09/11/2017 08:10:39 09/12/19 18 09/11/2017 lfts (hepa tic panel ) bilirubin (indirect) NOT CALCUL ATED mg/dL 0-1.5 Not Available [facility] ([facility]) [address] [place], [address], 09/11/2017 08:10:39 09/12/19 18 09/11/2017 lfts (hepa tic panel ) AST 16 U/L 0-37 Not Available [facility] ([facility] [address] [place], [address], 09/11/2017 08:10:39 09/12/19 18 09/11/2017 lfts (hepa tic panel ) ALT 13 U/L 0-40 Not Available [facility] ([facility]) [address] [place], [address], 09/11/2017 08:10:39 09/12/19 18 09/11/2017 lfts (hepa tic panel ) total protein 7.0 g/dL 6.5-8. 0 Not Available [facility] ([facility]) [address] [place], [address], 09/11/2017 08:10:39 09/12/19 18 09/11/2017 lfts (hepa tic panel ) albumin 3.7 g/dL 3.9-4. 8 low Not Available [facility] ([facility]) [address] [place], [address], 09/11/2017 08:10:39 09/12/19 18 09/11/2017 lfts (hepa tic panel ) globulin 3.3 g/dL 1-4.8 Not Available [facility] ([facility]) [address] [place], [address], 09/11/2017 08:10:39 09/12/19 18 09/11/2017 lfts (hepa tic panel ) A/G ratio 1.12 ratio 1.00-4 .80 Not Available [facility] ([facility]) [address] [place], [address], 09/11/2017 08:10:39 09/12/19 18 09/11/2017 magne sium, QN, serum or plasm a magnesium 1.8 mg/dL 1.6-2. 6 Not Available [facility] ([facility]) [address] [place], [address], 09/11/2017 08:10:40 09/12/19 18 09/11/2017 phosp horus , serum or plasm a phosphorus 2.3 mg/dL 2.7-4. 5 low Not Available [facility] [facility] [address] [place], [address], 09/11/2017 08:10:41 09/12/19 18 09/11/2017 lab add on contact information [phone] Not Available [facility] (Outpatient) [address] [place], [address], 09/11/2017 08:21:05 09/12/19 18 09/11/2017 lab add on test requested [place] Not Available [facility] (Outpatient) [address] [place], [address], 09/11/2017 08:21:05 09/12/19 18 09/11/2017 lab add on status ADD ON COMPLE TE. Not Available [facility] (Outpatient) [address] [place], [address], 09/11/2017 08:21:05 09/12/19 18 09/11/2017 CBC w/ auto diff WBC 7.74 K/uL 3.40-1 1.20 Not Available [facility] (Out[facility]) [address] [place], [address], 09/11/2017 08:30:57 09/12/19 18 09/11/2017 CBC w/ auto diff RBC 4.40 M/uL 3.80-4 .80 Not Available [facility] (Outpatient) [address] [place], [address], 09/11/2017 08:30:57 09/12/19 18 09/11/2017 CBC w/ auto diff HGB 12.5 g/dL 12.0-1 5.0 Not Available [facility] (Outpatient) [address] [place], [address], 09/11/2017 08:30:57 09/12/19 18 09/11/2017 CBC w/ auto diff HCT 36.6 % 36.0-4 6.0 Not Available [facility] (Outpatient) [address] [place], [address], 09/11/2017 08:30:57 09/12/19 18 09/11/2017 CBC w/ auto diff plt 355 K/uL 130-40 0 Not Available [facility] (Out[facility]) [address] [place], [address], 09/11/2017 08:30:57 09/12/19 18 09/11/2017 CBC w/ auto diff MCV 83.2 fL 79.0-9 8.0 Not Available [facility] (Out[facility]) [address] [place], [address], 09/11/2017 08:30:57 09/12/19 18 09/11/2017 CBC w/ auto diff MCH 28.4 pg 27.0-3 4.8 Not Available [facility] ([facility]) [address] [place], [address], 09/11/2017 08:30:57 09/12/19 18 09/11/2017 CBC w/ auto diff MCHC 34.2 g/dL 31.5-3 6.0 Not Available [facility] (Outpatient) [address] [place], [address], 09/11/2017 08:30:57 09/12/19 18 09/11/2017 CBC w/ auto diff RDW 13.2 % 10.8-1 4.6 Not Available [facility] ([facility] [address] [place], [address], 09/11/2017 08:30:57 09/12/19 18 09/11/2017 CBC w/ auto diff MPV 9.2 fL 9.4-12 .4 low Not Available [facility] ([facility]) [address] [place], [address], 09/11/2017 08:30:57 09/12/19 18 09/11/2017 CBC w/ auto diff NRBC 0.00 /100_ WBCs Not Available [facility] ([facility] [address] [place], [address], 09/11/2017 08:30:57 09/12/19 18 09/11/2017 CBC w/ auto diff absolute NRBC 0.00 K/uL Not Available [facility] ([facility] [address] [place], [address], 09/11/2017 08:30:57 09/12/19 18 09/11/2017 CBC w/ auto diff diff method Auto Not Available [facility] ([facility]patient) [address] [place], [address], 09/11/2017 08:30:57 09/12/19 18 09/11/2017 CBC w/ auto diff neuts 89.9 % 45.30- 77.70 high Not Available [facility] ([facility]) [address] [place], [address], 09/11/2017 08:30:57 09/12/19 18 09/11/2017 CBC w/ auto diff lymphs 7.6 % 12.30- 39.70 low Not Available [facility] ([facility]) [address] [place], [address], 09/11/2017 08:30:57 09/12/19 18 09/11/2017 CBC w/ auto diff monos 0.9 % 4.10-1 2.80 low Not Available [facility] (Out[facility]) [address] [place], [address], 09/11/2017 08:30:57 09/12/19 18 09/11/2017 CBC w/ auto diff eos 0.6 % 0-7.2 Not Available [facility] ([facility]) [address] [place], [address], 09/11/2017 08:30:57 09/12/19 18 09/11/2017 CBC w/ auto diff basos 0.6 % 0-2.80 Not Available [facility] ([facility] [address] [place], [address], 09/11/2017 08:30:57 09/12/19 18 09/11/2017 CBC w/ auto diff granulocytes , immature (%) 0.4 % 0.0-0. 9 Not Available [facility] (Outpatient) [address] [place], [address], 09/11/2017 08:30:57 09/12/19 18 09/11/2017 CBC w/ auto diff absolute neuts 6.95 K/uL 1.40-7 .70 Not Available [facility] (Out[facility]) [address] [place], [address], 09/11/2017 08:30:57 09/12/19 18 09/11/2017 CBC w/ auto diff absolute lymphs 0.59 K/uL 0.60-3 .20 low Not Available [facility] ([facility]) [address] [place], [address], 09/11/2017 08:30:57 09/12/19 18 09/11/2017 CBC w/ auto diff absolute monos 0.07 K/uL 0.11-0 .59 low Not Available [facility] ([facility]) [address] [place], [address], 09/11/2017 08:30:57 09/12/19 18 09/11/2017 CBC w/ auto diff absolute eos 0.05 K/uL 0.01-0 .50 Not Available [facility] ([facility]) [address] [place], [address], 09/11/2017 08:30:57 09/12/19 18 09/11/2017 CBC w/ auto diff absolute basos 0.05 K/uL 0.00-0 .08 Not Available [facility] ([facility]) [address] [place], [address], 09/11/2017 08:30:57 09/12/19 18 09/11/2017 CBC w/ auto diff granulocytes , immature 0.03 K/uL 0.00-0 .05 Not Available [facility] ([facility] [address] [place], [address], 09/11/2017 08:30:57 09/12/19 18 09/11/2017 tropo hector T, serum troponin-T <0.01 NG/mL 0.00-0 .03 Not Available [facility] ([facility]) [address] [place], [address], 09/11/2017 08:36:59 09/12/19 18 09/11/2017 PT/IN R PT 14.3 sec 10.2-1 2.9 high Not Available [facility] (Outpatient) [address] [place], [address], 09/11/2017 09:32:20 09/12/19 18 09/11/2017 PT/IN R INR 1.2 0.9-1. 1 high Thera peuti c range for oral Vitam in K antag onist s: 2.0-3 .5 Not Available [facility] (Out[facility]) [address] [place], [address], 09/11/2017 09:32:20 09/12/19 18 09/11/2017 gas panel , arter ial blood pH, arterial 7.46 7.35-7 .45 high Not Available [facility] (Out[facility]) [address] [place], [address], 09/11/2017 09:48:26 09/12/19 18 09/11/2017 gas panel , arter ial blood pCO2, arterial 31.20 mmHg 35.00- 45.00 low Not Available [facility] ([facility]) [address] [place], [address], 09/11/2017 09:48:26 09/12/19 18 09/11/2017 gas panel , arter ial blood pO2, arterial 89.80 mmHg 80.00- 105.00 Not Available [facility] ([facility]) [address] [place], [address], 09/11/2017 09:48:26 09/12/19 18 09/11/2017 gas panel , arter ial blood HCO3, unspecified 22 mmol/ L 22-26 Not Available [facility] ([facility]) [address] [place], [address], 09/11/2017 09:48:26 09/12/19 18 09/11/2017 gas panel , arter ial blood base deficit 1.0 mmol/ L 0.0-2. 0 Not Available [facility] (Outpatient) [address] [place], [address], 09/11/2017 09:48:26 09/12/19 18 09/11/2017 gas panel , arter ial blood so2, unspecified 96.70 % 95.00- 98.00 Not Available [facility] ([facility]) [address] [place], [address], 09/11/2017 09:48:26 09/12/19 18 09/11/2017 gas panel , arter ial blood fo2hb blood gas 96.30 % 94.00- 100.00 Not Available [facility]) [address] [place] [address], [address], 09/11/2017 09:48:26 09/12/19 18 09/11/2017 gas panel , arter ial blood carboxy HGB 0.30 % 0-1.50 Not Available [facility] ([facility]) [address] [place] [address], [address], 09/11/2017 09:48:26 09/12/19 18 09/11/2017 gas panel , arter ial blood methgb % 0.10 % 0-1.50 Not Available [facility] ([facility]) [address] [place], [address], 09/11/2017 09:48:26 09/12/19 18 09/11/2017 gas panel , arter ial blood ludivina's test Not Applic able Not Available [facility] ([facility]) [address] [place] [address], [address], 09/11/2017 09:48:26 09/12/19 18 09/11/2017 gas panel , arter ial blood ABG site L BRACH[place] Not Available [facility] ([facility]) [address] [place], [address], 09/11/2017 09:48:26 09/12/19 18 09/11/2017 urina lysis , refle x cultu re color Yellow yellow Not Available [facility] ([facility]) [address] [place], [address], 09/11/2017 10:02:32 09/12/19 18 09/11/2017 urina lysis , refle x cultu re clarity Clear Not Available [facility] ([facility]) [address] [place], [address], 09/11/2017 10:02:32 09/12/19 18 09/11/2017 urina lysis , refle x cultu re glucose Negati ve negati ve Not Available [facility] ([facility]) [address] [place], [address], 09/11/2017 10:02:32 09/12/19 18 09/11/2017 urina lysis , refle x cultu re bili Negati ve negati ve Not Available [facility] ([facility]) [address] [place], [address], 09/11/2017 10:02:32 09/12/19 18 09/11/2017 urina lysis , refle x cultu re ketones 1+ negati ve abnormal Not Available [facility] (Outpatient) [address] [place], [address], 09/11/2017 10:02:32 09/12/19 18 09/11/2017 urina lysis , refle x cultu re specific gravity 1.020 1.005- 1.030 Not Available [facility] (Outpatient) [address] [place], [address], 09/11/2017 10:02:32 09/12/19 18 09/11/2017 urina lysis , refle x cultu re blood Negati ve negati ve Not Available [facility] (Outpatient) [address] [place], [address], 09/11/2017 10:02:32 09/12/19 18 09/11/2017 urina lysis , refle x cultu re pH 6.5 5.0-8. 0 Not Available [facility] (Outpatient) [address] [place], [address], 09/11/2017 10:02:32 09/12/19 18 09/11/2017 urina lysis , refle x cultu re protein Negati ve negati ve Not Available [facility] (Outpatient) [address] [place], [address], 09/11/2017 10:02:32 09/12/19 18 09/11/2017 urina lysis , refle x cultu re nitrite Negati ve negati ve Not Available [facility] (Outpatient) [address] [place], [address], 09/11/2017 10:02:32 09/12/19 18 09/11/2017 urina lysis , refle x cultu re leukocyte esterase, ur Negati ve negati ve Not Available [facility] (Outpatient) [address] [place], [address], 09/11/2017 10:02:32 09/12/19 18 09/11/2017 proca lcito hector, serum procalcitoni n <0.05 NG/mL 0-0.50 For patie nts >2 days old, risk for progr essio n to [facility] champion s: PCT < 0.5 ng/ml = Low risk PCT >=0.5 and <2 ng/ml = Moder ate risk PCT >=2 and <10 ng/ml = High risk PCT >=10 ng/ml = High likel ihood of colin champion s Not Available [facility] (Outpatient) [address] [place], [address], 09/11/2017 10:04:43 09/12/19 18 09/11/2017 pro BNP (pro B-typ e natri ureti c pepti de), serum or plasm a nt-probnp 153 pg/mL 0-125 high Not Available [facility] (Out[facility]) [address] [place], [address], 09/11/2017 10:05:33 09/12/19 18 09/11/2017 lab add on contact information [phone] Not Available [facility] (Outpatient) [address] [place], [address], 09/11/2017 10:10:48 09/12/19 18 09/11/2017 lab add on test requested [place] Not Available [facility] (Out[facility]) [address] [place], [address], 09/11/2017 10:10:48 09/12/19 18 09/11/2017 lab add on status ADD ON COMPLE TE. Not Available [facility] (Outpatient) [address] [place], [address], 09/11/2017 10:10:48 09/12/19 18 09/11/2017 mrsa scree n, PCR MRSA PCR screen Negati ve negati ve The Xpert MRSA Assay is inten ded to aid in the preve ntion and contr ol of MRSA infec tions in [facility]. The assay is not inten ded to diagn ose nor to guide or monit or treat ment for MRSA infec tions . Not Available [facility] (Outpatient) [address] [place], [address], 09/11/2017 10:34:33 09/12/19 18 09/11/2017 tropo hector T, serum troponin-T <0.01 NG/mL 0.00-0 .03 Not Available [facility] (Outpatient) [address] [place], [address], 09/11/2017 10:41:29 09/12/19 18 09/11/2017 tropo hector T, serum troponin-T <0.01 NG/mL 0.00-0 .03 Not Available [facility] (Outpatient) [address] [place], [address], 09/11/2017 10:41:31 09/12/19 18 09/11/2017 toxic ology scree n, urine urine cannabinoids NONE DETECT ED none detect ed Cutof f: 50 ng/mL Not Available [facility] (Outpatient) [address] [place], [address], 09/11/2017 17:26:38 09/12/19 18 09/11/2017 toxic ology scree n, urine urine cocaine metab NONE DETECT ED none detect ed Cutof f: 300 ng/mL Not Available [facility] (Outpatient) [address] [place], [address], 09/11/2017 17:26:38 09/12/19 18 09/11/2017 toxic ology scree n, urine urine amphetamines NONE DETECT ED none detect ed Cutof f: 1000 ng/mL Not Available [facility] (Outpatient) [address] [place], [address], 09/11/2017 17:26:38 09/12/19 18 09/11/2017 toxic ology scree n, urine urine methadone NONE DETECT ED none detect ed Cutof f: 300 ng/mL Not Available [facility] (Outpatient) [address] [place], [address], 09/11/2017 17:26:38 09/12/19 18 09/11/2017 toxic ology scree n, urine urine opiates Positi ve none detect ed abnormal Cutof f: 300 ng/mL Not Available [facility] (Outpatient) [address] [place], [address], 09/11/2017 17:26:38 09/12/19 18 09/11/2017 toxic ology scree n, urine urine phencyclidin e NONE DETECT ED none detect ed Cutof f: 25 ng/mL Not Available [facility] (Outpatient) [address] [place], [address], 09/11/2017 17:26:38 09/12/19 18 09/11/2017 toxic ology scree n, urine urine oxycodone NONE DETECT ED none detect ed Cutof f: 300 ng/ml Not Available [facility] (Outpatient) [address] [place], [address], 09/11/2017 17:26:38 09/12/19 18 09/11/2017 toxic ology scree n, urine urine barbiturates NONE DETECT ED none detect ed Cutof f: 200 ng/mL Not Available [facility] (Outpatient) [address] [place], [address], 09/11/2017 17:26:38 09/12/19 18 09/11/2017 toxic ology scree n, urine urine benzodiazepi ne NONE DETECT ED none detect ed Cutof f: 200 ng/mL INTER PRETA TION FOR TOXIC OLOGY PANEL : Thes e resul ts are uncon firme d and shoul d be used for Medic al Treat ment purpo ses only. Not Available [facility] (Outpatient) [address] [place], [address], 09/11/2017 17:26:38 09/12/19 18 09/12/2017 cell count , body fluid path review FINAL Other s cells are few bronc hial cells and alveo lar macro phage s. No malig nant cells seen. Revie wed by Dee stokes MD Not Available [facility] (Outpatient) [address] [place], [address], 09/12/2017 13:29:10 09/12/19 18 09/12/2017 cell count , body fluid fluid monos 2 % 0 Not Available [facility] (Outpatient) [address] [place], [address], 09/12/2017 13:29:10 09/12/19 18 09/12/2017 cell count , body fluid fluid neuts 12 % 0 Not Available [facility] (Outpatient) [address] [place], [address], 09/12/2017 13:29:10 09/12/19 18 09/12/2017 cell count , body fluid fluid eos 6 % 0 Not Available [facility] (Outpatient) [address] [place], [address], 09/12/2017 13:29:10 09/12/19 18 09/12/2017 cell count , body fluid fluid other cells 80 % 0 high Not Available [facility] (Outpatient) [address] [place], [address], 09/12/2017 13:29:10 09/12/19 18 09/14/2017 cultu re, respi rator y specimen description BRONCH IAL WASHIN GS BILATE RAL BRONCH IAL WASHIN GS BRONCH IAL WASHIN GS Not Available [facility] (Outpatient) [address] [place], [address], 09/14/2017 08:07:41 09/12/19 18 09/14/2017 cultu re, respi rator y special requests None Not Available [facility] (Outpatient) [address] [place], [address], 09/14/2017 08:07:41 09/12/19 18 09/14/2017 cultu re, respi rator y gram stain Rare GRAM POSITI VE RODS , Few WBC'S Not Available [facility] ([facility]patient) [address] [place], [address], 09/14/2017 08:07:41 09/12/19 18 09/14/2017 cultu re, respi rator y culture / test MIXED ORGANI SMS RESEMB LING OROPHA RYNGEA L NABIL abnormal Not Available [facility] ([facility]patient) [address] [place], [address], 09/14/2017 08:07:41 09/12/19 18 09/14/2017 cultu re, respi rator y report status 2017 FINAL Not Available [facility] (Outpatient) [address] [place], [address], 09/14/2017 08:07:41 09/12/19 18 09/14/2017 cultu re, respi rator y specimen description BRONCH IAL ALVEOL AR LAVAGE RML BAL BRONCH IAL ALVEOL AR LAVAGE Not Available [facility] (Outpatient) [address] [place], [address], 09/14/2017 08:08:52 09/12/19 18 09/14/2017 cultu re, respi rator y special requests None Not Available [facility] (Outpatient) [address] [place], [address], 09/14/2017 08:08:52 09/12/19 18 09/14/2017 cultu re, respi rator y gram stain Rare GRAM NEGATI VE RODS , Rare WBC'S Not Available [facility] (Outpatient) [address] [place], [address], 09/14/2017 08:08:52 09/12/19 18 09/14/2017 cultu re, respi rator y culture / test MIXED ORGANI SMS RESEMB LING OROPHA RYNGEA L NABIL abnormal Not Available [facility] (Outpatient) [address] [place], [address], 09/14/2017 08:08:52 09/12/19 18 09/14/2017 cultu re, respi rator y report status 2017 FINAL Not Available [facility] (Outpatient) [address] [place], [address], 09/14/2017 08:08:52 09/12/19 18 09/14/2017 cultu re, anaer obic specimen description RML BAL Not Available [facility] (Outpatient) [address] [place], [address], 09/14/2017 08:42:12 09/12/19 18 09/14/2017 cultu re, anaer obic special requests None Not Available [facility] (Outpatient) [address] [place], [address], 09/14/2017 08:42:12 09/12/19 18 09/14/2017 cultu re, anaer obic culture / test NO ANAERO BES ISOLAT ED Not Available [facility] (Outpatient) [address] [place], [address], 09/14/2017 08:42:12 09/12/19 18 09/14/2017 cultu re, anaer obic report status 2017 FINAL Not Available [facility] (Outpatient) [address] [place], [address], 09/14/2017 08:42:12 09/12/19 18 09/14/2017 lab add on contact information [phone] Not Available [facility] (Outpatient) [address] [place], [address], 09/14/2017 08:52:53 09/12/19 18 09/14/2017 lab add on test requested URINE TOX ADD TO INITIA L URINE PLEASE Not Available [facility] (Outpatient) [address] [place], [address], 09/14/2017 08:52:53 09/12/19 18 09/14/2017 lab add on status ADD ON COMPLE TE. Not Available [facility] (Outpatient) [address] [place], [address], 09/14/2017 08:52:53 09/12/19 18 09/14/2017 pneum ocyst is (pcp) exam specimen description BRONCH IAL ALVEOL AR LAVAGE RML BAL BRONCH IAL ALVEOL AR LAVAGE Not Available [facility] (Outpatient) [address] [place], [address], 09/14/2017 11:36:50 09/12/19 18 09/14/2017 pneum ocyst is (pcp) exam special requests None Not Available [facility] (Outpatient) [address] [place], [address], 09/14/2017 11:36:50 09/12/19 18 09/14/2017 pneum ocyst is (pcp) exam gomori silver stain NEGATI VE FOR PNEUMO CYSTIS JIROVE CII (TAMIKO II) Not Available [facility] (Outpatient) [address] [place], [address], 09/14/2017 11:36:50 09/12/19 18 09/14/2017 pneum ocyst is (pcp) exam report status 2017 FINAL Not Available [facility] (Outpatient) [address] [place], [address], 09/14/2017 11:36:50 09/12/19 18 09/14/2017 toxic ology scree n, urine urine cannabinoids NONE DETECT ED none detect ed Cutof f: 50 ng/mL Not Available [facility] (Outpatient) [address] [place], [address], 09/14/2017 13:05:21 09/12/19 18 09/14/2017 toxic ology scree n, urine urine cocaine metab NONE DETECT ED none detect ed Cutof f: 300 ng/mL Not Available [facility] (Outpatient) [address] [place], [address], 09/14/2017 13:05:21 09/12/19 18 09/14/2017 toxic ology scree n, urine urine amphetamines NONE DETECT ED none detect ed Cutof f: 1000 ng/mL Not Available [facility] (Outpatient) [address] [place], [address], 09/14/2017 13:05:21 09/12/19 18 09/14/2017 toxic ology scree n, urine urine methadone NONE DETECT ED none detect ed Cutof f: 300 ng/mL Not Available [facility] (Outpatient) [address] [place], [address], 09/14/2017 13:05:21 09/12/19 18 09/14/2017 toxic ology scree n, urine urine opiates Positi ve none detect ed abnormal Cutof f: 300 ng/mL Not Available [facility] (Outpatient) [address] [place], [address], 09/14/2017 13:05:21 09/12/19 18 09/14/2017 toxic ology scree n, urine urine phencyclidin e NONE DETECT ED none detect ed Cutof f: 25 ng/mL Not Available [facility] (Outpatient) [address] [place], [address], 09/14/2017 13:05:21 09/12/19 18 09/14/2017 toxic ology scree n, urine urine oxycodone NONE DETECT ED none detect ed Cutof f: 300 ng/ml Not Available [facility] (Outpatient) [address] [place], [address], 09/14/2017 13:05:21 09/12/19 18 09/14/2017 toxic ology scree n, urine urine barbiturates NONE DETECT ED none detect ed Cutof f: 200 ng/mL Not Available [facility] (Outpatient) [address] [place], [address], 09/14/2017 13:05:21 09/12/19 18 09/14/2017 toxic ology scree n, urine urine benzodiazepi ne NONE DETECT ED none detect ed Cutof f: 200 ng/mL INTER PRETA TION FOR TOXIC OLOGY PANEL : Thes e resul ts are uncon firme d and shoul d be used for Medic al Treat ment purpo ses only. Not Available [facility] (Outpatient) [address] [place], [address], 09/14/2017 13:05:21 09/12/19 18 09/15/2017 pneum ocyst is jirov eci DNA, quali tativ e, PCR specimen source BAL RML Not Available [facility] (Outpatient) [address] [place], [address], 09/15/2017 05:35:27 09/12/19 18 09/15/2017 pneum ocyst is jirov eci DNA, quali tativ e, PCR result Negati ve not applic able Not Available [facility] (Outpatient) [address] [place], [address], 09/15/2017 05:35:27 09/12/19 18 09/15/2017 pneum ocyst is jirov eci DNA, quali tativ e, PCR special information Test compon ent not applic able or not report ed. Not Available [facility] (Outpatient) [address] [place], [address], 09/15/2017 05:35:27 09/12/19 18 09/15/2017 pneum ocyst is jirov eci DNA, quali tativ e, PCR report status Test compon ent not applic able or not report ed. Not Available [facility] (Outpatient) [address] [place], [address], 09/15/2017 05:35:27 09/12/19 18 09/15/2017 cytol ogy, non-g yneco logic al, unspe cifie d speci men path report [facility] [address] [place] [address] Lab Direc tor: Dee stokes MD Non Shank Tapper Cytol ogy Repor t Acces jason #: [id number] FINAL DIAGN OSIS A. LUNG, BILAT ERAL, BRON HIAL WASH: SPECI MEN ADEQU ACY: Satis [...] pulmo nary macro phage s. Elect nkechi anibal Marychuy d Out By: Derek elizabeth, MD [address] Sweit zer By his/h er signsalina shields above , the patho logis t liste d as shan ramirez the Final Diagn osis certi fies that he/sh e has perso pili revie wed this case and confi rmed or corre cted the diagn osis. [facility] R[facility] Patie nt prese nts with patch y GGO and hypox resp failu re after febr le URI. Curre nt smoke r. SPECI [...] 20mL of clear fluid label ed with diptie nt's name and date of . One (1) ThinP rep slide is prepa red. Due to an insuf ficie nt cell pelle t, no cell block was prepa red for this speci men. Patie nt Name: ALEXANDRIA AJ CHRISTOPHER : 1990 (Age: 26) Sex: F 8 Insti tutio n: [facility] Locat ion: [facility] U Date of Colle ction : 018 Date of Acces jason: 2017 Repor rashida: 2017 15:25 Resul ts to: Francisco michael Not Available [facility] (Out[facility]) [address] [place], [address], 09/15/2017 15:27:36 09/12/19 18 09/16/2017 cultu re, blood specimen description BLOOD BLOOD Not Available [facility] (Outpatient) [address] [place], [address], 09/16/2017 11:55:24 09/12/19 18 09/16/2017 cultu re, blood special requests None Not Available [facility] (Outpatient) [address] [place], [address], 09/16/2017 11:55:24 09/12/19 18 09/16/2017 cultu re, blood culture / test NO GROWTH 5 DAYS Not Available [facility] (Outpatient) [address] [place], [address], 09/16/2017 11:55:24 09/12/19 18 09/16/2017 cultu re, blood report status 2017 FINAL Not Available [facility] (Outpatient) [address] [place], [address], 09/16/2017 11:55:24 09/12/19 18 09/16/2017 cultu re, blood specimen description BLOOD BLOOD Not Available [facility] (Outpatient) [address] [place], [address], 09/16/2017 11:55:25 09/12/19 18 09/16/2017 cultu re, blood special requests None Not Available [facility] (Outpatient) [address] [place], [address], 09/16/2017 11:55:25 09/12/19 18 09/16/2017 cultu re, blood culture / test NO GROWTH 5 DAYS Not Available [facility] (Out[facility]) [address] [place], [address], 09/16/2017 11:55:25 09/12/19 18 09/16/2017 cultu re, blood report status 2017 FINAL Not Available [facility] (Outpatient[facility] [address] [place], [address], 09/16/2017 11:55:25 09/12/19 18 09/16/2017 human metap neumo virus PCR source WASHIN GS Not Available [facility] (Outpatient) [address] [place], [address], 09/16/2017 16:52:22 09/12/19 18 09/16/2017 human metap neumo virus PCR hmpv RNA NOT DETECT ED Not Available [facility] (Outpatient) [address] [place], [address], 09/16/2017 16:52:22 09/12/19 18 09/16/2017 human metap neumo virus PCR source BAL RML Not Available [facility] (Outpatient) [address] [place], [address], 09/16/2017 16:52:23 09/12/19 18 09/16/2017 human metap neumo virus PCR hmpv RNA NOT DETECT ED Not Available [facility] (Outpatient) [address] [place], [address], 09/16/2017 16:52:23 09/12/19 18 09/28/2017 respi rator y syncy tial virus , cultu re, unspe cifie d speci men viral culture, resp FINAL 2017 1047 Not Available [facility] (Outpatient) [address] [place], [address], 09/28/2017 11:51:48 09/12/19 18 09/28/2017 respi rator y syncy tial virus , cultu re, unspe cifie d speci men viral culture, resp FINAL 2017 1047 Not Available [facility] (Outpatient) [address] [place], [address], 09/28/2017 11:51:50 09/12/19 18 10/05/2017 fungu s, cultu re, unspe cifie d speci men specimen description RML BAL Not Available [facility] (Outpatient) [address] [place], [address], 10/05/2017 11:29:17 09/12/19 18 10/05/2017 fungu s, cultu re, unspe cifie d speci men special requests None Not Available [facility] (Outpatient) [address] [place], [address], 10/05/2017 11:29:17 09/12/19 18 10/05/2017 fungu s, cultu re, unspe cifie d speci men gram stain NO YEAST OR FUNGAL ELEMEN TS SEEN Not Available [facility] (Outpatient) [address] [place], [address], 10/05/2017 11:29:17 09/12/19 18 10/05/2017 fungu s, cultu re, unspe cifie d speci men culture / test ISOLAT ED CANDID A ALBICA NS abnormal Not Available [facility] (Outpatient) [address] [place], [address], 10/05/2017 11:29:17 09/12/19 18 10/05/2017 fungu s, cultu re, unspe cifie d speci men report status 2017 FINAL Not Available [facility] (Outpatient) [address] [place], [address], 10/05/2017 11:29:17 09/12/19 18 11/11/2017 mycob acter ium sp, cultu re, unspe cifie d speci men specimen description BAL (Right Middle Lobe) Not Available [facility] (Outpatient) [address] [place], [address], 11/11/2017 10:09:25 09/12/19 18 11/11/2017 mycob acter ium sp, cultu re, unspe cifie d speci men special requests None Not Available [facility] (Outpatient) [address] [place], [address], 11/11/2017 10:09:25 09/12/19 18 11/11/2017 mycob acter ium sp, cultu re, unspe cifie d speci men smear NO ACID FAST BACILL I OBSERV ED abnormal Not Available [facility] (Outpatient) [address] [place], [address], 11/11/2017 10:09:25 09/12/19 18 11/11/2017 mycob acter ium sp, cultu re, unspe cifie d speci men culture / test NO AFB ISOLAT ED AFTER 8 WEEKS Not Available [facility] (Outpatient) [address] [place], [address], 11/11/2017 10:09:25 09/12/19 18 11/11/2017 mycob acter ium sp, cultu re, unspe cifie d speci men report status 2017 FINAL Not Available [facility] (Outpatient) [address] [place], [address], 11/11/2017 10:09:25 09/13/19 18 09/12/2017 CBC w/ auto diff WBC 9.24 K/uL 3.40-1 1.20 Not Available [facility] (Outpatient) [address] [place], [address], 09/12/2017 04:43:23 09/13/19 18 09/12/2017 CBC w/ auto diff RBC 4.00 M/uL 3.80-4 .80 Not Available [facility] (Outpatient) [address] [place], [address], 09/12/2017 04:43:23 09/13/19 18 09/12/2017 CBC w/ auto diff HGB 11.1 g/dL 12.0-1 5.0 low Not Available [facility] (Outpatient) [address] [place], [address], 09/12/2017 04:43:23 09/13/19 18 09/12/2017 CBC w/ auto diff HCT 33.7 % 36.0-4 6.0 low Not Available [facility] (Outpatient) [address] [place], [address], 09/12/2017 04:43:23 09/13/19 18 09/12/2017 CBC w/ auto diff plt 307 K/uL 130-40 0 Not Available [facility] (Outpatient) [address] [place], [address], 09/12/2017 04:43:23 09/13/19 18 09/12/2017 CBC w/ auto diff MCV 84.3 fL 79.0-9 8.0 Not Available [facility] (Outpatient) [address] [place], [address], 09/12/2017 04:43:23 09/13/19 18 09/12/2017 CBC w/ auto diff MCH 27.8 pg 27.0-3 4.8 Not Available [facility] ([facility]) [address] [place], [address], 09/12/2017 04:43:23 09/13/19 18 09/12/2017 CBC w/ auto diff MCHC 32.9 g/dL 31.5-3 6.0 Not Available [facility] (Outpatient) [address] [place], [address], 09/12/2017 04:43:23 09/13/19 18 09/12/2017 CBC w/ auto diff RDW 13.5 % 10.8-1 4.6 Not Available [facility] ([facility]patient) [address] [place], [address], 09/12/2017 04:43:23 09/13/19 18 09/12/2017 CBC w/ auto diff MPV 8.8 fL 9.4-12 .4 low Not Available [facility] (Outpatient) [address] [place], [address], 09/12/2017 04:43:23 09/13/19 18 09/12/2017 CBC w/ auto diff NRBC 0.00 /100_ WBCs Not Available [facility] ([facility]patient) [address] [place], [address], 09/12/2017 04:43:23 09/13/19 18 09/12/2017 CBC w/ auto diff absolute NRBC 0.00 K/uL Not Available [facility] (Outpatient) [address] [place], [address], 09/12/2017 04:43:23 09/13/19 18 09/12/2017 CBC w/ auto diff diff method Auto Not Available [facility] ([facility]patient) [address] [place], [address], 09/12/2017 04:43:23 09/13/19 18 09/12/2017 CBC w/ auto diff neuts 71.8 % 45.30- 77.70 Not Available [facility] (Outpatient) [address] [place], [address], 09/12/2017 04:43:23 09/13/19 18 09/12/2017 CBC w/ auto diff lymphs 18.0 % 12.30- 39.70 Not Available [facility] (Outpatient) [address] [place], [address], 09/12/2017 04:43:23 09/13/19 18 09/12/2017 CBC w/ auto diff monos 5.6 % 4.10-1 2.80 Not Available [facility] (Outpatient) [address] [place], [address], 09/12/2017 04:43:23 09/13/19 18 09/12/2017 CBC w/ auto diff eos 3.8 % 0-7.2 Not Available [facility] ([facility]) [address] [place] [address], [address], 09/12/2017 04:43:23 09/13/19 18 09/12/2017 CBC w/ auto diff basos 0.6 % 0-2.80 Not Available [facility] (Outpatient) [address] [place] [address], [address], 09/12/2017 04:43:23 09/13/19 18 09/12/2017 CBC w/ auto diff granulocytes , immature (%) 0.2 % 0.0-0. 9 Not Available [facility] ([facility]) [address] [place] [address], [address], 09/12/2017 04:43:23 09/13/19 18 09/12/2017 CBC w/ auto diff absolute neuts 6.63 K/uL 1.40-7 .70 Not Available [facility] ([facility]patient) [address] [place] [address], [address], 09/12/2017 04:43:23 09/13/19 18 09/12/2017 CBC w/ auto diff absolute lymphs 1.66 K/uL 0.60-3 .20 Not Available [facility] ([facility]patient) [address] [place] [address], [address], 09/12/2017 04:43:23 09/13/19 18 09/12/2017 CBC w/ auto diff absolute monos 0.52 K/uL 0.11-0 .59 Not Available [facility] (Outpatient) [address] [place] [address], [address], 09/12/2017 04:43:23 09/13/19 18 09/12/2017 CBC w/ auto diff absolute eos 0.35 K/uL 0.01-0 .50 Not Available [facility] (Outpatient) [address] [place] [address], [address], 09/12/2017 04:43:23 09/13/19 18 09/12/2017 CBC w/ auto diff absolute basos 0.06 K/uL 0.00-0 .08 Not Available [facility] (Outpatient) [address] [place], [address], 09/12/2017 04:43:23 09/13/19 18 09/12/2017 CBC w/ auto diff granulocytes , immature 0.02 K/uL 0.00-0 .05 Not Available [facility] (Outpatient) [address] [place], [address], 09/12/2017 04:43:23 09/13/19 18 09/12/2017 calci um, ioniz ed, blood ionized calcium 1.13 mmol/ L 1.14-1 .37 low Not Available [facility] ([facility]patient) [address] [place] [address], [address], 09/12/2017 04:43:41 09/13/19 18 09/12/2017 BMP, blood sodium 142 mmol/ L 133-14 6 Not Available [facility] ([facility]patient) [address] [place] [address], [address], 09/12/2017 05:14:42 09/13/19 18 09/12/2017 BMP, blood chloride 109 mmol/ L 96-108 high Not Available [facility] ([facility]patient) [address] [place] [address], [address], 09/12/2017 05:14:42 09/13/19 18 09/12/2017 BMP, blood potassium 3.8 mmol/ L 3.3-5. 1 Not Available [facility] ([facility]) [address] [place] [address], [address], 09/12/2017 05:14:42 09/13/19 18 09/12/2017 BMP, blood CO2 22 mmol/ L 21-35 Not Available [facility] (Outpatient) [address] [place], [address], 09/12/2017 05:14:42 09/13/19 18 09/12/2017 BMP, blood BUN 10 mg/dL 6-19 Not Available [facility] (Outpatient) [address] [place], [address], 09/12/2017 05:14:42 09/13/19 18 09/12/2017 BMP, blood creatinine 0.50 mg/dL 0.5-1. 5 Not Available [facility] (Outpatient) [address] [place], [address], 09/12/2017 05:14:42 09/13/19 18 09/12/2017 BMP, blood glucose 95 mg/dL 70-99 Not Available [facility] (Outpatient) [address] [place] [address], [address], 09/12/2017 05:14:42 09/13/19 18 09/12/2017 BMP, blood calcium 8.1 mg/dL 8.4-10 .3 low Not Available [facility] (Outpatient) [address] [place], [address], 09/12/2017 05:14:42 09/13/19 18 09/12/2017 BMP, blood eGFR >120 mL/mi n/1.7 3m2 >59 If patie nt is black , multi ply resul t by 1.159 . The eGFR calcu jan aguilera has busch ed from the MDRD equat ion to the CKD-E PI equat ion as of September 08, 2017. Not Available [facility] (Outpatient) [address] [place], [address], 09/12/2017 05:14:42 09/13/19 18 09/12/2017 BMP, blood anion gap 15 mmol/ L 10-20 Not Available [facility] (Outpatient) [address] [place], [address], 09/12/2017 05:14:42 09/13/19 18 09/12/2017 C-srikanth ctive prote in, quant itati ve, serum or plasm a C reactive protein 3.5 mg/L 0-0.5 high Not Available [facility] (Outpatient) [address] [place] [address], [address], 09/12/2017 05:14:43 09/13/19 18 09/12/2017 magne sium, QN, serum or plasm a magnesium 1.8 mg/dL 1.6-2. 6 Not Available [facility] (Outpatient) [address] [place], [address], 09/12/2017 05:14:45 09/13/19 18 09/12/2017 phosp horus , serum or plasm a phosphorus 2.6 mg/dL 2.7-4. 5 low Not Available [facility] (Outpatient) [address] [place] [address], [address], 09/12/2017 05:14:46 02/14/20 19 02/13/2019 CBC w/ auto diff WBC 10.48 K/uL 3.40-1 1.20 Not Available [facility] (Outpatient) [address] [place] [address], [address], 02/13/2019 03:31:52 02/14/20 19 02/13/2019 CBC w/ auto diff RBC 5.05 M/uL 3.80-4 .80 high Not Available [facility] (Outpatient) [address] [place] [address], [address], 02/13/2019 03:31:52 02/14/20 19 02/13/2019 CBC w/ auto diff HGB 14.0 g/dL 12.0-1 5.0 Not Available [facility] (Outpatient) [address] [place] [address], [address], 02/13/2019 03:31:52 02/14/20 19 02/13/2019 CBC w/ auto diff HCT 42.5 % 36.0-4 6.0 Not Available [facility] (Outpatient) [address] [place], [address], 02/13/2019 03:31:52 02/14/20 19 02/13/2019 CBC w/ auto diff plt 309 K/uL 130-40 0 Not Available [facility] (Outpatient) [address] [place], [address], 02/13/2019 03:31:52 02/14/20 19 02/13/2019 CBC w/ auto diff MCV 84.2 fL 79.0-9 8.0 Not Available [facility] (Outpatient) [address] [place], [address], 02/13/2019 03:31:52 02/14/20 19 02/13/2019 CBC w/ auto diff MCH 27.7 pg 27.0-3 4.8 Not Available [facility] (Outpatient) [address] [place], [address], 02/13/2019 03:31:52 02/14/20 19 02/13/2019 CBC w/ auto diff MCHC 32.9 g/dL 31.5-3 6.0 Not Available [facility] (Outpatient) [address] [place], [address], 02/13/2019 03:31:52 02/14/2002/13/2019 CBC w/ auto diff RDW 13.0 % 10.8-1 4.6 Not Available [facility] (Outpatient) [address] [place], [address], 02/13/2019 03:31:52 02/14/2002/13/2019 CBC w/ auto diff MPV 8.5 fL 9.4-12 .4 low Not Available [facility] (Outpatient) [address] [place], [address], 02/13/2019 03:31:52 02/14/20 19 02/13/2019 CBC w/ auto diff NRBC 0.00 /100_ WBCs 0.00 Not Available [facility] (Outpatient) [address] [place], [address], 02/13/2019 03:31:52 02/14/20 19 02/13/2019 CBC w/ auto diff absolute NRBC 0.00 K/uL 0.00 Not Available [facility] (Outpatient) [address] [place], [address], 02/13/2019 03:31:52 02/14/20 19 02/13/2019 CBC w/ auto diff diff method Auto Not Available [facility] (Outpatient) [address] [place], [address], 02/13/2019 03:31:52 02/14/20 19 02/13/2019 CBC w/ auto diff neuts 68.3 % 45.30- 77.70 Not Available [facility] (Outpatient) [address] [place], [address], 02/13/2019 03:31:52 02/14/20 19 02/13/2019 CBC w/ auto diff lymphs 17.7 % 12.30- 39.70 Not Available [facility] (Outpatient) [address] [place], [address], 02/13/2019 03:31:52 02/14/20 19 02/13/2019 CBC w/ auto diff monos 8.0 % 4.10-1 2.80 Not Available [facility] (Outpatient) [address] [place], [address], 02/13/2019 03:31:52 02/14/2002/13/2019 CBC w/ auto diff eos 5.0 % 0-7.2 Not Available [facility] (Outpatient) [address] [place], [address], 02/13/2019 03:31:52 02/14/20 19 02/13/2019 CBC w/ auto diff basos 0.7 % 0-2.80 Not Available [facility] (Outpatient) [address] [place], [address], 02/13/2019 03:31:52 02/14/2002/13/2019 CBC w/ auto diff granulocytes , immature (%) 0.3 % 0.0-0. 9 Not Available [facility] (Outpatient) [address] [place], [address], 02/13/2019 03:31:52 02/14/20 19 02/13/2019 CBC w/ auto diff absolute neuts 7.16 K/uL 1.40-7 .70 Not Available [facility] (Outpatient) [address] [place], [address], 02/13/2019 03:31:52 02/14/20 19 02/13/2019 CBC w/ auto diff absolute lymphs 1.86 K/uL 0.60-3 .20 Not Available [facility] (Outpatient) [address] [place], [address], 02/13/2019 03:31:52 02/14/2002/13/2019 CBC w/ auto diff absolute monos 0.84 K/uL 0.11-0 .59 high Not Available [facility] (Outpatient) [address] [place], [address], 02/13/2019 03:31:52 02/14/2002/13/2019 CBC w/ auto diff absolute eos 0.52 K/uL 0.01-0 .50 high Not Available [facility] (Outpatient) [address] [place], [address], 02/13/2019 03:31:52 02/14/2002/13/2019 CBC w/ auto diff absolute basos 0.07 K/uL 0.00-0 .08 Not Available [facility] (Outpatient) [address] [place], [address], 02/13/2019 03:31:52 02/14/20 19 02/13/2019 CBC w/ auto diff granulocytes , immature 0.03 K/uL 0.00-0 .05 Not Available [facility] (Outpatient) [address] [place], [address], 02/13/2019 03:31:52 02/14/20 19 02/13/2019 gas panel , venou s blood pH, venous 7.33 7.31-7 .41 Not Available [facility] (Outpatient) [address] [place], [address], 02/13/2019 03:32:02 02/14/20 19 02/13/2019 gas panel , venou s blood pCO2, venous 45.10 mmHg 41.00- 51.00 Not Available [facility] (Outpatient) [address] [place], [address], 02/13/2019 03:32:02 02/14/20 19 02/13/2019 gas panel , venou s blood pO2, venous 25.70 mmHg 35.00- 40.00 low Not Available [facility] (Outpatient) [address] [place], [address], 02/13/2019 03:32:02 02/14/20 19 02/13/2019 gas panel , venou s blood HCO3, venous 23 mmol/ L 23-28 Not Available [facility] (Outpatient) [address] [place], [address], 02/13/2019 03:32:02 02/14/20 19 02/13/2019 gas panel , venou s blood base deficit venous 2.8 mmol/ L 0.0-2. 0 high Not Available [facility] (Outpatient) [address] [place], [address], 02/13/2019 03:32:02 02/14/20 19 02/13/2019 gas panel , venou s blood so2, venous 47.80 % 60.00- 80.00 low Not Available [facility] (Outpatient) [address] [place], [address], 02/13/2019 03:32:02 02/14/20 19 02/13/2019 gas panel , venou s blood fo2hb, venous 47.00 % 71.00- 74.00 low Not Available [facility] (Outpatient) [address] [place], [address], 02/13/2019 03:32:02 02/14/20 19 02/13/2019 gas panel , venou s blood carboxy HGB 1.50 % 0-1.50 Not Available [facility] (Outpatient) [address] [place], [address], 02/13/2019 03:32:02 02/14/2002/13/2019 gas panel , venou s blood methgb % 0.10 % 0-1.50 Not Available [facility] (Outpatient) [address] [place], [address], 02/13/2019 03:32:02 02/14/2002/13/2019 BMP, blood sodium 139 mmol/ L 133-14 6 Not Available [facility] (Outpatient) [address] [place], [address], 02/13/2019 03:53:53 02/14/2002/13/2019 BMP, blood chloride 102 mmol/ L 96-108 Not Available [facility] (Outpatient) [address] [place], [address], 02/13/2019 03:53:53 02/14/2002/13/2019 BMP, blood potassium 4.3 mmol/ L 3.3-5. 1 Not Available [facility] (Outpatient) [address] [place], [address], 02/13/2019 03:53:53 02/14/2002/13/2019 BMP, blood CO2 27 mmol/ L 21-35 Not Available [facility] (Outpatient) [address] [place], [address], 02/13/2019 03:53:53 02/14/20 19 02/13/2019 BMP, blood BUN 15 mg/dL 6-19 Not Available [facility] (Outpatient) [address] [place], [address], 02/13/2019 03:53:53 02/14/20 19 02/13/2019 BMP, blood creatinine 0.80 mg/dL 0.5-1. 5 Not Available [facility] (Outpatient) [address] [place], [address], 02/13/2019 03:53:53 02/14/20 19 02/13/2019 BMP, blood glucose 97 mg/dL 70-99 Not Available [facility] (Outpatient) [address] [place] [address], [address], 02/13/2019 03:53:53 02/14/20 19 02/13/2019 BMP, blood calcium 9.6 mg/dL 8.4-10 .3 Not Available [facility] (Outpatient) [address] [place], [address], 02/13/2019 03:53:53 02/14/2002/13/2019 BMP, blood eGFR 102 mL/mi n/1.7 3m2 >59 If patie nt is black , multi ply resul t by 1.159 . Estim ated glome rular filtr ation rate calcu lated using the CKD-E PI equat ion. Not Available [facility] (Outpatient) [address] [place], [address], 02/13/2019 03:53:53 02/14/2002/13/2019 BMP, blood anion gap 14 mmol/ L 10-20 Not Available [facility] (Outpatient) [address] [place], [address], 02/13/2019 03:53:53 08/12/1908/12/2019 lacta te lactate 1.69 mmol/ L 0.50-2 .20 Not Available [facility] ([facility]patient) [address] [place], [address], 08/12/2019 18:59:42 08/12/19 20 08/12/2019 PT/IN R PT 12.9 sec 10.2-1 2.9 Not Available [facility] ([facility]patient) [address] [place], [address], 08/12/2019 19:08:28 08/12/19 20 08/12/2019 PT/IN R INR 1.2 0.9-1. 1 high Thera peuti c range for oral Vitam in K antag onist s: 2.0-3 .5 Not Available [facility] (Outpatient) [address] [place], [address], 08/12/2019 19:08:28 08/12/19 20 08/12/2019 CBC w/ auto diff WBC 3.28 K/uL 4.00-1 1.00 low Note Refer ence Range updat es to all CBC and Diffe renti al resul ts. Not Available [facility] (Outpatient) [address] [place], [address], 08/12/2019 19:20:17 08/12/19 20 08/12/2019 CBC w/ auto diff RBC 4.50 M/uL 3.72-5 .30 Not Available [facility] (Outpatient) [address] [place], [address], 08/12/2019 19:20:17 08/12/19 20 08/12/2019 CBC w/ auto diff HGB 12.3 g/dL 11.0-1 5.2 Note updat ed Refer ence Range s for all CBC and Diffe renti al resul ts. Not Available [facility] (Outpatient) [address] [place], [address], 08/12/2019 19:20:17 08/12/19 20 08/12/2019 CBC w/ auto diff HCT 37.0 % 31.6-4 4.1 Not Available [facility] (Outpatient) [address] [place], [address], 08/12/2019 19:20:17 08/12/19 20 08/12/2019 CBC w/ auto diff plt 189 K/uL 140-43 0 Not Available [facility] (Outpatient) [address] [place], [address], 08/12/2019 19:20:17 08/12/19 20 08/12/2019 CBC w/ auto diff MCV 82.2 fL 78.0-9 7.0 Not Available [facility] (Outpatient) [address] [place], [address], 08/12/2019 19:20:17 08/12/19 20 08/12/2019 CBC w/ auto diff MCH 27.3 pg 25.0-3 3.0 Not Available [facility] (Outpatient) [address] [place], [address], 08/12/2019 19:20:17 08/12/1908/12/2019 CBC w/ auto diff MCHC 33.2 g/dL 32.0-3 6.0 Not Available [facility] (Outpatient) [address] [place], [address], 08/12/2019 19:20:17 08/12/19 20 08/12/2019 CBC w/ auto diff RDW 12.7 % 11.0-1 6.0 Not Available [facility] (Outpatient) [address] [place], [address], 08/12/2019 19:20:17 08/12/1908/12/2019 CBC w/ auto diff MPV 8.9 fL 8.4-12 .8 Not Available [facility] (Outpatient) [address] [place], [address], 08/12/2019 19:20:17 08/12/19 20 08/12/2019 CBC w/ auto diff NRBC 0.00 /100_ WBCs 0 Not Available [facility] (Outpatient) [address] [place], [address], 08/12/2019 19:20:17 08/12/19 20 08/12/2019 CBC w/ auto diff absolute NRBC 0.00 K/uL 0 Not Available [facility] (Outpatient) [address] [place], [address], 08/12/2019 19:20:17 08/12/19 20 08/12/2019 CBC w/ auto diff diff method Auto Not Available [facility] (Outpatient) [address] [place], [address], 08/12/2019 19:20:17 08/12/19 20 08/12/2019 CBC w/ auto diff neuts 86.3 % 43.0-7 5.0 high Not Available [facility] (Outpatient) [address] [place], [address], 08/12/2019 19:20:17 08/12/19 20 08/12/2019 CBC w/ auto diff lymphs 6.1 % 18.2-4 7.4 low Not Available [facility] (Outpatient) [address] [place], [address], 08/12/2019 19:20:17 08/12/19 20 08/12/2019 CBC w/ auto diff monos 7.0 % 4.00-1 1.00 Not Available [facility] (Outpatient) [address] [place], [address], 08/12/2019 19:20:17 08/12/19 20 08/12/2019 CBC w/ auto diff eos 0.0 % 0.0-8. 0 Not Available [facility] (Outpatient) [address] [place], [address], 08/12/2019 19:20:17 08/12/19 20 08/12/2019 CBC w/ auto diff basos 0.3 % 0.0-2. 0 Not Available [facility] (Outpatient) [address] [place], [address], 08/12/2019 19:20:17 08/12/19 20 08/12/2019 CBC w/ auto diff granulocytes , immature (%) 0.3 % 0.0-0. 9 Not Available [facility] (Outpatient) [address] [place], [address], 08/12/2019 19:20:17 08/12/19 20 08/12/2019 CBC w/ auto diff absolute neuts 2.83 K/uL 1.80-7 .70 Not Available [facility] (Outpatient) [address] [place], [address], 08/12/2019 19:20:17 08/12/19 20 08/12/2019 CBC w/ auto diff absolute lymphs 0.20 K/uL 1.00-3 .10 low Not Available [facility] (Outpatient) [address] [place], [address], 08/12/2019 19:20:17 08/12/19 20 08/12/2019 CBC w/ auto diff absolute monos 0.23 K/uL 0.20-0 .80 Not Available [facility] (Outpatient) [address] [place], [address], 08/12/2019 19:20:17 08/12/19 20 08/12/2019 CBC w/ auto diff absolute eos 0.00 K/uL 0.00-0 .80 Not Available [facility] (Outpatient) [address] [place], [address], 08/12/2019 19:20:17 08/12/19 20 08/12/2019 CBC w/ auto diff absolute basos 0.01 K/uL 0.00-0 .09 Not Available [facility] (Outpatient) [address] [place], [address], 08/12/2019 19:20:17 08/12/19 20 08/12/2019 CBC w/ auto diff granulocytes , immature 0.01 K/uL 0.00-0 .05 Not Available [facility] (Outpatient) [address] [place], [address], 08/12/2019 19:20:17 08/12/19 20 08/12/2019 hCG, quali tativ e, serum HCG, qualitative Negati ve IU/L negati ve Not Available [facility] (Outpatient) [address] [place], [address], 08/12/2019 19:21:37 08/12/19 20 08/12/2019 BMP, blood sodium 136 mmol/ L 133-14 6 Not Available [facility] (Outpatient[facility] [address] [place], [address], 08/12/2019 19:25:50 08/12/19 20 08/12/2019 BMP, blood chloride 104 mmol/ L 96-108 Not Available [facility] (Outpatient) [address] [place], [address], 08/12/2019 19:25:50 08/12/19 20 08/12/2019 BMP, blood potassium 3.9 mmol/ L 3.3-5. 1 Not Available [facility] (Outpatient) [address] [place], [address], 08/12/2019 19:25:50 08/12/19 20 08/12/2019 BMP, blood CO2 22 mmol/ L 21-35 Not Available [facility] (Outpatient) [address] [place], [address], 08/12/2019 19:25:50 08/12/19 20 08/12/2019 BMP, blood BUN 7 mg/dL 6-19 Not Available [facility] (Outpatient) [address] [place], [address], 08/12/2019 19:25:50 08/12/19 20 08/12/2019 BMP, blood creatinine 0.80 mg/dL 0.5-1. 5 Not Available [facility] (Outpatient) [address] [place], [address], 08/12/2019 19:25:50 08/12/19 20 08/12/2019 BMP, blood glucose 99 mg/dL 70-99 Not Available [facility] (Outpatient) [address] [place], [address], 08/12/2019 19:25:50 08/12/19 20 08/12/2019 BMP, blood calcium 8.7 mg/dL 8.4-10 .3 Not Available [facility] (Outpatient) [address] [place], [address], 08/12/2019 19:25:50 08/12/19 20 08/12/2019 BMP, blood eGFR 102 mL/mi n/1.7 3m2 >59 If patie nt is black , multi ply resul t by 1.159 . Estim ated glome rular filtr ation rate calcu lated using the CKD-E PI equat ion. Not Available [facility] (Outpatient) [address] [place], [address], 08/12/2019 19:25:50 08/12/19 20 08/12/2019 BMP, blood anion gap 14 mmol/ L 10-20 Not Available [facility] (Outpatient) [address] [place], [address], 08/12/2019 19:25:50 08/12/19 20 08/12/2019 lipas e, serum or plasm a lipase 34 U/L 16-63 Not Available [facility] (Outpatient) [address] [place], [address], 08/12/2019 19:25:52 08/12/19 20 08/12/2019 lfts (hepa tic panel ) alkaline phosphatase 80 U/L 39-117 Not Available [facility] (Outpatient) [address] [place], [address], 08/12/2019 19:25:53 08/12/19 20 08/12/2019 lfts (hepa tic panel ) total bilirubin 0.3 mg/dL 0.0-1. 2 Not Available [facility] (Outpatient) [address] [place], [address], 08/12/2019 19:25:53 08/12/19 20 08/12/2019 lfts (hepa tic panel ) direct bilirubin <0.2 mg/dL 0-0.3 Not Available [facility] (Outpatient) [address] [place], [address], 08/12/2019 19:25:53 08/12/19 20 08/12/2019 lfts (hepa tic panel ) bilirubin (indirect) NOT CALCUL ATED mg/dL 0-1.5 Not Available [facility] (Outpatient) [address] [place], [address], 08/12/2019 19:25:53 08/12/19 20 08/12/2019 lfts (hepa tic panel ) AST 24 U/L 0-37 Not Available [facility] (Outpatient) [address] [place], [address], 08/12/2019 19:25:53 08/12/19 20 08/12/2019 lfts (hepa tic panel ) ALT 21 U/L 0-40 Not Available [facility] (Outpatient) [address] [place], [address], 08/12/2019 19:25:53 08/12/19 20 08/12/2019 lfts (hepa tic panel ) total protein 7.5 g/dL 6.5-8. 0 Not Available [facility] (Outpatient) [address] [place], [address], 08/12/2019 19:25:53 08/12/19 20 08/12/2019 lfts (hepa tic panel ) albumin 4.5 g/dL 3.9-4. 8 Not Available [facility] (Outpatient) [address] [place], [address], 08/12/2019 19:25:53 08/12/19 20 08/12/2019 lfts (hepa tic panel ) globulin 3.0 g/dL 1-4.8 Not Available [facility] (Outpatient) [address] [place], [address], 08/12/2019 19:25:53 08/12/19 20 08/12/2019 lfts (hepa tic panel ) A/G ratio 1.50 ratio 1.00-4 .80 Not Available [facility] (Outpatient) [address] [place], [address], 08/12/2019 19:25:53 08/12/19 20 08/12/2019 magne sium, QN, serum or plasm a magnesium 1.8 mg/dL 1.6-2. 6 Not Available [facility] (Outpatient) [address] [place], [address], 08/12/2019 19:25:54 08/12/19 20 08/12/2019 urina lysis , refle x cultu re color Yellow yellow Not Available [facility] (Outpatient) [address] [place], [address], 08/12/2019 19:44:10 08/12/19 20 08/12/2019 urina lysis , refle x cultu re clarity Clear Not Available [facility] (Outpatient) [address] [place], [address], 08/12/2019 19:44:10 08/12/19 20 08/12/2019 urina lysis , refle x cultu re glucose Negati ve negati ve Not Available [facility] (Outpatient) [address] [place], [address], 08/12/2019 19:44:10 08/12/19 20 08/12/2019 urina lysis , refle x cultu re bili Negati ve negati ve Not Available [facility] (Outpatient) [address] [place], [address], 08/12/2019 19:44:10 08/12/19 20 08/12/2019 urina lysis , refle x cultu re ketones Negati ve negati ve Not Available [facility] (Outpatient) [address] [place], [address], 08/12/2019 19:44:10 08/12/19 20 08/12/2019 urina lysis , refle x cultu re specific gravity 1.015 1.005- 1.030 Not Available [facility] (Outpatient) [address] [place], [address], 08/12/2019 19:44:10 08/12/19 20 08/12/2019 urina lysis , refle x cultu re blood Trace negati ve abnormal Not Available [facility] (Outpatient) [address] [place], [address], 08/12/2019 19:44:10 08/12/19 20 08/12/2019 urina lysis , refle x cultu re pH 7.0 5.0-8. 0 Not Available [facility] (Outpatient) [address] [place], [address], 08/12/2019 19:44:10 08/12/19 20 08/12/2019 urina lysis , refle x cultu re protein Negati ve negati ve Not Available [facility] (Outpatient) [address] [place], [address], 08/12/2019 19:44:10 08/12/19 20 08/12/2019 urina lysis , refle x cultu re nitrite Negati ve negati ve Not Available [facility] (Outpatient) [address] [place], [address], 08/12/2019 19:44:10 08/12/19 20 08/12/2019 urina lysis , refle x cultu re leukocyte esterase, ur Negati ve negati ve Not Available [facility] (Outpatient) [address] [place], [address], 08/12/2019 19:44:10 08/12/19 20 08/12/2019 rapid flu (A+B) influenza A, naat Positi ve negati ve abnormal Not Available [facility] (Outpatient) [address] [place], [address], 08/12/2019 19:46:50 08/12/19 20 08/12/2019 rapid flu (A+B) influenza B, naat Negati ve negati ve Not Available [facility] (Outpatient) [address] [place], [address], 08/12/2019 19:46:50 08/12/19 20 08/12/2019 CK (crea varsha kinas e), total , serum creatine kinase 93 U/L 21-215 Not Available [facility] (Outpatient) [address] [place], [address], 08/12/2019 23:03:36 08/12/19 20 08/12/2019 cultu re, blood special requests None Not Available [facility] (Outpatient) [address] [place], [address], 08/20/2019 08:08:56 08/12/1908/16/2019 cultu re, blood blood culture MICROC OCCUS LUTEUS abnormal Criti merry Florin tAshley Resul zita duran d to and read back by: Tele Melan ie S Not Available [facility] (Outpatient) [address] [place], [address], 08/20/2019 08:08:56 08/12/19 20 08/12/2019 cultu re, blood special requests None Not Available [facility] (Outpatient) [address] [place], [address], 08/20/2019 08:09:06 08/12/19 20 08/16/2019 cultu re, blood blood culture MICROC OCCUS LUTEUS abnormal Criti merry Florin Catherine ts duran d to and read back by: TELE MELAN IE S Not Available [facility] (Outpatient) [address] [place], [address], 08/20/2019 08:09:06 08/13/19 20 08/13/2019 CBC w/ auto diff WBC 2.90 K/uL 4.00-1 1.00 low Note Refer ence Range updat es to all CBC and Diffe renti al resul ts. Not Available [facility] (Outpatient) [address] [place], [address], 08/13/2019 07:31:25 08/13/1908/13/2019 CBC w/ auto diff RBC 4.20 M/uL 3.72-5 .30 Not Available [facility] (Outpatient) [address] [place], [address], 08/13/2019 07:31:25 08/13/19 20 08/13/2019 CBC w/ auto diff HGB 11.5 g/dL 11.0-1 5.2 Note updat ed Refer ence Range s for all CBC and Diffe renti al resul ts. Not Available [facility] (Outpatient) [address] [place], [address], 08/13/2019 07:31:25 08/13/1908/13/2019 CBC w/ auto diff HCT 34.4 % 31.6-4 4.1 Not Available [facility] (Outpatient) [address] [place], [address], 08/13/2019 07:31:25 08/13/19 20 08/13/2019 CBC w/ auto diff plt 181 K/uL 140-43 0 Not Available [facility] (Outpatient) [address] [place], [address], 08/13/2019 07:31:25 08/13/19 20 08/13/2019 CBC w/ auto diff MCV 81.9 fL 78.0-9 7.0 Not Available [facility] (Outpatient) [address] [place], [address], 08/13/2019 07:31:25 08/13/19 20 08/13/2019 CBC w/ auto diff MCH 27.4 pg 25.0-3 3.0 Not Available [facility] (Outpatient) [address] [place], [address], 08/13/2019 07:31:25 08/13/19 20 08/13/2019 CBC w/ auto diff MCHC 33.4 g/dL 32.0-3 6.0 Not Available [facility] (Outpatient) [address] [place], [address], 08/13/2019 07:31:25 08/13/19 20 08/13/2019 CBC w/ auto diff RDW 12.9 % 11.0-1 6.0 Not Available [facility] (Outpatient) [address] [place], [address], 08/13/2019 07:31:25 08/13/19 20 08/13/2019 CBC w/ auto diff MPV 9.3 fL 8.4-12 .8 Not Available [facility] (Outpatient) [address] [place], [address], 08/13/2019 07:31:25 08/13/19 20 08/13/2019 CBC w/ auto diff NRBC 0.00 /100_ WBCs 0 Not Available [facility] (Outpatient) [address] [place], [address], 08/13/2019 07:31:25 08/13/19 20 08/13/2019 CBC w/ auto diff absolute NRBC 0.00 K/uL 0 Not Available [facility] (Outpatient) [address] [place], [address], 08/13/2019 07:31:25 08/13/19 20 08/13/2019 CBC w/ auto diff diff method Auto Not Available [facility] (Outpatient) [address] [place], [address], 08/13/2019 07:31:25 08/13/19 20 08/13/2019 CBC w/ auto diff neuts 87.3 % 43.0-7 5.0 high Not Available [facility] (Outpatient) [address] [place], [address], 08/13/2019 07:31:25 08/13/19 20 08/13/2019 CBC w/ auto diff lymphs 8.6 % 18.2-4 7.4 low Not Available [facility] (Outpatient) [address] [place], [address], 08/13/2019 07:31:25 08/13/19 20 08/13/2019 CBC w/ auto diff monos 3.4 % 4.00-1 1.00 low Not Available [facility] (Outpatient) [address] [place], [address], 08/13/2019 07:31:25 08/13/19 20 08/13/2019 CBC w/ auto diff eos 0.0 % 0.0-8. 0 Not Available [facility] (Outpatient) [address] [place], [address], 08/13/2019 07:31:25 08/13/19 20 08/13/2019 CBC w/ auto diff basos 0.0 % 0.0-2. 0 Not Available [facility] (Outpatient) [address] [place], [address], 08/13/2019 07:31:25 08/13/19 20 08/13/2019 CBC w/ auto diff granulocytes , immature (%) 0.7 % 0.0-0. 9 Not Available [facility] (Outpatient) [address] [place], [address], 08/13/2019 07:31:25 08/13/19 20 08/13/2019 CBC w/ auto diff absolute neuts 2.53 K/uL 1.80-7 .70 Not Available [facility] (Outpatient) [address] [place], [address], 08/13/2019 07:31:25 08/13/19 20 08/13/2019 CBC w/ auto diff absolute lymphs 0.25 K/uL 1.00-3 .10 low Not Available [facility] (Outpatient) [address] [place], [address], 08/13/2019 07:31:25 08/13/19 20 08/13/2019 CBC w/ auto diff absolute monos 0.10 K/uL 0.20-0 .80 low Not Available [facility] (Outpatient) [address] [place], [address], 08/13/2019 07:31:25 08/13/19 20 08/13/2019 CBC w/ auto diff absolute eos 0.00 K/uL 0.00-0 .80 Not Available [facility] (Outpatient) [address] [place], [address], 08/13/2019 07:31:25 08/13/19 20 08/13/2019 CBC w/ auto diff absolute basos 0.00 K/uL 0.00-0 .09 Not Available [facility] (Outpatient) [address] [place], [address], 08/13/2019 07:31:25 08/13/19 20 08/13/2019 CBC w/ auto diff granulocytes , immature 0.02 K/uL 0.00-0 .05 Not Available [facility] (Outpatient) [address] [place], [address], 08/13/2019 07:31:25 08/13/19 20 08/13/2019 BMP, blood sodium 137 mmol/ L 133-14 6 Not Available [facility] (Outpatient) [address] [place], [address], 08/13/2019 08:02:07 08/13/19 20 08/13/2019 BMP, blood chloride 103 mmol/ L 96-108 Not Available [facility] (Outpatient) [address] [place], [address], 08/13/2019 08:02:07 08/13/1908/13/2019 BMP, blood potassium 3.9 mmol/ L 3.3-5. 1 Not Available [facility] (Outpatient) [address] [place], [address], 08/13/2019 08:02:07 08/13/19 20 08/13/2019 BMP, blood CO2 20 mmol/ L 21-35 low Not Available [facility] (Outpatient) [address] [place], [address], 08/13/2019 08:02:07 08/13/19 20 08/13/2019 BMP, blood BUN 6 mg/dL 6-19 Not Available [facility] (Outpatient) [address] [place], [address], 08/13/2019 08:02:07 08/13/1908/13/2019 BMP, blood creatinine 0.70 mg/dL 0.5-1. 5 Not Available [facility] (Outpatient) [address] [place], [address], 08/13/2019 08:02:07 08/13/1908/13/2019 BMP, blood glucose 173 mg/dL 70-99 high Not Available [facility] (Outpatient) [address] [place], [address], 08/13/2019 08:02:07 08/13/19 20 08/13/2019 BMP, blood calcium 8.1 mg/dL 8.4-10 .3 low Not Available [facility] (Outpatient) [address] [place], [address], 08/13/2019 08:02:07 08/13/19 20 08/13/2019 BMP, blood eGFR 120 mL/mi n/1.7 3m2 >59 If patie nt is black , multi ply resul t by 1.159 . Estim ated glome rular filtr ation rate calcu lated using the CKD-E PI equat ion. Not Available [facility] (Outpatient) [address] [place], [address], 08/13/2019 08:02:07 08/13/19 20 08/13/2019 BMP, blood anion gap 18 mmol/ L 10-20 Not Available [facility] (Outpatient) [address] [place], [address], 08/13/2019 08:02:07 08/13/19 20 08/13/2019 lacta te lactate 0.83 mmol/ L 0.50-2 .20 Not Available [facility] (Outpatient) [address] [place] [address], [address], 08/13/2019 13:50:13 08/14/19 20 08/14/2019 CBC w/ auto diff WBC 2.80 K/uL 4.00-1 1.00 low Note Refer ence Range updat es to all CBC and Diffe renti al resul ts. Not Available [facility] (Outpatient) [address] [place], [address], 08/14/2019 07:13:22 08/14/19 20 08/14/2019 CBC w/ auto diff RBC 4.11 M/uL 3.72-5 .30 Not Available [facility] (Outpatient) [address] [place] [address], [address], 08/14/2019 07:13:22 08/14/19 20 08/14/2019 CBC w/ auto diff HGB 11.2 g/dL 11.0-1 5.2 Note updat ed Refer ence Range s for all CBC and Diffe renti al resul ts. Not Available [facility] (Outpatient) [address] [place], [address], 08/14/2019 07:13:22 08/14/1908/14/2019 CBC w/ auto diff HCT 34.6 % 31.6-4 4.1 Not Available [facility] (Outpatient) [address] [place], [address], 08/14/2019 07:13:22 08/14/1908/14/2019 CBC w/ auto diff plt 160 K/uL 140-43 0 Not Available [facility] (Outpatient) [address] [place], [address], 08/14/2019 07:13:22 08/14/1908/14/2019 CBC w/ auto diff MCV 84.2 fL 78.0-9 7.0 Not Available [facility] (Outpatient) [address] [place], [address], 08/14/2019 07:13:22 08/14/1908/14/2019 CBC w/ auto diff MCH 27.3 pg 25.0-3 3.0 Not Available [facility] (Outpatient) [address] [place], [address], 08/14/2019 07:13:22 08/14/1908/14/2019 CBC w/ auto diff MCHC 32.4 g/dL 32.0-3 6.0 Not Available [facility] (Outpatient) [address] [place], [address], 08/14/2019 07:13:22 08/14/1908/14/2019 CBC w/ auto diff RDW 13.4 % 11.0-1 6.0 Not Available [facility] (Outpatient) [address] [place], [address], 08/14/2019 07:13:22 08/14/19 20 08/14/2019 CBC w/ auto diff MPV 9.4 fL 8.4-12 .8 Not Available [facility] (Outpatient) [address] [place], [address], 08/14/2019 07:13:22 08/14/19 20 08/14/2019 CBC w/ auto diff NRBC 0.00 /100_ WBCs 0 Not Available [facility] (Outpatient) [address] [place], [address], 08/14/2019 07:13:22 08/14/1908/14/2019 CBC w/ auto diff absolute NRBC 0.00 K/uL 0 Not Available [facility] (Outpatient) [address] [place], [address], 08/14/2019 07:13:22 08/14/1908/14/2019 CBC w/ auto diff diff method Auto Not Available [facility] (Outpatient) [address] [place], [address], 08/14/2019 07:13:22 08/14/1908/14/2019 CBC w/ auto diff neuts 60.6 % 43.0-7 5.0 Not Available [facility] (Outpatient) [address] [place], [address], 08/14/2019 07:13:22 08/14/1908/14/2019 CBC w/ auto diff lymphs 30.4 % 18.2-4 7.4 Not Available [facility] (Outpatient) [address] [place], [address], 08/14/2019 07:13:22 08/14/1908/14/2019 CBC w/ auto diff monos 8.2 % 4.00-1 1.00 Not Available [facility] (Outpatient) [address] [place], [address], 08/14/2019 07:13:22 08/14/19 20 08/14/2019 CBC w/ auto diff eos 0.0 % 0.0-8. 0 Not Available [facility] (Outpatient) [address] [place], [address], 08/14/2019 07:13:22 08/14/19 20 08/14/2019 CBC w/ auto diff basos 0.4 % 0.0-2. 0 Not Available [facility] (Outpatient) [address] [place], [address], 08/14/2019 07:13:22 08/14/1908/14/2019 CBC w/ auto diff granulocytes , immature (%) 0.4 % 0.0-0. 9 Not Available [facility] (Outpatient) [address] [place], [address], 08/14/2019 07:13:22 08/14/19 20 08/14/2019 CBC w/ auto diff absolute neuts 1.70 K/uL 1.80-7 .70 low Not Available [facility] (Outpatient) [address] [place], [address], 08/14/2019 07:13:22 08/14/19 20 08/14/2019 CBC w/ auto diff absolute lymphs 0.85 K/uL 1.00-3 .10 low Not Available [facility] (Outpatient) [address] [place], [address], 08/14/2019 07:13:22 08/14/1908/14/2019 CBC w/ auto diff absolute monos 0.23 K/uL 0.20-0 .80 Not Available [facility] (Outpatient) [address] [place], [address], 08/14/2019 07:13:22 08/14/1908/14/2019 CBC w/ auto diff absolute eos 0.00 K/uL 0.00-0 .80 Not Available [facility] (Outpatient) [address] [place], [address], 08/14/2019 07:13:22 08/14/19 20 08/14/2019 CBC w/ auto diff absolute basos 0.01 K/uL 0.00-0 .09 Not Available [facility] (Outpatient) [address] [place], [address], 08/14/2019 07:13:22 08/14/1908/14/2019 CBC w/ auto diff granulocytes , immature 0.01 K/uL 0.00-0 .05 Not Available [facility] (Outpatient) [address] [place], [address], 08/14/2019 07:13:22 08/14/1908/14/2019 CMP, serum or plasm a sodium 142 mmol/ L 133-14 6 Not Available [facility] (Outpatient) [address] [place], [address], 08/14/2019 07:41:11 08/14/1908/14/2019 CMP, serum or plasm a potassium 4.3 mmol/ L 3.3-5. 1 Not Available [facility] (Outpatient) [address] [place], [address], 08/14/2019 07:41:11 08/14/1908/14/2019 CMP, serum or plasm a chloride 111 mmol/ L 96-108 high Not Available [facility] (Outpatient) [address] [place], [address], 08/14/2019 07:41:11 08/14/1908/14/2019 CMP, serum or plasm a CO2 20 mmol/ L 21-35 low Not Available [facility] (Outpatient) [address] [place], [address], 08/14/2019 07:41:11 08/14/1908/14/2019 CMP, serum or plasm a BUN 8 mg/dL 6-19 Not Available [facility] (Outpatient) [address] [place] [address], [address], 08/14/2019 07:41:11 08/14/19 20 08/14/2019 CMP, serum or plasm a creatinine 0.60 mg/dL 0.5-1. 5 Not Available [facility] (Outpatient) [address] [place], [address], 08/14/2019 07:41:11 08/14/1908/14/2019 CMP, serum or plasm a glucose 82 mg/dL 70-99 Not Available [facility] (Outpatient) [address] [place] [address], [address], 08/14/2019 07:41:11 08/14/1908/14/2019 CMP, serum or plasm a albumin 3.5 g/dL 3.9-4. 8 low Not Available [facility] (Outpatient) [address] [place], [address], 08/14/2019 07:41:11 08/14/1908/14/2019 CMP, serum or plasm a total protein 6.1 g/dL 6.5-8. 0 low Not Available [facility] (Outpatient) [address] [place] [address], [address], 08/14/2019 07:41:11 08/14/1908/14/2019 CMP, serum or plasm a calcium 7.7 mg/dL 8.4-10 .3 low Not Available [facility] (Outpatient) [address] [place] [address], [address], 08/14/2019 07:41:11 08/14/1908/14/2019 CMP, serum or plasm a alkaline phosphatase 55 U/L 39-117 Not Available [facility] (Outpatient) [address] [place] [address], [address], 08/14/2019 07:41:11 08/14/19 20 08/14/2019 CMP, serum or plasm a total bilirubin <0.2 mg/dL 0.0-1. 2 Not Available [facility] (Outpatient) [address] [place], [address], 08/14/2019 07:41:11 08/14/19 20 08/14/2019 CMP, serum or plasm a AST 70 U/L 0-37 high Not Available [facility] (Outpatient) [address] [place], [address], 08/14/2019 07:41:11 08/14/1908/14/2019 CMP, serum or plasm a ALT 103 U/L 0-40 high Not Available [facility] (Outpatient) [address] [place], [address], 08/14/2019 07:41:11 08/14/19 20 08/14/2019 CMP, serum or plasm a globulin 2.6 g/dL 1-4.8 Not Available [facility] (Outpatient) [address] [place], [address], 08/14/2019 07:41:11 08/14/1908/14/2019 CMP, serum or plasm a eGFR >120 mL/mi n/1.7 3m2 >59 If patie nt is black , multi ply resul t by 1.159 . Estim ated glome rular filtr ation rate calcu lated using the CKD-E PI equat ion. Not Available [facility] (Outpatient) [address] [place], [address], 08/14/2019 07:41:11 08/14/1908/14/2019 CMP, serum or plasm a anion gap 15 mmol/ L 10-20 Not Available [facility] (Outpatient) [address] [place], [address], 08/14/2019 07:41:11 08/14/1908/14/2019 CK (bc maddox cheykandace e), total , serum creatine kinase 130 U/L 21-215 Not Available [facility] (Outpatient) [address] [place], [address], 08/14/2019 07:41:13 08/14/19 20 08/19/2019 susce pt [...] ----- ----- ----- ----- ----- Not Available [facility] (Outpatient) [address] [place], [address], 08/19/2019 15:54:20 08/15/19 20 08/15/2019 CMP, serum or plasm a sodium 138 mmol/ L 133-14 6 Not Available [facility] (Outpatient) [address] [place], [address], 08/15/2019 14:08:47 08/15/19 20 08/15/2019 CMP, serum or plasm a potassium 3.9 mmol/ L 3.3-5. 1 Not Available [facility] (Outpatient) [address] [place], [address], 08/15/2019 14:08:47 08/15/19 20 08/15/2019 CMP, serum or plasm a chloride 104 mmol/ L 96-108 Not Available [facility] (Outpatient) [address] [place], [address], 08/15/2019 14:08:47 08/15/19 20 08/15/2019 CMP, serum or plasm a CO2 21 mmol/ L 21-35 Not Available [facility] (Outpatient) [address] [place], [address], 08/15/2019 14:08:47 08/15/19 20 08/15/2019 CMP, serum or plasm a BUN 4 mg/dL 6-19 low Not Available [facility] (Outpatient) [address] [place], [address], 08/15/2019 14:08:47 08/15/19 20 08/15/2019 CMP, serum or plasm a creatinine 0.50 mg/dL 0.5-1. 5 Not Available [facility] (Outpatient) [address] [place] [address], [address], 08/15/2019 14:08:47 08/15/19 20 08/15/2019 CMP, serum or plasm a glucose 143 mg/dL 70-99 high Not Available [facility] (Outpatient) [address] [place], [address], 08/15/2019 14:08:47 08/15/19 20 08/15/2019 CMP, serum or plasm a albumin 4.0 g/dL 3.9-4. 8 Not Available [facility] (Outpatient) [address] [place] [address], [address], 08/15/2019 14:08:47 08/15/19 20 08/15/2019 CMP, serum or plasm a total protein 7.1 g/dL 6.5-8. 0 Not Available [facility] (Outpatient) [address] [place] [address], [address], 08/15/2019 14:08:47 08/15/19 20 08/15/2019 CMP, serum or plasm a calcium 8.4 mg/dL 8.4-10 .3 Not Available [facility] (Outpatient) [address] [place] [address], [address], 08/15/2019 14:08:47 08/15/19 20 08/15/2019 CMP, serum or plasm a alkaline phosphatase 67 U/L 39-117 Not Available [facility] (Outpatient) [address] [place] [address], [address], 08/15/2019 14:08:47 08/15/19 20 08/15/2019 CMP, serum or plasm a total bilirubin <0.2 mg/dL 0.0-1. 2 Not Available [facility] (Outpatient) [address] [place] [address], [address], 08/15/2019 14:08:47 08/15/19 20 08/15/2019 CMP, serum or plasm a AST 70 U/L 0-37 high Not Available [facility] (Outpatient) [address] [place], [address], 08/15/2019 14:08:47 08/15/19 20 08/15/2019 CMP, serum or plasm a ALT 85 U/L 0-40 high Not Available [facility] (Outpatient) [address] [place], [id number], 08/15/2019 14:08:47 08/15/19 20 08/15/2019 CMP, serum or plasm a globulin 3.1 g/dL 1-4.8 Not Available [facility] (Outpatient) [address] [place], [address], 08/15/2019 14:08:47 08/15/19 20 08/15/2019 CMP, serum or plasm a eGFR >120 mL/mi n/1.7 3m2 >59 If patie nt is black , multi ply resul t by 1.159 . Estim ated glome rular filtr ation rate calcu lated using the CKD-E PI equat ion. Not Available [facility] [facility] [address] [place], [address], 08/15/2019 14:08:47 08/15/19 20 08/15/2019 CMP, serum or plasm a anion gap 17 mmol/ L 10-20 Not Available [facility] ([facility]) [address] [place], [address], 08/15/2019 14:08:47 08/15/19 20 08/15/2019 CBC w/ auto diff WBC 1.89 K/uL 4.00-1 1.00 low Note Refer ence Range updat es to all CBC and Diffe renti al resul ts. Not Available [facility] (Outpatient) [address] [place], [address], 08/15/2019 14:51:31 08/15/19 20 08/15/2019 CBC w/ auto diff RBC 4.65 M/uL 3.72-5 .30 Not Available [facility] (Outpatient) [address] [place], [address], 08/15/2019 14:51:31 08/15/19 20 08/15/2019 CBC w/ auto diff HGB 12.5 g/dL 11.0-1 5.2 Note updat ed Refer ence Range s for all CBC and Diffe renti al resul ts. Not Available [facility] (Outpatient) [address] [place], [address], 08/15/2019 14:51:31 08/15/19 20 08/15/2019 CBC w/ auto diff HCT 38.4 % 31.6-4 4.1 Not Available [facility] (Outpatient) [address] [place], [address], 08/15/2019 14:51:31 08/15/19 20 08/15/2019 CBC w/ auto diff plt 183 K/uL 140-43 0 Not Available [facility] (Outpatient) [address] [place], [address], 08/15/2019 14:51:31 08/15/19 20 08/15/2019 CBC w/ auto diff MCV 82.6 fL 78.0-9 7.0 Not Available [facility] (Outpatient) [address] [place], [address], 08/15/2019 14:51:31 08/15/19 20 08/15/2019 CBC w/ auto diff MCH 26.9 pg 25.0-3 3.0 Not Available [facility] ([facility]) [address] [place], [address], 08/15/2019 14:51:31 08/15/19 20 08/15/2019 CBC w/ auto diff MCHC 32.6 g/dL 32.0-3 6.0 Not Available [facility] ([facility]patient) [address] [place], [address], 08/15/2019 14:51:31 08/15/19 20 08/15/2019 CBC w/ auto diff RDW 13.2 % 11.0-1 6.0 Not Available [facility] ([facility] [address] [place], [address], 08/15/2019 14:51:31 08/15/19 20 08/15/2019 CBC w/ auto diff MPV 8.6 fL 8.4-12 .8 Not Available [facility] ([facility]) [address] [place], [address], 08/15/2019 14:51:31 08/15/19 20 08/15/2019 CBC w/ auto diff NRBC 0.00 /100_ WBCs 0 Not Available [facility] ([facility] [address] [place], [address], 08/15/2019 14:51:31 08/15/19 20 08/15/2019 CBC w/ auto diff absolute NRBC 0.00 K/uL 0 Not Available [facility] ([facility]) [address] [place], [address], 08/15/2019 14:51:31 08/15/19 20 08/15/2019 CBC w/ auto diff diff method Auto Not Available [facility] ([facility]) [address] [place], [address], 08/15/2019 14:51:31 08/15/19 20 08/15/2019 CBC w/ auto diff neuts 59.8 % 43.0-7 5.0 Not Available [facility] ([facility]) [address] [place], [address], 08/15/2019 14:51:31 08/15/19 20 08/15/2019 CBC w/ auto diff lymphs 34.4 % 18.2-4 7.4 Not Available [facility] (Outpatient) [address] [place], [address], 08/15/2019 14:51:31 08/15/19 20 08/15/2019 CBC w/ auto diff monos 5.8 % 4.00-1 1.00 Not Available [facility] ([facility]) [address] [place], [address], 08/15/2019 14:51:31 08/15/19 20 08/15/2019 CBC w/ auto diff eos 0.0 % 0.0-8. 0 Not Available [facility] ([facility]) [address] [place], [address], 08/15/2019 14:51:31 08/15/19 20 08/15/2019 CBC w/ auto diff basos 0.0 % 0.0-2. 0 Not Available [facility] (Out[facility]) [address] [place], [address], 08/15/2019 14:51:31 08/15/19 20 08/15/2019 CBC w/ auto diff granulocytes , immature (%) 0.0 % 0.0-0. 9 Not Available [facility] (Out[facility]) [address] [place], [address], 08/15/2019 14:51:31 08/15/19 20 08/15/2019 CBC w/ auto diff absolute neuts 1.13 K/uL 1.80-7 .70 low Not Available [facility] ([facility]) [address] [place], [address], 08/15/2019 14:51:31 08/15/19 20 08/15/2019 CBC w/ auto diff absolute lymphs 0.65 K/uL 1.00-3 .10 low Not Available [facility] (Outpatient) [address] [place], [address], 08/15/2019 14:51:31 08/15/19 20 08/15/2019 CBC w/ auto diff absolute monos 0.11 K/uL 0.20-0 .80 low Not Available [facility] (Out[facility]) [address] [place], [address], 08/15/2019 14:51:31 08/15/19 20 08/15/2019 CBC w/ auto diff absolute eos 0.00 K/uL 0.00-0 .80 Not Available [facility] ([facility]) [address] [place], [address], 08/15/2019 14:51:31 08/15/19 20 08/15/2019 CBC w/ auto diff absolute basos 0.00 K/uL 0.00-0 .09 Not Available [facility] ([facility]) [address] [place], [address], 08/15/2019 14:51:31 08/15/19 20 08/15/2019 CBC w/ auto diff granulocytes , immature 0.00 K/uL 0.00-0 .05 Not Available [facility] ([facility]) [address] [place], [address], 08/15/2019 14:51:31 08/16/19 20 08/16/2019 CBC w/ auto diff WBC 2.51 K/uL 4.00-1 1.00 low Note Refer ence Range updat es to all CBC and Diffe renti al resul ts. Not Available [facility] ([facility]) [address] [place], [address], 08/16/2019 06:48:31 08/16/19 20 08/16/2019 CBC w/ auto diff RBC 4.54 M/uL 3.72-5 .30 Not Available [facility] (Out[facility]) [address] [place], [address], 08/16/2019 06:48:31 08/16/19 20 08/16/2019 CBC w/ auto diff HGB 12.4 g/dL 11.0-1 5.2 Note updat ed Refer ence Range s for all CBC and Diffe renti al resul ts. Not Available [facility] ([facility]) [address] [place], [address], 08/16/2019 06:48:31 08/16/19 20 08/16/2019 CBC w/ auto diff HCT 36.5 % 31.6-4 4.1 Not Available [facility] ([facility]) [address] [place], [address], 08/16/2019 06:48:31 08/16/19 20 08/16/2019 CBC w/ auto diff plt 182 K/uL 140-43 0 Not Available [facility] ([facility]) [address] [place], [address], 08/16/2019 06:48:31 08/16/19 20 08/16/2019 CBC w/ auto diff MCV 80.4 fL 78.0-9 7.0 Not Available [facility] ([facility]) [address] [place], [address], 08/16/2019 06:48:31 08/16/19 20 08/16/2019 CBC w/ auto diff MCH 27.3 pg 25.0-3 3.0 Not Available [facility] ([facility]) [address] [place], [address], 08/16/2019 06:48:31 08/16/19 20 08/16/2019 CBC w/ auto diff MCHC 34.0 g/dL 32.0-3 6.0 Not Available [facility] ([facility]) [address] [place], [address], 08/16/2019 06:48:31 08/16/19 20 08/16/2019 CBC w/ auto diff RDW 13.0 % 11.0-1 6.0 Not Available [facility] ([facility]) [address] [place], [address], 08/16/2019 06:48:31 08/16/19 20 08/16/2019 CBC w/ auto diff MPV 8.5 fL 8.4-12 .8 Not Available [facility] ([facility]) [address] [place], [address], 08/16/2019 06:48:31 08/16/19 20 08/16/2019 CBC w/ auto diff NRBC 0.00 /100_ WBCs 0 Not Available [facility] ([facility]) [address] [place], [address], 08/16/2019 06:48:31 08/16/19 20 08/16/2019 CBC w/ auto diff absolute NRBC 0.00 K/uL 0 Not Available [facility] ([facility]) [address] [place], [address], 08/16/2019 06:48:31 08/16/19 20 08/16/2019 CBC w/ auto diff diff method Auto Not Available [facility] ([facility]) [address] [place], [address], 08/16/2019 06:48:31 08/16/19 20 08/16/2019 CBC w/ auto diff neuts 43.4 % 43.0-7 5.0 Not Available [facility] ([facility]) [address] [place], [address], 08/16/2019 06:48:31 08/16/19 20 08/16/2019 CBC w/ auto diff lymphs 51.4 % 18.2-4 7.4 high Not Available [facility] (Out[facility]) [address] [place], [address], 08/16/2019 06:48:31 08/16/19 20 08/16/2019 CBC w/ auto diff monos 5.2 % 4.00-1 1.00 Not Available [facility] ([facility]) [address] [place], [address], 08/16/2019 06:48:31 08/16/19 20 08/16/2019 CBC w/ auto diff eos 0.0 % 0.0-8. 0 Not Available [facility] ([facility]) [address] [place], [address], 08/16/2019 06:48:31 08/16/19 20 08/16/2019 CBC w/ auto diff basos 0.0 % 0.0-2. 0 Not Available [facility] ([facility]) [address] [place], [address], 08/16/2019 06:48:31 08/16/19 20 08/16/2019 CBC w/ auto diff granulocytes , immature (%) 0.0 % 0.0-0. 9 Not Available [facility] ([facility]) [address] [place], [address], 08/16/2019 06:48:31 08/16/19 20 08/16/2019 CBC w/ auto diff absolute neuts 1.09 K/uL 1.80-7 .70 low Not Available [facility] ([facility]) [address] [place], [address], 08/16/2019 06:48:31 08/16/19 20 08/16/2019 CBC w/ auto diff absolute lymphs 1.29 K/uL 1.00-3 .10 Not Available [facility] ([facility]) [address] [place], [address], 08/16/2019 06:48:31 08/16/19 20 08/16/2019 CBC w/ auto diff absolute monos 0.13 K/uL 0.20-0 .80 low Not Available [facility] (Outpatient) [address] [place], [address], 08/16/2019 06:48:31 08/16/19 20 08/16/2019 CBC w/ auto diff absolute eos 0.00 K/uL 0.00-0 .80 Not Available [facility] (Outpatient) [address] [place], [address], 08/16/2019 06:48:31 08/16/19 20 08/16/2019 CBC w/ auto diff absolute basos 0.00 K/uL 0.00-0 .09 Not Available [facility] (Outpatient) [address] [place], [address], 08/16/2019 06:48:31 08/16/19 20 08/16/2019 CBC w/ auto diff granulocytes , immature 0.00 K/uL 0.00-0 .05 Not Available [facility] (Out[facility]) [address] [place], [address], 08/16/2019 06:48:31 08/16/19 20 08/16/2019 CMP, serum or plasm a sodium 139 mmol/ L 133-14 6 Not Available [facility] (Out[facility]) [address] [place], [address], 08/16/2019 07:42:10 08/16/19 20 08/16/2019 CMP, serum or plasm a potassium 3.2 mmol/ L 3.3-5. 1 low Not Available [facility] (Outpatient) [address] [place], [address], 08/16/2019 07:42:10 08/16/19 20 08/16/2019 CMP, serum or plasm a chloride 104 mmol/ L 96-108 Not Available [facility] ([facility]patient) [address] [place], [address], 08/16/2019 07:42:10 08/16/19 20 08/16/2019 CMP, serum or plasm a CO2 21 mmol/ L 21-35 Not Available [facility] ([facility]) [address] [place], [address], 08/16/2019 07:42:10 08/16/19 20 08/16/2019 CMP, serum or plasm a BUN 3 mg/dL 6-19 low Not Available [facility] ([facility]) [address] [place], [address], 08/16/2019 07:42:10 08/16/19 20 08/16/2019 CMP, serum or plasm a creatinine 0.60 mg/dL 0.5-1. 5 Not Available [facility] (Outpatient) [address] [place], [address], 08/16/2019 07:42:10 08/16/19 20 08/16/2019 CMP, serum or plasm a glucose 106 mg/dL 70-99 high Not Available [facility] ([facility]) [address] [place], [address], 08/16/2019 07:42:10 08/16/19 20 08/16/2019 CMP, serum or plasm a albumin 4.0 g/dL 3.9-4. 8 Not Available [facility] (Outpatient) [address] [place], [address], 08/16/2019 07:42:10 08/16/19 20 08/16/2019 CMP, serum or plasm a total protein 7.0 g/dL 6.5-8. 0 Not Available [facility] (Outpatient) [address] [place], [address], 08/16/2019 07:42:10 08/16/19 20 08/16/2019 CMP, serum or plasm a calcium 8.3 mg/dL 8.4-10 .3 low Not Available [facility] (Outpatient) [address] [place], [address], 08/16/2019 07:42:10 08/16/19 20 08/16/2019 CMP, serum or plasm a alkaline phosphatase 63 U/L 39-117 Not Available [facility] (Out[facility]) [address] [place], [address], 08/16/2019 07:42:10 08/16/19 20 08/16/2019 CMP, serum or plasm a total bilirubin 0.2 mg/dL 0.0-1. 2 Not Available [facility] (Outpatient) [address] [place], [address], 08/16/2019 07:42:10 08/16/19 20 08/16/2019 CMP, serum or plasm a AST 65 U/L 0-37 high Not Available [facility] (Out[facility]) [address] [place] [address], [address], 08/16/2019 07:42:10 08/16/19 20 08/16/2019 CMP, serum or plasm a ALT 73 U/L 0-40 high Not Available [facility] (Outpatient) [address] [place], [address], 08/16/2019 07:42:10 08/16/19 20 08/16/2019 CMP, serum or plasm a globulin 3.0 g/dL 1-4.8 Not Available [facility] (Outpatient) [address] [place] [address], [address], 08/16/2019 07:42:10 08/16/19 20 08/16/2019 CMP, serum or plasm a eGFR >120 mL/mi n/1.7 3m2 >59 If patie nt is black , multi ply resul t by 1.159 . Estim ated glome rular filtr ation rate calcu lated using the CKD-E PI equat ion. Not Available [facility] (Outpatient) [address] [place] [address], [address], 08/16/2019 07:42:10 08/16/19 20 08/16/2019 CMP, serum or plasm a anion gap 17 mmol/ L 10-20 Not Available [facility] (Outpatient) [address] [place] [address], [address], 08/16/2019 07:42:10 08/16/19 20 08/16/2019 magne sium, QN, serum or plasm a magnesium 1.7 mg/dL 1.6-2. 6 Not Available [facility] (Outpatient) [address] [place] [address], [address], 08/16/2019 08:02:22 08/17/19 20 08/18/2019 HIV-1 /2 antig en/an tibod y HIV 1/2 antibody screen NON-RE ACTIVE non-re active Not Available [facility] (Outpatient) [address] [place], [address], 08/18/2019 11:41:16 08/17/19 20 08/18/2019 HIV-1 /2 antig en/an tibod y HIV-1 antigen NON-RE ACTIVE non-re active Not Available [facility] (Outpatient) [address] [place], [address], 08/18/2019 11:41:16 12/25/19 21 12/24/2020 daniel mariola respi rator y viral order (pro) test ordered Rapid COVID has been ordere d Not Available [facility] (Outpatient) [address] [place], [address], 12/24/2020 05:46:36 12/25/19 21 12/24/2020 daniel mariola respi rator y viral order (pro) specimen source NASAL Not Available [facility] (Outpatient) [address] [place], [address], 12/24/2020 05:46:36 12/25/19 21 12/24/2020 daniel mariola [...] histo ry, and epide miolo gical infor matdoni hernandez Testi ng was perfo rmed using the Abbot t ID NOW COVID -19 assay perfo rmed on the Abbot t ID NOW Instr ument . Fact sheet s for this Emerg ency Use Autho rizat ion can be found at the [facility] links : For Healt hcare Provi ders: https ://ww w.[employer] .gov/ media /1365 23/do wnloa d For Patie nts: https ://ww w.[employer] .gov. media /1365 24/do wnloa d. Not Available [facility] (Outpatient) [address] [place], [address], 12/24/2020 05:46:36 12/25/19 21 12/24/2020 gas panel , venou s blood pH, venous 7.37 7.31-7 .41 Not Available [facility] (Outpatient) [address] [place], [address], 12/24/2020 05:58:33 12/25/19 21 12/24/2020 gas panel , venou s blood pCO2, venous 40.00 mmHg 41.00- 51.00 low Not Available [facility] (Outpatient) [address] [place], [address], 12/24/2020 05:58:33 12/25/19 21 12/24/2020 gas panel , venou s blood pO2, venous 26.10 mmHg 35.00- 40.00 low Not Available [facility] (Outpatient) [address] [place], [address], 12/24/2020 05:58:33 12/25/19 21 12/24/2020 gas panel , venou s blood HCO3, venous 23 mmol/ L 23-28 Not Available [facility] (Outpatient) [address] [place], [address], 12/24/2020 05:58:33 12/25/19 21 12/24/2020 gas panel , venou s blood base deficit venous 2.2 mmol/ L 0.0-2. 0 high Not Available [facility] (Out[facility]) [address] [place], [address], 12/24/2020 05:58:33 12/25/19 21 12/24/2020 gas panel , venou s blood so2, venous 47.10 % 60.00- 80.00 low Not Available [facility] (Out[facility]) [address] [place] [address], [address], 12/24/2020 05:58:33 12/25/19 21 12/24/2020 gas panel , venou s blood fo2hb, venous 46.50 % 71.00- 74.00 low Not Available [facility] (Outpatient) [address] [place], [address], 12/24/2020 05:58:33 12/25/19 21 12/24/2020 gas panel , venou s blood carboxy HGB 1.30 % 0-1.50 Not Available [facility] (Outpatient) [address] [place] [address], [address], 12/24/2020 05:58:33 12/25/19 21 12/24/2020 gas panel , venou s blood methgb % 0.00 % 0-1.50 Not Available [facility] (Outpatient) [address] [place] [address], [address], 12/24/2020 05:58:33 12/25/19 21 12/24/2020 lacta te lactate 1.86 mmol/ L 0.50-2 .20 Not Available [facility] (Outpatient) [address] [place] [address], [address], 12/24/2020 05:58:35 12/25/19 21 12/24/2020 CBC w/ auto diff WBC 7.26 K/uL 4.00-1 1.00 Not Available [facility] (Outpatient) [address] [place] [address], [address], 12/24/2020 06:01:16 12/25/19 21 12/24/2020 CBC w/ auto diff RBC 4.33 M/uL 3.72-5 .30 Not Available [facility] (Outpatient) [address] [place] [address], [address], 12/24/2020 06:01:16 12/25/19 21 12/24/2020 CBC w/ auto diff HGB 11.8 g/dL 11.0-1 5.2 Not Available [facility] (Outpatient) [address] [place] [address], [address], 12/24/2020 06:01:16 12/25/19 21 12/24/2020 CBC w/ auto diff HCT 36.9 % 31.6-4 4.1 Not Available [facility] (Outpatient) [address] [place] [address], [address], 12/24/2020 06:01:16 12/25/19 21 12/24/2020 CBC w/ auto diff plt 264 K/uL 140-43 0 Not Available [facility] (Outpatient) [address] [place] [address], [address], 12/24/2020 06:01:16 12/25/19 21 12/24/2020 CBC w/ auto diff MCV 85.2 fL 78.0-9 7.0 Not Available [facility] (Outpatient) [address] [place] [address], [address], 12/24/2020 06:01:16 12/25/19 21 12/24/2020 CBC w/ auto diff MCH 27.3 pg 25.0-3 3.0 Not Available [facility] (Outpatient) [address] [place] [address], [address], 12/24/2020 06:01:16 12/25/19 21 12/24/2020 CBC w/ auto diff MCHC 32.0 g/dL 32.0-3 6.0 Not Available [facility] (Outpatient) [address] [place] [address], [address], 12/24/2020 06:01:16 12/25/19 21 12/24/2020 CBC w/ auto diff RDW 13.0 % 11.0-1 6.0 Not Available [facility] (Outpatient) [address] [place], [address], 12/24/2020 06:01:16 12/25/19 21 12/24/2020 CBC w/ auto diff MPV 9.0 fL 8.4-12 .8 Not Available [facility] (Outpatient) [address] [place], [address], 12/24/2020 06:01:16 12/25/19 21 12/24/2020 CBC w/ auto diff NRBC 0.00 /100_ WBCs 0 Not Available [facility] (Outpatient) [address] [place] [address], [address], 12/24/2020 06:01:16 12/25/19 21 12/24/2020 CBC w/ auto diff absolute NRBC 0.00 K/uL 0 Not Available [facility] (Outpatient) [address] [place], [address], 12/24/2020 06:01:16 12/25/19 21 12/24/2020 CBC w/ auto diff diff method Auto Not Available [facility] (Out[facility]) [address] [place] [address], [address], 12/24/2020 06:01:16 12/25/19 21 12/24/2020 CBC w/ auto diff neuts 81.2 % 43.0-7 5.0 high Not Available [facility] (Outpatient) [address] [place], [address], 12/24/2020 06:01:16 12/25/19 21 12/24/2020 CBC w/ auto diff lymphs 12.1 % 18.2-4 7.4 low Not Available [facility] (Outpatient) [address] [place] [address], [address], 12/24/2020 06:01:16 12/25/19 21 12/24/2020 CBC w/ auto diff monos 5.9 % 4.00-1 1.00 Not Available [facility] (Outpatient) [address] [place] [address], [address], 12/24/2020 06:01:16 12/25/19 21 12/24/2020 CBC w/ auto diff eos 0.0 % 0.0-8. 0 Not Available [facility] (Outpatient) [address] [place] [address], [address], 12/24/2020 06:01:16 12/25/19 21 12/24/2020 CBC w/ auto diff basos 0.4 % 0.0-2. 0 Not Available [facility] (Outpatient) [address] [place] [address], [address], 12/24/2020 06:01:16 12/25/19 21 12/24/2020 CBC w/ auto diff granulocytes , immature (%) 0.4 % 0.0-0. 9 Not Available [facility] (Outpatient) [address] [place] [address], [address], 12/24/2020 06:01:16 12/25/19 21 12/24/2020 CBC w/ auto diff absolute neuts 5.89 K/uL 1.80-7 .70 Not Available [facility] (Outpatient) [address] [place] [address], [address], 12/24/2020 06:01:16 12/25/19 21 12/24/2020 CBC w/ auto diff absolute lymphs 0.88 K/uL 1.00-3 .10 low Not Available [facility] (Outpatient) [address] [place] [address], [address], 12/24/2020 06:01:16 12/25/19 21 12/24/2020 CBC w/ auto diff absolute monos 0.43 K/uL 0.20-0 .80 Not Available [facility] (Outpatient) [address] [place] [address], [address], 12/24/2020 06:01:16 12/25/19 21 12/24/2020 CBC w/ auto diff absolute eos 0.00 K/uL 0.00-0 .80 Not Available [facility] (Out[facility]) [address] [place], [address], 12/24/2020 06:01:16 12/25/19 21 12/24/2020 CBC w/ auto diff absolute basos 0.03 K/uL 0.00-0 .09 Not Available [facility] (Outpatient) [address] [place], [address], 12/24/2020 06:01:16 12/25/19 21 12/24/2020 CBC w/ auto diff granulocytes , immature 0.03 K/uL 0.00-0 .05 Not Available [facility] (Outpatient) [address] [place], [address], 12/24/2020 06:01:16 12/25/19 21 12/24/2020 D-dim er, quant , plasm a D-dimer 1601 NG/mL _feu <500 high In patie nts with low to moder ate pre-t est proba bilit y score s for VTE (PE or DVT), a D-Dim er cut-o ff less than 500 ng/mL (FEU) has a negat brandon predi ctive value (NPV) of 97 to 100%. Not Available [facility] (Outpatient) [address] [place], [address], 12/24/2020 06:10:43 12/25/19 21 12/24/2020 CK (crea varsha kinas e), total , serum creatine kinase 101 U/L Not Available [facility] (Outpatient) [address] [place], [address], 12/24/2020 06:20:24 12/25/19 21 12/24/2020 BMP, blood sodium 142 mmol/ L 133-14 6 Not Available [facility] (Outpatient) [address] [place], [address], 12/24/2020 06:23:40 12/25/19 21 12/24/2020 BMP, blood chloride 107 mmol/ L 96-108 Not Available [facility] (Outpatient) [address] [place], [address], 12/24/2020 06:23:40 12/25/19 21 12/24/2020 BMP, blood potassium 4.3 mmol/ L 3.3-5. 1 Not Available [facility] (Outpatient) [address] [place], [address], 12/24/2020 06:23:40 12/25/19 21 12/24/2020 BMP, blood CO2 24 mmol/ L 21-35 Not Available [facility] (Out[facility]) [address] [place], [address], 12/24/2020 06:23:40 12/25/19 21 12/24/2020 BMP, blood BUN 12 mg/dL 6-19 Not Available [facility] (Out[facility]) [address] [place], [address], 12/24/2020 06:23:40 12/25/19 21 12/24/2020 BMP, blood creatinine 0.80 mg/dL 0.5-1. 5 Not Available [facility] (Outpatient) [address] [place], [address], 12/24/2020 06:23:40 12/25/19 21 12/24/2020 BMP, blood glucose 96 mg/dL 70-99 Not Available [facility] (Out[facility]) [address] [place], [address], 12/24/2020 06:23:40 12/25/19 21 12/24/2020 BMP, blood calcium 9.2 mg/dL 8.4-10 .3 Not Available [facility] (Outpatient) [address] [place], [address], 12/24/2020 06:23:40 12/25/19 21 12/24/2020 BMP, blood eGFR 100 mL/mi n/1.7 3m2 >59 Estim ated glome rular filtr ation rate calcu lated using the CKD-E PI equat ion. Not Available [facility] (Outpatient) [address] [place], [address], 12/24/2020 06:23:40 12/25/19 21 12/24/2020 BMP, blood anion gap 15 mmol/ L 10-20 Not Available [facility] (Outpatient) [address] [place], [address], 12/24/2020 06:23:40 12/25/19 21 12/24/2020 lfts (hepa tic panel ) alkaline phosphatase 77 U/L 39-117 Not Available [facility] (Outpatient) [address] [place], [address], 12/24/2020 06:23:42 12/25/19 21 12/24/2020 lfts (hepa tic panel ) total bilirubin 0.2 mg/dL 0.0-1. 2 Not Available [facility] (Outpatient) [address] [place], [address], 12/24/2020 06:23:42 12/25/19 21 12/24/2020 lfts (hepa tic panel ) direct bilirubin <0.2 mg/dL 0-0.3 Not Available [facility] (Outpatient) [address] [place], [address], 12/24/2020 06:23:42 12/25/19 21 12/24/2020 lfts (hepa tic panel ) bilirubin (indirect) NOT CALCUL ATED mg/dL 0-1.5 Not Available [facility] (Outpatient) [address] [place], [address], 12/24/2020 06:23:42 12/25/19 21 12/24/2020 [facility] (hepa tic panel ) AST 18 U/L 0-37 Not Available [facility] (Outpatient) [address] [place], [address], 12/24/2020 06:23:42 12/25/19 21 12/24/2020 [facility] (hepa tic panel ) ALT 15 U/L 0-40 Not Available [facility] (Outpatient) [address] [place], [address], 12/24/2020 06:23:42 12/25/19 21 12/24/2020 [facility] (hepa tic panel ) total protein 6.8 g/dL 6.5-8. 0 Not Available [facility] (Outpatient) [address] [place], [address], 12/24/2020 06:23:42 12/25/19 21 12/24/2020 [facility] (hepa tic panel ) albumin 4.0 g/dL 3.9-4. 8 Not Available [facility] (Outpatient) [address] [place], [address], 12/24/2020 06:23:42 12/25/19 21 12/24/2020 lfts (hepa tic panel ) globulin 2.8 g/dL 1-4.8 Not Available [facility] (Outpatient) [address] [place], [address], 12/24/2020 06:23:42 12/25/19 21 12/24/2020 lfts (hepa tic panel ) A/G ratio 1.43 ratio 1.00-4 .80 Not Available [facility] (Outpatient) [address] [place], [address], 12/24/2020 06:23:42 12/25/19 12/24/2020 magne sium, QN, serum or plasm a magnesium 1.4 mg/dL 1.6-2. 6 low Not Available [facility] (Outpatient) [address] [place] [address], [address], 12/24/2020 06:23:43 12/25/19 21 12/24/2020 hCG, quali tativ e, serum HCG, qualitative Negati ve IU/L negati ve Not Available [facility] (Outpatient) [address] [place], [address], 12/24/2020 06:23:43 12/25/19 21 12/24/2020 aceta minop hen, serum acetaminophe n <5.0 ug/mL 15.0-3 0.0 low Not Available [facility] (Outpatient) [address] [place] [address], [address], 12/24/2020 06:32:06 12/25/19 21 12/24/2020 freedom ol, quant itati ve, serum or plasm a ethanol <10 mg/dL <10 Not Available [facility] (Outpatient) [address] [place] [address], [address], 12/24/2020 06:32:09 12/25/19 21 12/24/2020 salic ylate , quant itati ve, serum salicylates <0.3 mg/dL 2.8-19 .9 low Not Available [facility] (Outpatient) [address] [place] [address], [address], 12/24/2020 06:32:27 12/25/19 21 12/24/2020 gas panel , arter ial blood pH, arterial 7.39 7.35-7 .45 Not Available [facility] (Outpatient) [address] [place] [address], [address], 12/24/2020 07:38:46 12/25/19 21 12/24/2020 gas panel , arter ial blood pCO2, arterial 34.30 mmHg 35.00- 45.00 low Not Available [facility] (Outpatient) [address] [place], [address], 12/24/2020 07:38:46 12/25/19 21 12/24/2020 gas panel , arter ial blood pO2, arterial 53.00 mmHg 80.00- 105.00 critical low Criti merry value : Resul ts roger d to and read back by: MASOUD Ramirez Not Available [facility] (Outpatient) [address] [place], [address], 12/24/2020 07:38:46 12/25/19 21 12/24/2020 gas panel , arter ial blood HCO3, unspecified 20 mmol/ L 22-26 low Not Available [facility] (Outpatient) [address] [place], [address], 12/24/2020 07:38:46 12/25/19 21 12/24/2020 gas panel , arter ial blood base deficit 3.9 mmol/ L 0.0-2. 0 high Not Available [facility] (Outpatient) [address] [place] [address], [address], 12/24/2020 07:38:46 12/25/19 21 12/24/2020 gas panel , arter ial blood so2, unspecified 88.40 % 95.00- 98.00 low Not Available [facility] (Outpatient) [address] [place], [address], 12/24/2020 07:38:46 12/25/19 21 12/24/2020 gas panel , arter ial blood fo2hb blood gas 88.00 % 94.00- 100.00 low Not Available [facility] (Outpatient) [address] [place] [address], [address], 12/24/2020 07:38:46 12/25/19 21 12/24/2020 gas panel , arter ial blood carboxy HGB 0.30 % 0-1.50 Not Available [facility] (Outpatient) [address] [place], [address], 12/24/2020 07:38:46 12/25/19 21 12/24/2020 gas panel , arter ial blood methgb % 0.10 % 0-1.50 Not Available [facility] (Outpatient) [address] [place], [address], 12/24/2020 07:38:46 12/25/19 21 12/24/2020 gas panel , arter ial blood ludivina's test Positi ve Not Available [facility] (Outpatient) [address] [place], [address], 12/24/2020 07:38:46 12/25/19 21 12/24/2020 gas panel , arter ial blood ABG site Not Provid ed Not Available [facility] (Outpatient) [address] [place], [address], 12/24/2020 07:38:46 12/25/19 21 12/24/2020 gas panel , arter ial blood FiO2 Not Provid ed FiO2/ L_min Not Available [facility] (Outpatient) [address] [place], [address], 12/24/2020 07:38:46 12/25/19 21 12/24/2020 gas panel , arter ial blood oxygen liters/min Not Provid ed Not Available [facility] (Outpatient) [address] [place], [address], 12/24/2020 07:38:46 12/25/19 21 12/24/2020 lacta te lactate 1.88 mmol/ L 0.50-2 .20 Not Available [facility] (Outpatient) [address] [place], [address], 12/24/2020 08:11:16 12/25/19 21 12/24/2020 TSH, serum or plasm a TSH 0.97 uIU/m L 0.27-4 .20 Not Available [facility] (Outpatient) [address] [place], [address], 12/24/2020 08:44:40 12/25/19 21 12/24/2020 urina lysis , refle x cultu re color Yellow yellow Not Available [facility] (Outpatient) [address] [place], [address], 12/24/2020 09:47:50 12/25/19 21 12/24/2020 urina lysis , refle x cultu re clarity Clear Not Available [facility] (Outpatient) [address] [place], [address], 12/24/2020 09:47:50 12/25/19 21 12/24/2020 urina lysis , refle x cultu re glucose Negati ve negati ve Not Available [facility] (Outpatient) [address] [place], [address], 12/24/2020 09:47:50 12/25/19 21 12/24/2020 urina lysis , refle x cultu re bili Negati ve negati ve Not Available [facility] (Outpatient) [address] [place], [address], 12/24/2020 09:47:50 12/25/19 21 12/24/2020 urina lysis , refle x cultu re ketones Negati ve negati ve Not Available [facility] (Outpatient) [address] [place], [address], 12/24/2020 09:47:50 12/25/19 21 12/24/2020 urina lysis , refle x cultu re specific gravity 1.020 1.005- 1.030 Not Available [facility] (Outpatient) [address] [place] [address], [address], 12/24/2020 09:47:50 12/25/19 21 12/24/2020 urina lysis , refle x cultu re blood Negati ve negati ve Not Available [facility] (Outpatient) [address] [place], [address], 12/24/2020 09:47:50 12/25/19 21 12/24/2020 urina lysis , refle x cultu re pH 7.0 5.0-8. 0 Not Available [facility] (Outpatient) [address] [place], [address], 12/24/2020 09:47:50 12/25/19 21 12/24/2020 urina lysis , refle x cultu re protein Negati ve negati ve Not Available [facility] (Outpatient) [address] [place], [address], 12/24/2020 09:47:50 12/25/19 21 12/24/2020 urina lysis , refle x cultu re nitrite Negati ve negati ve Not Available [facility] (Outpatient) [address] [place], [address], 12/24/2020 09:47:50 12/25/19 21 12/24/2020 urina lysis , refle x cultu re leukocyte esterase, ur Negati ve negati ve Not Available [facility] (Outpatient) [address] [place], [address], 12/24/2020 09:47:50 12/25/19 21 12/24/2020 refer ence lab test panel tests requested [employer] RESPIR ATORY PATHOG EN PCR PANEL Not Available [facility] (Outpatient) [address] [place] [address], [address], 12/24/2020 10:01:10 12/25/19 21 12/24/2020 refer ence lab test panel specimen/tub e type NASOPH ARYNGE AL SWAB Not Available [facility] (Outpatient) [address] [place], [address], 12/24/2020 10:01:10 12/25/19 21 12/24/2020 refer ence lab test panel request received Reque st recei lis. A separ ate order for the reque sted test will be gener ated by the labor atory . Not Available [facility] (Outpatient) [address] [facility], [place], [address], 12/24/2020 10:01:10 12/25/19 21 12/24/2020 daniel mariola respi rator y viral order (pro) test ordered Rapid COVID has been ordere d Not Available [facility] (Outpatient) [address] [place], [address], 12/24/2020 11:31:22 12/25/19 21 12/24/2020 daniel mariola respi rator y viral order (pro) specimen source/descr iption NASAL Not Available [facility] (Outpatient) [address] [place], [address], 12/24/2020 11:31:22 12/25/19 21 12/24/2020 daniel mariola [...] histo ry, and epide miolo gical infor matio n. This test has been autho rized by the FDA under an Emerg ency Use Autho rizat ion (EUA) for use by autho rized labor atori es. Not Available [facility] (Outpatient) [address] [place], [address], 12/24/2020 11:31:22 12/25/19 21 12/24/2020 mrsa scree n, PCR MRSA PCR screen Negati ve negati ve The Xpert MRSA Assay is inten ded to aid in the preve ntion and contr ol of MRSA infec tions in [facility]. The assay is not inten ded to diagn ose nor to guide or monit or treat ment for MRSA infec tions . Not Available [facility] (Outpatient) [address] [place], [address], 12/24/2020 11:43:23 12/25/19 21 12/24/2020 toxic ology scree n, urine urine cannabinoids Positi ve none detect ed abnormal Cutof f: 50 ng/mL Not Available [facility] (Outpatient) [address] [place], [address], 12/24/2020 12:51:40 12/25/19 21 12/24/2020 toxic ology scree n, urine urine cocaine metab Positi ve none detect ed abnormal Cutof f: 300 ng/mL Not Available [facility] (Outpatient) [address] [place], [address], 12/24/2020 12:51:40 12/25/19 21 12/24/2020 toxic ology scree n, urine urine amphetamines NONE DETECT ED none detect ed Cutof f: 1000 ng/mL Not Available [facility] (Outpatient) [address] [place], [address], 12/24/2020 12:51:40 12/25/19 21 12/24/2020 toxic ology scree n, urine urine methadone NONE DETECT ED none detect ed Cutof f: 300 ng/mL Not Available [facility] (Outpatient) [address] [place], [address], 12/24/2020 12:51:40 12/25/19 21 12/24/2020 toxic ology scree n, urine urine opiates Positi ve none detect ed abnormal Cutof f: 300 ng/mL Not Available [facility] (Outpatient) [address] [place], [address], 12/24/2020 12:51:40 12/25/19 21 12/24/2020 toxic ology scree n, urine urine phencyclidin e NONE DETECT ED none detect ed Cutof f: 25 ng/mL Not Available [facility] (Outpatient) [address] [place], [address], 12/24/2020 12:51:40 12/25/19 21 12/24/2020 toxic ology scree n, urine urine oxycodone NONE DETECT ED none detect ed Cutof f: 100 ng/ml Not Available [facility] (Outpatient) [address] [place] [address], [address], 12/24/2020 12:51:40 12/25/19 21 12/24/2020 toxic ology scree n, urine urine barbiturates NONE DETECT ED none detect ed Cutof f: 300 ng/mL Not Available [facility] (Outpatient) [address] [place] [address], [address], 12/24/2020 12:51:40 12/25/19 21 12/24/2020 toxic ology scree n, urine urine benzodiazepi ne Positi ve none detect ed abnormal Cutof f: 300 ng/mL INTER PRETA TION FOR TOXIC OLOGY PANEL : Thes e resul ts are uncon firme d and shoul d be used for Medic al Treat ment purpo ses only. Not Available [facility] (Outpatient) [address] [place], [address], 12/24/2020 12:51:40 12/25/19 21 12/24/2020 toxic ology scree n, urine urine buprenorphin e NONE DETECT ED none detect ed Cutof f: 5 ng/mL INTER PRETA TION FOR TOXIC OLOGY PANEL : Thes e resul ts are uncon firme d and shoul d be used for Medic al Treat ment purpo ses only. Not Available [facility] (Outpatient) [address] [place], [address], 12/24/2020 12:51:40 12/25/19 21 12/25/2020 respi rator y patho gen PCR panel specimen source DELORIS LONGO AL SWAB Not Available [facility] (Outpatient) [address] [place], [address], 12/25/2020 18:53:02 12/25/19 21 12/25/2020 respi rator y patho gen PCR panel adenovirus Undete cted undete cted Not Available [facility] (Outpatient) [address] [place], [address], 12/25/2020 18:53:02 12/25/19 21 12/25/2020 respi rator y patho gen PCR panel coronavirus 229E Undete cted undete cted Not Available [facility] (Outpatient) [address] [place], [address], 12/25/2020 18:53:02 12/25/19 21 12/25/2020 respi rator y patho gen PCR panel coronavirus hku1 Undete cted undete cted Not Available [facility] (Outpatient) [address] [place], [address], 12/25/2020 18:53:02 12/25/19 21 12/25/2020 respi rator y patho gen PCR panel coronavirus nl63 Undete cted undete cted Not Available [facility] (Outpatient) [address] [place], [address], 12/25/2020 18:53:02 12/25/19 21 12/25/2020 respi rator y patho gen PCR panel coronavirus oc43 Undete cted undete cted Not Available [facility] (Outpatient) [address] [place], [address], 12/25/2020 18:53:02 12/25/19 21 12/25/2020 respi rator y patho gen PCR panel sars coronavirus- 2 Undete cted undete cted Not Available [facility] (Outpatient) [address] [place], [address], 12/25/2020 18:53:02 12/25/19 21 12/25/2020 respi rator y patho gen PCR panel human metapneumovi amaury Undete cted undete cted Not Available [facility] (Outpatient) [address] [place], [address], 12/25/2020 18:53:02 12/25/19 21 12/25/2020 respi rator y patho gen PCR panel human rhinovirus/ enterovirus Detect ed undete cted abnormal Not Available [facility] (Outpatient) [address] [place], [address], 12/25/2020 18:53:02 12/25/19 21 12/25/2020 respi rator y patho gen PCR panel influenza A Undete cted undete cted Not Available [facility] (Outpatient) [address] [place], [address], 12/25/2020 18:53:02 12/25/19 21 12/25/2020 respi rator y patho gen PCR panel influenza B Undete cted undete cted Not Available [facility] (Outpatient) [address] [place], [address], 12/25/2020 18:53:02 12/25/19 21 12/25/2020 respi rator y patho gen PCR panel parainfluenz a virus 1 Undete cted undete cted Not Available [facility] (Outpatient) [address] [place], [address], 12/25/2020 18:53:02 12/25/19 21 12/25/2020 respi rator y patho gen PCR panel parainfluenz a virus 2 Undete cted undete cted Not Available [facility] (Outpatient) [address] [place], [address], 12/25/2020 18:53:02 12/25/19 21 12/25/2020 respi rator y patho gen PCR panel parainfluenz a virus 3 Undete cted undete cted Not Available [facility] (Outpatient) [address] [place], [address], 12/25/2020 18:53:02 12/25/19 21 12/25/2020 respi rator y patho gen PCR panel parainfluenz a virus 4 Undete cted undete cted Not Available [facility] (Outpatient) [address] [place], [address], 12/25/2020 18:53:02 12/25/19 21 12/25/2020 respi rator y patho gen PCR panel respiratory syncytial virus Undete cted undete cted Not Available [facility] (Outpatient) [address] [place], [address], 12/25/2020 18:53:02 12/25/19 21 12/25/2020 respi rator y patho gen PCR panel bordetella parapertussi s Undete cted undete cted Not Available [facility] (Outpatient) [address] [place], [address], 12/25/2020 18:53:02 12/25/19 21 12/25/2020 respi rator y patho gen PCR panel bordetella pertussis Undete cted undete cted Not Available [facility] (Outpatient) [address] [place], [address], 12/25/2020 18:53:02 12/25/19 21 12/25/2020 respi rator y patho gen PCR panel chlamydia pneumoniae Undete cted undete cted Not Available [facility] (Outpatient) [address] [place], [address], 12/25/2020 18:53:02 12/25/19 21 12/25/2020 respi rator y patho gen PCR panel mycoplasma pneumoniae Undete cted undete cted Not Available [facility] (Outpatient) [address] [facility], [place], [address], 12/25/2020 18:53:02 12/25/19 21 12/25/2020 respi rator y patho gen PCR panel interpretati on SEE NOTE Not Available [facility] (Outpatient) [address] [place], [address], 12/25/2020 18:53:02 12/25/19 21 12/24/2020 BLOOD CULTU RE, ROUTI NE special requests None Not Available [facility] (Outpatient) [address] [place], [address], 12/29/2020 06:02:10 12/25/19 21 12/29/2020 BLOOD CULTU RE, ROUTI NE blood culture NO GROWTH 5 DAYS Not Available [facility] (Outpatient) [address] [place], [address], 12/29/2020 06:02:10 12/25/19 21 12/24/2020 BLOOD CULTU RE, ROUTI NE special requests None Not Available [facility] (Outpatient) [address] [place], [address], 12/29/2020 06:02:47 12/25/19 21 12/29/2020 BLOOD CULTU RE, ROUTI NE blood culture NO GROWTH 5 DAYS Not Available [facility] (Outpatient) [address] [place], [address], 12/29/2020 06:02:47 12/26/19 21 12/25/2020 CBC w/ auto diff WBC 12.28 K/uL 4.00-1 1.00 high Not Available [facility] (Outpatient) [address] [place] [address], [address], 12/25/2020 05:41:58 12/26/19 21 12/25/2020 CBC w/ auto diff RBC 4.38 M/uL 3.72-5 .30 Not Available [facility] (Outpatient) [address] [place] [address], [address], 12/25/2020 05:41:58 12/26/19 21 12/25/2020 CBC w/ auto diff HGB 11.9 g/dL 11.0-1 5.2 Not Available [facility] (Outpatient) [address] [place] [address], [address], 12/25/2020 05:41:58 12/26/19 21 12/25/2020 CBC w/ auto diff HCT 36.2 % 31.6-4 4.1 Not Available [facility] (Outpatient) [address] [place] [address], [address], 12/25/2020 05:41:58 12/26/19 21 12/25/2020 CBC w/ auto diff plt 273 K/uL 140-43 0 Not Available [facility] (Outpatient) [address] [place] [address], [address], 12/25/2020 05:41:58 12/26/19 21 12/25/2020 CBC w/ auto diff MCV 82.6 fL 78.0-9 7.0 Not Available [facility] (Outpatient) [address] [place] [address], [address], 12/25/2020 05:41:58 12/26/19 21 12/25/2020 CBC w/ auto diff MCH 27.2 pg 25.0-3 3.0 Not Available [facility] (Outpatient) [address] [place] [address], [address], 12/25/2020 05:41:58 12/26/19 21 12/25/2020 CBC w/ auto diff MCHC 32.9 g/dL 32.0-3 6.0 Not Available [facility] (Outpatient) [address] [place], [address], 12/25/2020 05:41:58 12/26/19 21 12/25/2020 CBC w/ auto diff RDW 13.4 % 11.0-1 6.0 Not Available [facility] (Outpatient) [address] [place], [address], 12/25/2020 05:41:58 12/26/19 21 12/25/2020 CBC w/ auto diff MPV 8.7 fL 8.4-12 .8 Not Available [facility] (Outpatient) [address] [place] [address], [address], 12/25/2020 05:41:58 12/26/19 21 12/25/2020 CBC w/ auto diff NRBC 0.00 /100_ WBCs 0 Not Available [facility] (Outpatient) [address] [place], [address], 12/25/2020 05:41:58 12/26/19 21 12/25/2020 CBC w/ auto diff absolute NRBC 0.00 K/uL 0 Not Available [facility] (Outpatient) [address] [place] [address], [address], 12/25/2020 05:41:58 12/26/19 21 12/25/2020 CBC w/ auto diff diff method Auto Not Available [facility] (Outpatient) [address] [place], [address], 12/25/2020 05:41:58 12/26/19 21 12/25/2020 CBC w/ auto diff neuts 83.1 % 43.0-7 5.0 high Not Available [facility] (Outpatient) [address] [place], [address], 12/25/2020 05:41:58 12/26/19 21 12/25/2020 CBC w/ auto diff lymphs 9.5 % 18.2-4 7.4 low Not Available [facility] (Outpatient) [address] [place], [address], 12/25/2020 05:41:58 12/26/19 21 12/25/2020 CBC w/ auto diff monos 6.7 % 4.00-1 1.00 Not Available [facility] (Outpatient) [address] [place] [address], [address], 12/25/2020 05:41:58 12/26/19 21 12/25/2020 CBC w/ auto diff eos 0.1 % 0.0-8. 0 Not Available [facility] (Outpatient) [address] [place] [address], [address], 12/25/2020 05:41:58 12/26/19 21 12/25/2020 CBC w/ auto diff basos 0.2 % 0.0-2. 0 Not Available [facility] (Outpatient) [address] [place] [address], [address], 12/25/2020 05:41:58 12/26/19 21 12/25/2020 CBC w/ auto diff granulocytes , immature (%) 0.4 % 0.0-0. 9 Not Available [facility] (Outpatient) [address] [place] [address], [address], 12/25/2020 05:41:58 12/26/1912/25/2020 CBC w/ auto diff absolute neuts 10.20 K/uL 1.80-7 .70 high Not Available [facility] (Outpatient) [address] [place] [address], [address], 12/25/2020 05:41:58 12/26/19 21 12/25/2020 CBC w/ auto diff absolute lymphs 1.17 K/uL 1.00-3 .10 Not Available [facility] (Outpatient) [address] [place], [address], 12/25/2020 05:41:58 12/26/19 21 12/25/2020 CBC w/ auto diff absolute monos 0.82 K/uL 0.20-0 .80 high Not Available [facility] (Outpatient) [address] [place], [address], 12/25/2020 05:41:58 12/26/19 21 12/25/2020 CBC w/ auto diff absolute eos 0.01 K/uL 0.00-0 .80 Not Available [facility] (Outpatient) [address] [place] [address], [address], 12/25/2020 05:41:58 12/26/19 21 12/25/2020 CBC w/ auto diff absolute basos 0.03 K/uL 0.00-0 .09 Not Available [facility] (Outpatient) [address] [place] [address], [address], 12/25/2020 05:41:58 12/26/19 21 12/25/2020 CBC w/ auto diff granulocytes , immature 0.05 K/uL 0.00-0 .05 Not Available [facility] (Outpatient) [address] [place], [address], 12/25/2020 05:41:58 12/26/19 21 12/25/2020 BMP, blood sodium 138 mmol/ L 133-14 6 Not Available [facility] (Outpatient) [address] [place] [address], [address], 12/25/2020 06:13:14 12/26/19 21 12/25/2020 BMP, blood chloride 106 mmol/ L 96-108 Not Available [facility] (Outpatient) [address] [place], [address], 12/25/2020 06:13:14 12/26/19 21 12/25/2020 BMP, blood potassium 3.6 mmol/ L 3.3-5. 1 Not Available [facility] (Outpatient) [address] [place], [address], 12/25/2020 06:13:14 12/26/19 21 12/25/2020 BMP, blood CO2 20 mmol/ L 21-35 low Not Available [facility] (Outpatient) [address] [place], [address], 12/25/2020 06:13:14 12/26/19 21 12/25/2020 BMP, blood BUN 11 mg/dL 6-19 Not Available [facility] (Outpatient) [address] [place], [address], 12/25/2020 06:13:14 12/26/19 21 12/25/2020 BMP, blood creatinine 0.60 mg/dL 0.5-1. 5 Not Available [facility] (Outpatient) [address] [place], [address], 12/25/2020 06:13:14 12/26/1912/25/2020 BMP, blood glucose 109 mg/dL 70-99 high Not Available [facility] (Outpatient) [address] [place], [address], 12/25/2020 06:13:14 12/26/1912/25/2020 BMP, blood calcium 8.2 mg/dL 8.4-10 .3 low Not Available [facility] (Outpatient) [address] [place], [address], 12/25/2020 06:13:14 12/26/19 21 12/25/2020 BMP, blood eGFR >120 mL/mi n/1.7 3m2 >59 Estim ated glome rular filtr ation rate calcu lated using the CKD-E PI equat ion. Not Available [facility] (Outpatient) [address] [place], [address], 12/25/2020 06:13:14 12/26/19 21 12/25/2020 BMP, blood anion gap 16 mmol/ L 10-20 Not Available [facility] (Outpatient) [address] [place], [address], 12/25/2020 06:13:14 12/26/19 21 12/25/2020 magne sium, QN, serum or plasm a magnesium 2.0 mg/dL 1.6-2. 6 Not Available [facility] (Outpatient) [address] [place], [address], 12/25/2020 06:13:19 12/26/19 21 12/25/2020 phosp horus , serum or plasm a phosphorus 2.7 mg/dL 2.7-4. 5 Not Available [facility] (Outpatient) [address] [place], [address], 12/25/2020 06:13:23 12/27/19 21 12/26/2020 CBC w/ auto diff WBC 4.86 K/uL 4.00-1 1.00 Not Available [facility] (Outpatient) [address] [place], [address], 12/26/2020 03:16:05 12/27/19 21 12/26/2020 CBC w/ auto diff RBC 4.29 M/uL 3.72-5 .30 Not Available [facility] (Outpatient) [address] [place], [address], 12/26/2020 03:16:05 12/27/19 21 12/26/2020 CBC w/ auto diff HGB 11.9 g/dL 11.0-1 5.2 Not Available [facility] (Outpatient) [address] [place], [address], 12/26/2020 03:16:05 12/27/19 21 12/26/2020 CBC w/ auto diff HCT 35.3 % 31.6-4 4.1 Not Available [facility] (Outpatient) [address] [place], [address], 12/26/2020 03:16:05 12/27/19 21 12/26/2020 CBC w/ auto diff plt 250 K/uL 140-43 0 Not Available [facility] (Outpatient) [address] [place], [address], 12/26/2020 03:16:05 12/27/19 21 12/26/2020 CBC w/ auto diff MCV 82.3 fL 78.0-9 7.0 Not Available [facility] (Outpatient) [address] [place] [address], [address], 12/26/2020 03:16:05 12/27/19 21 12/26/2020 CBC w/ auto diff MCH 27.7 pg 25.0-3 3.0 Not Available [facility] (Outpatient) [address] [place] [address], [address], 12/26/2020 03:16:05 12/27/19 21 12/26/2020 CBC w/ auto diff MCHC 33.7 g/dL 32.0-3 6.0 Not Available [facility] (Out[facility]) [address] [place] [address], [address], 12/26/2020 03:16:05 12/27/19 21 12/26/2020 CBC w/ auto diff RDW 13.4 % 11.0-1 6.0 Not Available [facility] (Outpatient) [address] [place] [address], [address], 12/26/2020 03:16:05 12/27/19 21 12/26/2020 CBC w/ auto diff MPV 8.6 fL 8.4-12 .8 Not Available [facility] (Out[facility]) [address] [place], [address], 12/26/2020 03:16:05 12/27/19 21 12/26/2020 CBC w/ auto diff NRBC 0.00 /100_ WBCs 0 Not Available [facility] (Outpatient) [address] [place], [address], 12/26/2020 03:16:05 12/27/19 21 12/26/2020 CBC w/ auto diff absolute NRBC 0.00 K/uL 0 Not Available [facility] (Outpatient) [address] [place], [address], 12/26/2020 03:16:05 12/27/19 21 12/26/2020 CBC w/ auto diff diff method Auto Not Available [facility] (Outpatient) [address] [place], [address], 12/26/2020 03:16:05 12/27/19 21 12/26/2020 CBC w/ auto diff neuts 57.2 % 43.0-7 5.0 Not Available [facility] (Outpatient) [address] [place], [address], 12/26/2020 03:16:05 12/27/19 21 12/26/2020 CBC w/ auto diff lymphs 34.0 % 18.2-4 7.4 Not Available [facility] (Outpatient) [address] [place], [address], 12/26/2020 03:16:05 12/27/19 21 12/26/2020 CBC w/ auto diff monos 7.8 % 4.00-1 1.00 Not Available [facility]) [address] [place], [address], 12/26/2020 03:16:05 12/27/19 21 12/26/2020 CBC w/ auto diff eos 0.0 % 0.0-8. 0 Not Available [facility] (Outpatient) [address] [place], [address], 12/26/2020 03:16:05 12/27/19 21 12/26/2020 CBC w/ auto diff basos 0.6 % 0.0-2. 0 Not Available [facility] ([facility]) [address] [place], [address], 12/26/2020 03:16:05 12/27/19 21 12/26/2020 CBC w/ auto diff granulocytes , immature (%) 0.4 % 0.0-0. 9 Not Available [facility] (Out[facility]) [address] [place], [address], 12/26/2020 03:16:05 12/27/19 21 12/26/2020 CBC w/ auto diff absolute neuts 2.78 K/uL 1.80-7 .70 Not Available [facility] (Out[facility]) [address] [place], [address], 12/26/2020 03:16:05 12/27/19 21 12/26/2020 CBC w/ auto diff absolute lymphs 1.65 K/uL 1.00-3 .10 Not Available [facility] (Out[facility]) [address] [place], [address], 12/26/2020 03:16:05 12/27/19 21 12/26/2020 CBC w/ auto diff absolute monos 0.38 K/uL 0.20-0 .80 Not Available [facility] (Outpatient) [address] [place] [address], [address], 12/26/2020 03:16:05 12/27/19 21 12/26/2020 CBC w/ auto diff absolute eos 0.00 K/uL 0.00-0 .80 Not Available [facility] (Out[facility]) [address] [place], [address], 12/26/2020 03:16:05 12/27/19 21 12/26/2020 CBC w/ auto diff absolute basos 0.03 K/uL 0.00-0 .09 Not Available [facility] (Outpatient) [address] [place], [address], 12/26/2020 03:16:05 12/27/19 21 12/26/2020 CBC w/ auto diff granulocytes , immature 0.02 K/uL 0.00-0 .05 Not Available [facility] (Outpatient) [address] [place], [address], 12/26/2020 03:16:05 12/27/19 21 12/26/2020 C-srikanth ctive prote in, quant itati ve, serum or plasm a C reactive protein 28.3 mg/L 0.0-4. 0 high Not Available [facility] (Outpatient) [address] [place], [address], 12/26/2020 03:40:34 12/27/19 21 12/26/2020 BMP, blood sodium 139 mmol/ L 133-14 6 Not Available [facility] (Out[facility]) [address] [place], [address], 12/26/2020 03:55:34 12/27/19 21 12/26/2020 BMP, blood chloride 107 mmol/ L 96-108 Not Available [facility] (Out[facility]) [address] [place], [address], 12/26/2020 03:55:34 12/27/19 21 12/26/2020 BMP, blood potassium 3.9 mmol/ L 3.3-5. 1 Not Available [facility] ([facility]) [address] [place], [address], 12/26/2020 03:55:34 12/27/19 21 12/26/2020 BMP, blood CO2 19 mmol/ L 21-35 low Not Available [facility] (Out[facility]) [address] [place], [address], 12/26/2020 03:55:34 12/27/19 21 12/26/2020 BMP, blood BUN 9 mg/dL 6-19 Not Available [facility] (Outpatient) [address] [place], [address], 12/26/2020 03:55:34 12/27/19 21 12/26/2020 BMP, blood creatinine 0.60 mg/dL 0.5-1. 5 Not Available [facility] (Outpatient) [address] [place], [address], 12/26/2020 03:55:34 12/27/19 21 12/26/2020 BMP, blood glucose 117 mg/dL 70-99 high Not Available [facility] ([facility]) [address] [place], [address], 12/26/2020 03:55:34 12/27/19 21 12/26/2020 BMP, blood calcium 8.2 mg/dL 8.4-10 .3 low Not Available [facility] (Outpatient) [address] [place], [address], 12/26/2020 03:55:34 12/27/19 21 12/26/2020 BMP, blood eGFR >120 mL/mi n/1.7 3m2 >59 Estim ated glome rular filtr ation rate calcu lated using the CKD-E PI equat ion. Not Available [facility] (Outpatient) [address] [place], [address], 12/26/2020 03:55:34 12/27/19 21 12/26/2020 BMP, blood anion gap 17 mmol/ L 10-20 Not Available [facility] (Outpatient) [address] [place], [address], 12/26/2020 03:55:34 12/27/19 21 12/26/2020 magne sium, QN, serum or plasm a magnesium 1.9 mg/dL 1.6-2. 6 Not Available [facility] (Outpatient) [address] [place], [address], 12/26/2020 03:55:39 12/27/19 21 12/26/2020 phosp horus , serum or plasm a phosphorus 2.6 mg/dL 2.7-4. 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 PAP SMEAR (SURE PATH) CE: SPECI MEN ADEQU ACY: Satis facto ry for evalu ation ; trans forma tion zone prese nt. INTER PRETA TION: NEGAT BRANDON FOR INTRA EPITH ELIAL LESIO N OR MALIG ALBIN . Elect nkechi barnett Marychuy d Out By: MARI Villagomez( CP) The Pap test is a scree [...] 2021 15:26 Resul ts to: Tania Hernández [employer]CH SALES AND SERVICE REPRESENTATIVE Not Available [facility]Out[facility]) [address] [place] [address], [address], 08/15/2021 16:46:49 08/14/19 22 08/14/2021 COMP. METAB OLIC PANEL glucose 85 mg/dL 70-100 Not Available [address], [address], 08/14/2021 14:50:50 08/14/19 22 08/14/2021 COMP. METAB OLIC PANEL BUN 14 mg/dL 7-18 Not Available [address], [address], 08/14/2021 14:50:50 08/14/19 22 08/14/2021 COMP. METAB OLIC PANEL creatinine 0.8 mg/dL 0.8-1. 3 Not Available [address], [address], 08/14/2021 14:50:50 08/14/19 22 08/14/2021 COMP. METAB OLIC PANEL B/C 17.5 ratio Not Available [address], [address], 08/14/2021 14:50:50 08/14/19 22 08/14/2021 COMP. METAB [...] borat ion (CKD- EPI) Equat ion (Coleman r et. al 2020) as recom kaila d by the Natio nal Kidne y Found ation . eGFR is based on age, serum creat inine , and sex. CKD-E PI does not calcu late eGFR by race, does not apply to child ro (age <18 years ), and shoul d not be used in pregn terrance. Not Available [address], [address], 08/14/2021 14:50:50 08/14/19 22 08/14/2021 COMP. METAB OLIC PANEL sodium 141 mmol/ L 136-14 5 Not Available [address], [address], 08/14/2021 14:50:50 08/14/19 22 08/14/2021 COMP. METAB OLIC PANEL potassium 4.6 mmol/ L 3.5-5. 1 Not Available [address], [address], 08/14/2021 14:50:50 08/14/19 22 08/14/2021 COMP. METAB OLIC PANEL chloride 105 mmol/ L 96-107 Not Available [address], [address], 08/14/2021 14:50:50 08/14/19 22 08/14/2021 COMP. METAB OLIC PANEL anion gap 9.7 5.0-15 .0 Not Available [address], [address], 08/14/2021 14:50:50 08/14/19 22 08/14/2021 COMP. METAB OLIC PANEL CO2 26 mmol/ L 21-32 Not Available [address], [address], 08/14/2021 14:50:50 08/14/19 22 08/14/2021 COMP. METAB OLIC PANEL calcium 9.0 mg/dL 8.5-10 .3 Not Available [address], [address], 08/14/2021 14:50:50 08/14/19 22 08/14/2021 COMP. METAB OLIC PANEL total protein 7.5 g/dL 6.4-8. 2 Not Available [address], [address], 08/14/2021 14:50:50 08/14/19 22 08/14/2021 COMP. METAB OLIC PANEL albumin 4.0 g/dL 3.4-5. 0 Not Available [address], [address], 08/14/2021 14:50:50 08/14/19 22 08/14/2021 COMP. METAB OLIC PANEL globulin 3.5 g/dL Not Available [address], [address], 08/14/2021 14:50:50 08/14/19 22 08/14/2021 COMP. METAB OLIC PANEL A/G 1.1 ratio 0.8-2. 0 Not Available [address], [address], 08/14/2021 14:50:50 08/14/19 22 08/14/2021 COMP. METAB OLIC PANEL total bilirubin 0.30 mg/dL 0.00-1 .00 Not Available [address], [address], 08/14/2021 14:50:50 08/14/19 22 08/14/2021 COMP. METAB OLIC PANEL AST 15 U/L 0-37 Not Available [address], [address], 08/14/2021 14:50:50 08/14/19 22 08/14/2021 COMP. METAB OLIC PANEL ALT 25 U/L 6-63 Not Available [address], [address], 08/14/2021 14:50:50 08/14/19 22 08/14/2021 COMP. METAB OLIC PANEL alk. phos. 77 U/L 50-136 Not Available [address], [address], 08/14/2021 14:50:50 08/14/19 22 08/14/2021 TSH TSH 1.39 uIU/m L 0.50-6 .00 The Ameri can Colle ge of Endoc rinol ogy and Ameri can Thyro id Assoc iatio n recom mend goal TSH value s betwe en 0.4-4 .0 mIU/m L. Not Available [address], [address], 08/14/2021 16:00:41 08/14/19 22 08/15/2021 HEPAT ITIS C AB W/REF L TO HCV RNA, QN, PCR hepatitis C antibody NON-RE ACTIVE non-re active normal Not Available [facility] [address] [place] [address], [address], 08/15/2021 09:36:30 08/14/19 22 08/15/2021 HEPAT ITIS [...] a test for HCV RNA (test code 27107 ) is petrona cisnerosdior. For addit ional infor devon kincaid e refer to http: //[facility] sadia hernandezque stdia gnost ics.c om/fa q/FAQ 22v1 (This link is being provi ded for infor devon bellamy/ educa oc l purpo ses only. ) Not Available [facility] [address] [place], [place], [address], 08/15/2021 09:36:30 09/12/19 18 09/11/2017 xr chest [...] P.S. Back pain, fever, cough AISHA MCBRIDE [facility] [address] [place] [address], [address], 09/13/2017 16:08:58 09/12/19 18 09/11/2017 XR, chest No observ ation record ed. [facility] [address] [place] [address], [address], 09/13/2017 16:08:58 09/12/19 18 09/11/2017 adult ECHO TTE This is a summar y report . The comple te report is availa ble in the patien t's medica l record . If you cannot [...] studie s for compar danielle. AISHA MCGINNIS [facility] [address] [facility], [place], [address], 09/13/2017 16:08:59 09/12/19 18 09/11/2017 adult ECHO TTE This is a summar y report . The comple te report is availa ble in the [facility] t's medica l record . If you cannot access the medica l record , please contac t the [employer] for a detail ed fax or copy. [...] prior studie s for compar danielle. AISHA MCBRIDE [facility] [address] [place] [address], [address], 09/13/2017 16:08:59 09/12/19 18 09/11/2017 US lower [...] Kyle gonzalez MD 09/11/17 Final result AISHA MCBRIDE [facility] [address] [place] [address], [address], 09/13/2017 16:08:59 09/12/19 18 09/11/2017 NM, lung [...] result Name & verifi ed dl AISHA MCGINNIS TZ [facility] [address] [facility], [place], [address], 09/13/2017 16:08:59 09/12/19 18 09/11/2017 CT abdom [...] MD - Fax Final result AISHA MCBRIDE [facility] [address] [place] [address], [address], 09/13/2017 16:08:59 09/12/19 18 09/11/2017 CT, abdom en + pelvi s, w/wo contr ast No observ ation record ed. [address], [address], 09/13/2017 16:08:59 09/12/19 18 09/11/2017 CT, chest [...] Subple ural consol idatio n in the graduation coach ior right lower lobe base and linear [...] Aisha mcbride MD - Fax Final result AISHASAMMY MCBRIDE [facility] [address] [place] [address], [address], 09/11/2017 16:34:56 02/14/20 19 02/13/2019 xr chest [...] by: Josefina Velasco MD 9 Final result AISHASAMMY MCBRIDE [email or web address] [facility] [address] [place] [address], [address], 02/14/2019 10:08:11 08/12/19 20 08/12/2019 xr chest [...] Lingul ar airspa ce opacit y concer julio for pneumo anton. Follow -up is recomm ended. The findin gs were discus sed with Dr Garza 2019 at 8:40 PM. POS CDHRAD BOARDW S10 Electr onical ly Signed by: JAVON KENNY on 08/12/19 8:44 PM Interp reted by: Javon Kenny MD Signed by: Javon Kenny MD 08/12/19 Final result TANIA HERNÁNDEZ [facility] [address] [place], [address], 08/14/2019 11:01:29 12/25/19 21 12/24/2020 XR, chest XR CHEST PORTAB LE COMPAR DANIELLE: Two-vi ew chest radiog raph from 08/12/19 20. FINDIN GS: Device s/Tube s/Line s: None. [...] airspa ce diseas e in the approp riate clinic al settin gAshley Electr onical ly Signed by: Jake Deleon on 021 5:42 AM Interp reted by: Jake Deleon MD Signed by: Jake Deleon MD 1 Final result WITHDR AWAL SYMPTO MS TANIA HERNÁNDEZ [facility] [address] [place], [address], 12/24/2020 08:50:42 12/25/19 21 12/24/2020 US lower [...] fossa cyst seen in BLEs TANIA HERNÁNDEZ [facility] [address] [facility], [place], [address], 12/24/2020 11:01:28 12/25/1912/24/2020 adult ECHO TTE Result Report Patisammy t Name: Duane Rodriguez Class: Inpati ent Sonogr apher: Heathe r Dreahe r Perfor moises Physic doreen: None Select ed Suppor ting Staff: None Select ed Orderi ng Prov: Syed s Verna Primar y Care Physic doreen: Tania Hernández Diagno sis: Reason For Exam: acute hypox resp failur e, elevat ed DDimer , IV dye allerg y Proced ure(s) Perfor med: Compre hensiv e Echo (TTE) Date Perfor med: 021 Access ion #: [id number] Result Status : Final Echo Findin [...] mcintosh MD on 1 at 1529 EDT Readin g Physic ians Physic doreen Role Srinivasan mcintosh MD Attend ing Cardio logist TANIA HERNÁNDEZ [facility] [address] [place] [address], [address], 12/24/2020 16:25:39 12/26/19 21 12/25/2020 CT, chest [...] Kyle gonzalez MD 1 Final result TANIA Santos EDGAR [facility] [address] [facility], [place], [address], 12/25/2020 11:10:28 Result Notes None recorded. Problems Name Problem SNOMED Code Status Onset Date Resolution Date Notes Provider Name and Address Organization Details Recorded Time Premenst rual tension syndrome 32078788 Completed 04/09/[place], [address], [facility] 6 08:11:50 Anemia 486880417 Completed 09/20/[place], [address], [facility] 7 08:28:53 Generali zed anxiety disorder 63019176 [place], [address], [facility] 4 08:12:38 [facility] Completed 04/09/[place], [address], [facility] 6 08:11:50 Malaise and fatigue 224260734 Completed 05/25/2013 [place], [address], [facility] 6 08:11:50 Narcolep sy 75418462 Completed 04/09/2015 [place], [address], [facility] 6 08:11:50 Graves' disease 103873519 [place], [address], [facility] 4 08:12:38 Cataplex y and narcolep sy 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 Active Tania Hernández NP [address] [facility] [place], [address], [facility] 4 08:12:38 Recurren t major depressi ve episodes 925258002 Active Tania Hernández NP [address] [facility] [place], [address], [facility] 4 08:12:38 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 Procedures Surgical History Date Name Laterality Status Provider Name and Address Organization Details Recorded Time 4 Smoking cessation counseling completed Dee Prescott [facility] 11/24/2023 16:15:42 3 Smoking cessation counseling completed Suzette Carrasquillo CMA [facility] 11/20/2022 16:09:10 7 POC Flu Testing completed [facility] 07/31/2016 14:10:40 7 POC Strep Testing completed [facility] 07/31/2016 14:10:35 Imaging Results None recorded. Procedure Notes None recorded. Medical Equipment None Reported. Allergies Allergen ID Allergen Name Allergen Category Reaction Reaction Severity Criticality Documentation Date Start Date Code Code System Note Provider Name and Address Organization Details Recorded Time 726015 Iodinated contrast media (substanc e) medicatio n anaphylax is Not available Not available 11/21/2014 78057 2003 [facility] 08:[facility]59 Medications Name Sig Start Date [...] completed Not Available Not Available Not Available Terrellselle (28) 0.3 mg-30 mcg tablet TAKE 1 TABLET DAILY 2014 active Not Available Not Available Not Avai lable methylphe nidate CD 20 mg biphasic 30-70 capsule,e xtended release 08/13 completed Not Available Not Available Not Available Paxil active Through college in [facility] N Not Available Not Available Not Available [...] Not Available Nexplanon active implante d- 05/24/20 18 Not Available Not Available Not Available EpiPen [...] Available Vitals Date Recorded Body height Body mass index (BMI) Body weight Systolic blood pressure Diastolic blood pressure Provider Name and Address Organization Details Last Updated DateTime 08/08/2021 158.75 cm 27.3 kg/m2 78972.25 g 108 mm[Hg] 66 mm[Hg] Johnie Duong MA [facility] 2 16:19:40 Date Recorded Body weight Body mass index (BMI) Body height Oxygen saturation Oxygen saturation in Arterial blood by Pulse oximetry Heart rate Systolic blood pressure Diastolic blood pressure Provider Name and Address Organization Details Last Updated DateTime 3 73078.5 2 g 25.4 kg/m2 158.75 cm 98 % 98 % 102 /min 120 mm[Hg] 77 mm[Hg] Suzette Carrasquillo CMA [facility] 3 16:13:13 Date Recorded Body height Body weight Body mass index (BMI) Heart rate Systolic blood pressure Diastolic blood pressure Provider Name and Address Organization Details Last Updated DateTime 7 160.02 cm 46173.6 7 g 22.6 kg/m2 102 /min 126 mm[Hg] 88 mm[Hg] Roopa Mena RN BSN [address] [place] [address], [address], [facility] 7 07:33:32 Date Recorded Body weight Heart rate Oxygen saturation Oxygen saturation in Arterial blood by Pulse oximetry Systolic blood pressure Diastolic blood pressure Provider Name and Address Organization Details Last Updated DateTime 4 77551.6 7 g 129 /min 99 % 99 % 128 mm[Hg] 74 mm[Hg] Dee Prescott MA [facility] 4 16:06:46 Date Recorded Body weight Body mass index (BMI) Body height Heart rate Systolic blood pressure Diastolic blood pressure Provider Name and Address Organization Details Last Updated DateTime 1 07428.5 6 g 26.6 kg/m2 160.02 cm 88 /min 100 mm[Hg] 66 mm[Hg] Ricarda Larson MA [facility] 1 15:11:18 Social History Question Answer Notes LastModified by Organizat ion Details LastModified Time Tobacco Smoking Status Current Every Day Smoker JAYLENE [place], [place] - [facility] 11/20/2022 16:09:05 Do You Wear A Helmet When Biking? No [email or web address] Information not available 11/20/2022 What Is Your Level Of Caffeine Consumption? Moderate 1-2 Cups Daily [email or web address] Information not available 04/09/2015 How Much Tobacco Do You Chew? None Information not available 02/23/2012 What Type Of Diet Are You Following? REGULAR Information not available 02/23/2012 Which Illicit Or Recreational Drugs Have You Used? Marijuana [email or web address] Information not available 11/20/2022 Education Post Graduate Continuing Education Information not available 02/23/2012 What Is The Highest Grade Or Level Of School You Have Completed Or The Highest Degree You Have Received? [id number] Information not available 08/08/2021 Have There Been [...] Do You Use Insect Repellent Routinely? No [email or web address] Information not available 11/20/2022 Live Alone Or With Others? With Others Information not available 02/23/2012 CSRP - Narcotics No [email or web address] Information not available 09/21/2015 CSRP Contract Signed And Discussed No Stimulant-BGr een 11/01/12,-stopped 07/2016 [email or web address] Information not available 07/24/2016 CSRP - Stimulants No [email or web address] Information not available 07/24/2016 CCM Consent Discussion 08/08/2021 [email or web address] Information not available 08/09/2021 Marital Status Single Informatio n not available 02/23/2012 Mosquito Repellent Used Routinely Yes [email or web address] Information not available 05/22/2011 What Was The Date Of Your Most Recent Tobacco Screening? 11/24/2023 Information not available 11/24/2023 How Many Children Do You Have? 0 2 Step Kids [email or web address] Information not available 11/20/2022 What Is Your [...] Information not available 02/23/2012 Do You Use Sunscreen Routinely? Yes [email or web address] Information not available 05/22/2011 How Many Years Have You Smoked Tobacco? 3 Information not available 08/08/2021 How Many Days In The Past Year Have You Consumed 4 Or More Drinks? 0 Information not available 11/24/2023 Sex: Female Functional Status Question Answer Note LastModified by Organizat ion Details LastModified Time Do you use any illicit or recreational drugs? Yes [email or web address] Information not available 11/20/2022 Do you or have you ever used any other forms of tobacco or nicotine? No Information not available 08/08/2021 What is your level of alcohol consumption? None Information not available 11/24/2023 Are you currently employed? No Information not available 08/08/2021 What is your exercise level? Moderate yoga [...] Control Method BCPs Age at Menarche 13 Approximate Obstetrics History GPAL:G 0 P 0 0 0 0 Immunizations Vaccine Type Date Status Note Provider Nam e and Address Organization Details Recorded Time [facility]dap 1 completed [facility] 07[facility] 02:33:04 Hib (HbOC) 3 completed Not Available [facility] 05/21/2011 05:22:52 DTP 8 completed Not Available [facility] 05/21/2011 05:22:52 Hep B, adolescent or pediatric 4 completed Not Available [facility] 05/21/2011 05:22:52 MMR 4 completed Not Available [facility] 05/21/2011 05:22:52 Hep B, adolescent or pediatric 3 completed Not Available [facility] 05/21/2011 05:22:52 MMR 8 completed Not Available [facility] 05/21/2011 05:22:52 OPV 8 completed Not Available [facility] 05/21/2011 05:22:52 OPV 3 completed Not Available [facility] 05/21/2011 05:22:52 DTP 4 completed Not Available [facility] 05/21/2011 05:22:52 DTP 3 completed Not Available [facility] 05/21/2011 05:22:52 Hib (HbOC) 3 completed Not Available [facility] 05/21/2011 05:22:52 Hib (HbOC) 4 completed Not Available [facility] 05/21/2011 05:22:52 OPV 3 completed Not Available [facility] 05/21/2011 05:23:04 OPV 4 completed Not Available [facility] 05/21/2011 05:22:52 Td (adult) 4 completed Not Available [facility] 05/21/2011 05:22:52 DTP 3 completed Not Available [facility] 05/21/2011 05:22:52 Hib (HbOC) 3 completed Not Available [facility] 05/21/2011 05:22:52 DTP 3 completed Not Available [facility] 05/21/2011 05:22:52 Td (adult), 2 Lf tetanus toxoid, preservative free, adsorbed 2 completed Tania Hernández NP [address] [place], [address], [facility] 08/08/2021 17:58:17 Influenza, split virus, quadrivalent, PF 2 completed Tania Hernández NP [address] [place], [address], [facility] 08/08/2021 17:58:17 COVID-19, mRNA, LNP-S, PF, 30 mcg/0.3 mL dose [facility]05[facility]40 COVID-19, mRNA, LNP-S, PF, 30 mcg/0.3 mL dose [facility] 15:06:05 Past Encounters Encounter ID Performer Location Encounter Start Date Encounter Closed Date Diagnosis/Indication Diagnosis SNOMED-CT Code Diagnosis ICD10 Code Diagnosis Note [id number] TENNILLE Looney, [facility], [address] [place] [address] 02/11/2011 09:01:51 02/11/2011 10:35:18 [id number] ALVARADO Howard [facility], [address] [place] [address] 02/20/2011 08:03:05 02/20/2011 08:24:35 [id number] ALVARADO Howard [facility], [address] [place] [address] 07/14/2011 07:52:14 07/14/2011 08:23:23 [id number] ALVARADO Howard, [facility], [address] [place] [address] 12/09/2011 15:04:25 12/09/2011 15:42:47 [id number] ALVARADO Howard, [facility], [address] [place] [address] 12/25/2011 16:12:08 12/25/2011 16:38:58 [id number] ALVARADO Howard, [facility], [address] [place] [address] 02/23/2012 11:09:23 02/23/2012 14:39:37 [id number] MD PATRICIA Santo, [facility], [address] [place] [address] 05/19/2012 15:56:15 05/20/2012 12:40:23 [id number] ALVARADO Howard, [facility], [address] [place] [address] 07/16/2012 07:58:07 07/16/2012 10:11:21 [id number] ALVARADO Howard, [facility], [address] [place] [address] 11/01/2012 08:03:45 11/01/2012 08:34:10 [id number] ALVARADO Howard, [facility], [address] [place] [address] 12/03/2012 07:54:15 12/03/2012 15:14:58 [id number] ALVARADO Howard, [facility], [address] [place] [address] 03/03/2013 08:53:22 03/03/2013 09:31:51 Attention deficit hyperactivity disorder, predominantly inattentive type 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 She will f/u if unable to continue to get monthly scripts covered by her insurance. Adult heal th examination [id number] see Risk Assessment and Lifestyle Change Counseling section above - pt could not give urine sample for GC/chlamyd ia testing. Will get when she returns in 2 months. Enc. cont. healthy habits. Counseling [id number] Oral contr aceptive prescribed [id number] No adverse effects from current OCP's - pt to cont - refills given Recurrent major depressive episodes [id number] Doing well on current dose fluoxetine - refills given [id number] Jose Hansen MD , [facility], [address] [place] [address] 04/29/2013 08:05:30 04/29/2013 09:43:17 Cataplexy and narcolepsy 567131496 much improved on ritalin and is walter. [...] f/u in 4 months for CSRP visit. [id number] Jose Hansen MD , [facility], [address] [place] [address] 08/15/2013 08:32:14 08/15/2013 08:56:04 Cataplexy and narcolepsy 713101490 Doing well on current dose medication which is working very well for her sx narcolepsy with no adverse effects. No concerns re: diversion/ abuse. Pt to return in 6 months for CSRP/PHA visit. [id number] Brown Bundy MD , [facility], [address] [place] [address] 10/12/2013 10:02:31 10/12/2013 13:37:00 Goiter [id number] Patient with thyroid goiter. Denies tenderness or [...] beta-block er if becomes symptomati c. Narcolepsy 47301659 Curr ently using Ritalin (Methylphe nidate) extended-r elease daily along with immediate- release as needed. It has been remarkably improved her quality of life. Previously evaluated by [facility]. Prescripti ons now being prescribed by her primary care provider. Work note given clearing her to use a respirator mask. [id number] ALVARADO Howard, [facility], [address] [place] [address] 10/13/2013 11:48:08 10/13/2013 14:37:38 Acute thyroiditis 714330685 Discussed with Dr. Hansen. Labs as below. [...] Pt to f/u here tomorrow for re-check. [id number] ALVARADO Howard, [facility], [address] [place] [address] 10/14/2013 09:32:11 10/14/2013 10:25:30 Hyperthyroidism 68555925 It's not clear if this is graves [...] thyroid gets regulated. Enc. adequate food/fluid intake. [id number] Tenzin Renteria MD Endocrino logy, [facility] [address] [place] [address] 10/20/2013 08:10:09 10/20/2013 08:55:52 Graves' disease 511815584 -atenolol 25mg daily for now, may stop if less symptomati c in 3 to 4 weeks, monitor pulse, discuss with Dr. Renteria if >100 at rest -ADD methimazol e 15mg daily Cataplexy and narcolepsy 766827668 -methylphe nidate at reduced doses Recurrent major depressive episodes 213892921 -fluoxetin e [id number] Chelsey Flores MD , [facility], [address] [place] [address] 11/30/2013 11:07:12 11/30/2013 12:41:42 Graves' disease 874631326 Recheck labs today, d/w pt re: possible that methimazol e may need to be adjusted and it might even need to be increased, other options e.g. radioactiv e iodine and surgery, when to present to the ER. She will continue with methimazol e at this time and check labs on the portal when available. She will try to reschedule with Endocrine. [id number] Chelsey Flores MD , [facility], [address] [place] [address] 02/14/2014 09:38:21 02/14/2014 11:02:27 Hyperthyroidism 77876319 Patient will have labs today and methimazol e will be refilled by Dr. Renteria. Narcolepsy 20446180 Disc ussed with patient re: although I [...] will d/w PCP. Major depr essive disorder 269518025 I am okay with refilling fluoxetine if she needs it, which she currently does not [id number] ALVARADO Howard, [facility], [address] [place] [address] 05/30/2014 09:29:30 06/05/2014 09:26:10 Adult health examination 905244369 see Risk Assessment and Lifestyle Change Counseling section above - up to date with [facility] itzel Engel. healthy diet/exerc ise habits. Pt offered flu vaccine - she deferred. Counseling [id number] Cataplexy and narcolepsy 337950631 Wants f/u with sleep medicine specialist s. They originally started her on the Ritalin for the narcolepsy . ? if there is something else she could try. Feels every day as shortactin g Ritalin wears off that she crashes . Pt will call to schedule appt - referral sent. Major depr essive disorder 153590682 Has been doing well on current dose fluoxetine but hasn't received it from her pharmacy in over 2 months (unclear why - has refills). Will resend rx. Pt to notify me if unable to get this in the next 2 weeks. Graves' disease 601798232 continue current med and f/u with endocrine as planned. Oral contr aceptive prescribed 208531138 Impacted t eeth with abnormal position [id number] oral surgeon supposedly told her that she needs a sinus CT Scan. He won't pull her wisdom teeth until this is done. Unclear what he saw on his panoramic xrays. I will contact his office to find out what it is we are imaging her for. I'll f/u with pt once I clarify this. Venereal d isease screening 145007638 Screening for malignant neoplasm of cervix 281524367 [id number] MD PATRICIA Santo, [facility], [address] [place] [address] 07/19/2014 08:44:11 07/21/2014 10:50:25 Gastroenteritis 48775264 viral most likely- it is possible it could be a side effect of nuvigill but the fever would seem to point to a viral gastro. plan- clear liquids, if not better by next week. stop med and see if better. If better, restart med and see if sx ret. OOW till 07/24 [id number] Taina Hernández NP , [facility], [address] [place] [address] 11/21/2014 08:39:19 11/21/2014 09:00:48 Cataplexy and narcolepsy 720931709 Doing well on current meds although sleep med practition ers have added nuvigil and hopefully she will be able to decrease her stimulants . F/U 6 months for PHA. Major depr essive disorder 179791875 Has been doing well on current dose fluoxetine - pt to continue current dose. Hyperthyroidism 50670505 I realized after pt left today that she is overdue for labs and f/u with endocrine. Doesn't look like she is taking the methimazol e any longer. I will have someone contact her to come in for labs and re-schedul e appt. with Dr. Renteria. [id number] Jose Hansen MD , [facility], [address] [place] [address] 04/09/2015 09:27:00 04/10/2015 10:46:59 Venereal disease screening 401967266 Z11.3 Screening for malignant neoplasm of cervix 790889671 Z12.4 Bacterial vaginosis 4197 82362 B96.89 discussed dx - take flagyl as directed - discussed potential s/e and enc. avoid ETOH and vinegar products while on this. F/U if sx not improving or are worsening. Irregular periods 961208 07 N92.6 Having freq, heavier menses. Will check cbc and thyroid labs today and f/u with results when available. If labs all wnl and sx not resolving, consider pelvic u/s. Graves' disease 90436232 4 E05.80 pt stopped her meds awhile ago - will check T4 and TSH today and f/u with results when available. [id number] Tenzin Renteria MD Endocrino logy, [address] [address] 04/19/2015 08:08:24 04/19/2015 08:59:54 Graves' disease 365884521 E05.00 -methimazo le 5mg once daily -labs 1mo, 4mo, clinic 17 weeks Cataplexy and narcolepsy 871491083 G47.411 -methylphe nidate at reduced doses Recurrent major depressive episodes 731471254 F33.9 -fluoxetin e [id number] Jose Hansen MD , [facility], [address] [place] [address] 06/05/2015 08:29:43 06/05/2015 09:16:22 Adult health examination 010141237 Z00.00 see Risk Assessment and Lifestyle Change Counseling section above Counseling 512772901 Z71 .9 Recurrent depression 191 129816 F33.9 wants to restart fluoxetine which has worked well for her in the past with no adverse effects - rx sent as below - enc. f/u in 4-6 weeks to let me know how this is working and if needed could adjust dose. Graves' disease 83642961 4 E05.80 cont. f/u with endocrine as planned Acne 36987834 L70.9 On chest/back - requests derm referral - sent as below Prolonged periods 289442 006 N92.5 Bleeds for 3 weeks out of the month (light bleeding, no pain except with regular menses gets cramping). Will check pelvic u/s. Had normal CBC in the past couple of months. If u/s neg, will restart OCP's to help get periods more regular. Narcolepsy 06588833 G47. 419 cont. current meds and f/u with sleep med as planned - may be weaning down off the stimulants but for now will continue at current dosing [id number] Tenzin Renteria MD Endocrino logy, [address] [address] 08/16/2015 07:29:34 08/16/2015 08:00:03 Graves' disease 167757956 E05.00 -hold methimazol e for now (stop 5mg tabs 1/2 tab 2.5mg daily) -if labs showed return of hyperthyro idism, will suggest restarting methimazol e via the portal and retesting in 3mo per plan -labs 3mo, 6mo, clinic 25 weeks Cataplexy and narcolepsy 777259700 G47.411 -methylphe nidate at reduced doses Recurrent major depressive episodes 613264998 F33.9 -fluoxetin e [id number] Jose Hansen MD , [facility], [address] [place] [address] 12/06/2015 07:41:19 12/06/2015 08:18:13 Narcolepsy 75419091 G47.419 cont. current meds and f/u with sleep med as planned - may be weaning down off the stimulants but for now will continue at current dosing. F/u in 6 months for PHA. Acne 62588977 L70.9 On chest/back - requests derm referral - sent as below Graves' disease 95410462 4 E05.80 cont. f/u with endocrine as planned - off meds now and last TSH in normal range. Due for recheck next month. Insomnia 630110179 G47.0 0 ? from the meds. Falls asleep but not staying asleep. Will discuss this with sleep medicine. Pt to call to schedule appt. [id number] Tenzin Renteria MD [facility]ocr[facility], [address] [address] 02/07/2016 07:34:03 02/07/2016 07:58:30 Graves' disease 535595402 E05.00 -no methimazol e for now-labs 6mo, clinic 25 weeks Cataplexy and narcolepsy 178517338 G47.411 -methylphe nidate at reduced doses Recurrent major depressive episodes 103642946 F33.9 -fluoxetin e [id number] Jose Hansen MD , [facility], [address] [place] [address] 04/15/2016 13:17:34 04/16/2016 11:02:43 Common cold 24714571 J00 Reassured. No s/s strep on exam. Sx clearly viral. Lungs clear. Enc. force fluids, steam inhalation prn and adequate rest. OK to take otc cold/cough meds prn for sx mgt and f/u prn if not gradually improving, develops high fever or increased resp. difficulty /cough. Enc flu vaccine when better. [id number] Brigitte Mcintyre NP , [facility], [address] [place] [address] 07/31/2016 13:14:44 08/01/2016 15:01:53 Venereal disease screening 850669410 Z11.3 Routine Fever 826114837 R50.9 Pt with c/o fever and painful [...] down. [place] was [place] [facility] - although lung sounds were normal. She was exposed to pneumonia. Abdominal pain 01271434 R10.9 [id number] Tenzin Renteria MD [facility]ocrino [facility], [address] [address] 08/13/2016 07:16:12 08/13/2016 07:45:04 Graves' disease 499111916 E05.00 -restart methimazol e 5mg by mouth once daily-labs 3mo, clinic 13 weeks Cataplexy and narcolepsy 657740706 G47.411 -methylphe nidate [id number] Jose Hansen MD , [facility], [address] [place] [address] 09/19/2016 14:54:07 09/19/2016 16:05:03 Adult health examination 458581972 Z00.00 see Risk Assessment and Lifestyle Change Counseling section above Counseling 325017330 Z71 .9 Cataplexy and narcolepsy 965607386 G47.411 This is managed by sleep med - currently tolerating meds with good effect, no adverse effects Generalize d anxiety disorder 85408958 F41.1 Recurrent major depressive episodes 573514912 F33.9 Feels current dose of fluoxetine no longer adequate for controllin g her sx of anxiety/de pression. Has alot of stress in her life right now. Trial of increasing to 40 mg/day and f/u with me in 3-4 weeks via the portal to let me know how she is doing. Graves' disease 71459196 4 E05.80 cont. f/u with endocrine as planned - she is back on the methimazol e and doing well Screening for malignant neoplasm of cervix 220740309 Z12.4 [id number] Tenzin Renteria MD Endocrino logy, [facility] [address] [facility] [place] [address] 11/21/2016 07:28:23 11/21/2016 07:45:49 Graves' disease 357328282 E05.00 -reduce methimazol e 5mg tabs, 1/2 tab 2.5mg by mouth once daily-labs 3mo, 6mo clinic 25 weeks Cataplexy and narcolepsy 376303646 G47.411 -methylphe nidate [id number] DO PATRICIA Calles, [facility], [address] [place] [address] 01/11/2021 14:50:04 01/11/2021 15:54:33 Screening for disorder 904419311 Z11.59 Accidental overdose of opiate 981277207 T40.601A S/p hospital stay for accidental OD with suboxone while sick with URI and achy mistaken for withdrawal symptoms per patient report. Pt has plan for detox coming up as an outpatient - not interested in in-patient program. Aspiration pneumonia 422 730396 J69.[address]. [address]ill [address]. CT chest to eval for resolution . Call with new/worsen ing symptoms or if no improvemen t. Pt agrees with plan. Acute hypo xemic respiratory failure 577416938 J96.01 S/p hospital stay, will refill inhaler, repeat CT per hospital to eval for resolution . Recurrent major depressive episodes 566034317 F33.9 Re-start fluoxetine . F/u with PCP for dosing changes- has upcoming appt with PCP. Call with new/worsen ing symptoms or if no improvemen t. Pt agrees with plan. Generalize d anxiety disorder 38108484 F41.1 As above. [id number] DO PATRICIA Calles, [facility], [address] [place] [address] 08/08/2021 15:54:43 08/12/2021 16:47:09 Adult health examination 666828382 Z00.00 see Risk Assessment and Lifestyle Change Counseling section above Counseling 543672104 Z71 .9 Depression screening 171 916170 Z13.31 depression screening tool administer ed, entered into emr, scored and discussed, time greater than 7.5 minutes Screening for disorder 839214501 Z11.59 Measure identifies patients 18-79 years of age who had a one-time hepatitis C virus screening. Screening for malignant neoplasm of cervix 427683786 Z12.4 Harmful pa ttern of use of multiple substances 400103317 F19.10 Followed at [facility] - has counsellor , supports. On suboxone. States clean/sobe r since January (hospitali zed and almost ) . Enc cont. f/u with addiction med and working towards sobriety. Graves' disease 22514939 4 E05.80 cont. 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 Enc. discuss with specialist . They can call me to discuss if they feel it is indicated but I would not prescribe anything without speaking with them first. Generalize d anxiety disorder 74610252 F41.1 Stable on fluoxetine Active or passive immunization 295334627 Z23 [id number] Mis White MD , [facility], [address] [place] [address] 11/20/2022 16:00:00 11/20/2022 17:28:10 Adult health examination 774994005 Z00.00 see Risk Assessment and Lifestyle Change Counseling section above. States gets labs regularly through suboxone program. Otherwise up to date with health [facility]. Depression screening 171 082361 Z13.31 depression screening tool administer ed Screening for alcohol abuse 150628910 Z13.39 Alcohol use screening tool administer ed Tobacco user 440210687 Z 72.0 We discussed your smoking today for more than 3 minutes. Cigarette use is the leading cause of preventabl e disease, disability , and in the [place]. We talked about tools and medication s available to help you in smoking cessation. We discussed utilizing our smoking cessation call or contact centre coach and online resources. 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 On suboxone. Doing well with sobriety. Hoping to eventually get off the suboxone [id number] Mis Whiet MD , [facility], [address] [place] [address] 11/24/2023 16:00:48 11/24/2023 16:26:35 Nicotine dependence 71936837 F17.200 We discussed your smoking/va ping today for more than 3 minutes. Cigarette/ pod use is the leading cause of preventabl e disease, disability , and in the [place]. We talked about tools and medication s available to help you in smoking/va ping cessation. We discussed utilizing our smoking cessation call or contact centre coach and online resources. Your personal goal: continue to work on quitting Low back p ain co-occurrent with neuralgia of left sciatic nerve [id number] 7841609 M54.42 Started suddenly 3 days ago - no new activity/i njury - enc cont high dose ibuprofen and can add tylenol as well - continue ice/heat, gentle stretching and will add muscle relaxer as below - warned can cause drowsiness . Referred to PT. Pt will schedule at [facility] where she has gone in the past. Return for [place] with new PCP in the near future. Eventually needs nexplanon replaced as well. F/u if back sx not improving Cataplexy and narcolepsy 065062231 G47.411 This is managed by sleep med - currently tolerating meds with good effect, no adverse effects Harmful pa ttern of use of multiple substances 203553981 F19.10 Followed at [facility] - has counsellor , supports. On suboxone. Doing well with sobriety. Hoping to eventually get off the suboxone Recurrent major depressive episodes 391581093 F33.9 Moods stable on current dose fluoxetine - has providers Health Concerns Section Related Observation LastModified by Organization Detai ls LastModified Time None Recorded Concern Status LastModified by Organization Details LastModified Time None Recorded Advance Directives Directive None Recorded Payers Encounter Date Sequence Insurance Name Policy Number Policy Walker Covered Member ID Walker Member ID Guarantor Name 11/21/2016 1 [facility] Rosie Luna Cialek [id number] Rosie Luna Cialek 01/11/2021 1 [place] [employer] Rosie Luna Cialek [id number] Rosie Luna Cialek 01/11/2021 2 [place] [facility] Luna Cialek [id number] Rosie Luna Cialek 08/08/2021 1 [place] [facility] Rosie Luna Cialek [id number] Rosie Luna Cialek 08/08/2021 2 [place] [facility] Rosie Luna Cialek [id number] Rosie Luna Cialek 11/20/2022 1 [place] [facility] Rosie Luna Cialek [id number] Rosie Luna Cialek 11/20/2022 2 [place] [facility] Luna Cialek [id number] Rosie Luna Cialek 11/24/2023 1 [place] [facility] Rosie Luna Cialek [id number] Rosie Luna Cialek 11/24/2023 2 [place] [facility] Rosie Luna Cialek [id number] Rosie Luna Ciaannettek Notes Date Note Type Note Provider Name [...] neck lumps, trouble swallowing Tenzin Renteria MD [address] [place] [address], [phone], [facility] 11/21/2016 07:45:17 1 text/html BG pt [...] refill on her inhaler. Is going to [facility] for suboxone treatment. She does have some pain in her rib muscles from coughing, she does still have some occ SOB which is helped by her inhaler. Denies IVDA, uses intranasally. Jacquelin Encinas DO [address] [facility], [place], [address], [facility] 01/14/2021 14:13:56 2 text/html Physical Exam/FemaleReported [...] as healthy as able - lives with fiance and 2 kids - Exercise counseling:Discussed the [...] day, has trouble sleeping. Tania Hernández, ALVARADO [address] [place] [address], [phone], [facility] 08/08/2021 17:58:34 3 text/html Physical Exam/FemaleReported [...] might be weaning down off the ritalina/vmg-smoking [id number] bypatient.Notes:3-4 cigs/day - has cut down - wants to quit completely when off the suboxone Patient is here today for an annual wellness-patient states when on her menstrual her cramps are really badWould like 800 mg motrin Tania Hernández, ALVARADO [address] [place], [address], [facility] 11/21/2022 08:49:15 4 text/html a/vmg-Stimulant TemplateReported [...] by Sleep Med for her dx narcolepsya/vmg-smoking [id number] bypatient.Notes:3-4 cigs/day - has cut down - [...] in at [facility] Tania Hernández NP [address] [facility], [place], [address], [facility] 11/25/2023 08:16:09 OBGyn Episode No OBEpisode recorded.
== END 2024-12-02 10:28 | disposition home or self-care (01) ==
LOC: HO.HCC 10:06
PROVIDERS: Visit Provider Internal Medicine
DX: F11.21 Opioid dependence, in remission (principal)
CPT/HCPCS: 99213

== ENCOUNTER → 2024-12-02 10:06 | Outpatient (BNVA) | payer MEDICARE, MEDICAID, SELFPAY | PROVIDERS: Visit Provider Internal Medicine | DX: F11.21 Opioid dependence, in remission (principal) | CPT/HCPCS: 99212 ==

== ENCOUNTER 2025-01-30 10:22 | Outpatient (AMB) | payer MEDICARE, MEDICAID, SELFPAY ==
--- NOTE | 2025-01-30 10:37 | MHC.OFFVIS ---
Vital Signs 01/30/25 10:38 Height 5 ft 2 in Weight 146 lb BMI 26.7 BP 122/70 Pulse 76 Pulse Oximetry (%) 92 Intake Visit Reasons: MAT Allergies Iodinated Contrast Media Allergy (Intermediate, Verified 01/30/25 10:39) rash Medication List - Last Reconciled 01/30/25 by LLUVIA Cordova armodafinil (Nuvigil) 250 mg PO QAM buprenorphine-naloxone 12-3 mg (Suboxone) 1 film sublingual Q24H 30 days ibuprofen 600 mg PO Q8H PRN zolpidem (Ambien) 10 mg PO BEDTIME PRN HPI Comments Details: The patient is a 34-year-old female presenting for routine follow-up r/t opioid use disorder. Reports feeling stable on buprenorphine-naloxone 12-3 mg daily. She denies the use of opioids or other substances and does not express any mental health concerns. She reports intermittent use of cannabis to assist with sleep and occasional use of vape products. The patient is currently stable in her employment with a new job. No new symptoms or allergies were noted, and she reports her care is progressing well without any complications. [facility] Medical History Opioid use disorder Social History Patient Tobacco Use Status: Current someday Tobacco user Tobacco use type: Cigarette Review of Systems Const All systems reviewed & are unremarkable except as noted in HPI and below Physical Exam Vital Signs: Last Vital Signs Pulse 76 01/30/25 10:38 BP 122/70 01/30/25 10:38 Pulse Ox 92 01/30/25 10:38 BMI result Body Mass Index 26.7 Const General: cooperative Nutritional Appearance: average body habitus Orientation/consciousness: patient oriented x3 Limitations: no limitations Neuro General: patient oriented x3 Psych Appearance: well kempt Mental Status: mental status grossly normal Speech and movement: Normal speech and movement present Affect: normal affect Attitude: cooperative Thought process: Normal thought process present Insight: Good insight present (Psych) Judgement: Good judgement present (Psych) Assessment & Plan Assessment & Plan (1) Opioid use disorder, severe, in sustained remission: Comment: She is doing well on 06/07 Suboxone strip ,split between am and pm Code(s): F11.21 - Opioid dependence, in remission Category: Medical Plan The plan of care is to continue with buprenorphine-naloxone 12-3 mg daily and to reduce use of vaping and marijuana. Medications: Refilled buprenorphine-naloxone 12-3 mg (Suboxone) 1 film sublingual Q24H 30 ea 1RF 30 days Patient Instructions: - Continue with buprenorphine-naloxone 12-3 mg daily. - Reduce vaping and intermittent use of marijuana. - Follow up in two months or sooner, if needed. - Call [facility] with questions, concerns or to reports side effects. - The patient verbalized understanding and agreed with plan of care. Scribe Plan - Not visible on output: Patient was informed and verbally consented to the use of an ambient scribe for clinical note documentation during this visit. Coding Level of Care Code Est Pt Level 3 (95338) Diagnoses Opioid use disorder, severe, in sustained remission F11.21
[2025-01-30 10:38] VITALS: BP 122/70; PULSE 76; O2SAT 92; BMI 26.7
--- OUTSIDE RECORDS SUMMARY | 2025-01-30 11:29 | XMS_ITS ---
[place], [address], 08/14/2021 14:50:50 08/14/19 22 08/14/2021 COMP. METAB OLIC PANEL chloride 105 mmol/ L 96-107 Not Available [address], [address], 08/14/2021 14:50:50 08/14/19 22 08/14/2021 COMP. METAB OLIC PANEL anion gap 9.7 5.0-15 .0 Not Available [address], [address], 08/14/2021 14:50:50 08/14/19 22 08/14/2021 COMP. METAB OLIC PANEL CO2 26 mmol/ L 21-32 Not Available [address], [address], 08/14/2021 14:50:50 08/14/19 22 08/14/2021 COMP. METAB OLIC PANEL calcium 9.0 mg/dL 8.5-10 .3 Not Available [address], [address], 08/14/2021 14:50:50 08/14/19 22 08/14/2021 COMP. METAB OLIC PANEL total protein 7.5 g/dL 6.4-8. 2 Not Available [address], [address], 08/14/2021 14:50:50 08/14/19 22 08/14/2021 COMP. METAB OLIC PANEL albumin 4.0 g/dL 3.4-5. 0 Not Available [address], [address], 08/14/2021 14:50:50 08/14/19 22 08/14/2021 COMP. METAB OLIC PANEL globulin 3.5 g/dL Not Available [address], [address], 08/14/2021 14:50:50 08/14/19 22 08/14/2021 COMP. METAB OLIC PANEL A/G 1.1 ratio 0.8-2. 0 Not Available [address], [address], 08/14/2021 14:50:50 08/14/19 22 08/14/2021 COMP. METAB OLIC PANEL total bilirubin 0.30 mg/dL 0.00-1 .00 Not Available [address], [address], 08/14/2021 14:50:50 08/14/19 22 08/14/2021 COMP. METAB OLIC PANEL AST 15 U/L 0-37 Not Available [address], [address], 08/14/2021 14:50:50 08/14/19 22 08/14/2021 COMP. METAB OLIC PANEL ALT 25 U/L 6-63 Not Available [address], [address], 08/14/2021 14:50:50 08/14/19 22 08/14/2021 COMP. METAB OLIC PANEL alk. phos. 77 U/L 50-136 Not Available [address], [address], 08/14/2021 14:50:50 08/14/19 22 08/14/2021 TSH TSH 1.39 uIU/m L 0.50-6 .00 The Ameri can Colle ge of Endoc rinol ogy and Ameri can Thyro id Assoc iatio n recom mend goal TSH value s betwe en 0.4-4 .0 mIU/m L. Not Available [address], [address], 08/14/2021 16:00:41 08/14/19 22 08/15/2021 HEPAT ITIS C AB W/REF L TO HCV RNA, QN, PCR hepatitis C antibody NON-RE ACTIVE non-re active normal Not Available [facility] [address], [address], 08/15/2021 09:36:30 08/14/19 22 08/15/2021 HEPAT ITIS [...] a test for HCV RNA (test code 68769 ) is sugge sted. For addit ional infor devon aguilera pleas e refer to http: //[facility] sadia aguilera.que stdia gnost ics.c om/fa q/FAQ 22v1 (This link is being provi ded for infor matdoni nal/ educa oc l purpo ses only. ) Not Available [facility] Lab [address], [place], [address], 08/15/2021 09:36:30 09/12/19 18 09/11/2017 xr chest Pa and later al 2 views HISTOR Y: As above. COMPAR NICOL: None. CHEST RADIOG RAPH FINDIN GS: 2 views obtain ed. Heart and medias tinum are normal . Bronch ial wall thicke julio. Lungs are clear. Mild mid thorac ic spine disc space narrow ing and mild thorac ic scolio sis. No acute soft tissue findin gs. IMPRES ELISABETH: No pneumo anton. Bronch ial wall thicke julio which could indica te bronch itis. POS - CDHRAD BOARDW S11 Electr onical ly Signed by: KYLE GONZALEZ MD on 09/12/19 6:27 AM Interp reted by: Kyle gonzalez MD Signed by: Kyle gonzalez MD 09/11/17 CC Recipi ents: Aisha mcbride MD - Fax Final result P.S. Back pain, fever, cough AISHA MCBRIDE [facility] [address] [place] [address], [address], 09/13/2017 16:08:58 09/12/19 18 09/11/2017 XR, chest No observ ation record ed. [facility] [address] [place] [address], [address], 09/13/2017 16:08:58 09/12/19 18 09/11/2017 adult ECHO TTE This is a summar y report . The comple te report is availa ble in [facility] . If you cannot [...] * No prior studie s for compar nicol. AISHA MCBRIDE [facility] [address] [place] [address], [address], 09/13/2017 16:08:59 09/12/19 18 09/11/2017 adult ECHO TTE This is a summar y report . The comple te report is availa ble in the [facility] . If you cannot [...] * No prior studie s for compar nicol. Addend ed ThuSep 11, 2017 9:25 AM [...] * No prior studie s for compar nicol. AISHA MCGINNIS [facility] [address] [facility], [place], [address], 09/13/2017 16:08:59 09/12/19 18 09/11/2017 US lower extre mity veins duple x (bila teral ) COMPAR NICOL: None. BILATE RAL LOWER EXTREM ITY DOPPLE R VENOUS ULTRAS OUND FINDIN GS: There is no eviden ce of bilate ral lower extrem ity deep venous thromb osis from the common femora l vein to the trifur cation veins. Deep veins are compre ssible with normal color flow and augmen tation . No poplit eal cyst. IMPRES ELISABETH: No eviden ce of bilate ral lower extrem ity deep venous thromb osis. POS CDHRAD BOARDW S11 Electr onical ly Signed by: KYLE GONZALEZ MD on 09/12/19 10:47 AM Interp reted by: Kyle gonzalez MD Signed by: Kyle gonzalez MD 09/11/17 Final result AISHA MCGINNIS TZ [facility] [address] [facility], [place], [address], 09/13/2017 16:08:59 09/12/1909/11/2017 NM, lung scan, perfu elisabeth DOSE: 5.1 mCi mCi Tc-99m MAA COMPAR NICOL: Chest x-ray September 11, 2017 FINDIN GS: [...] and the airspa ce diseas e. IMPRES ELISABETH: Abnorm al perfus ion lung scan with multif ocal modera te size perfus ion defect s bilate rally. This is of indete rminat e etiolo gy with possib ilitie s rangin g from multif ocal pulmon noah emboli to extens [place] airspa ce diseas e. The fact that the patien t has a negati ve d-dime r would sugges t this may be relate d to airspa ce diseas e. S/S: Shortn ess of breath , dyspne a POS - CDHRAD BOARDW S8 Electr onical ly Signed by: ALIRIO Olivo on 09/12/19 12:53 PM Interp reted by: Alirio olivo MD Signed by: Alirio olivo MD 09/11/17 Final result Name & verifi ed dl AISHA MCBRIDE [facility] [address] [place], [address], 09/13/2017 16:08:59 09/12/19 18 09/11/2017 CT abdom en/pe lvis witho ut contr ast COMPAR NICOL: 2013. TECHNI QUE: CT abdome n and [...] nal wall hernia s. Incide ntal umbili jurgen pierci ng. No signif icant bony degene rative change s or destru ctive bone lesion s. IMPRES ELISABETH: No acute findin gs. TOTAL CTDIvo l: 3.8 mGy POS - CDHRAD BOARDW S11 Electr onical ly Signed by: KYLE GONZALEZ MD on 09/12/19 18 1:14 PM Interp reted by: Kyle gonzalez MD Signed by: Kyle gonzalez MD 09/11/17 CC Recipi ents: Aisha mcbride MD - Fax Final result AISHA MCBRIDE [facility] [address] [place], [address], 09/13/2017 16:08:59 09/12/19 18 09/11/2017 CT, abdom en + pelvi s, w/wo contr ast No observ ation record ed. [facility] [address] [facility], [place], [address], 09/13/2017 16:08:59 09/12/19 18 09/11/2017 CT, chest , w/o contr ast COMPAR NICOL: Chest x-ray same day. No prior chest [...] Subple ural consol idatio n in the compliance paralegal ior right lower lobe base and linear parenc hymal opacit y at both lung bases indica tive of atelec tasis. IMPRES ELISABETH: Extens [place]ville bilate ral ground glass pulmon noah diseas [...] events ; howeve r, in the approp [facility] clinic al settin g it may be an indica tion for furthe r evalua tion or cardio logy consul tation depend ing on the patien t?s cardia c risk factor s. TOTAL CTDIvo l: 3.8 mGy POS - CDHRAD BOARDW S11 Electr onical ly Signed by: KYLE GONZALEZ MD on 09/12/19 18 1:35 PM Interp reted by: Kyle gonzalez MD Signed by: Kyel gonzalez MD 09/11/17 CC Recipi ents: Aisha mcbride MD - Fax Final result AISHA MCBRIDE [facility] [address] [place] [address], [address], 09/11/2017 16:34:56 02/14/20 19 02/13/2019 xr chest [...] bony thorax appear s intact . IMPRES ELISABETH: No eviden ce of active cardio pulmon noah diseas e. POS CDHRAD BOARDW S11 Electr onical ly Signed by: JOSEFINA VELASCO on 019 8:49 AM Interp reted by: Josefina Velasco MD Signed by: Josefina Velasco MD 9 Final result AISHA MCBRIDE [email or web address] [address] [place] [address], [address], 02/14/2019 10:08:11 08/12/19 20 08/12/2019 xr chest Pa and later al 2 views XR CHEST PA AND LATERA L 2 VIEWS HISTOR Y: + COUGH [SIGN/ SX] COMPAR NICOL: None FINDIN GS: Lines and Tubes: None. Heart and medias tinum: The cardia c silhou ette is normal in size. No medias tinal or hilar enlarg ement. Lungs and Pleura l: Lingul ar airspa ce opacit y is noted. No pneumo thorax or pleura l effusi on. Bones and Soft Tissue s: No acute abnorm ality. IMPRES ELISABETH: Lingul ar airspa ce opacit y concer julio for pneumo anton. Follow -up is recomm ended. The findin gs were discus sed with Dr Garza 2019 at 8:40 PM. POS CDHRAD BOARDW S10 Electr onical ly Signed by: JENNIFER KENNY on 08/12/19 8:44 PM Interp reted by: Jennifer Kenny MD Signed by: Jennifer Kenny MD 08/12/19 Final result JUAN CARLOS HERNÁNDEZ [facility] [address] [place] [address], [address], 08/14/2019 11:01:29 12/25/19 21 12/24/2020 XR, chest XR CHEST PORTAB LE COMPAR NICOL: Two-vi ew chest radiog raph from 08/12/19. FINDIN GS: Device s/Tube s/Line s: None. Lungs: Subtle bilate ral opacit ies are seen. Pleura : Normal . No pleura l effusi on or pneumo thorax . Heart/ Medias tinum: Normal . The heart and medias tinum are normal . Bones/ Soft Tissue s: Normal . No signif icant skelet al abnorm ality. IMPRES ELISABETH: Subtle bilate ral opacit ies could repres ent airspa ce diseas e in the approp riate clinic al settin g. Electr onical ly Signed by: Jake Deleon on 021 5:42 AM Interp reted by: Jake Deleon MD Signed by: Jake Deleon MD 1 Final result WITHDR AWAL SYMPTO MS JUAN CARLOS HERNÁNDEZ [facility] [address] [place], [address], 12/24/2020 08:50:42 06/21/12/24/2020 US lower extre mity veins duple x (bila teral ) COMPAR NICOL: 09/12/19 18. BILATE RAL LOWER EXTREM ITY DOPPLE R VENOUS ULTRAS OUND FINDIN GS: There is no eviden ce of bilate ral lower extrem ity deep venous thromb osis from the common femora l vein to the trifur cation veins. Deep veins are compre ssible with normal color flow and augmen tation . No poplit eal cyst. IMPRES ELISABETH: No eviden ce of bilate ral lower extrem ity deep venous thromb osis. Electr onical ly Signed by: Kyle gonzalez on 9:04 AM Interp reted by: Kyle gonzalez MD Signed by: Kyle gonzalez MD Final result *Patie nt here for evalua tion of hypoxi a and elevat ed D-dime r *No DVT and no pop fossa cyst seen in BLEs [facility] [address] [place], [address], 12/24/2020 11:01:28 12/25/1912/24/2020 adult ECHO TTE Result Report Patien t Name: Duane Rodriguez Darrick michael Class: Inpati ent Sonogr apher: Heathe r Dreahe r Perfor moises Physic doreen: None Select ed Suppor ting Staff: None Select ed Orderi ng Prov: Syed s Verna Primar y Care Physic doreen: Juan Carlos Hernández Diagno sis: Reason For Exam: acute hypox resp failur e, elevat ed DDimer , IV dye allerg y Proced ure(s) Perfor med: Compre hensiv e Echo (TTE) Date Perfor med: Access ion #: [id number] Result Status : Final Echo Findin [...] ce of perica rdial effusi on. Compar nicol Findin gs Compar ed to a prior [...] mcintosh MD on 1 at 1529 EDT Readleandro ramirez Physic ians Physic doreen Role Srinivasan mcintosh MD Attend ing Cardio logist JUAN CARLOS HERNÁNDEZ [facility] [address] [facility], [place], [address], 12/24/2020 16:25:39 12/26/1912/25/2020 CT, chest , w/o contr ast COMPAR NICOL: Portab le chest x-ray 021. CT chest [...] thorac ic spine disc diseas e. IMPRES ELISABETH: 1.Find ings sugges tive multil obar pneumo [...] by: Kyle gonzalez MD 1 Final result JUAN CARLOS Santos EDGAR [facility] [address] [facility], [place], [address], 12/25/2020 11:10:28 Result Notes Documentation Provider Name and Address Organization Details Recorded Time Ct, Chest, W/o Contrast : COMPARISON: Chest x-ray same day. No prior chest CT. TECHNIQUE: CT chest without IV contrast due to prior history of IV contrast anaphylactic reaction. Multiplanar reformatted images generated. Automated exposure control utilized. CT CHEST FINDINGS: Cardiovascular: Heart is normal in size. No pericardial effusion. No aortic aneurysm. Main pulmonary arteries are normal in size. No intraluminal hyperdensity to indicate embolism. Mediastinum: Esophagus is normal. No enlarged mediastinal or hilar lymph nodes. Triangular shaped anterior superior mediastinal soft tissue representing residual thymic tissue. Musculoskeletal: No thyroid nodules identified. No enlarged supraclavicular or axillary lymph nodes. Mild thoracic scoliosis. No compression deformities or destructive bone lesions. Lungs: Airway is patent. No masses or bronchiectasis. Scattered areas of mucous plugging bilaterally most prominent at the lower lobe bases. There is moderate bilateral diffuse patchy groundglass disease. Trace bilateral pleural effusions. No masses or nodules identified. Subpleural consolidation in the posterior right lower lobe base and linear parenchymal opacity at both lung bases indicative of atelectasis. IMPRESSION: Extensive bilateral groundglass pulmonary disease with trace bilateral pleural effusions. These findings may be inflammatory or infectious. Follow-up imaging recommended. N.B.: Calcification in the coronary arteries does not in itself have a high positive predictive value for near term cardiac events; however, in the appropriate clinical setting it may be an indication for further evaluation or cardiology consultation depending on the patient?s cardiac risk factors. TOTAL CTDIvol: 3.8 mGy POS - [id number] Interpreted by: Kyle Jimenez MD Signed by: Kyle Jimenez MD 09/11/17 CC Recipients: Aisha Fields MD - Fax Final result AISHA Hernández NP [address] [place] [address], [phone], [facility] 09/11/2017 16:34:56 Nm, Lung Scan, Perfusion : DOSE: 5.1 mCi mCi Tc-99m MAA COMPARISON: Chest x-ray September 11, 2017 FINDINGS: A perfusion scan only is obtained as ventilation radiopharmaceutical could not be obtained today. The clinician is aware of the limitations. There are multifocal perfusion defects evident throughout both left and right lungs. These are evident in both apices of the base. These are of moderate size. No obvious correlate is evident on chest x-ray imaging. Unfortunately without ventilation imaging there is a wide differential diagnosis which ranges between multifocal pulmonary emboli and the airspace disease. IMPRESSION: Abnormal perfusion lung scan with multifocal moderate size perfusion defects bilaterally. This is of indeterminate etiology with possibilities ranging from multifocal pulmonary emboli to extensive airspace disease. The fact that the patient has a negative d-dimer would suggest this may be related to airspace disease. S/S: Shortness of breath, dyspnea POS - [id number] Interpreted by: Alirio Prasad MD Signed by: Alirio Prasad MD 09/11/17 Final result Name & verified dl AISHA Hernández NP [address] [place] [address], [phone], [facility] 09/13/2017 16:08:59 Xr, Chest : XR CHEST PORTABL E COMPARISON: Two-view chest radiograph from 08/12/2019. FINDINGS: Devices/Tubes/Lines: None. Lungs: Subtle bilateral opacities are seen. Pleura: Normal. No pleural effusion or pneumothorax. Heart/Mediastinum: Normal. The heart and mediastinum are normal. Bones/Soft Tissues: Normal. No significant skeletal abnormality. IMPRESSION: Subtle bilateral opacities could represent airspace disease in the appropriate clinical setting. Interpreted by: Svitlana Deleon MD Signed by: Svitlana Deleon MD 12/24/20 Final result WITHDRAWAL SYMPTOMS JUAN CARLOS Hernández, FITTING ROOM SUPERVISOR [address] [place] [address], [phone], [facility] 12/24/2020 08:50:42 Ct, Chest, W/o Contrast : COMPARISON: Portable chest x-ray 12/24/2020. CT chest 09/11/2017. TECHNIQUE: CT chest without IV contrast. Multiplanar reformatted images generated. Automated exposure control utilized. CT CHEST FINDINGS: Lines/tubes: None. Lungs and Airways: No airway masses or bronchiectasis. Mild bilateral diffuse bronchial wall thickening, multilobar mucous plugging and trace mucous in the trachea and left mainstem bronchus. Multilobar central and peripheral groundglass opacities with tree-in-bud disease. Focal parenchymal consolidation the right middle lobe and medial lower lobe bases. No masses. Pleura: Trace bilateral pleural effusions. Heart and mediastinum: Heart is normal in size. No pericardial effusion. No aortic aneurysm. Main pulmonary outflow trunk is normal in size. Esophagus is normal. Hilum is limited without IV contrast. No significant change in mildly enlarged left hilar lymph nodes measuring 1.4 cm on the left and 1.3 cm on the right. Stable subcentimeter mediastinal lymph nodes. Thyroid gland is normal. Soft tissues: Normal. Abdomen: Limited [id number] views of the upper abdomen were obtained and are unremarkable. Bones: No acute compression fractures. No destructive or suspicious bone lesions. Stable mild multilevel thoracic spine disc disease. IMPRESSION: 1.Findings suggestive multilobar pneumonia with groundglass and consolidative opacities, bronchiolitis changes and trace bilateral pleural effusions. 2.Additional findings as above. N.B.: Calcification in the coronary arteries does not in itself have a high positive predictive value for near term cardiac events; however, in the appropriate clinical setting it may be an indication for further evaluation or cardiology consultation depending on the patients cardiac risk factors. Interpreted by: Kyle Jimenez MD Signed by: Kyle Jimenez MD 12/25/20 Final result ALVARADO [place], [phone], [facility] 12/25/2020 11:10:28 Problems Name Problem SNOMED Code Status Onset Date Resolution Date Notes Provider Name and Address Organization Details Recorded Time Premenst rual tension syndrome 83167292 Completed 04/09/[place], [address], [facility] 6 08:11:50 Anemia 706474181 Completed 09/20/[place], [address], [facility] 7 08:28:53 Generali zed anxiety disorder 92005635 [place], [address], [facility] 4 08:12:38 [facility] 752085[facility] Completed 04/09/2015 [place], [address], [facility] 6 08:11:50 Malaise and fatigue 800518616 Completed 05/25/2013 [place], [address], [facility] 6 08:11:50 Narcolep sy 73601365 Completed 04/09/2015 [place], [address], [facility] 6 08:11:50 Graves' disease 489947433 Active Juan Carlos Hernández NP [address] [place], [address], [facility] 4 08:12:38 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 Juan Carlos Hernández NP [address] [place], [address], [facility] 4 08:12:38 Recurren t major depressi ve episodes 747573140 Active Juan Carlos Hernández NP [address] [place], [address], [facility] 4 08:12:38 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 Procedures Surgical History Date Name Laterality Status Provider Name and Address Organization Details Recorded Time 4 Smoking cessation counseling completed Dee Prescott [facility] 11/24/2023 16:15:42 3 Smoking cessation counseling completed Suzette Carrasquillo CMA [facility] 11/20/2022 16:09:10 7 POC Flu Testing completed [facility] 07/31/2016 14:10:40 7 POC Strep Testing completed [facility] 07/31/2016 14:10:35 Imaging Results None recorded. Procedure Notes None recorded. Medical Equipment None Reported. Allergies Allergen ID Allergen Name Allergen Category Reaction Reaction Severity Criticality Documentation Date Start Date Code Code System Note Provider Name and Address Organization Details Recorded Time 515464 Iodinated contrast media (substanc e) medicatio n anaphylax is Not available Not available 11/21/2014 10834 2003 [facility] [...] completed Not Available Not Available Not Available Cryselle (28) 0.3 mg-30 mcg tablet TAKE 1 TABLET DAILY 2014 active Not Available Not Available Not Avai lable methylphe nidate CD 20 mg biphasic 30-70 capsule,e xtended release 08/13 completed Not Available Not Available Not Available Paxil active Through college in [facility] N Not Available Not Available Not Available [...] Body mass index (BMI) Body weight Systolic And Diastolic Provider Name and Address Organization Details Last Updated DateTime 08/08/2021 158.75 cm 27.3 kg/m2 61508.25 g 108/66 mm[Hg] Johnie Duong [facility] 08/08/2021 16:19:40 Date Recorded Body weight Body mass index (BMI) Body height Oxygen saturation Oxygen saturation in Arterial blood by Pulse oximetry Heart rate Systolic And Diastolic Provider Name and Address Organization Details Last Updated DateTime 3 95713.5 2 g 25.4 kg/m2 158.75 cm 98 % 98 % 102 /min 120/77 mm[Hg] Suzette Carrasquillo CMA [facility] 3 16:13:13 Date Recorded Body height Body weight Body mass index (BMI) Heart rate Systolic And Diastolic Provider Name and Address Organization Details Last Updated DateTime 11/21/2016 160.02 cm 88585.67 g 22.6 kg/m2 102 /min 126/88 mm[Hg] Roopa Mena RN BSN [address] [place] [address], [phone] , [facility] 11/21/2016 07:33:32 Date Recorded Body weight Heart rate Oxygen saturation Oxygen saturation in Arterial blood by Pulse oximetry Systolic And Diastolic Provider Name and Address Organization Details Last Updated DateTime 4 59870.6 7 g 129 /min 99 % 99 % 128/74 mm[Hg] Dee Prescott [facility] 4 16:06:46 Date Recorded Body weight Body mass index (BMI) Body height Heart rate Systolic And Diastolic Provider Name and Address Organization Details Last Updated DateTime 01/11/2021 70002.56 g 26.6 kg/m2 160.02 cm 88 /min 100/66 mm[Hg] Ricarda Larson [facility] 01/11/2021 15:11:18 Social History Question Answer Notes LastModified by Organizat ion Details LastModified Time Tobacco Smoking Status Current Every Day Smoker [facility] 11/20/2022 16:09:05 Do You Wear A Helmet When Biking? No Information not available 11/20/2022 What Is Your Level Of Caffeine Consumption? Moderate 1-2 Cups Daily [email or web address] Information not available 04/09/2015 How Much Tobacco Do You Chew? None Information not available 02/23/2012 What Type Of Diet Are You Following? REGULAR Information not available 02/23/2012 Which Illicit Or Recreational Drugs Have You Used? Marijuana [email or web address] Information not available 11/20/2022 Education Post Graduate Continuing Education Information not available 02/23/2012 What Is The Highest Grade Or Level Of School You Have Completed Or The Highest Degree You Have Received? [id number] Information not available 08/08/2021 Have There Been [...] Do You Use Insect Repellent Routinely? No [email or web address] Information not available 11/20/2022 Live Alone Or With Others? With Others Information not available 02/23/2012 CSRP - Narcotics No [email or web address] Information not available 09/21/2015 CSRP Contract Signed And Discussed No Stimulant-BGr een 11/01/12,-stopped 07/2016 [email or web address] Information not available 07/24/2016 CSRP - Stimulants [...] Do You Have? 0 2 Step Kids [email or web address] Information not available 11/20/2022 What Is Your [...] use any illicit or recreational drugs? Yes [email or web address] Information not available 11/20/2022 Do you or [...] Mother Disorder of thyroid gland hypoth yroidi heri mspitzer Not available 08/16/2015 07:46:33 Brother Seizure [...] Recorded Time Tdap 1 completed Not Available [facility] 07/23/2019 02:33:04 Hib (HbOC) 3 completed Not Available [facility] 05/21/2011 05:22:52 DTP 8 completed Not Available [facility] 05/21/2011 05:22:52 Hep B, adolescent or pediatric 4 completed Not Available [facility] 05/21/2011 05:22:52 MMR 4 completed Not Available [facility] 05/21/2011 05:22:52 Hep B, adolescent or pediatric 3 completed Not Available [facility] 05/21/2011 05:22:52 MMR 8 completed Not Available [facility] 05/21/2011 05:22:52 OPV, trivalent 8 completed Not Available [facility] 05/21/2011 05:22:52 OPV, trivalent 3 completed Not Available [facility] 05/21/2011 05:22:52 DTP 4 completed Not Available [facility] 05/21/2011 05:22:52 DTP 3 completed Not Available [facility] 05/21/2011 05:22:52 Hib (HbOC) 3 completed Not Available [facility] 05/21/2011 05:22:52 Hib (HbOC) 4 completed Not Available [facility] 05/21/2011 05:22:52 OPV, trivalent 3 completed Not Available [facility] 05/21/2011 05:23:04 OPV, trivalent 4 completed Not Available [facility] 05/21/2011 05:22:52 Td (adult) 4 completed Not Available [facility] 05/21/2011 05:22:52 DTP 3 completed Not Available [facility] 05/21/2011 05:22:52 Hib (HbOC) 3 completed Not Available [facility] 05/21/2011 05:22:52 DTP 3 completed Not Available [facility] 05/21/2011 05:22:52 Td (adult), 2 Lf tetanus toxoid, preservative free, adsorbed 2 completed Juan Carlos Hernández NP [address] [place], [address], [facility] 08/08/2021 17:58:17 Influenza, split virus, quadrivalent, PF 2 completed Juan Carlos Hernández NP [address] [place], [address], [facility] 08/08/2021 17:58:17 COVID-19, mRNA, LNP-S, PF, 30 mcg/0.3 mL dose 1 [facility] 15:05:40 COVID-19, mRNA, LNP-S, PF, 30 mcg/0.3 mL dose [facility] 15:06:05 Past Encounters Encounter ID Performer Location Encounter Start Date Encounter Closed Date Diagnosis/Indication Diagnosis SNOMED-CT Code Diagnosis ICD10 Code Diagnosis Note [id number] TENNILLE Looney [facility], [address] [place] [address] 02/11/2011 09:01:51 02/11/2011 10:35:18 [id number] ALVARADO Howard [facility], [address] [place] [address] 02/20/2011 08:03:05 02/20/2011 08:24:35 [id number] ALVARADO Howard [facility], [address] [place] [address] 07/14/2011 07:52:14 07/14/2011 08:23:23 [id number] ALVARADO Howard, [facility], [address] [place] [address] 12/09/2011 15:04:25 12/09/2011 15:42:47 [id number] ALVARADO Howard, [facility], [address] [place] [address] 12/25/2011 16:12:08 12/25/2011 16:38:58 [id number] ALVARADO Howard, [facility], [address] [place] [address] 02/23/2012 11:09:23 02/23/2012 14:39:37 [id number] MD PATRICIA Santo, [facility], [address] [place] [address] 05/19/2012 15:56:15 05/20/2012 12:40:23 [id number] ALVARADO Howard, [facility], [address] [place] [address] 07/16/2012 07:58:07 07/16/2012 10:11:21 [id number] ALVARADO Howard, [facility], [address] [place] [address] 11/01/2012 08:03:45 11/01/2012 08:34:10 [id number] ALVARADO Howard, [facility], [address] [place] [address] 12/03/2012 07:54:15 12/03/2012 15:14:58 [id number] ALVARADO Howard, [facility], [address] [place] [address] 03/03/2013 08:53:22 03/03/2013 09:31:51 Attention deficit hyperactivity disorder, predominantly inattentive type [id number] I am concerned about her continued wt [...] get 3 month supply of ritalin to [facility] - her insurance recommende d this - Explained that legally we can't even give more than 2 months worth and that we don't usually use mail away pharmacies for controlled substances . She will f/u if unable to continue to get monthly scripts covered by her insurance. Adult heal th examination [id number] see Risk Assessment and Lifestyle Change Counseling section above - pt could not give urine sample for GC/chlamyd ia testing. Will get when she returns in 2 months. Enc. cont. healthy habits. Counseling [id number] Oral contr aceptive prescribed 040752511 No adverse effects from current OCP's - pt to cont - refills given Recurrent major depressive episodes 092135784 Doing well on current dose fluoxetine - refills given [id number] Jose Hansen MD , [facility], [address] [place] [address] 04/29/2013 08:05:30 04/29/2013 09:43:17 Cataplexy and narcolepsy 015456554 much improved on ritalin and is walter. [...] f/u in 4 months for CSRP visit. [id number] Jose Hansen MD , [facility], [address] [place] [address] 08/15/2013 08:32:14 08/15/2013 08:56:04 Cataplexy and narcolepsy 376020888 Doing well on current dose medication which is working very well for her sx narcolepsy with no adverse effects. No concerns re: diversion/ abuse. Pt to return in 6 months for CSRP/PHA visit. [id number] Brown Bundy MD , [facility], [address] [place] [address] 10/12/2013 10:02:31 10/12/2013 13:37:00 Goiter [id number] Patient with thyroid goiter. Denies tenderness or [...] beta-block er if becomes symptomati c. Narcolepsy 15881781 Curr ently using Ritalin (Methylphe nidate) extended-r elease daily along with immediate- release as needed. It has been remarkably improved her quality of life. Previously evaluated by [facility] tts. Prescripti ons now being prescribed by her primary care provider. Work note given clearing her to use a respirator mask. [id number] ALVARADO Howard, [facility], [address] [place] [address] 10/13/2013 11:48:08 10/13/2013 14:37:38 Acute thyroiditis [id number] Discussed with Dr. Hansen. Labs as below. [...] Pt to f/u here tomorrow for re-check. [id number] Juan Carlos Hernández NP FP, [facility], [address] [place] [address] 10/14/2013 09:32:11 10/14/2013 10:25:30 Hyperthyroidism 31510986 It's not clear if this is graves [...] thyroid gets regulated. Enc. adequate food/fluid intake. [id number] Evgeny Renteria MD Endocrino logy, [facility] [address] [place] [address] 10/20/2013 08:10:09 10/20/2013 08:55:52 Graves' disease 396162127 -atenolol 25mg daily for now, may stop if less symptomati c in 3 to 4 weeks, monitor pulse, discuss with Dr. Renteria if >100 at rest -ADD methimazol e 15mg daily Cataplexy and narcolepsy 718271819 -methylphe nidate at reduced doses Recurrent major depressive episodes 268671942 -fluoxetin e [id number] Chelsey Flores MD , [facility], [address] [place] [address] 11/30/2013 11:07:12 11/30/2013 12:41:42 Graves' disease 732740351 Recheck labs today, d/w pt re: possible that methimazol e may need to be adjusted and it might even need to be increased, other options e.g. radioactiv e iodine and surgery, when to present to the ER. She will continue with methimazol e at this time and check labs on the portal when available. She will try to reschedule with Endocrine. [id number] Chelsey Flores MD , [facility], [address] [place] [address] 02/14/2014 09:38:21 02/14/2014 11:02:27 Hyperthyroidism 45087990 Patient will have labs today and methimazol e will be refilled by Dr. Renteria. Narcolepsy 11126798 Disc ussed with patient re: although I [...] will d/w PCP. Major depr essive disorder 145941035 I am okay with refilling fluoxetine if she needs it, which she currently does not [id number] Juan Carlos Hernández NP , [facility], [address] [place] [address] 05/30/2014 09:29:30 06/05/2014 09:26:10 Adult health examination 925856675 see Risk Assessment and Lifestyle Change Counseling section above - up to date with [facility] itzel Gutierrez healthy diet/exerc ise habits. Pt offered flu vaccine - she deferred. Counseling [id number] Cataplexy and narcolepsy 441079815 Wants f/u with sleep medicine specialist s. They originally started her on the Ritalin for the narcolepsy . ? if there is something else she could try. Feels every day as shortactin g Ritalin wears off that she crashes . Pt will call to schedule appt - referral sent. Major depr essive disorder 165615738 Has been doing well on current dose fluoxetine but hasn't received it from her pharmacy in over 2 months (unclear why - has refills). Will resend rx. Pt to notify me if unable to get this in the next 2 weeks. Graves' disease 880511721 continue current med and f/u with endocrine as planned. Oral contr aceptive prescribed 111463431 Impacted t eeth with abnormal position [id number] oral surgeon supposedly told her that she needs a sinus CT Scan. He won't pull her wisdom teeth until this is done. Unclear what he saw on his panoramic xrays. I will contact his office to find out what it is we are imaging her for. I'll f/u with pt once I clarify this. Venereal d isease screening 779734941 Screening for malignant neoplasm of cervix 305238558 [id number] MD PATRICIA Santo, [facility], [address] [place] [address] 07/19/2014 08:44:11 07/21/2014 10:50:25 Gastroenteritis 02196781 viral most likely- it is possible it could be a side effect of nuvigill but the fever would seem to point to a viral gastro. plan- clear liquids, if not better by next week. stop med and see if better. If better, restart med and see if sx ret. OOW till 07/24 [id number] Juan Carlos Hernández NP , [facility], [address] [place] [address] 11/21/2014 08:39:19 11/21/2014 09:00:48 Cataplexy and narcolepsy 017441581 Doing well on current meds although sleep med practition ers have added nuvigil and hopefully she will be able to decrease her stimulants . F/U 6 months for PHA. Major depr essive disorder 115113119 Has been doing well on current dose fluoxetine - pt to continue current dose. Hyperthyroidism 02601790 I realized after pt left today that she is overdue for labs and f/u with endocrine. Doesn't look like she is taking the methimazol e any longer. I will have someone contact her to come in for labs and re-schedul e appt. with Dr. Renteria. [id number] Jose Hansen MD , [facility], [address] [place] [address] 04/09/2015 09:27:00 04/10/2015 10:46:59 Venereal disease screening 770205056 Z11.3 Screening for malignant neoplasm of cervix 695203255 Z12.4 Bacterial vaginosis 4197 94480 B96.89 discussed dx - take flagyl as directed - discussed potential s/e and enc. avoid ETOH and vinegar products while on this. F/U if sx not improving or are worsening. Irregular periods 906386 07 N92.6 Having freq, heavier menses. Will check cbc and thyroid labs today and f/u with results when available. If labs all wnl and sx not resolving, consider pelvic u/s. Graves' disease 53944997 4 E05.80 pt stopped her meds awhile ago - will check T4 and TSH today and f/u with results when available. [id number] Evgeny Renteria MD Endocrino logy, [address] [address] 04/19/2015 08:08:24 04/19/2015 08:59:54 Graves' disease 392623294 E05.00 -methimazo le 5mg once daily -labs 1mo, 4mo, clinic 17 weeks Cataplexy and narcolepsy 123297536 G47.411 -methylphe nidate at reduced doses Recurrent major depressive episodes 274610601 F33.9 -fluoxetin e [id number] Jose Hansen MD , [facility], [address] [place] [address] 06/05/2015 08:29:43 06/05/2015 09:16:22 Adult health examination 576110375 Z00.00 see Risk Assessment and Lifestyle Change Counseling section above Counseling 891993703 Z71 .9 Recurrent depression 191 653897 F33.9 wants to restart fluoxetine which has worked well for her in the past with no adverse effects - rx sent as below - enc. f/u in 4-6 weeks to let me know how this is working and if needed could adjust dose. Graves' disease 75806660 4 E05.80 cont. f/u with endocrine as planned Acne 91847808 L70.9 On chest/back - requests derm referral - sent as below Prolonged periods 653340 006 N92.5 Bleeds for 3 weeks out of the month (light bleeding, no pain except with regular menses gets cramping). Will check pelvic u/s. Had normal CBC in the past couple of months. If u/s neg, will restart OCP's to help get periods more regular. Narcolepsy 76687934 G47. 419 cont. current meds and f/u with sleep med as planned - may be weaning down off the stimulants but for now will continue at current dosing [id number] Evgeny Renteria MD Endocrino logy, [address] [address] 08/16/2015 07:29:34 08/16/2015 08:00:03 Graves' disease 742557962 E05.00 -hold methimazol e for now (stop 5mg tabs 1/2 tab 2.5mg daily) -if labs showed return of hyperthyro idism, will suggest restarting methimazol e via the portal and retesting in 3mo per plan -labs 3mo, 6mo, clinic 25 weeks Cataplexy and narcolepsy 523762566 G47.411 -methylphe nidate at reduced doses Recurrent major depressive episodes 886066655 F33.9 -fluoxetin e [id number] Jose Hansen MD , [facility], [address] [place] [address] 12/06/2015 07:41:19 12/06/2015 08:18:13 Narcolepsy 93220688 G47.419 cont. current meds and f/u with sleep med as planned - may be weaning down off the stimulants but for now will continue at current dosing. F/u in 6 months for PHA. Acne 00849588 L70.9 On chest/back - requests derm referral - sent as below Graves' disease 71670475 4 E05.80 cont. f/u with endocrine as planned - off meds now and last TSH in normal range. Due for recheck next month. Insomnia 068243390 G47.0 0 ? from the meds. Falls asleep but not staying asleep. Will discuss this with sleep medicine. Pt to call to schedule appt. [id number] Evgeny Renteria MD Endocrino [facility], [address] [address] 02/07/2016 07:34:03 02/07/2016 07:58:30 Graves' disease 949297626 E05.00 -no methimazol e for now-labs 6mo, clinic 25 weeks Cataplexy and narcolepsy 901979353 G47.411 -methylphe nidate at reduced doses Recurrent major depressive episodes 830086468 F33.9 -fluoxetin e [id number] Jose Hansen MD , [facility], [address] [place] [address] 04/15/2016 13:17:34 04/16/2016 11:02:43 Common cold 01736840 J00 Reassured. No s/s strep on exam. Sx clearly viral. Lungs clear. Enc. force fluids, steam inhalation prn and adequate rest. OK to take otc cold/cough meds prn for sx mgt and f/u prn if not gradually improving, develops high fever or increased resp. difficulty /cough. Enc flu vaccine when better. [id number] Brigitte Mcintyre NP , [facility], [address] [place] [address] 07/31/2016 13:14:44 08/01/2016 15:01:53 Venereal disease screening 948401586 Z11.3 Routine Fever 759150595 R50.9 Pt with c/o fever and painful muscle aches. CXR, quick strep and flu tests negative. Pt cries when touched because it hurts. Discusses case with PCP, Juan Carlos Hernández. Pt with h/o anxiety. ? viral illness . Will check labs. Pt inst to f/u if not getting better or go to ED if worsens. CXR machine was down. Pt was supposed to go to [facility] for cxr - although lung sounds were normal. She was exposed to pneumonia. Abdominal pain 02500906 R10.9 [id number] Evgeny Renteria MD Endocrino log, [address] [address] 08/13/2016 07:16:12 08/13/2016 07:45:04 Graves' disease 330650899 E05.00 -restart methimazol e 5mg by mouth once daily-labs 3mo, clinic 13 weeks Cataplexy and narcolepsy 399482639 G47.411 -methylphe nidate [id number] Jose Hansen MD , [facility], [address] [place] [address] 09/19/2016 14:54:07 09/19/2016 16:05:03 Adult health examination 151521129 Z00.00 see Risk Assessment and Lifestyle Change Counseling section above Counseling 856352298 Z71 .9 Cataplexy and narcolepsy 168548040 G47.411 This is managed by sleep med - currently tolerating meds with good effect, no adverse effects Generalize d anxiety disorder 41625503 F41.1 Recurrent major depressive episodes 011247234 F33.9 Feels current dose of fluoxetine no longer adequate for controllin g her sx of anxiety/de pression. Has alot of stress in her life right now. Trial of increasing to 40 mg/day and f/u with me in 3-4 weeks via the portal to let me know how she is doing. Graves' disease 77524725 4 E05.80 cont. f/u with endocrine as planned - she is back on the methimazol e and doing well Screening for malignant neoplasm of cervix 019928790 Z12.4 [id number] Evgeny Renteria MD Endocrino [facility], [facility] [address] [place] [address] 11/21/2016 07:28:23 11/21/2016 07:45:49 Graves' disease 714060067 E05.00 -reduce methimazol e 5mg tabs, 1/2 tab 2.5mg by mouth once daily-labs 3mo, 6mo clinic 25 weeks Cataplexy and narcolepsy 795858750 G47.411 -methylphe nidate [id number] DO PATRICIA Calles, [facility], [address] [place] [address] 01/11/2021 14:50:04 01/11/2021 15:54:33 Screening for disorder 584319970 Z11.59 Accidental overdose of opiate 494611300 T40.601A S/p hospital stay for accidental OD with suboxone while sick with URI and achy mistaken for withdrawal symptoms per patient report. Pt has plan for detox coming up as an outpatient - not interested in in-patient program. Aspiration pneumonia 422 310882 J69.[address]. Refill [address]er[address]. CT chest to eval for resolution . Call with new/worsen ing symptoms or if no improvemen t. Pt agrees with plan. Acute hypo xemic respiratory failure 093651808 J96.01 S/p hospital stay, will refill inhaler, repeat CT per hospital to eval for resolution . Recurrent major depressive episodes 307303134 F33.9 Re-start fluoxetine . F/u with PCP for dosing changes- has upcoming appt with PCP. Call with new/worsen ing symptoms or if no improvemen t. Pt agrees with plan. Generalize d anxiety disorder 03204473 F41.1 As above. [id number] DO PATRICIA Calles, [facility], [address] [place] [address] 08/08/2021 15:54:43 08/12/2021 16:47:09 Adult health examination 864425275 Z00.00 see Risk Assessment and Lifestyle Change Counseling section above Counseling 486808436 Z71 .9 Depression screening 171 998230 Z13.31 depression screening tool administer ed, entered into emr, scored and discussed, time greater than 7.5 minutes Screening for disorder 549307664 Z11.59 Measure identifies patients 18-79 years of age who had a one-time hepatitis C virus screening. 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 On suboxone. States clean/sobe r since January (hospitali zed and almost ) . Enc cont. f/u with addiction med and working towards sobriety. Graves' disease 20117614 4 E05.80 cont. f/u with endocrine as planned - she is back on the methimazol e and doing well Cataplexy and narcolepsy 852914983 G47.411 This is managed by sleep med - currently tolerating meds with good effect, no adverse effects however is asking for short acting med for middle of day. Enc. discuss with specialist . They can call me to discuss if they feel it is indicated but I would not prescribe anything without speaking with them first. Generalize d anxiety disorder 88772835 F41.1 Stable on fluoxetine Active or passive immunization 847454522 Z23 [id number] Mis White MD , [facility], [address] [place] [address] 11/20/2022 16:00:00 11/20/2022 17:28:10 Adult health examination 037849917 Z00.00 see Risk Assessment and Lifestyle Change Counseling section above. States gets labs regularly through suboxone program. Otherwise up to date with [facility]. Depression screening 171 410159 Z13.31 depression screening tool administer ed Screening for alcohol abuse 740157224 Z13.39 Alcohol use screening tool administer ed Tobacco user 819873610 Z 72.0 We discussed your smoking today for more than 3 minutes. Cigarette use is the leading cause of preventabl e disease, disability , and in the [place]. We talked about tools and medication s available to help you in smoking cessation. We discussed utilizing our smoking cessation assistant wrestling coach and online resources. Your personal goal: pt wants to wait to focus on smoking cessation until has tapered off the suboxone Cataplexy and narcolepsy 856313511 G47.411 This is managed by sleep med - currently tolerating meds with good effect, no adverse effects Generalize d anxiety disorder 56093484 F41.1 Stable on fluoxetine Acne 85952799 L70.9 On chest/back - trial of clindamyci n solution as below - f/u if not improving Recurrent major depressive episodes 990499556 F33.9 Moods stable on current dose fluoxetine - has providers Dysmenorrhea 920150450 N 94.6 OK to continue to use ibuprofen for menstrual cramps Harmful pa ttern of use of multiple substances 237666448 F19.10 Followed at [facility] - has counsellor , supports. On suboxone. Doing well with sobriety. Hoping to eventually get off the suboxone [id number] Mis White MD , [facility], [address] [place] [address] 11/24/2023 16:00:48 11/24/2023 16:26:35 Nicotine dependence 65351069 F17.200 We discussed your smoking/va ping today for more than 3 minutes. Cigarette/ pod use is the leading cause of preventabl e disease, disability , and in the [place]. We talked about tools and medication s available to help you in smoking/va ping cessation. We discussed utilizing our smoking cessation assistant wrestling coach and online resources. Your personal goal: continue to work on quitting Low back p ain co-occurrent with neuralgia of left sciatic nerve 0495376445 5790472 M54.42 Started suddenly 3 days ago - no new activity/i njury - enc cont high dose ibuprofen and can add tylenol as well - continue ice/heat, gentle stretching and will add muscle relaxer as below - warned can cause drowsiness . Referred to PT. Pt will schedule at [facility] where she has gone in the past. Return for [place] with new PCP in the near future. Eventually needs nexplanon replaced as well. F/u if back sx not improving Cataplexy and narcolepsy 222006002 G47.411 This is managed by sleep med - currently tolerating meds with good effect, no adverse effects Harmful pa ttern of use of multiple substances 254837707 F19.10 Followed at [facility] - has counsellor , supports. On suboxone. Doing well with sobriety. Hoping to eventually get off the suboxone Recurrent major depressive episodes 988343300 F33.9 Moods stable on current dose fluoxetine - has providers Health Concerns Section Related Observation LastModified by Organization Detai ls LastModified Time None Recorded Concern Status LastModified by Organization Details LastModified Time None Recorded Advance Directives Directive None Recorded Payers Insurance Date Sequence Insurance Name Policy Number Policy Walker Covered Member ID Walker Member ID Guarantor Name 01/05/2024 2 [place] [facility] Rosie Merazk [id number] Rosie Rodriguez 01/05/2024 1 ON LICENSE OF [facility] - TOGETHER (MEDICAID HMO) Rosie Rodriguez [id number] Rosie Rodriguez 01/05/2024 1 [place] [employer] Rosie Rodriguez [id number] Rosie Rodriguez 02/18/2012 1 [facility] [id number] Radha Rodriguez [id number] Rosie Luna Cialek 08/15/2013 1 [place] Radha Rodriguez [id number] Rosie Luna Cialek 05/12/2012 1 [place] Radha Rodriguez [id number] Rosie Luna Cialek 07/16/2012 1 [place] Radha Rodriguez [id number] Rosie Luna Cialek 04/09/2013 1 [employer] (EPO) [id number] Radha Rodriguez [id number] Rosie Merazk 01/05/2024 1 [facility] ([facility] [place]) Rosie Merazk [id number] Rosie Luna Cialek 01/05/2024 1 [place] PRIOR [place] 2022 - [facility] (MEDICAID) Rosie Merazk [id number] Rosie Luna Cialek 01/05/2024 1 [place] [id number] Rosie Rodriguez [id number] Rosie Rodriguez OBGyn Episode No OBEpisode recorded.
== END 2025-01-30 10:46 | disposition home or self-care (01) ==
LOC: HO.HCC 10:22
PROVIDERS: PCP Nurse Practitioner Family; Visit Provider Clinical Nurse Specialist Psychiatric/Mental Health
DX: F11.21 Opioid dependence, in remission (principal)
CPT/HCPCS: 99213

== ENCOUNTER → 2025-01-30 10:22 | Outpatient (BNVA) | payer MEDICARE, MEDICAID, SELFPAY | PROVIDERS: PCP Nurse Practitioner Family; Visit Provider Clinical Nurse Specialist Psychiatric/Mental Health | DX: F11.21 Opioid dependence, in remission (principal) | CPT/HCPCS: 99212 ==

== ENCOUNTER 2025-03-31 10:54 | Outpatient (AMB) | payer MEDICARE, MEDICAID, SELFPAY ==
[2025-03-31 11:05] VITALS: PULSE 104; O2SAT 99; BMI 27.1
--- NOTE | 2025-03-31 11:05 | MHC.OFFVIS ---
Vital Signs 03/31/25 11:05 Height 5 ft 2 in Weight 148 lb BMI 27.1 Pulse 104 H Pulse Source Pulse Oximeter Pulse Oximetry (%) 99 Intake Visit Reasons: MAT Allergies Iodinated Contrast Media Allergy (Intermediate, Verified 03/31/25 11:05) rash HPI Comments Details: History of Present Illness The patient is a 61-year-old male presenting for follow-up in the management of discitis. His history with this condition began with back pain last year, leading to his hospitalization and initiation of intravenous vancomycin. Concerns over surgical needs prompted his transfer to a secondary hospital setting. Currently, he continues on a regimen of vancomycin and cefepime, aiming for resolution by April 13. Persisting symptoms include severe back pain, associated radicular pain affecting his right leg. Emergency room evaluation confirmed the absence of thromboembolic events, though correction of electrolyte imbalances was necessary. He reports an extended history of hepatocellular carcinoma, linked to prior hepatitis C infection. The patient also has a history of alcohol use disorder, now reportedly abated. Cardiomyopathy complicates his case, coexisting with supraventricular tachycardia and atrial fibrillation. He continues to deal with elevated liver function tests likely related to his hepatic condition. Mobility is significantly impacted by spinal stenosis, necessitating external aid such as a walker borrowed from his neighbor. Occasional diarrhea presents but remains infrequent. Review of Systems - Musculoskeletal: Reports back pain, pain radiating to the right leg. - Neurological: Reports difficulty walking, using a neighbor's walker. - Gastrointestinal: Reports occasional diarrhea. - Cardiovascular: Reports history of supraventricular tachycardia and atrial fibrillation. - Endocrine: Reports history of hepatocellular carcinoma. Physical Exam - Vitals- Stable. - HEENT- Oropharynx clear. - Respiratory- Lungs clear. - Cardiovascular- Heart regular rhythm. - Abdomen- Soft, non-tender. - Musculoskeletal- Discomfort in the right lower extremity, thigh area present. Results - Labs: Corrected low potassium and calcium (no specific levels provided). - Tests: No evidence of blood clot confirmed in recent ER visit. Plan Patient was informed and verbally consented to the use of an ambient scribe for clinic note documentation during this visit. 1. Discitis, unspecified, lumbar region M46.46 The patient maintains a treatment schedule with IV vancomycin and cefepime, monitoring weekly labs, transitioning to doxycycline thereafter, pending completion of the current regimen. 2. Liver cell carcinoma C22.0 HCC 9 Monitoring elevated LFTs in conjunction with oncology management, adhering to treatment protocols for hepatic carcinoma secondary to known hepatitis C exposure. 3. Substance Use Disorder Alcohol, Cocaine Maintenance of sobriety remains the focus, with risk reductions supported through regular behavioral health evaluations. 4. Cardiovascular Issues Svt, Atrial Fibrillation, Cardiomyopathy Continuous oversight of arrhythmia and cardiomyopathy manifestations. Adjust interventions as warranted by symptomatology. 5. Spinal Stenosis With Mobility Issues Provide necessary mobility aid and consult neurosurgery if functional limitations intensify. Discussion Notes During this follow-up, I discussed with the patient the ongoing management plan for his discitis, which involves continuing IV antibiotics until April 13, followed by a transition to oral doxycycline. We reviewed the risks and benefits of continuing this regimen, emphasizing the importance of completing the course. I reiterated the importance of monitoring healthcare interactions, particularly in light of his hepatocellular carcinoma and potential for liver dysfunction, and ensured he remains engaged with his oncology team. The patient's progress in sobriety was also acknowledged as a significant positive factor in his overall health management. Recommendations for using a walker for mobility are in place until further assessment can be made with neurosurgery regarding his spinal stenosis and related symptoms. Medical Decision Making My assessment and decision-making focused on aligning the patient's treatment plan for discitis with established clinical guidelines, weighing the efficacy of IV antibiotics against the infection. This approach supports symptom resolution and targets microbial eradication. Transitioning to oral doxycycline post-IV treatment is to sustain therapeutic management in an outpatient setting while ensuring continued pathogen suppression. The patient's complicated medical background, including hepatocellular carcinoma, steered secondary considerations, highlighting the need for comprehensive care coordination between infectious diseases, oncology, and cardiology. Tracking the resolution of neurological symptoms encompassed additional measures due to his spinal stenosis, thus recommending a walker provision. Collectively, these strategies achieve therapeutic objectives, while recognizing interlayered risk factors and advancing evidence-based care. Patient Instructions - Continue taking your medications as prescribed. - Complete your antibiotic course until April 13 before starting new therapy. - Use the walker for mobility until your symptoms improve. - Follow up with your oncology team as advised. - Maintain abstinence from alcohol and substances. - Schedule routine check-ins as recommended for your heart condition. - Return to the clinic if you experience worsening pain, mobility difficulties, or any new symptoms. History of Present Illness The patient is a 34-year-old female presenting with concerns related to opioid use disorder and narcolepsy. She has been diligently reducing her Suboxone intake with the eventual goal of complete cessation, currently taking 6 mg daily. She reports no significant addiction issues, although she expresses concern about potential withdrawal which has led her to opt for a gradual taper. In terms of her narcolepsy, the patient is managed by a neurologist. Her initial treatment began in 2011 with NuVigil, followed by other stimulants and anxiolytics. She is now on armodafinil 250 mg daily, which she partially funds herself. 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 Review of Systems - Neurological: Reports tiredness, nocturnal awakenings, afternoon somnolence. - Psychiatric: Denies current addiction issues. - General: Reports feeling well, denies excessive sleepiness at this time. Physical Exam Results Plan Patient was informed and verbally consented to the use of an ambient scribe for clinic note documentation during this visit. 1. Opioid use, unspecified, uncomplicated F11.90 The patient is reducing Suboxone with the goal of cessation, currently at 6 mg daily. Prescribed 8 mg tablets to continue tapering. Follow-up with consideration for switching to Sublocade. 2. Narcolepsy With Cataplexy Managed on armodafinil 250 mg daily. Symptoms persist; neurologist considers additional Adderall 5 mg if appropriate. Plan for urine drug screening and stimulant contract in place. Discussion Notes During our discussion, the patient expressed her commitment to reducing her Suboxone intake, and the need to proceed cautiously to prevent withdrawal. We reviewed her current dose of 6 mg and the provision of 8 mg tablets to facilitate an ongoing taper. The possibility of transitioning to Sublocade was explored, detailing an initial dose of 300 mg with a taper schedule. We also reviewed her ongoing management plan for narcolepsy with armodafinil, and the neurologist's suggestion to possibly add 5 mg of Adderall in the afternoon to augment treatment. Potential side effects and monitoring requirements were discussed, including the need for a urine drug screening and a stimulant contract. Follow-up plans were agreed upon to reassess the situation and adjust the treatment course as necessary. Medical Decision Making In approaching the patient's opioid use disorder, the plan is to facilitate a safe and methodical taper from Suboxone, recognizing her current level of stability and absence of acute addiction concerns. We weighed the benefits of using Sublocade for maintenance as a strategic approach to mitigate withdrawal risks while supporting sustained remission. The plan incorporates precautions regarding medication administration and gradual reduction in a structured format. Regarding narcolepsy, despite ongoing symptoms, current therapy with armodafinil is to be maintained, with consideration for adjunctive use of Adderall contingent on symptom assessment and logistic feasibility, in coordination with neurology. The treatment goals aim to optimize symptom control while sustaining safety and awareness, particularly in her professional environment. Patient Instructions - Continue to take Suboxone as prescribed, following the taper plan. - Monitor for any withdrawal symptoms and report any concerns. - Take armodafinil as directed daily. - Follow up with neurologist for possible adjustments to your narcolepsy treatment. - Return for follow-up in one month for reassessment and medication adjustments. - Contact us if you experience increases in sleepiness or any new symptoms. PFS Medical History Opioid use disorder Social History Patient Tobacco Use Status: Current someday Tobacco user Tobacco use type: Cigarette Physical Exam Vital Signs: Last Vital Signs Pulse 104 H 03/31/25 11:05 Pulse Ox 99 03/31/25 11:05 BMI result Body Mass Index 27.1 Assessment & Plan Assessment & Plan (1) Opioid use disorder, severe, in sustained remission: Comment: She is doing well on 123 Suboxone strip ,split between am and pm Code(s): F11.21 - Opioid dependence, in remission Category: Medical Plan: na Plan na Medications: New buprenorphine-naloxone 8-2 mg (Suboxone) 1 film sublingual DAILY 30 ea 0RF 30 days buprenorphine ER (Sublocade) 300 mg (1.5 mL) subcut QMONTH 30 days 1.5 mL 3RF buprenorphine ER (Sublocade) 300 mg (1.5 mL) subcut QMONTH 1.5 mL 3RF 30 days Coding Level of Care Code Est Pt Level 4 (15842) Diagnoses Opioid use disorder, severe, in sustained remission F11.21
== END 2025-03-31 11:41 | disposition home or self-care (01) ==
PROVIDERS: PCP Nurse Practitioner Family; Visit Provider Internal Medicine
DX: F11.21 Opioid dependence, in remission (principal)
CPT/HCPCS: 99214

== ENCOUNTER → 2025-03-31 10:54 | Outpatient (BNVA) | payer MEDICARE, MEDICAID, SELFPAY | PROVIDERS: PCP Nurse Practitioner Family; Visit Provider Internal Medicine | DX: F11.21 Opioid dependence, in remission (principal); Z72.0 Tobacco use; M46.46 Discitis, unspecified, lumbar region; G47.419 Narcolepsy without cataplexy; F10.21 Alcohol dependence, in remission | CPT/HCPCS: 99212 ==

== ENCOUNTER 2025-05-08 08:40 | Outpatient (AMB) | payer MEDICARE, MEDICAID, SELFPAY ==
--- NOTE | 2025-05-08 09:31 | AM.OFFVISNUR ---
Intake Visit Reasons: Injection Allergies Iodinated Contrast Media Allergy (Intermediate, Verified 03/31/25 11:05) rash Nursing Note Rosie is here today for her first Brixadi injection after stability with OUD for the past 4 years. She reports transitioning to cessation as the goal over time. Rosie is alert, oriented, cooperative with care and presents with appropriate affect. Rosie was educated as to the injection process and expectations. Brixadi emergency wallet card given and Buprenorphine contract reviewed and signed. All questions answered; follow up in 4 weeks for the next injection. Office Meds buprenorphine 64 mg/0.18 mL solution,exten.rel.subcutaneous syringe Performing Provider: Sumi Shaver MD Performing Location: [facility] Administered by: Ekaterina Burgess RN on 05/08/25 09:40 Dose Route Admin Location Dispensed Lot Number Expiration Date [facility] Director Of Retail Operations 64 mg subcut LUQ 0.18 mL [id number] 11/02/26 31054-795-32 [employer]. Total Dispensed Waste 0.18 mL 0 % Comments: Pt here for Brixadi 64mg injection. Pt is here for first injection tolerated injection well. Educated on injection and signs and symptoms of infection and encouraged to call [facility] with any related questions or concerns, pt verbalized understanding. Follow-up scheduled in 4 weeks for next injection. Assessment & Plan Assessment & Plan Orders: Orders AMB Buprenorphine Injection - Patient Supplied Today F11.21 - Opioid dependence, in remission Coding
== END 2025-05-08 09:56 | disposition home or self-care (01) ==
LOC: HO.HCC 08:40
PROVIDERS: PCP Nurse Practitioner Family
DX: F11.21 Opioid dependence, in remission (principal)

== ENCOUNTER → 2025-05-08 08:40 | Outpatient (BNVA) | payer MEDICARE, MEDICAID, SELFPAY | PROVIDERS: PCP Nurse Practitioner Family | DX: F11.21 Opioid dependence, in remission (principal) | CPT/HCPCS: 96372; J0578 ==

== ENCOUNTER 2025-06-08 09:38 | Outpatient (AMB) | payer MEDICARE, MEDICAID, SELFPAY ==
--- NOTE | 2025-06-08 07:51 | AM.OFFVISNUR ---
Vital Signs 06/08/25 09:58 BP 122/68 Blood Pressure Location Rt brachial Position Sitting Pulse 88 Pulse Source Pulse Oximeter Pulse Oximetry (%) 98 Oxygen Delivery Method Room Air Intake Visit Reasons: Injection Allergies Iodinated Contrast Media Allergy (Intermediate, Verified 03/31/25 11:05) rash Nursing Note Rosie is present for her second Brixadi injection. Rosie is alert, oriented. cooperative with care and presents with appropriate affect; she reports some symptoms over the past 3-4 days and supplemented with slivers of films, she reported symptoms of cold sweats, feeling icky and a mild dull pain in her back that is reportedly common to her when experiencing withdrawal symptoms. She is aware of time to reach therapeutic levels in [facility] . Rosie is looking forward to the holidays and s with her infant nephew. Follow-up in 4 weeks for the next injection. Office Meds buprenorphine 64 mg/0.18 mL solution,exten.rel.subcutaneous syringe Performing Provider: Sumi Shaver MD Performing Location: [facility] Administered by: Ekaterina Burgess RN on 06/08/25 10:05 Dose Route Admin Location Dispensed Lot Number Expiration Date [facility] Tower Control Operator 64 mg subcut ISABELLE 0.18 mL [id number] 11/02/26 34003-319-94 [employer]. Total Dispensed Waste 0.18 mL 0 % Comments: BRIXADI Pt here for Brixadi 64 mg injection. Pt denies any concern with previous injection and tolerated injection well. Educated on signs and symptoms of infection and encouraged to call [facility] with any related questions or concerns, pt verbalized understanding. Follow-up scheduled in 4 weeks for next injection. Assessment & Plan Assessment & Plan Orders: Orders AMB Buprenorphine Injection - Patient Supplied Today F11.21 - Opioid dependence, in remission Coding
[2025-06-08 09:58] VITALS: BP 122/68; PULSE 88; O2SAT 98
== END 2025-06-08 10:56 | disposition home or self-care (01) ==
LOC: HO.HCC 09:38
PROVIDERS: PCP Nurse Practitioner Family
DX: F11.21 Opioid dependence, in remission (principal)

== ENCOUNTER → 2025-06-08 09:38 | Outpatient (BNVA) | payer MEDICARE, MEDICAID, SELFPAY | PROVIDERS: PCP Nurse Practitioner Family | DX: F11.21 Opioid dependence, in remission (principal) | CPT/HCPCS: 96372; J0578 ==